=== PATIENT | female | born 1940 | race Caucasian/White ===

== ENCOUNTER 2019-08-28 06:00 | Outpatient (RCR) | payer MEDICARE, OTHER, SELFPAY | END 2019-09-27 00:01 | LOC: SOT 06:00 | PROVIDERS: Family Provider Family Medicine; Visit Provider Orthopaedic Surgery | DX: G56.31 Lesion of radial nerve, right upper limb (principal) | CPT/HCPCS: 97110 ×5 ==

== ENCOUNTER 2019-09-28 06:00 | Outpatient (RCR) | payer MEDICARE, OTHER, SELFPAY | END 2019-10-28 23:59 | disposition home or self-care (01) | LOC: SOT 06:00 | PROVIDERS: Family Provider Family Medicine; PCP Family Medicine; Referring Provider Orthopaedic Surgery; Visit Provider Orthopaedic Surgery | DX: G56.31 Lesion of radial nerve, right upper limb (principal) | CPT/HCPCS: 97110 ==

== ENCOUNTER 2019-10-29 06:00 | Outpatient (RCR) | payer MEDICARE, OTHER, SELFPAY | END 2019-11-26 23:59 | disposition home or self-care (01) | LOC: SOT 06:00 | PROVIDERS: Family Provider Family Medicine; PCP Family Medicine; Referring Provider Orthopaedic Surgery; Visit Provider Orthopaedic Surgery | DX: G56.31 Lesion of radial nerve, right upper limb (principal) | CPT/HCPCS: 97110 ==

== ENCOUNTER 2019-11-27 06:00 | Outpatient (RCR) | payer MEDICARE, OTHER, SELFPAY | END 2019-12-27 23:59 | disposition home or self-care (01) | LOC: SOT 06:00 | PROVIDERS: Family Provider Family Medicine; PCP Family Medicine; Referring Provider Orthopaedic Surgery; Visit Provider Orthopaedic Surgery | DX: G56.31 Lesion of radial nerve, right upper limb (principal) | CPT/HCPCS: 97110 ==

== ENCOUNTER 2020-04-06 07:05 | Outpatient (CLI) | payer MEDICARE, OTHER, SELFPAY ==
--- NOTE | 2020-04-06 07:15 | USCV_ITS ---
Marylou Art Age: 80 Gender: F : 1940 Exam Date: 04/06/2020 07:20 Ordering Phys: Robert Ronquillo MD ([email or web address]) Technologist: Elizabeth Pedro Exam Location: [facility] [place] Indication: carotid stenosis Risk Factors: None Previous Vascular Surgery: None Right Brachial BP: / Left Brachial BP: / Right Left Velocity (cm/s) Spectral Plaque Velocity (cm/s) Spectral Plaque Syst/Diast Broadening Syst/Diast Broadening 56.20/ 15.40 Prox CCA 63.90 / 17.60 33.10/ 9.60 Mid CCA 46.60 / 14.00 43.30/ 10.10 Eugenio Distal CCA 46.60 / 13.20 Eugenio 172.70/52.20 Eugenio Prox ICA 39.70 / 12.80 Eugenio 172.70/46.80 Mid ICA 50.00 / 15.10 149.30/46.80 Distal ICA 59.20 / 21.70 122.30 Eugenio ECA 84.70 Eugenio 3.07 ICA/CCA 0.93 Antegrade Vertebral Antegrade 45.40/ 11.80 cm/s 42.70/ 13.80 cm/s Tri Subclavian Bi 88.20 149.1 0 FINDINGS Moderate to heavy heterogeneous plaques at the right bifurcation and internal carotid artery. Moderate dense plaques of the left bifurcation internal carotid artery. Intimal thickening and minimal plaques in the common carotid arteries bilaterally. Antegrade flow in the vertebral arteries bilaterally. Normal Doppler flow velocities in the external carotid arteries bilaterally. CONCLUSIONS Moderate to heavy heterogeneous plaques at the right bifurcation and internal carotid artery with velocity elevation consistent with 50-79% stenosis. Moderate dense plaques of the left bifurcation internal carotid artery. No similar previous studies are available for comparison Dr Analilia Murray MD [facility] (Electronically Signed) Final Date: 06 April 2020 17:23 S
== END 2020-04-06 07:06 | disposition home or self-care (01) ==
LOC: RAD 07:05
PROVIDERS: PCP Family Medicine; Visit Provider Internal Medicine Cardiovascular Disease
DX: I65.23 Occlusion and stenosis of bilateral carotid arteries (principal)
CPT/HCPCS: 93880

== ENCOUNTER 2020-04-06 08:34 | Emergency (ER) | payer MEDICARE, OTHER, SELFPAY ==
[2020-04-06 08:45] VITALS: BP 129/72; PULSE 90; RESP 20; TEMP 36.4; O2SAT 98; BMI 26.4
--- NOTE | 2020-04-06 08:56 | CT_ITS ---
WS: [id number] CT FACIAL BONES HISTORY: fall TECHNIQUE: Images obtained from the supraorbital location through the mandible. Soft tissue and bone windows are reviewed. Coronal and sagittal reformats have also been submitted. DLP: 743.[address] scans at [facility] use at least one of these dose optimization techniques: automat ed exposure control; mA and/or kV adjustment per patient size (includes targeted exams where dose is matched to clinical indication); or iterative reconstruction. COMPARISON: 06/10/2014 No facial bone fractures are identified. Zygomatic arches and the nasal bones are intact. No mandible or maxilla fractures. Chronic mucoperiosteal thickening in the RIGHT maxillary sinus. No air-fluid l evels. Degenerative changes in the upper cervical spine. Craniocervical junction is normally aligned. Orbits and globes are intact. There is a very small amount of soft tissue edema centered over the LEFT zygo matic arch. CT/CT facial bones wo con* [id number] IMPRESSION: 1. No facial bone fractures. 2. Soft tissue edema over the LEFT zygomatic arch.
--- NOTE | 2020-04-06 08:56 | CT_ITS ---
WS: [id number] CT HEAD NONCONTRAST HISTORY: fall TECHNIQUE: Contiguous axial imaging performed through the brain in 2.5 mm imaging. Bone and soft tiss ue windows. Sagittal and coronal reformats reviewed. All CT scans at [facility] use at ast one of these dose optimization techniques: automated exposure control; mA and/or kV adjustment pe r patient size (includes targeted exams where dose is matched to clinical indication); or iterative r econstruction. DLP: 818.81 mGy.cm COMPARISON: None available. No acute intracranial hemorrhage, midline shift or mass effect. Moderate atrophy and chronic ischemic disease. 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 Small bilat eral lacunar infarcts in the basal ganglia. Ventricles: Normal size with no hydrocephalus. Paranasal sinuses: Mucoperiosteal thickening in the RIGHT maxillary sinus. Mastoid air cells: Well pneumatized. Calvarium and scalp: Marked hyperostosis frontalis interna. CT/CT head wo con* [id number] IMPRESSION: 1. No acute intracranial hemorrhage or edema. 2. Atrophy and chronic ischemic changes and prior RIGHT nicholas radiata infarct .
--- NOTE | 2020-04-06 08:57 | ED_ITS ---
HPI - Fall General: Chief Complaint: Fall Stated Complaint: FALL WITH LEFT SIDE A FACE HURTS Time Seen by Provider: 04/06/20 08:41 History of Present Illness: HPI Narrative: Patient fell over and [facility] on the tile floor striking the left side of her face and head. Patient complains of pain to her left cheekbone and little bit to her forehead. Take 1 aspirin a day. complaint: fall Onset (ago): minute(s) Fall from: standing Fall witnessed: yes, by family Place fall occurred: other ([facility]) Loss of consciousness: None Symptoms prior to fall: none Context: tripped/slipped Location of injury: head and face Associated symptoms-after fall: Reports no associated symptoms; Denies abdominal pain, chest pain or headache(s) Review of Systems Const: Denies: fever(s), chills or body aches Eyes: Denies: change in vision or blurry vision ENMT: Denies: throat pain or nasal congestion Card: Denies: chest pain or dyspnea on exertion Resp: Denies: dyspnea, productive cough or non-productive cough GI: Denies: abdominal pain, nausea or vomiting Musc: Denies: extremity pain Skin/Breast: Reports: other (Fall with bruising to left side of the face and forehead); Denies: rash Neuro: Denies: headache(s) Psych: Denies: anxiety or depression Mello/Lymph: Denies: easy bruising [facility] ED PFSH: Medical History (Updated 04/06/20 @ 10:01 by ONIEL Hayden) Aortic stenosis Atrial fibrillation Cardiomyopathy CHF (congestive heart failure) Diabetes Hollenhorst plaque, both eyes HTN (hypertension) Hyperlipidemia Hypothyroidism Mitral regurgitation Pulmonary HTN Surgical History Status cardiac pacemaker Family History Other Cancer Hypertension Social History Smoking and tobacco status: never smoked Household members: children Marital status: / Physical Exam Const: COMMON NORMALS: no acute distress, average body habitus and patient oriented x3 HENMT: COMMON NORMALS: normocephalic HEAD & SCALP: normal to inspection and normocephalic FACE & SINUS: normal facial exam Eye: COMMON NORMALS: conjunctivae normal GENERAL EYE: appearance normal, both eyes and all related structures CONJUNCTIVA: Yes conjunctivae normal Neck/C-Spine: COMMON NORMALS: no JVD Chest: COMMONS NORMALS: normal inspection of the chest Resp: COMMON NORMALS: normal respiratory effort and clear to auscultation bilaterally AUSCULTATION: clear to auscultation bilaterally Cardio: COMMON NORMALS: no JVD, regular rate and regular rhythm RATE: regular rate RHYTHM: regular rhythm GI: COMMON NORMALS: Normal to inspection, nondistended, normoactive bowel sounds present Extremity: COMMON NORMALS: normal to inspection and full ROM Neuro: COMMON NORMALS: patient oriented x3 Skin: NARRATIVE SKIN EXAM: Slight bruising to the left cheek and abrasion to the left side of the forehead Course Vital Signs: Vital signs: Vital Signs Temperature 98.2 F 04/06/20 10:45 Pulse Rate 85 04/06/20 10:45 Respiratory Rate 16 04/06/20 10:45 Blood Pressure 117/54 04/06/20 10:45 Pulse Oximetry 95 04/06/20 10:45 Discharge Plan Discharge Patient Disposition: Home, Self-Care Clinical Impression: Contusion Qualifiers: Encounter type: initial encounter Contusion area: head Contusion of head detail: periocular area Laterality: left Qualified Code(s): S00.12XA - Contusion of left eyelid and periocular area, initial encounter Condition: Stable Prescriptions: No Action furosemide 20 mg tablet 40 mg PO QAM RF: 0 metformin 500 mg tablet 500 mg PO BID RF: 0 rosuvastatin [Crestor] 10 mg tablet 10 mg PO DAILY RF: 0 aspirin [Adult Low Dose Aspirin] 81 mg tablet,delayed release (DR/EC) 81 mg PO BID RF: 0 [id number]-ndihaxhn-kdotwu Tablet 1 tab PO DAILY RF: 0 metoprolol succinate [Toprol XL] 50 mg tablet extended release 24 hr 25 mg PO BID RF: 0 losartan 50 mg tablet 50 mg PO DAILY RF: 0 isosorbide mononitrate 30 mg tablet extended release 24 hr 30 mg PO DAILY RF: 0 nitroglycerin [Nitrostat] 0.4 mg tablet, sublingual 0.4 mg SUBLINGUAL Q5M PRN (Reason: chest pain) 90 Days Qty: 25 RF: 3 spironolactone 25 mg Tablet 25 mg PO DAILY RF: 0 [place] Thyroid 90 mg Tablet 90 mg PO DAILY RF: 0 Discharge Orders: Discharge Order (Routine); Ordered 04/06/20 Ordered By: Satya Woodard Referrals: James Sy MD [Primary Care Provider] - Discharge Diet: Usual diet Discharge Activity: Resume usual activity Patient Instructions: Contusion in Adults (ED) Activity Restrictions/Additional Instructions: Follow-up your family medical provider as necessary can apply ice to area Discharge Date/Time: 04/06/20 10:47 Coding Level of Care Code ED Delivery Table Feeder for Chg Fwd Exam Comprehensive
[2020-04-06 09:21] VITALS: BP 122/69; PULSE 86; RESP 18; O2SAT 95
[2020-04-06 10:45] VITALS: BP 117/54; PULSE 85; RESP 16; TEMP 36.8; O2SAT 95
== END 2020-04-06 10:47 | disposition home or self-care (01) ==
PROVIDERS: Emergency Provider Nurse Practitioner Family; PCP Family Medicine
DX: S00.12XA Contusion of left eyelid and periocular area, initial encounter (principal); Z79.82 Long term (current) use of aspirin; Z79.84 Long term (current) use of oral hypoglycemic drugs; I48.91 Unspecified atrial fibrillation; I11.0 Hypertensive heart disease with heart failure; I50.9 Heart failure, unspecified; E11.9 Type 2 diabetes mellitus without complications; E78.5 Hyperlipidemia, unspecified; Z95.0 Presence of cardiac pacemaker; W19.XXXA Unspecified fall, initial encounter; Y92.531 Health care provider office as the place of occurrence of the external cause
CPT/HCPCS: 12345; 70450; 70486; 99281; 99283

== ENCOUNTER 2020-04-18 17:45 | Inpatient (IN) | payer MEDICARE, OTHER, SELFPAY ==
[2020-04-18] VITALS (7 sets, daily range): BP systolic 100–113; BP diastolic 68–84; PULSE 84–89; RESP 20–30; TEMP 36.8; O2SAT 95–99; BMI 26.2
--- NOTE | 2020-04-18 18:06 | ECG_ITS ---
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 Measurements Intervals [place] Rate: 87 P: 61 OR: 194 QRS: -59 QRSD: 198 T: 116 QT: 454 QTc: 549 Interpretive Statements ELECTRONIC VENTRICULAR PACEMAKER ABNORMAL RHYTHM ECG No previous ECG available for comparison Electronically Signed On 04-19-2020 17:08:27 CDT by Robert Ronquillo M.D. [id number]
--- NOTE | 2020-04-18 18:06 | XR_ITS ---
WS: [id number] Portable AP upright chest, 04/18/2020 Clinical Data: sob Comparison: PA and lateral chest, 10/09/2016. Findings: No nodules, masses or effusions are seen. The heart is enlarged. The pulmonary vascularity is not increased. No pneumonia or pneumothorax is seen. The aortic arch and descending aorta show boaz cification and tortuosity. A 2-lead pacemaker remains in good position with the generator overlying t he left lateral chest and left axilla. XR/XR chest 1V portable [id number] Impression: Cardiomegaly and atherosclerosis.
[2020-04-18 19:40] LABS: Basophils # 0.1 10^3/uL (0.0-0.1); Basophils % 1.1 %; Eosinophils # 0.1 10^3/uL (0.0-0.8); Eosinophils % 0.9 %; Hematocrit 35.6 % (37.0-47.0); Mean Corpuscular HGB Conc 30.9 g/dL (30.0-36.0); Mean Corpuscular Hemoglobin 33.1 pg (28.0-34.0); Mean Corpuscular Volume 107.2 fL (81-99); Mean Platelet Volume 10.1 fL (7.4-10.4); Monocytes # 0.7 10^3/uL (0.2-0.9); Monocytes % 12.3 %; Neutrophils # 3.56 10^3/uL (1.8-7.7); Neutrophils % 66.3 %; Nucleated Red Blood Cells % 0 %; Platelet Count 205 10^3/cmm (130-400); Red Blood Count 3.32 10^6/uL (4.1-5.3); Red Cell Distribution Width 15.3 % (12.1-15.1); White Blood Count 5.4 10^3/uL (4.0-10.0)
[2020-04-18 20:12] LABS: Alanine Aminotransferase 13 U/L (0-33); Albumin Level 3.9 g/dL (3.5-5.2); Alkaline Phosphatase 142 IU/L (35-105); Aspartate Amino Transferase 31 U/L (0-32); Blood Urea Nitrogen 43 mg/dL (8-23); Calcium 9.5 mg/dL (8.5-10.5); Carbon Dioxide 24 mmol/L (22-29); Chloride 101 mmol/L (98-107); Globulin 3.9 g/dL (1.3-4.6); Glucose 114 mg/dL (65-115); Osmolality Calculated 289 mOsm/kg (285-295); Sodium 140 mmol/L (136-145); Total Bilirubin 1.3 mg/dL (0.15-1.2); Total Protein 7.8 g/dL (6.6-8.7)
--- NOTE | 2020-04-18 21:27 | ED_ITS ---
HPI - SOB/Dyspnea General: Chief Complaint: Shortness of Breath/Dyspnea Stated Complaint: sob Time Seen by Provider: 04/18/20 20:40 History of Present Illness: HPI Narrative: Patient sent from [facility] for possible admission due to shortness of breath fluid overload not responding to oral medications. Said sats were down in the 80s at the clinic. Placed on oxygen did improve. MD elicited complaint: shortness of breath Pertinent past history: congestive heart failure and diabetes Onset (ago): week(s) Timing: constant and progressively worsening Severity: moderate Exacerbating factors: exertion Relieving factors: nothing Associated symptoms: Reports no associated symptoms; Deny abdominal pain, chest pain, extremity pain, fever(s), nausea or vomiting Treatment prior to arrival: oxygen Review of Systems Const: Denies: fever(s), chills or body aches Eyes: Denies: change in vision or blurry vision ENMT: Denies: throat pain or nasal congestion Card: Reports: other (Edema); Denies: chest pain or dyspnea on exertion Resp: Reports: dyspnea; Denies: productive cough or non-productive cough GI: Denies: abdominal pain, nausea or vomiting Musc: Denies: extremity pain Skin/Breast: Denies: rash Neuro: Denies: headache(s) Psych: Denies: anxiety or depression Mello/Lymph: Denies: easy bruising PFSH ED PFSH: Medical History (Updated 04/14/20 @ 00:00 by ) Aortic stenosis Atrial fibrillation Cardiomyopathy CHF (congestive heart failure) Diabetes Hollenhorst plaque, both eyes HTN (hypertension) Hyperlipidemia Hypothyroidism Mitral regurgitation Pulmonary HTN Surgical History (Updated 04/18/20 @ 21:59 by Bill Anderson MD) S/P tonsillectomy Status cardiac pacemaker Family History Other Cancer Hypertension Social History Smoking and tobacco status: never smoked Household members: children Marital status: / Physical Exam Const: COMMON NORMALS: no acute distress, average body habitus and patient oriented x3 HENMT: COMMON NORMALS: normocephalic HEAD & SCALP: normal to inspection and normocephalic FACE & SINUS: normal facial exam Eye: COMMON NORMALS: conjunctivae normal GENERAL EYE: appearance normal, both eyes and all related structures CONJUNCTIVA: Yes conjunctivae normal Neck/C-Spine: COMMON NORMALS: no JVD Chest: COMMONS NORMALS: normal inspection of the chest Resp: COMMON NORMALS: normal respiratory effort EFFORT & INSPECTION: Yes able to speak in complete sentences Cardio: COMMON NORMALS: no JVD, regular rate and regular rhythm RATE: regular rate RHYTHM: regular rhythm GI: COMMON NORMALS: Normal to inspection, nondistended, normoactive bowel sounds present INSPECTION: Yes other (Appears bloated) Extremity: COMMON NORMALS: normal to inspection and full ROM OTHER: Both lower extremities are cool to touch right lower extremity toes appear discolored and slightly red left foot is cool with a #2 toe is red equal pulses in both of them edema 2+ firm to both and left one is weeping some Neuro: COMMON NORMALS: patient oriented x3 Course Vital Signs: Vital signs: Vital Signs Temperature 98.2 F 04/18/20 17:55 Pulse Rate 89 04/18/20 21:55 Respiratory Rate 30 H 04/18/20 22:00 Blood Pressure 100/73 04/18/20 21:55 Pulse Oximetry 96 04/18/20 21:55 MDM - SOB/Dyspnea MDM Narrative: Medical decision making narrative: Spoke to Dr. Sosa about admission Lab Data: Labs: Lab Results 04/18/20 04/18/20 04/18/20 Range/Units 19:20 19:20 20:35 WBC 5.4 (4.0-10.0) 10^3/ uL RBC 3.32 L (4.1-5.3) 10^6/u L Hgb 11.0 L (11.5-15.3) g/dL Hct 35.6 L (37.0-47.0) % MCV 107.2 H (81-99) fL MCH 33.1 (28.0-34.0) pg MCHC 30.9 (30.0-36.0) g/dL RDW 15.3 H (12.1-15.1) % Plt Count 205 (130-400) 10^3/c mm MPV 10.1 (7.4-10.4) fL Neut % (Auto) 66.3 % Lymph % (Auto) 19.0 % [place] % (Auto) 12.3 % Eos % (Auto) 0.9 % Baso % (Auto) 1.1 % Neut # (Auto) 3.56 (1.8-7.7) 10^3/u L Lymph # (Auto) 1.0 (0.8-4.8) 10^3/u L [place] # (Auto) 0.7 (0.2-0.9) 10^3/u L Eos # (Auto) 0.1 (0.0-0.8) 10^3/u L Baso # (Auto) 0.1 (0.0-0.1) 10^3/u L Nucleated RBC % (a uto) 0 % Nucleated RBCs # 0.0 /100WBC Sodium 140 (136-145) mmol/L Potassium 5.0 (3.5-5.1) mmol/L Chloride 101 (98-107) mmol/L Carbon Dioxide 24 (22-29) mmol/L Anion Gap 20.0 H (5-19) BUN 43 H (8-23) mg/dL Creatinine 1.3 H (0.5-0.9) mg/dL GFR Calculation Not Reportable Glucose 114 (65-115) mg/dL Calculated Osmolal ity 289 (285-295) mOsm/k g Calcium 9.5 (8.5-10.5) mg/dL Total Bilirubin 1.3 H (0.15-1.2) mg/dL AST 31 (0-32) U/L ALT 13 (0-33) U/L Alkaline Phosphata se 142 H (35-105) IU/L Troponin T Gen 5 n g/L 37 H (0-10) ng/L NT-Pro-B Natriuret Pep 31332 H (0-450) pg/mL Total Protein 7.8 (6.6-8.7) g/dL Albumin 3.9 (3.5-5.2) g/dL Globulin 3.9 (1.3-4.6) g/dL Discharge Plan Discharge Prescriptions: No Action furosemide 20 mg tablet 40 mg PO QAM RF: 0 metformin 500 mg tablet 500 mg PO BID RF: 0 rosuvastatin [Crestor] 10 mg tablet 10 mg PO DAILY RF: 0 aspirin [Adult Low Dose Aspirin] 81 mg tablet,delayed release (DR/EC) 81 mg PO BID RF: 0 [id number]-mroyerxh-fhplyw Tablet 1 tab PO DAILY RF: 0 metoprolol succinate [Toprol XL] 50 mg tablet extended release 24 hr 25 mg PO BID RF: 0 losartan 50 mg tablet 50 mg PO DAILY RF: 0 isosorbide mononitrate 30 mg tablet extended release 24 hr 30 mg PO DAILY RF: 0 nitroglycerin [Nitrostat] 0.4 mg tablet, sublingual 0.4 mg SUBLINGUAL Q5M PRN (Reason: chest pain) 90 Days Qty: 25 RF: 3 spironolactone 25 mg Tablet 25 mg PO DAILY RF: 0 thyroid (pork) [[place] Thyroid] 90 mg Tablet 90 mg PO DAILY RF: 0 Coding Level of Care Code ED Shell Sorter for Chg Fwd Exam Comprehensive
[2020-04-18 21:30] LABS: Troponin T (5th) Once 37 ng/L (0-10)
--- NOTE | 2020-04-18 21:59 | PM.HP ---
Providers/Chief Complaint Primary Care Provider: James Sy MD Chief Complaint: sob History of Present Illness Marylou Art is a 80 year old female carries history of cardiomyopathy EF 35%, mitral regurgitation, mild aortic stenosis secondary pulmonary hypertension, atrial fibrillation, not on anticoagulation because of GI bleed, coming in with chief complaint of shortness of breath. Patient follows up with Dr. Ronquillo, Dr. Ronquillo sent her to [facility] when she had biventricular enlargement, biatrial enlargement global hypokinesia with grade 2 diastolic dysfunction for mitral valve surgery but she was not a candidate for mitral valve surgery or mitral clip. Today patient went to her primary care physician for follow-up. At the clinic her pulse ox was reading O2 saturation between 59 to 80% hence she was asked to come to the ED for further evaluation to see if she would require home O2. Patient is stating that she lives alone at home, she is not very active at baseline but tries to manage her daily activities on her own, she uses 2 pillows to sleep, no worsening of orthopnea PND, he has chronic venous stasis dermatitis, chronic leg swelling, no active hyperemia inflammation, fever. Diagnostics in the ER revealed congestive heart failure exacerbation, she saturating well on room air 97%, started blood pressure ranging between 95-99, she is comfortable laying supine, high BNP, x-ray shows congestion, troponin 37 without any active chest pain Review of Systems Const: Reports: body aches and fatigue; Denies: fever(s) or chills Eyes: Reports: blurry vision; Denies: change in vision ENMT: Denies: throat pain Card: Reports: swelling of feet/ankles, dyspnea on exertion and orthopnea; Denies: chest pain or palpitations Resp: Reports: dyspnea GI: Reports: early satiety; Denies: abdominal pain, nausea or vomiting : Denies: flank pain Musc: Denies: neck pain Skin/Breast: Reports: lesions (Bruise around her left chin area) Neuro: Denies: headache(s) Psych: Denies: anxiety or depression Endo: Denies: polyuria Mello/Lymph: Reports: easy bruising, easy bleeding and petechiae All/Imm: Denies: urticaria Medications/Allergies Home Medications Medication Instructions Recorded Confirmed Last Taken Type aspirin 81 mg tablet,delayed 81 mg PO BID tab 11/02/19 04/18/20 04/18/20 History release furosemide 20 mg tablet 40 mg PO QAM 11/02/19 04/18/20 04/18/20 History metformin 500 mg tablet 500 mg PO BID 11/02/19 04/18/20 04/18/20 History vhybrqnteamf-efonsgtg-sdkgyq 1 tab PO DAILY 11/02/19 04/18/20 04/18/20 History rosuvastatin 10 mg tablet 10 mg PO DAILY 11/02/19 04/18/20 04/18/20 History metoprolol succinate 50 mg 25 mg PO BID tab 11/10/19 04/18/20 04/18/20 History tablet,extended release 24 hr nitroglycerin 0.4 mg sublingual 0.4 mg SUBLINGUAL Q5M PRN 90 Days 01/27/20 04/18/20 Unknown Rx tablet #25 tab isosorbide mononitrate 30 mg 30 mg PO DAILY 02/23/20 04/18/20 04/18/20 History tablet,extended release 24 hr losartan 50 mg tablet 50 mg PO DAILY 02/23/20 04/18/20 04/18/20 History spironolactone 25 mg PO DAILY 04/06/20 04/18/20 04/18/20 History thyroid (pork) [[place] Thyroid] 90 mg PO DAILY 04/06/20 04/18/20 04/18/20 History Allergies Allergy/AdvReac Type Severity Reaction Status Date / Time Penicillins Allergy Intermediate ALGY-Rash Verified 04/18/20 17:59 Sulfa (Sulfonamide Allergy Intermediate ALGY-Rash Verified 04/18/20 17:59 Antibiotics) dexamethasone AdvReac Severe ADR-Chest Verified 04/18/20 17:59 Pain PFSH Acute PFSH: Medical History Aortic stenosis Atrial fibrillation Cardiomyopathy CHF (congestive heart failure) Diabetes Hollenhorst plaque, both eyes HTN (hypertension) Hyperlipidemia Hypothyroidism Mitral regurgitation Pulmonary HTN Surgical History S/P tonsillectomy Status cardiac pacemaker Family History Other Cancer Hypertension Social History Smoking and tobacco status: never smoked Household members: children Marital status: / Vitals/I&O/Wt Last Vital Signs Temp 98.2 F 04/18/20 17:55 Pulse 84 04/18/20 20:29 Resp 28 H 04/18/20 20:55 BP 113/84 04/18/20 20:29 Pulse Ox 95 04/18/20 20:29 Weight last 48 hrs Weight 67.132 kg Physical Exam Narrative: EXAM NARRATIVE: Elderly frail female very pleasant to communicate Currently saturating well on room air laying supine Systolic blood pressure 95 to 99 mmHg Mild signs of CHF exacerbation Venous stasis dermatitis without active signs of cellulitis Cold extremities with weak dorsalis pedis pulses 1+ bilaterally no active signs of gangrene or ulcer Bilateral breath sounds without adventitious sounds mild crackles at the bases Bruise around left lopez area no active bleeding Abdomen distended, bloated, nontender, bowel sound present EOMI, PERRLA Nonfocal neurological exam Data : 04/18/20 19:20 04/18/20 19:20 A&P Assessment and plan (1) CHF (congestive heart failure): Status: Acute (2) Cardiomyopathy: Status: Acute Additional A&P Information Acute on chronic systolic CHF exacerbation with underlying severe regurgitation of mitral valve and mitral valve mild stenosis No active chest pain, troponin 37 EKG not showing any infarctive change I believe this is gradually worsening of her underlying cardiomyopathy She is not a candidate for mitral valve clip or surgery I will discontinue her Lasix and spironolactone because of abnormal creatinine and use Bumex for now Spironolactone to be initiated once creatinine is better Continue aspirin, losartan, Imdur, metoprolol succinate, rosuvastatin Home O2 assessment before discharge Low risk for COVID Acute kidney injury Most likely cardiorenal etiology/prerenal Anticipating improvement with diuresis I have opted for Bumex instead of Lasix No electrolyte abnormality Holding spironolactone and losartan at this point, to be initiated before discharge A. fib without RVR Not a candidate to be on anticoagulation because of chronic anemia Continue metoprolol succinate Hypothyroidism: Continue levothyroxine Limited resuscitation okay with CPR and intubation but does not want to prolong resuscitation efforts in case of cardiac arrest Cardiac diet DVT prophylaxis not indicated because of anemia, would use SCDs Attestations Medical Necessity Statement*: Anticipating discharge in less than 48 hours currently need change of diuretics and home O2 evaluation before discharge Time Spent in Patient Care: (>than 50% of time spent in counselling and/or direct pt care on unit). 40 minutes Coding Level of Care Code Acute [place] Attacher for Chg Fwd Diagnoses CHF (congestive heart failure) I50.9 Cardiomyopathy I42.9
[2020-04-18] MEDS: FUROsemide 10 mg/mL SDV 2mL 20 MG IVP (23:07)
[2020-04-19] VITALS (7 sets, daily range): BP systolic 101–125; BP diastolic 56–78; PULSE 71–91; RESP 18; TEMP 36.1–37; O2SAT 93–100
[2020-04-19 06:07] LABS: Eosinophils # 0.1 10^3/uL (0.0-0.8); Eosinophils % 1.2 %; Hematocrit 33.6 % (37.0-47.0); Hemoglobin 10.5 g/dL (11.5-15.3); Lymphocytes # 0.8 10^3/uL (0.8-4.8); Lymphocytes % 18.7 %; Mean Corpuscular HGB Conc 31.3 g/dL (30.0-36.0); Mean Corpuscular Hemoglobin 32.9 pg (28.0-34.0); Mean Corpuscular Volume 105.3 fL (81-99); Mean Platelet Volume 10.3 fL (7.4-10.4); Monocytes # 0.6 10^3/uL (0.2-0.9); Monocytes % 14.9 %; Neutrophils # 2.57 10^3/uL (1.8-7.7); Nucleated Red Blood Cells % 0 %; Platelet Count 193 10^3/cmm (130-400); Red Blood Count 3.19 10^6/uL (4.1-5.3); Red Cell Distribution Width 15.1 % (12.1-15.1)
[2020-04-19 06:27] LABS: Anion Gap 15.6 (5-19); Blood Urea Nitrogen 42 mg/dL (8-23); Calcium 9.4 mg/dL (8.5-10.5); Carbon Dioxide 27 mmol/L (22-29); Chloride 101 mmol/L (98-107); Glucose 92 mg/dL (65-115); Osmolality Calculated 285 mOsm/kg (285-295); Potassium 4.6 mmol/L (3.5-5.1); Sodium 139 mmol/L (136-145)
[2020-04-19 06:34] LABS: Glucose Point of Care 97 mg/dL (70-110)
[2020-04-19] MEDS: thyroid 60 mg Tablet 90 MG PO (08:21)
[2020-04-19] MEDS: isosorbide mononitrate ER 30 mg Tablet PO (08:22)
[2020-04-19] MEDS: atorvastatin 40 mg Tablet PO (08:22)
[2020-04-19] MEDS: metoprolol succinate ER (24 HR) 50 mg Tablet 25 MG PO ×2 (08:22→17:59)
[2020-04-19] MEDS: aspirin 81 mg EC Tablet PO ×2 (08:22→17:59)
[2020-04-19] MEDS: bumetanide 1 mg Tablet PO (08:22)
[2020-04-19 11:11] LABS: Glucose Point of Care 133 mg/dL (70-110)
--- NOTE | 2020-04-19 15:13 | PM.PN ---
Subjective Subjective: Interval history: Sitting comfortably in bed, very pleasant, no noted conversational dyspnea during my encounter, has had 700 mL urine output so far, reviewed labs and reviewed chart as well. Noted abdominal distention, some lower extremity edema as well. Had home O2 evaluation done earlier today, does not qualify for this. Oxygen saturation consistently above 92% on room air. Medications: Reviewed: Yes Medication Review Details: Active Medications Generic Name Dose Route Start Last Admin Trade Name Freq PRN Reason Stop Dose Admin Aspirin 81 mg 04/19/20 09:00 04/19/20 08:22 Aspirin Ec PO 81 mg BID BRISSA Administration Atorvastatin Calci um 40 mg 04/19/20 09:00 04/19/20 08:22 Lipitor PO 40 mg DAILY BRISSA Administration Bumetanide 1 mg 04/19/20 09:00 04/19/20 08:22 Bumex PO 1 mg DAILY BRISSA Administration Dextrose 25 ml 04/18/20 23:34 D50w IVP ONCE PRN hypoglycemia prot ocol Protocol Dextrose 50 ml 04/18/20 23:34 D50w IVP PRN PRN hypoglycemia prot ocol Protocol Glucagon 1 mg 04/18/20 23:34 Glucagen IM ONCE PRN Adult Acute Hypog lycemia Prot. Protocol Dextrose 500 mls @ 100 mls /hr 04/18/20 23:34 D5w IV ONCE PRN Adult Acute Hypog lycemia Prot Protocol Insulin Aspart 0 unit 04/19/20 08:00 04/19/20 11:19 Novolog SUBCUT Not Given WM&BEDTIME BRISSA Protocol Isosorbide Mononit rate 30 mg 04/19/20 09:00 04/19/20 08:22 Imdur PO 30 mg DAILY BRISSA Administration Metolazone 2.5 mg 04/19/20 15:13 Zaroxolyn PO 04/19/20 15:14 NOW ONE Metoprolol Succina te 25 mg 04/19/20 09:00 04/19/20 08:22 Toprol Xl PO 25 mg BID BRISSA Administration Multivitamins/Mine rals 1 tab 04/19/20 09:00 04/19/20 08:22 Thera M Plus PO 1 tab DAILY BRISSA Administration Nitroglycerin 0.4 mg 04/18/20 23:34 Nitrostat SUBLINGUAL Q5M PRN chest pain Thyroid 90 mg 04/19/20 09:00 04/19/20 08:21 [place] Thyroid PO 90 mg DAILY BRISSA Administration Penicillins Allergy (Intermediate, Verified 04/18/20 17:59) ALGY-Rash Sulfa (Sulfonamide Antibiotics) Allergy (Intermediate, Verified 04/18/20 17:59) ALGY-Rash dexamethasone Adverse Reaction (Severe, Verified 04/18/20 17:59) ADR-Chest Pain Vitals/I&O/Wt Last Vital Signs Temp 98.6 F 04/19/20 11:25 Pulse 75 04/19/20 11:25 Resp 18 04/19/20 11:25 BP 107/58 04/19/20 11:25 Pulse Ox 95 04/19/20 11:25 04/19/20 04/19/20 04/19/20 06:59 14:59 22:59 Intake Total 840 / 840 Output Total 400 / 400 300 / 300 Balance -400 / -400 540 / 540 Weight last 48 hrs Weight 67.132 kg Physical Exam Const: COMMON NORMALS: no acute distress and patient oriented x3 GENERAL APPEARANCE: cooperative and comfortable ORIENTATION/CONSCIOUSNESS: Yes awake OTHER: -Looks younger than stated age, very pleasant HENMT: COMMON NORMALS: normocephalic, atraumatic, hearing grossly normal bilaterally and moist oral mucous membranes HEAD & SCALP: normocephalic and atraumatic Eye: COMMON NORMALS: Equal, round and reactive pupils present, EOMs intact bilaterally and conjunctivae normal CONJUNCTIVA: Yes conjunctivae normal PUPIL: Yes Equal, round and reactive pupils present Neck/C-Spine: COMMON NORMALS: full ROM GENERAL: Yes normal visual inspection and Yes trachea midline Resp: COMMON NORMALS: normal respiratory effort, No retractions, No use of accessory muscles and clear to auscultation bilaterally EFFORT & INSPECTION: Yes able to speak in complete sentences, Yes symmetric chest movement and No tachypneic AUSCULTATION: clear to auscultation bilaterally Cardio: COMMON NORMALS: regular rate, regular rhythm, S1 normal heart sound present and S2 normal heart sound present RATE: regular rate RHYTHM: regular rhythm HEART SOUNDS: S1 normal heart sound present, S2 normal heart sound present and Murmur heart sound present systolic GI: COMMON NORMALS: Soft to palpation and non-tender INSPECTION: Yes abdominal distension and Yes central obesity PALPATION: Yes Soft to palpation Extremity: COMMON NORMALS: normal to inspection and full ROM GENERAL: Yes edema (1-2+ pitting edema of bilateral lower extremities) Neuro: COMMON NORMALS: patient oriented x3, moves all extremities, no focal motor deficits and no sensory deficits noted Psych: COMMON NORMALS: mental status grossly normal, Normal thought process present, cooperative, normal affect and speech normal SPEECH: Yes normal speech THOUGHT PROCESS: Normal thought process present Skin: COMMON NORMALS: no rashes or lesions noted, no jaundice, no petechiae and no mottling NARRATIVE SKIN EXAM: -Fading bruising noted on left cheek and chin from previous fall GENERAL SKIN EXAM: no rashes or lesions noted Data : 04/19/20 05:31 04/19/20 05:31 A&P Assessment and plan (1) CHF (congestive heart failure): -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 Ronquillo -Chest x-ray reported as cardiomegaly, no noted pulmonary vascular congestion Status: Acute Qualifiers: Heart failure chronicity: acute on chronic Heart failure type: combined systolic and diastolic Qualified Code(s): I50.43 - Acute on chronic combined systolic (congestive) and diastolic (congestive) heart failure (2) Hypothyroidism: -continue thyroid replacement Status: Chronic Qualifiers: Hypothyroidism type: unspecified Qualified Code(s): E03.9 - Hypothyroidism, unspecified (3) Diabetes: -Accucheks, ISS, hypoglycemia precautions -cardiac consistent carb diet Status: Chronic Qualifiers: Diabetes mellitus complication status: with other specified complication Diabetes mellitus correction insulin use: without buttermaker use Diabetes mellitus type: type 2 Qualified Code(s): E11.69 - Type 2 diabetes mellitus with other specified complication (4) Hyperlipidemia: -on statin Status: Chronic Qualifiers: Hyperlipidemia type: unspecified Qualified Code(s): E78.5 - Hyperlipidemia, unspecified (5) HTN (hypertension): -VSS; continue to monitor -continue oral antihypertensives Status: Chronic Qualifiers: Hypertension type: essential hypertension Qualified Code(s): I10 - Essential (primary) hypertension Additional A&P Information -known hx of mitral regurgitation, pulmonary HTN; evaluated at [facility] secondary to mitral regurgitation, not deemed an appropriate surgical candidate, due to calcified valve not appropriate for mitral clip. -s/p pacemaker -DVT ppx with heparin -Dispo: home; lives alone but may benefit from services -Code status: FULL code -inpatient status due to need for additional diuresis. Attestations Medical Necessity Statement*: Patient requires hospitalization for continued diuresis secondary to acute CHF exacerbation. Time Spent in Patient Care: Greater than 35 minutes (>than 50% of time spent in counselling and/or direct pt care on unit). Coding Level of Care Code Acute [employer] for [facility] Fwd Exam Comprehensive Diagnoses CHF (congestive heart failure) I50.43 Heart failure chronicity: acute on chronic Heart failure type: combined systolic and diastolic Hypothyroidism E03.9 Hypothyroidism type: unspecified Diabetes E11.69 Diabetes mellitus complication status: with other specified complication Diabetes mellitus buttermaker insulin use: without correction use Diabetes mellitus type: type 2 Hyperlipidemia E78.5 Hyperlipidemia type: unspecified HTN (hypertension) I10 Hypertension type: essential hypertension
[2020-04-19] MEDS: metOLazone 5 MG Tablet 2.5 MG PO (16:29)
[2020-04-19] MEDS: heparin 5,000 unit/mL INJ 1 mL 5000 UNIT SUBCUT (16:29)
[2020-04-19 16:53] LABS: Glucose Point of Care 132 mg/dL (70-110)
[2020-04-19 21:26] LABS: Glucose Point of Care 181 mg/dL (70-110)
[2020-04-20] VITALS (7 sets, daily range): BP systolic 95–115; BP diastolic 39–70; PULSE 68–81; RESP 16–18; TEMP 36.6–37; O2SAT 92–100
[2020-04-20 03:29] LABS: Basophils % 0.9 %; Eosinophils # 0.1 10^3/uL (0.0-0.8); Eosinophils % 2.4 %; Hematocrit 30.1 % (37.0-47.0); Hemoglobin 9.4 g/dL (11.5-15.3); Lymphocytes # 0.8 10^3/uL (0.8-4.8); Lymphocytes % 17.9 %; Mean Corpuscular HGB Conc 31.2 g/dL (30.0-36.0); Mean Corpuscular Hemoglobin 32.3 pg (28.0-34.0); Mean Corpuscular Volume 103.4 fL (81-99); Mean Platelet Volume 10.1 fL (7.4-10.4); Monocytes # 0.7 10^3/uL (0.2-0.9); Monocytes % 15.9 %; Neutrophils # 2.88 10^3/uL (1.8-7.7); Neutrophils % 62.7 %; Nucleated Red Blood Cells % 0 %; Platelet Count 190 10^3/cmm (130-400); Red Blood Count 2.91 10^6/uL (4.1-5.3); Red Cell Distribution Width 15.2 % (12.1-15.1); White Blood Count 4.6 10^3/uL (4.0-10.0)
[2020-04-20] MEDS: heparin 5,000 unit/mL INJ 1 mL 5000 UNIT SUBCUT ×2 (03:37→15:45)
[2020-04-20 03:52] LABS: Anion Gap 12.5 (5-19); Blood Urea Nitrogen 43 mg/dL (8-23); Calcium 9.1 mg/dL (8.5-10.5); Carbon Dioxide 28 mmol/L (22-29); Chloride 101 mmol/L (98-107); Glucose 94 mg/dL (65-115); Osmolality Calculated 282 mOsm/kg (285-295); Potassium 4.5 mmol/L (3.5-5.1); Sodium 137 mmol/L (136-145)
[2020-04-20 07:10] LABS: Glucose Point of Care 87 mg/dL (70-110)
[2020-04-20] MEDS: aspirin 81 mg EC Tablet PO ×2 (08:51→17:36)
[2020-04-20] MEDS: bumetanide 1 mg Tablet PO (08:51)
[2020-04-20] MEDS: isosorbide mononitrate ER 30 mg Tablet PO (08:51)
[2020-04-20] MEDS: metoprolol succinate ER (24 HR) 50 mg Tablet 25 MG PO (08:51)
[2020-04-20] MEDS: atorvastatin 40 mg Tablet PO (08:51)
[2020-04-20] MEDS: thyroid 60 mg Tablet 90 MG PO (08:59)
--- NOTE | 2020-04-20 09:46 | PC.CHAP ---
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 visit [] Patient/Family/Request visit [] Outpatient visit [] Follow-up visit [] Physician referral [] Code/Alert [x] Routine visit [] Staff referral [] Actively dying [] Patient sleeping [] Family support [] [] Out of room [] Palliative care [] [] Receiving care in room [] Pre-surgical visit [] Trauma [] Long length of stay [] ICU visit [] Other: Relational/Emotional Strength [] Patient feels connected with others/family/visitors/staff [] Distress [] Loneliness/isolation [] Abandonment Spirituality of Patient [] Person of Cathryn [] Attends [employer] of their Cathryn [] Believes in Prayer [] Reads Bible or Congregation materials [] There are Spiritual issues to be addressed Risk Management Intern Interventions [x] Prayer [x] Active listening [x] Non-anxious presence [x] Spiritual/emotional support [] Crisis/trauma care [] Spiritual counseling [] Bereavement support [] Provided bereavement packet [] Provided Bible/devotional materials [] Provided toy/stuffed animal, coloring book to patient or family member [] Provided Communion [] Anointing/[place] [] Salvation [x] Completed spiritual assessment [] Other: Impact on Illness or Injury [] Angry [] Fearful [] Anxious [] Often cries [] Exhaustion [] Unable to work [] Unable to attend [employer] [] Unable to walk/stand [] Unable to read [] Unable to drive [] Unable to eat/drink [] Unable to sleep [] Unable to be with family [] Patient intubated [] Other: Summary Patient resting well. Time spent with patient 10 min
[2020-04-20 11:05] LABS: Glucose Point of Care 139 mg/dL (70-110)
--- NOTE | 2020-04-20 15:03 | P.PN_ITS ---
Subjective Subjective: Interval history: Patient seen and examined, he is feeling a little better but still is overall quite swollen. Was hoping to go home today but understands need for continued diuresis. Hemodynamically stable, had 1510 mL urine output overnight for total negative fluid balance of 760 mL. Slight drop in hemoglobin from 10.5->9.4 today, creatinine increased from 1.3->1.5. Medications: Reviewed: Yes Medication Review Details: Active Medications Generic Name Dose Route Start Last Admin Trade Name Freq PRN Reason Stop Dose Admin Aspirin 81 mg 04/19/20 09:00 04/20/20 08:51 Aspirin Ec PO 81 mg BID BRISSA Administration Atorvastatin Calci um 40 mg 04/19/20 09:00 04/20/20 08:51 Lipitor PO 40 mg DAILY BRISSA Administration Bumetanide 1 mg 04/19/20 09:00 04/20/20 08:51 Bumex PO 1 mg DAILY BRISSA Administration Dextrose 25 ml 04/18/20 23:34 D50w IVP ONCE PRN hypoglycemia prot ocol Protocol Dextrose 50 ml 04/18/20 23:34 D50w IVP PRN PRN hypoglycemia prot ocol Protocol Glucagon 1 mg 04/18/20 23:34 Glucagen IM ONCE PRN Adult Acute Hypog lycemia Prot. Protocol Heparin Sodium (Be ef Lung) 5,000 unit 04/19/20 15:30 04/20/20 03:37 Heparin SUBCUT 5,000 unit Q12H BRISSA Administration Dextrose 500 mls @ 100 mls /hr 04/18/20 23:34 D5w IV ONCE PRN Adult Acute Hypog lycemia Prot Protocol Insulin Aspart 0 unit 04/19/20 08:00 04/20/20 12:06 Novolog SUBCUT Not Given WM&BEDTIME BRISSA Protocol Isosorbide Mononit rate 30 mg 04/19/20 09:00 04/20/20 08:51 Imdur PO 30 mg DAILY BRISSA Administration Metoprolol Succina te 25 mg 04/19/20 09:00 04/20/20 08:51 Toprol Xl PO 25 mg BID BRISSA Administration Multivitamins/Mine rals 1 tab 04/19/20 09:00 04/20/20 08:52 Thera M Plus PO 1 tab DAILY BRISSA Administration Nitroglycerin 0.4 mg 04/18/20 23:34 Nitrostat SUBLINGUAL Q5M PRN chest pain Thyroid 90 mg 04/19/20 09:00 04/20/20 08:59 [place] Thyroid PO 90 mg DAILY BRISSA Administration Penicillins Allergy (Intermediate, Verified 04/18/20 17:59) ALGY-Rash Sulfa (Sulfonamide Antibiotics) Allergy (Intermediate, Verified 04/18/20 17:59) ALGY-Rash dexamethasone Adverse Reaction (Severe, Verified 04/18/20 17:59) ADR-Chest Pain Vitals/I&O/Wt Last Vital Signs Temp 98.3 F 04/20/20 11:54 Pulse 75 04/20/20 11:54 Resp 16 04/20/20 11:54 BP 115/70 04/20/20 11:54 Pulse Ox 98 04/20/20 11:54 04/20/20 04/20/20 04/20/20 06:59 14:59 22:59 Intake Total 240 / 1320 480 / 480 Output Total 1010 / 1810 350 / 350 Balance -770 / -490 130 / 130 Weight last 48 hrs Weight 67.132 kg Physical Exam Const: COMMON NORMALS: no acute distress and patient oriented x3 GENERAL A PPEARANCE: cooperative, comfortable and Edematous ORIENTATION/CONSCIOUSNESS: Yes awake OTHER: -Looks younger than stated age, very pleasant HENMT: COMMON NORMALS: normocephalic, atraumatic, hearing grossly normal bilaterally and moist oral mucous membranes HEAD & SCALP: normocephalic and atraumatic Eye: COMMON NORMALS: Equal, round and reactive pupils present, EOMs intact bilaterally and conjunctivae normal CONJUNCTIVA: Yes conjunctivae normal PUPIL: Yes Equal, round and reactive pupils present Neck/C-Spine: COMMON NORMALS: full ROM GENERAL: Yes normal visual inspection and Yes trachea midline Resp: COMMON NORMALS: normal respiratory effort, No retractions, No use of accessory muscles and clear to auscultation bilaterally EFFORT & INSPECTION: Yes able to speak in complete sentences, Yes symmetric chest movement and No tachypneic AUSCULTATION: clear to auscultation bilaterally Cardio: COMMON NORMALS: regular rate, regular rhythm, S1 normal heart sound present and S2 normal heart sound present RATE: regular rate RHYTHM: regular rhythm HEART SOUNDS: S1 normal heart sound present, S2 normal heart sound present and Murmur heart sound present systolic GI: COMMON NORMALS: Soft to palpation and non-tender INSPECTION: Yes abdominal distension and Yes central obesity PALPATION: Yes Soft to palpation Extremity: COMMON NORMALS: normal to inspection and full ROM GENERAL: Yes edema (1-2+ pitting edema of bilateral lower extremities) Neuro: COMMON NORMALS: patient oriented x3, moves all extremities, no focal motor deficits and no sensory deficits noted Psych: COMMON NORMALS: mental status grossly normal, Normal thought process present, cooperative, normal affect and speech normal SPEECH: Yes normal speech THOUGHT PROCESS: Normal thought process present Skin: COMMON NORMALS: no rashes or lesions noted, no jaundice, no petechiae and no mottling NARRATIVE SKIN EXAM: -Fading bruising noted on left cheek and chin from previous fall GENERAL SKIN EXAM: no rashes or lesions noted Data : 04/20/20 02:57 04/20/20 02:57 A&P Assessment and plan (1) CHF (congestive heart failure): -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 Anasarca clinically -Last echo on record done in 05/2019 showing an ejection fraction of 35%, noted regional wall motion abnormalities and grade 2 diastolic dysfunction -Secondary to noted renal impairment currently on diuresis with Bumex. Due to continued anasarca we will switch to IV with continued close monitoring of renal function -Had home oxygen evaluation done earlier today, does not qualify for this -Supplemental oxygen as needed, continue to monitor respiratory status -VSS; continue to monitor -Telemetry monitoring -Daily weights, monitor ins and outs -Follows up with Dr. Ronquillo -Chest x-ray reported as cardiomegaly, no noted pulmonary vascular congestion Status: Acute Qualifiers: Heart failure chronicity: acute on chronic Heart failure type: combined systolic and diastolic Qualified Code(s): I50.43 - Acute on chronic combined systolic (congestive) and diastolic (congestive) heart failure (2) Hypothyroidism: -continue thyroid replacement Status: Chronic Qualifiers: Hypothyroidism type: unspecified Qualified Code(s): E03.9 - Hypothyroidism, unspecified (3) Diabetes: -Accucheks, ISS, hypoglycemia precautions -cardiac consistent carb diet Status: Chronic Qualifiers: Diabetes mellitus type: type 2 Diabetes mellitus 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 terminal 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 insulin use: without [facility] use Diabetes mellitus complication status: with other specified complication Qualified Code(s): E11.69 - Type 2 diabetes mellitus with other specified complication (4) Hyperlipidemia: -on statin Status: Chronic Qualifiers: Hyperlipidemia type: unspecified Qualified Code(s): E78.5 - Hyperlipidemia, unspecified (5) HTN (hypertension): -VSS; continue to monitor -continue oral antihypertensives Status: Chronic Qualifiers: Hypertension type: essential hypertension Qualified Code(s): I10 - Essential (primary) hypertension Additional A&P Information -known hx of mitral regurgitation, pulmonary HTN; evaluated at [facility] secondary to mitral regurgitation, not deemed an appropriate surgical candidate, due to calcified valve not appropriate for mitral clip. -s/p pacemaker -DVT ppx with heparin -Dispo: home; lives alone but may benefit from HH services. Feels that she has adequate support from family -Code status: FULL code Attestations Medical Necessity Statement*: Patient requires hospitalization for additional diuresis, will be switched to IV diuretics secondary to continued anasarca. Time Spent in Patient Care: 16 - 35 minutes (>than 50% of time spent in counselling and/or direct pt care on unit) . Coding Level of Care Code Acute [employer] [facility] Fwd Diagnoses CHF (congestive heart failure) I50.43 Heart failure chronicity: acute on chronic Heart failure type: combined systolic and diastolic Hypothyroidism E03.9 Hypothyroidism type: unspecified Diabetes E11.69 Diabetes mellitus type: type 2 Diabetes mellitus [facility] insulin use: without computer terminal operator use Diabetes mellitus complication status: with other specified complication Hyperlipidemia E78.5 Hyperlipidemia type: unspecified HTN (hypertension) I10 Hypertension type: essential hypertension
[2020-04-20] MEDS: bumetanide 0.25 mg/mL SDV 10 mL 1 MG IV (15:48)
--- NOTE | 2020-04-20 16:43 | PC.RESP ---
PATIENT DOES NOT HAVE A QUALIFYING HX OF LUNG DISEASE AND DOES NOT QUALIFY FOR PULMONARY REHAB.
[2020-04-20 17:26] LABS: Glucose Point of Care 98 mg/dL (70-110)
[2020-04-20 21:14] LABS: Glucose Point of Care 156 mg/dL (70-110)
[2020-04-21] VITALS: BP 104/67; PULSE 87; RESP 18; TEMP 36.4; O2SAT 95
[2020-04-21 04:00] VITALS: BP 113/67; PULSE 76; RESP 17; TEMP 36.7; O2SAT 95
[2020-04-21] MEDS: heparin 5,000 unit/mL INJ 1 mL 5000 UNIT SUBCUT ×2 (04:14→15:49)
[2020-04-21] MEDS: bumetanide 0.25 mg/mL SDV 10 mL 1 MG IV ×2 (04:14→15:49)
[2020-04-21 06:37] LABS: Glucose Point of Care 109 mg/dL (70-110)
[2020-04-21 06:38] LABS: Anion Gap 15.1 (5-19); Blood Urea Nitrogen 44 mg/dL (8-23); Calcium 9.3 mg/dL (8.5-10.5); Carbon Dioxide 28 mmol/L (22-29); Chloride 96 mmol/L (98-107); Glucose 101 mg/dL (65-115); Osmolality Calculated 278 mOsm/kg (285-295); Potassium 4.1 mmol/L (3.5-5.1); Sodium 135 mmol/L (136-145)
[2020-04-21 07:41] VITALS: BP 120/73; PULSE 76; RESP 16; TEMP 36.6; O2SAT 98
[2020-04-21] MEDS: aspirin 81 mg EC Tablet PO ×2 (08:11→17:51)
[2020-04-21] MEDS: metoprolol succinate ER (24 HR) 50 mg Tablet 25 MG PO ×2 (08:11→17:51)
[2020-04-21] MEDS: thyroid 60 mg Tablet 90 MG PO (08:11)
[2020-04-21] MEDS: atorvastatin 40 mg Tablet PO (08:11)
[2020-04-21] MEDS: isosorbide mononitrate ER 30 mg Tablet PO (08:11)
[2020-04-21 10:58] LABS: Glucose Point of Care 142 mg/dL (70-110)
[2020-04-21 11:54] VITALS: BP 93/54; PULSE 74; RESP 16; TEMP 36.9; O2SAT 94
[2020-04-21 15:52] VITALS: BP 93/56; PULSE 77; RESP 14; TEMP 36.8; O2SAT 92
[2020-04-21 16:21] LABS: Glucose Point of Care 156 mg/dL (70-110)
--- NOTE | 2020-04-21 16:30 | P.PN_ITS ---
Subjective Subjective: Interval history: Diuresed much better with urine output of 2800 mL overnight for a total negative fluid balance of 3.8 L. Hemodynamically stable, on room air, stable renal function. Feels better and has noticed less tightness particularly around her knees. Medications: Reviewed: Yes Medication Review Details: Active Medications Generic Name Dose Route Start Last Admin Trade Name Freq PRN Reason Stop Dose Admin Aspirin 81 mg 04/19/20 09:00 04/21/20 08:11 Aspirin Ec PO 81 mg BID BRISSA Administration Atorvastatin Calci um 40 mg 04/19/20 09:00 04/21/20 08:11 Lipitor PO 40 mg DAILY BRISSA Administration Bumetanide 1 mg 04/19/20 09:00 04/20/20 08:51 Bumex PO 1 mg DAILY BRISSA Administration Bumetanide 1 mg 04/20/20 15:15 04/21/20 15:49 Bumex IV 1 mg Q12H BRISSA Administration Dextrose 25 ml 04/18/20 23:34 D50w IVP ONCE PRN hypoglycemia prot ocol Protocol Dextrose 50 ml 04/18/20 23:34 D50w IVP PRN PRN hypoglycemia prot ocol Protocol Glucagon 1 mg 04/18/20 23:34 Glucagen IM ONCE PRN Adult Acute Hypog lycemia Prot. Protocol Heparin Sodium (Be ef Lung) 5,000 unit 04/19/20 15:30 04/21/20 15:49 Heparin SUBCUT 5,000 unit Q12H BRISSA Administration Dextrose 500 mls @ 100 mls /hr 04/18/20 23:34 D5w IV ONCE PRN Adult Acute Hypog lycemia Prot Protocol Insulin Aspart 0 unit 04/19/20 08:00 04/21/20 13:09 Novolog SUBCUT Not Given WM&BEDTIME BRISSA Protocol Isosorbide Mononit rate 30 mg 04/19/20 09:00 04/21/20 08:11 Imdur PO 30 mg DAILY BRISSA Administration Metoprolol Succina te 25 mg 04/19/20 09:00 04/21/20 08:11 Toprol Xl PO 25 mg BID BRISSA Administration Multivitamins/Mine rals 1 tab 04/19/20 09:00 04/21/20 08:11 Thera M Plus PO 1 tab DAILY BRISSA Administration Nitroglycerin 0.4 mg 04/18/20 23:34 Nitrostat SUBLINGUAL Q5M PRN chest pain Thyroid 90 mg 04/19/20 09:00 04/21/20 08:11 Reydon Thyroid PO 90 mg DAILY BRISSA Administration Penicillins Allergy (Intermediate, Verified 04/18/20 17:59) ALGY-Rash Sulfa (Sulfonamide Antibiotics) Allergy (Intermediate, Verified 04/18/20 17:59) ALGY-Rash dexamethasone Adverse Reaction (Severe, Verified 04/18/20 17:59) ADR-Chest Pain Vitals/I&O/Wt Last Vital Signs Temp 98.3 F 04/21/20 15:52 Pulse 77 04/21/20 15:52 Resp 14 04/21/20 15:52 BP 93/56 04/21/20 15:52 Pulse Ox 92 04/21/20 15:52 04/21/20 04/21/20 04/21/20 06:59 14:59 22:59 Intake Total 120 / 720 500 / 500 Output Total 2500 / 3450 700 / 700 Balance -2380 / -2730 -200 / -200 Physical Exam Const: COMMON NORMALS: no acute distress and patient oriented x3 GENERAL APPEARANCE: cooperative, comfortable and Edematous ORIENTATION/CONSCIOUSNESS: Yes awake OTHER: -Looks younger than stated age, very pleasant HENMT: COMMON NORMALS: normocephalic, atraumatic, hearing grossly normal bilaterally and moist oral mucous membranes HEAD & SCALP: normocephalic and atraumatic Eye: COMMON NORMALS: Equal, round and reactive pupils present, EOMs intact bilaterally and conjunctivae normal CONJUNCTIVA: Yes conjunctivae normal PUPIL: Yes Equal, round and reactive pupils present Neck/C-Spine: COMMON NORMALS: full ROM GENERAL: Yes normal visual inspection and Yes trachea midline Resp: COMMON NORMALS: normal respiratory effort, No retractions, No use of accessory muscles and clear to auscultation bilaterally EFFORT & INSPECTION: Yes able to speak in complete sentences, Yes symmetric chest movement and No tachypneic AUSCULTATION: clear to auscultation bilaterally Cardio: COMMON NORMALS: regular rate, regular rhythm, S1 normal heart sound present and S2 normal heart sound present RATE: regular rate RHYTHM: regular rhythm HEART SOUNDS: S1 normal heart sound present, S2 normal heart sound present and Murmur heart sound present systolic GI: COMMON NORMALS: Soft to palpation and non-tender INSPECTION: Yes abdominal distension and Yes central obesity PALPATION: Yes Soft to palpation Extremity: COMMON NORMALS: normal to inspection and full ROM GENERAL: Yes edema (1-2+ pitting edema of bilateral lower extremities) Neuro: COMMON NORMALS: patient oriented x3, moves all extremities, no focal motor deficits and no sensory deficits noted Psych: COMMON NORMALS: mental status grossly normal, Normal thought process present, cooperative, normal affect and speech normal SPEECH: Yes normal speech THOUGHT PROCESS: Normal thought process present Skin: COMMON NORMALS: no rashes or lesions noted, no jaundice, no petechiae and no mottling NARRATIVE SKIN EXAM: -Fading bruising noted on left cheek and chin from previous fall GENERAL SKIN EXAM: no rashes or lesions noted Data : 04/20/20 02:57 04/21/20 05:10 A&P Assessment and plan (1) CHF (congestive heart failure): -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 Anasarca clinically -Last echo on record done in 05/2019 showing an ejection fraction of 35%, noted regional wall motion abnormalities and grade 2 diastolic dysfunction -Secondary to noted renal impairment currently on diuresis with Bumex. Due to continued anasarca we will switch to IV with continued close monitoring of renal function -Had home oxygen evaluation done earlier today, does not qualify for this -Supplemental oxygen as needed, continue to monitor respiratory status -VSS; continue to monitor -Telemetry monitoring -Daily weights, monitor ins and outs; negative fluid balance of 3.8 L so far -Follows up with Dr. Ronquillo -Chest x-ray reported as cardiomegaly, no noted pulmonary vascular congestion Status: Acute Qualifiers: Heart failure chronicity: acute on chronic Heart failure type: combined systolic and diastolic Qualified Code(s): I50.43 - Acute on chronic combined systolic (congestive) and diastolic (congestive) heart failure (2) Hypothyroidism: -continue thyroid replacement Status: Chronic Qualifiers: Hypothyroidism type: unspecified Qualified Code(s): E03.9 - Hypothyroidism, unspecified (3) Diabetes: -Accucheks, ISS, hypoglycemia precautions -cardiac consistent carb diet Status: Chronic Qualifiers: Diabetes mellitus complication status: with other specified complication Diabetes mellitus ad terminal makeup operator insulin use: without ad terminal makeup operator use Diabetes mellitus type: type 2 Qualified Code(s): E11.69 - Type 2 diabetes mellitus with other specified complication (4) Hyperlipidemia: -on statin Status: Chronic Qualifiers: Hyperlipidemia type: unspecified Qualified Code(s): E78.5 - Hyperlipidemia, unspecified (5) HTN (hypertension): -VSS; continue to monitor -continue oral antihypertensives Status: Chronic Qualifiers: Hypertension type: essential hypertension Qualified Code(s): I10 - Essential (primary) hypertension Additional A&P Information -known hx of mitral regurgitation, pulmonary HTN; evaluated at [facility] secondary to mitral regurgitation, not deemed an appropriate surgical candidate, due to calcified valve not appropriate for mitral clip. -s/p pacemaker -DVT ppx with heparin -Dispo: home; lives alone but may benefit from HH services. Feels that she has adequate support from family -Code status: FULL code Attestations Medical Necessity Statement*: Patient requires hospitalization for continued IV diuresis secondary to acute CHF exacerbation. Time Spent in Patient Care: 16 - 35 minutes (>than 50% of time spent in counselling and/or direct pt care on unit) . 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
[2020-04-21 19:29] VITALS: BP 113/66; PULSE 92; RESP 16; TEMP 36.9; O2SAT 95
[2020-04-21 20:49] LABS: Glucose Point of Care 177 mg/dL (70-110)
[2020-04-22] VITALS: BP 116/69; PULSE 88; RESP 17; TEMP 36.8; O2SAT 95
[2020-04-22] MEDS: heparin 5,000 unit/mL INJ 1 mL 5000 UNIT SUBCUT ×2 (02:48→17:54)
[2020-04-22 04:00] VITALS: BP 101/66; PULSE 92; RESP 18; TEMP 36.6; O2SAT 95
[2020-04-22 06:27] LABS: Anion Gap 14.2 (5-19); Blood Urea Nitrogen 51 mg/dL (8-23); Calcium 9.3 mg/dL (8.5-10.5); Carbon Dioxide 30 mmol/L (22-29); Chloride 93 mmol/L (98-107); Glucose 112 mg/dL (65-115); Osmolality Calculated 275 mOsm/kg (285-295); Potassium 4.2 mmol/L (3.5-5.1); Sodium 133 mmol/L (136-145)
[2020-04-22] MEDS: bumetanide 0.25 mg/mL SDV 10 mL 1 MG IV (06:30)
[2020-04-22 06:50] LABS: Glucose Point of Care 106 mg/dL (70-110)
[2020-04-22 07:41] VITALS: BP 118/68; PULSE 76; RESP 16; TEMP 36.6; O2SAT 98
[2020-04-22] MEDS: atorvastatin 40 mg Tablet PO (08:09)
[2020-04-22] MEDS: thyroid 60 mg Tablet 90 MG PO (08:10)
[2020-04-22] MEDS: aspirin 81 mg EC Tablet PO (08:10)
--- NOTE | 2020-04-22 10:15 | PC.SOCIAL ---
IMM Update Pg. 2 of IMM given and explained to patient who verbalized understanding. Copy provided to patient.
[2020-04-22 11:30] VITALS: BP 111/62; PULSE 78; RESP 18; TEMP 36.3; O2SAT 99
[2020-04-22 11:51] LABS: Glucose Point of Care 120 mg/dL (70-110)
--- NOTE | 2020-04-22 12:10 | P.DS_ITS ---
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 Anasarca clinically -Last echo on record done in 05/2019 showing an ejection fraction of 35%, noted regional wall motion abnormalities and grade 2 diastolic dysfunction -Secondary to noted renal impairment currently on diuresis with Bumex. Due to continued anasarca we will switch to IV with continued close monitoring of renal function -Had home oxygen evaluation done earlier today, does not qualify for this -Supplemental oxygen as needed, continue to monitor respiratory status -VSS; continue to monitor -Telemetry monitoring -Daily weights, monitor ins and outs; negative fluid balance of 6.8 L so far -Follows up with Dr. Ronquillo -Chest x-ray reported as cardiomegaly, no noted pulmonary vascular congestion Qualifiers: Heart failure chronicity: acute on chronic Heart failure type: combined systolic and diastolic Qualified Code(s): I50.43 - Acute on chronic combined systolic (congestive) and diastolic (congestive) heart failure (2) Hypothyroidism: Status: Chronic Problem details: -continue thyroid replacement Qualifiers: Hypothyroidism type: unspecified Qualified Code(s): E03.9 - Hypothyroidism, unspecified (3) Diabetes: Status: Chronic Problem details: -Accucheks, ISS, hypoglycemia precautions -cardiac consistent carb diet Qualifiers: Diabetes mellitus type: type 2 Diabetes mellitus manager terminal insulin use: without manager terminal use Diabetes mellitus complication status: with other s pecified complication Qualified Code(s): E11.69 - Type 2 diabetes mellitus with other specified complication (4) Hyperlipidemia: Status: Chronic Problem details: -on statin Qualifiers: Hyperlipidemia type: unspecified Qualified Code(s): E78.5 - Hyperlipidemia, unspecified (5) HTN (hypertension): Status: Chronic Problem details: -VSS; continue to monitor -continue oral antihypertensives Qualifiers: Hypertension type: essential hypertension Qualified Code(s): I10 - Essential (primary) hypertension Other Information Additional DC diagnoses/information: -known hx of mitral regurgitation, pulmonary HTN; evaluated at [facility] secondary to mitral regurgitation, not deemed an appropriate surgical candidate, due to calcified valve not appropriate for mitral clip. -s/p pacemaker Reason for Visit Reason for Visit: sob Hospital Course Hospital Course: Patient was admitted to the medical surgical floor and started on diuresis as she clinically appeared to be decompensated in terms of congestive heart failure. She required IV diuresis and has had a good response with a total negative fluid balance of 6.8 L with correlating symptomatic relief. She does still have some abdominal distention secondary to anasarca but feels well enough that she would like to go home today. Would continue oral Bumex rather than Lasix due to underlying renal impairment. She has been hemodynamically stable, has not required supplemental oxygen and did have a home oxygen evaluation done for which she did not qualify. Some adjustments have been made to her oral antihypertensive regimen to prevent hypotension particularly with need for continued diuresis. Patient is encouraged to continue to monitor her weight daily as well as her blood pressure and keep a log for review with her primary care physician to determine if need for further adjustments of her medications. She is advised to monitor her fluid intake, preferably keep it around 50 ounces (1.5 L) within a 24-hour period. She can take an extra dose of Bumex if noted 3 to 5 pound weight gain within a 24-hour period and should notify her physician of this change. Patient feels like she has adequate support from her family and has declined home health services at this time. She has been evaluated by physical therapy with a home exercise program provided prior to discharge. She will need to continue to follow-up with cardiology as well. Discharge Summary: -Patient to follow up with primary care physician within 1 week -Patient to continue to follow up with cardiology Physical Exam Const: COMMON NORMALS: no acute distress and patient oriented x3 GENERAL APPEARANCE: cooperative, comfortable and Edematous ORIENTATION/CONSCIOUSNESS: Yes awake OTHER: -Looks younger than stated age, very pleasant HENMT: COMMON NORMALS: normocephalic, atraumatic, hearing grossly normal bilaterally and moist oral mucous membranes HEAD & SCALP: normocephalic and atraumatic Eye: COMMON NORMALS: Equal, round and reactive pupils present, EOMs intact bilaterally and conjunctivae normal CONJUNCTIVA: Yes conjunctivae normal PUPIL: Yes Equal, round and reactive pupils present Neck/C-Spine: COMMON NORMALS: full ROM GENERAL: Yes normal visual inspection and Yes trachea midline Resp: COMMON NORMALS: normal respiratory effort, No retractions, No use of accessory muscles and clear to auscultation bilaterally EFFORT & INSPECTION: Yes able to speak in complete sentences, Yes symmetric chest movement and No tachypneic AUSCULTATION: clear to auscultation bilaterally Cardio: COMMON NORMALS: regular rate, regular rhythm, S1 normal heart sound present and S2 normal heart sound present RATE: regular rate RHYTHM: regular rhythm HEART SOUNDS: S1 normal heart sound present, S2 normal heart sound present and Murmur heart sound present systolic GI: COMMON NORMALS: Soft to palpation and non-tender INSPECTION: Yes abdominal distension and Yes central obesity PALPATION: Yes Soft to palpation Extremity: COMMON NORMALS: normal to inspection and full ROM GENERAL: Yes edema (1-2+ pitting edema of bilateral lower extremities) Neuro: COMMON NORMALS: patient oriented x3, moves all extremities, no focal motor deficits and no sensory deficits noted Psych: COMMON NORMALS: mental status grossly normal, Normal thought process present, cooperative, normal affect and speech normal SPEECH: Yes normal speech THOUGHT PROCESS: Normal thought process present Skin: COMMON NORMALS: no rashes or lesions noted, no jaundice, no petechiae and no mottling NARRATIVE SKIN EXAM: -Fading bruising noted on left cheek and chin from previous fall GENERAL SKIN EXAM: no rashes or lesions noted Discharge Data Data Completed and Pending: Completed Studies During Hospitalization Category Date Time Status XR chest 1V [place] ble [id number] Stat Exams 04/18/20 18:06 Completed Labs from last 24 hours 04/22/20 04/22/20 04/22/20 11:31 06:47 05:40 Sodium 133 L Potassium 4.2 Chloride 93 L Carbon Dioxide 30 H Anion Gap 14.2 BUN 51 H Creatinine 1.4 H GFR Calculation Not Reportable Glucose 112 POC Glucose 120 106 Calculated Osmolal ity 275 L Calcium 9.3 04/21/20 04/21/20 20:46 16:18 Sodium Potassium Chloride Carbon Dioxide Anion Gap BUN Creatinine GFR Calculation Glucose POC Glucose 177 156 Calculated Osmolal ity Calcium Vitals: Last Vital Signs Temp 97.4 F L 04/22/20 11:30 Pulse 78 07/26/20 11:30 Resp 18 04/22/20 11:30 BP 111/62 04/22/20 11:30 Pulse Ox 99 04/22/20 11:30 Discharge Plan Discharge Patient Disposition: Home Condition: Stable Prescriptions: New bumetanide 1 mg Tablet 1 mg PO DAILY Qty: 30 RF: 0 Continued metformin 500 mg tablet 500 mg PO BID RF: 0 rosuvastatin [Crestor] 10 mg tablet 10 mg PO DAILY RF: 0 [id number] Tablet 1 tab PO DAILY RF: 0 metoprolol succinate [Toprol XL] 50 mg tablet extended release 24 hr 25 mg PO BID RF: 0 isosorbide mononitrate 30 mg tablet extended release 24 hr 30 mg PO DAILY RF: 0 nitroglycerin [Nitrostat] 0.4 mg tablet, sublingual 0.4 mg SUBLINGUAL Q5M PRN (Reason: chest pain) 90 Days Qty: 25 RF: 3 spironolactone 25 mg Tablet 25 mg PO DAILY RF: 0 thyroid (pork) [[place] Thyroid] 90 mg Tablet 90 mg PO DAILY RF: 0 Changed aspirin [Adult Low Dose Aspirin] 81 mg tablet,delayed release (DR/EC) 81 mg PO DAILY Qty: 0 RF: 0 Discontinued furosemide 20 mg tablet 40 mg PO QAM RF: 0 losartan 50 mg tablet 50 mg PO DAILY RF: 0 Discharge Orders: Discharge Order (Routine); Ordered 04/22/20 Ordered By: Luly Tellez Referrals: James Sy MD [Primary Care Provider] - 4-7 days (Post hospital discharge follow up. Treated for acute CHF exacerbation, diuretics switched to Bumex as she seemed to respond better to this. Discontinued losartan as she was noted to have low to low normal blood pressure.) Discharge Diet: Cardiac and Diabetic Discharge Activity: Increase activity as tolerated Activity Restrictions/Additional Instructions: -Please continue to weigh yourself daily, preferably first thing in the morning and keep a log for review with your primary care physician. Please take an extra dose of Bumex if noted increased weight gain of 3 to 5 pounds within a 24- hour period and contact your doctor's office to notify them of this change. -Please note changes to your medications including discontinuation of losartan and Lasix, initiation of Bumex. -Please continue to monitor your blood pressure at least once daily, preferably first thing in the morning and keep a log for review with your primary care physician. -Recommend that you hydrate appropriately with water but try to not consume more than 50 ounces within a 24 hr period to prevent further fluid retention Discharge Attestations Time Spent in Discharge Care*: greater than 30 min Specific Discharge Activities: Specific discharge activities: educating patient, discussing with porter sample case/social workers/dc planners, documenting/other paperwork and evaluating patient/reviewing data Status at Discharge: Cognitive status at discharge: cognitively intact , Behavioral status at discharge: cooperative and independent in ADL's , Functional status at discharge: independent ambulation Overall status at discharge: patient is progressing back to baseline Quality Metrics Clinical Quality Measures During this hospital stay, did patient experience: None Coding Level of Care Code Acute [employer] 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
--- NOTE | 2020-04-22 15:00 | PC.NURSE ---
Report to Michelle REED at this time.
[2020-04-22 16:00] VITALS: BP 142/72; PULSE 72; RESP 18; TEMP 36.6; O2SAT 99
[2020-04-22] MEDS: bumetanide 1 mg Tablet PO (17:53)
[2020-04-22 18:10] VITALS: BP 142/72; PULSE 72; RESP 18; TEMP 36.6; O2SAT 99
== END 2020-04-22 18:11 | disposition home or self-care (01) | DRG 293 ==
LOC: ER 20:40 → MEDSURG 22:59
PROVIDERS: Nurse Practitioner Family; Admitting Provider Internal Medicine; PCP Family Medicine; Visit Provider Family Medicine
DX: I11.0 Hypertensive heart disease with heart failure (principal); E78.5 Hyperlipidemia, unspecified; I42.9 Cardiomyopathy, unspecified; E11.69 Type 2 diabetes mellitus with other specified complication; E03.9 Hypothyroidism, unspecified; I50.41 Acute combined systolic (congestive) and diastolic (congestive) heart failure; I34.0 Nonrheumatic mitral (valve) insufficiency; I27.20 Pulmonary hypertension, unspecified; Z79.84 Long term (current) use of oral hypoglycemic drugs; Z79.82 Long term (current) use of aspirin; I35.0 Nonrheumatic aortic (valve) stenosis; I48.91 Unspecified atrial fibrillation; Z95.0 Presence of cardiac pacemaker
CPT/HCPCS: 12345; 36415; 36416; 71045; 80048; 80053; 82962; 83880; 84484; 85025; 93005; 96372; 96375; 97110; 97116; 97161; 97530; 99283; G0378; J1644; J1815; J1940; J3490

== ENCOUNTER 2020-07-18 17:01 | Inpatient (IN) | payer MEDICARE, OTHER, SELFPAY ==
[2020-07-18 17:23] VITALS: BP 91/60; PULSE 84; RESP 22; TEMP 36.6; O2SAT 100; BMI 26.3
--- NOTE | 2020-07-18 18:04 | ECG_ITS ---
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 Measurements Intervals Star Rate: 78 P: -2 OH: 189 QRS: -58 QRSD: 193 T: 123 QT: 475 QTc: 543 Interpretive Statements ELECTRONIC VENTRICULAR PACEMAKER ABNORMAL RHYTHM ECG Compared to ECG 04/18/2020 19:04:04 No significant changes Electronically Signed On 07-19-2020 18:27:16 CDT by Jeff Pelaez M.D. [id number]
--- NOTE | 2020-07-18 18:06 | ED_ITS ---
HPI - SOB/Dyspnea General: Chief Complaint: Shortness of Breath/Dyspnea Stated Complaint: Dr. Sterlingkatherine sent down to be seen in ER Time Seen by Provider: 07/18/20 17:51 Source: patient Mode of arrival: ambulatory Limitations: no limitations History of Present Illness: HPI Narrative: Patient is a 80-year-old female with a history of congestive heart failure and her last echo shows an ejection fraction of 35%, atrial fibrillation status post pacemaker, aortic stenosis, cardiomyopathy presents to the emergency department for evaluation of increased leg and abdominal swelling, shortness of breath. She saw her sand caster apprentice today who felt she had anasarca as well as an acute exacerbation congestive heart failure. She was therefore sent to the emergency department for evaluation. The patient states that she has had increased shortness of breath, orthopnea, leg swelling. She was started on oxygen within the last week for the continued shortness of breath. MD elicited complaint: shortness of breath Pertinent past history: congestive heart failure Onset (ago): week(s) Timing: constant and progressively worsening Severity: moderate Exacerbating factors: lying flat Relieving factors: oxygen Associated symptoms: Deny abdominal pain, fever(s), nausea, palpitations, polydipsia, polyuria or vomiting Review of Systems General: Reports: 10 or more systems reviewed and unremarkable except in HPI and below Const: Denies: fever(s), chills or body aches Eyes: Denies: change in vision or blurry vision ENMT: Denies: throat pain, enlarged tonsils, odynophagia, hoarseness, mouth pain or swelling of lips/tongue Card: Reports: swelling of feet/ankles; Denies: palpitations, irregular heart rhythm or edema Resp: Denies: dyspnea, productive cough or non-productive cough GI: Denies: abdominal pain, nausea or vomiting : Denies: flank pain, difficulty voiding, dysuria, urinary frequency, urinary urgency or urinary hesitancy Musc: Denies: neck pain, back pain or extremity swelling Skin/Breast: Denies: rash, pruritus or erythema Neuro: Denies: headache(s), numbness in extremities or weakness in extremities Endo: Denies: polyuria, polydipsia or tired all the time PFS ED PFSH: Medical History Aortic stenosis Atrial fibrillation Cardiomyopathy CHF (congestive heart failure) combined systolic and diastolic CHF Diabetes Hollenhorst plaque, both eyes HTN (hypertension) Hyperlipidemia -on statin Hypothyroidism thyroid replacement Mitral regurgitation Pulmonary HTN Surgical History S/P tonsillectomy Status cardiac pacemaker Family History Other Cancer Hypertension Social History Smoking and tobacco status: never smoked Household members: children Marital status: / Physical Exam Const: COMMON NORMALS: no acute distress, average body habitus, patient oriented x3, no limitations, healthy appearing, alert and well nourished HENMT: COMMON NORMALS: normocephalic, atraumatic and moist oral mucous membranes HEAD & SCALP: normocephalic and atraumatic Eye: COMMON NORMALS: Equal, round and reactive pupils present, EOMs intact bilaterally, conjunctivae normal and no scleral icterus CONJUNCTIVA: Yes conjunctivae normal PUPIL: Yes Equal, round and reactive pupils present Neck/C-Spine: COMMON NORMALS: full ROM, supple, no meningeal signs, no JVD and No carotid bruits Chest: COMMONS NORMALS: normal inspection of the chest and normal palpation of entire chest wall Resp: COMMON NORMALS: normal respiratory effort, No retractions, No use of accessory muscles, clear to auscultation bilaterally and percussion normal AUSCULTATION: clear to auscultation bilaterally PERCUSSION: percussion normal Cardio: COMMON NORMALS: no JVD, regular rate, regular rhythm, S1 normal heart sound present, S2 normal heart sound present, No gallops present (Cardio), No clicks present (Cardio), No murmurs present (Cardio), No rub (Cardio) and Peripheral pulses 2+ throughout RATE: regular rate RHYTHM: regular rhythm HEART SOUNDS: S1 normal heart sound present and S2 normal heart sound present PERIPHERAL PULSES: Peripheral pulses 2+ throughout GI: COMMON NORMALS: Soft to palpation, non-tender, No hepatosplenomegaly present, no masses and no bruits INSPECTION: Yes abdominal distension PALPATION: Yes Soft to palpation and Yes No hepatosplenomegaly present Extremity: COMMON NORMALS: normal to inspection, full ROM, capillary refill normal and no calf tenderness GENERAL: Yes edema Neuro: COMMON NORMALS: patient oriented x3 SENSORIUM/ORIENTATION: Yes alert MENINGEAL SIGNS: Yes no meningeal signs Skin: COMMON NORMALS: no rashes or lesions noted, no wounds, turgor normal, no jaundice, no petechiae and no mottling GENERAL SKIN EXAM: no rashes or lesions noted and turgor normal Course ED course: 80-year-old female patient with aortic stenosis, congestive heart failure and anasarca presents with worsening shortness of breath, abdominal distention. Work-up shows that she is in heart failure with significant ascites or fluid overload. She was given a dose of intravenous furosemide and admitted for further evaluation and management. Consultations: Consultation #1: Dr. Anderson, hospitalist and he kindly accepted this patient to his service Vital Signs: Vital signs: Vital Signs Temperature 97.8 F 07/18/20 17:23 Pulse Rate 88 07/18/20 21:14 Respiratory Rate 18 07/18/20 21:14 Blood Pressure 101/65 07/18/20 21:14 Pulse Oximetry 100 07/18/20 21:14 MDM - SOB/Dyspnea MDM Narrative: Medical decision making narrative: Unfortunate 80-year-old female patient who presents in congestive heart failure. She also has significant anasarca including massive ascites. She also has significant azotemia. She is admitted for further evaluation and management. Medical Records: Attestation: I reviewed the patient's medical records. Lab Data: Attestation: I reviewed the patient's lab results. Labs: Lab Results 07/18/20 07/18/20 07/18/20 Range/Units 19:00 19:53 19:53 WBC 4.8 (4.0-10.0) 10^3/ uL RBC 3.09 L (4.1-5.3) 10^6/u L Hgb 10.1 L (11.5-15.3) g/dL Hct 32.5 L (37.0-47.0) % MCV 105.2 H (81-99) fL MCH 32.7 (28.0-34.0) pg MCHC 31.1 (30.0-36.0) g/dL RDW 15.9 H (12.1-15.1) % Plt Count 193 (130-400) 10^3/c mm MPV 9.9 (7.4-10.4) fL Neut % (Auto) 76.0 % Lymph % (Auto) 11.8 % [place] % (Auto) 11.2 % Eos % (Auto) 0.2 % Baso % (Auto) 0.6 % Neut # (Auto) 3.61 (1.8-7.7) 10^3/u L Lymph # (Auto) 0.6 L (0.8-4.8) 10^3/u L [place] # (Auto) 0.5 (0.2-0.9) 10^3/u L Eos # (Auto) 0.0 (0.0-0.8) 10^3/u L Baso # (Auto) 0.0 (0.0-0.1) 10^3/u L Nucleated RBC % (a uto) 0 % Nucleated RBCs # 0.0 /100WBC PT 18.60 H (12.1-14.9) SECO NDS INR 1.50 H (0.8-1.2) Sodium (136-145) mmol/L Potassium (3.5-5.1) mmol/L Chloride (98-107) mmol/L Carbon Dioxide (22-29) mmol/L Anion Gap (5-19) BUN (8-23) mg/dL Creatinine (0.5-0.9) mg/dL GFR Calculation Glucose (65-115) mg/dL Calculated Osmolal ity (285-295) mOsm/k g Calcium (8.5-10.5) mg/dL Total Bilirubin (0.15-1.2) mg/dL AST (0-32) U/L ALT (0-33) U/L Alkaline Phosphata se (35-105) IU/L Troponin T Baselin e (0-10) ng/L Troponin T 120 Min carolynn (0-10) ng/L Delta Troponin T (0-10) ABS# NT-Pro-B Natriuret Pep (0-450) pg/mL Total Protein (6.6-8.7) g/dL Albumin (3.5-5.2) g/dL Globulin (1.3-4.6) g/dL Urine Color Yellow (Yellow) Urine Appearance Cloudy A (CLEAR) Urine pH 5.0 (5-7) Ur Specific Gravit y 1.015 (1.005-1.030) Urine Protein 1+ H (Negative) Urine Glucose (UA) Norm (Normal) Urine Ketones Negative (Negative) Urine Blood 3+ H (Negative) Urine Nitrate Negative (Negative) Urine Bilirubin Neg (Negative) Urine Urobilinogen Norm (Negative) mg/dL Ur Leukocyte Svetlana ase Trace H (Negative) Urine RBC 5-10 H (0-2) /hpf Urine WBC 10-15 H (0-5) /hpf Ur Squamous Epith Cells 10-15 H (0-5) /hpf Amorphous Sediment Not Reportable Urine Bacteria 2+ H (NONE) /hpf 07/18/20 07/18/20 07/18/20 Range/Units 19:53 19:53 22:05 WBC (4.0-10.0) 10^3/ uL RBC (4.1-5.3) 10^6/u L Hgb (11.5-15.3) g/dL Hct (37.0-47.0) % MCV (81-99) fL MCH (28.0-34.0) pg MCHC (30.0-36.0) g/dL RDW (12.1-15.1) % Plt Count (130-400) 10^3/c mm MPV (7.4-10.4) fL Neut % (Auto) % Lymph % (Auto) % [place] % (Auto) % Eos % (Auto) % Baso % (Auto) % Neut # (Auto) (1.8-7.7) 10^3/u L Lymph # (Auto) (0.8-4.8) 10^3/u L [place] # (Auto) (0.2-0.9) 10^3/u L Eos # (Auto) (0.0-0.8) 10^3/u L Baso # (Auto) (0.0-0.1) 10^3/u L Nucleated RBC % (a uto) % Nucleated RBCs # /100WBC PT (12.1-14.9) SECO NDS INR (0.8-1.2) Sodium 137 (136-145) mmol/L Potassium 5.6 H (3.5-5.1) mmol/L Chloride 99 (98-107) mmol/L Carbon Dioxide 23 (22-29) mmol/L Anion Gap 20.6 H (5-19) BUN 100 H* D (8-23) mg/dL Creatinine 2.6 H (0.5-0.9) mg/dL GFR Calculation Not Reportable Glucose 93 (65-115) mg/dL Calculated Osmolal ity 315 H (285-295) mOsm/k g Calcium 9.5 (8.5-10.5) mg/dL Total Bilirubin 1.1 (0.15-1.2) mg/dL AST 24 (0-32) U/L ALT 16 (0-33) U/L Alkaline Phosphata se 178 H (35-105) IU/L Troponin T Baselin e 431 H* (0-10) ng/L Troponin T 120 Min carolynn 422.7 H (0-10) ng/L Delta Troponin T -8.3 L (0-10) ABS# NT-Pro-B Natriuret Pep 28495 H (0-450) pg/mL Total Protein 7.2 (6.6-8.7) g/dL Albumin 3.5 (3.5-5.2) g/dL Globulin 3.7 (1.3-4.6) g/dL Urine Color (Yellow) Urine Appearance (CLEAR) Urine pH (5-7) Ur Specific Gravit y (1.005-1.030) Urine Protein (Negative) Urine Glucose (UA) (Normal) Urine Ketones (Negative) Urine Blood (Negative) Urine Nitrate (Negative) Urine Bilirubin (Negative) Urine Urobilinogen (Negative) mg/dL Ur Leukocyte Svetlana ase (Negative) Urine RBC (0-2) /hpf Urine WBC (0-5) /hpf Ur Squamous Epith Cells (0-5) /hpf Amorphous Sediment Urine Bacteria (NONE) /hpf Imaging Data^: Other CT: Attestation: I personally reviewed and interpreted this imaging study as follows: Radiologist's impression: [address] [address] [address] Scan Report Signed Patient: Marylou Art #: [id number] : 2Acct#:[id number] Age/Sex: 80 / FADM Date: 07/18/20 Loc: ERRoom/Bed: Attending Dr: Ordering Provider/Ordering MD: Columba Sotelo MD, [facility] [place] Date of Service: 07/18/20 Procedure(s): CT chest abd pel wo con Accession Number(s): [id number] Report Number: [id number] PROCEDURE INFORMATION: Exam: CT Chest Without Contrast Exam date and time: 07/18/2020 7:38 PM Age: 80 years old Clinical indication: Shortness of breath; Prior surgery; Surgery type: Pacemaker; Patient HX: Bloating, SOB x 1 week; Additional info: Blessing, jose elias TECHNIQUE: Imaging protocol: Computed tomography of the chest without contrast. Radiation optimization: All CT scans at this facility use at least one of these dose optimization techniques: automated exposure control; mA and/or kV adjustment per patient size (includes targeted exams where dose is matched to clinical indication); or iterative reconstruction. COMPARISON: CR XR chest 1V portable [id number] 04/18/2020 6:25 PM RADIATION DOSE METRICS: Total DLP (mGy-cm): 1432.52 FINDINGS: Tubes, catheters and devices: Multi lead left subclavian pacemaker. Lungs: Calcified granuloma in the right lower lobe. Bandlike regions of atelectasis transversing both lungs. No focal consolidation. Pleural space: Small bilateral pleural effusions. Heart: Cardiomegaly. Mitral annulus calcifications. Small pericardial effusion. Aorta: Unremarkable. No aortic aneurysm. Lymph nodes: Unremarkable. No enlarged lymph nodes. Bones/joints: Unremarkable. No acute fracture. Soft tissues: Mild body wall edema. IMPRESSION: 1. Cardiomegaly with small pericardial effusion. 2. Severe mitral annulus calcifications. 3. Small pleural effusions and mild body wall edema. PROCEDURE INFORMATION: Exam: CT Abdomen And Pelvis Without Contrast Exam date and time: 07/18/2020 7:38 PM Age: 80 years old Clinical indication: Shortness of breath; Prior surgery; Surgery type: Pacemaker; Patient HX: Bloating, SOB x 1 week; Additional info: jose elias Funk TECHNIQUE: Imaging protocol: Computed tomography of the abdomen and pelvis without contrast. Radiation optimization: All CT scans at this facility use at least one of these dose optimization techniques: automated exposure control; mA and/or kV adjustment per patient size (includes targeted exams where dose is matched to clinical indication); or iterative reconstruction. COMPARISON: CR XR chest 1V portable [id number] 04/18/2020 6:25 PM RADIATION DOSE METRICS: Total DLP (mGy-cm): 1432.92 FINDINGS: Liver: Small liver with cirrhotic morphology. Gallbladder and bile ducts: Minimal sludge or tiny stones in the gallbladder. The bile ducts are normal. Pancreas: Normal. No ductal dilation. Spleen: Normal size spleen with calcified granulomas. Adrenals: Normal. No mass. Kidneys and ureters: Normal. No hydronephrosis. Stomach and bowel: Diverticulosis of the distal colon. The remainder of the colon is unremarkable with scattered gas and stool. The small bowel contains fluid with mild wall thickening. No evidence for obstruction. The stomach is unremarkable. Appendix: The appendix is not visualized. Intraperitoneal space: Massive ascites. Vasculature: Arterial calcifications without aneurysm. Lymph nodes: Unremarkable. No enlarged lymph nodes. Urinary bladder: Unremarkable as visualized. Reproductive: Unremarkable as visualized. Bones/joints: Degenerative spine. No compression fracture. Soft tissues: Severe body wall edema. CT/CT chest abd pel wo con IMPRESSION: 1. Findings of anasarca with massive ascites and severe body wall edema. 2. Suspected liver cirrhosis. 3. Mild diffuse wall thickening of the small bowel is most likely related to the patient's liver disease and hyperproteinemia. 4. Diverticulosis of the distal colon. Radiation Dose CTDIVOL = (mGy): DLP = 1432.52~1432.92 (mGy-cm) Dictated By:Keon Sheehan Signed By:Keon SheehanSijustin Date/Time:07/18/202038 DD/ 37 EKG Data^: EKG 1: Attestation: I personally reviewed and interpreted this EKG as follows: EKG Interpretation Date: 07/18/20 EKG interpretation time: 19:02 Prior EKG tracings: not available for review Interpretation: Ventricular paced rhythm. Heart rate [address] changes EKG 2: Attestation: I personally reviewed and interpreted this EKG as follows: EKG Interpretation Date: 07/18/20 EKG interpretation time: 20:40 Prior EKG tracings: available for review Interpretation: Ventricular paced rhythm. Heart rate [address] changes. Discharge Plan Discharge Patient Disposition: Placed in Observation Admit Provider: Bill Anderson Clinical Impression: Acute exacerbation of CHF (congestive heart failure), Anasarca, Azotemia, Elevated troponin Condition: Stable Coding Level of Care Code ED Composing Machine Operator for Kig Fwd Exam Comprehensive
--- NOTE | 2020-07-18 19:07 | PC.NURSE ---
EKG done at 1905 and shown to ER doctor
[2020-07-18] MEDS: FUROsemide 10 mg/mL SDV 4mL 40 MG IVP (19:48)
--- NOTE | 2020-07-18 20:04 | ECG_ITS ---
[facility] Test Date: 2020-07-18 Pat Name: Marylou Art Department: Room: Gender: Female Testing Machine Operator: : 1940 Requested By: Columba Sotelo I Order Number: [id number] Chata MD: Analilia Murray M.D. Measurements Intervals [place] Rate: 78 P: 60 SC: 209 QRS: -56 QRSD: 185 T: 124 QT: 469 QTc: 534 Interpretive Statements ELECTRONIC VENTRICULAR PACEMAKER ABNORMAL RHYTHM ECG Compared to ECG 04/18/2020 19:04:04 No significant changes Electronically Signed On 07-18-2020 21:52:50 CDT by Analilia Murray M.D. [id number]
[2020-07-18 20:10] LABS: Basophils % 0.6 %; Eosinophils % 0.2 %; Hematocrit 32.5 % (37.0-47.0); Hemoglobin 10.1 g/dL (11.5-15.3); Lymphocytes # 0.6 10^3/uL (0.8-4.8); Lymphocytes % 11.8 %; Mean Corpuscular HGB Conc 31.1 g/dL (30.0-36.0); Mean Corpuscular Hemoglobin 32.7 pg (28.0-34.0); Mean Corpuscular Volume 105.2 fL (81-99); Mean Platelet Volume 9.9 fL (7.4-10.4); Monocytes # 0.5 10^3/uL (0.2-0.9); Monocytes % 11.2 %; Neutrophils # 3.61 10^3/uL (1.8-7.7); Nucleated Red Blood Cells % 0 %; Platelet Count 193 10^3/cmm (130-400); Red Blood Count 3.09 10^6/uL (4.1-5.3); Red Cell Distribution Width 15.9 % (12.1-15.1); White Blood Count 4.8 10^3/uL (4.0-10.0)
[2020-07-18 20:11] LABS: Bilirubin Urine Neg (Negative); Blood Urine 3+ (Negative); Glucose Urine UA Norm (Normal); Ketones Urine Negative (Negative); Nitrate Urine Negative (Negative); Protein Urine 1+ (Negative); Specific Gravity, Urine 1.015 (1.005-1.030); Urine Color Yellow (Yellow); Urobilinogen Urine Norm (Negative)
[2020-07-18 20:12] LABS: Add Urine Microscopic? YES; Leukocyte Esterase Urine Trace (Negative); Urine Appearance Cloudy (CLEAR)
--- NOTE | 2020-07-18 20:25 | PC.NURSE ---
took pt food,isabella is with pt and states she is diabetic and needs to eat
[2020-07-18 20:32] LABS: Add Urine Culture? Yes; Bacteria Urine 2+ /hpf
[2020-07-18 20:33] LABS: Troponin(5th) Baseline 431 ng/L (0-10)
[2020-07-18 20:40] LABS: Alanine Aminotransferase 16 U/L (0-33); Albumin Level 3.5 g/dL (3.5-5.2); Alkaline Phosphatase 178 IU/L (35-105); Anion Gap 20.6 (5-19); Aspartate Amino Transferase 24 U/L (0-32); Calcium 9.5 mg/dL (8.5-10.5); Carbon Dioxide 23 mmol/L (22-29); Chloride 99 mmol/L (98-107); Globulin 3.7 g/dL (1.3-4.6); Glucose 93 mg/dL (65-115); Osmolality Calculated 315 mOsm/kg (285-295); Potassium 5.6 mmol/L (3.5-5.1); Sodium 137 mmol/L (136-145); Total Bilirubin 1.1 mg/dL (0.15-1.2); Total Protein 7.2 g/dL (6.6-8.7)
[2020-07-18 20:45] LABS: Blood Urea Nitrogen 100 mg/dL (8-23)
[2020-07-18 21:14] VITALS: BP 101/65; PULSE 88; RESP 18; O2SAT 100
[2020-07-18 21:14] LABS: NT Pro B Type Natriuretic Pept 53244 pg/mL (0-450)
--- NOTE | 2020-07-18 21:29 | PM.HP ---
Providers/Chief Complaint Primary Care Provider: James Sy MD Chief Complaint: Dr. Sandoval sent down to be seen in ER History of Present Illness Marylou Art is a 80 year old female history of ischemic cardiomyopathy, EF 35%, valvular regurgitation, was sent to [facility] for mitral valve clip surgery, she was deemed unfit for the surgery, Danelle garcia, chronic anticoagulation discontinued due to GI bleed, was sent in from cardiology clinic for worsening shortness of breath and anasarca. Patient is stating that at baseline she is taking Bumex 1 mg a day, she tries to manage her daily activities, has been struggling because of worsening edema, abdominal distention, she has not noticed any vomiting, constipation or diarrhea, she has been having regular bowel movements, no dysuria, chest pain. She is endorsing orthopnea, PND, lower extremity swelling. She has been compliant with her Bumex. At home she is eating canned food, does not follow fluid restricted or salt restricted diet. Her niece Suze checks on her regularly. Since last discharge she has been on oxygen at home. Diagnosis in the ER revealed CHF exacerbation, high BNP, worsening of creatinine, patient is asymptomatic, no chest pain, troponins high, paced rhythm, has been given IV diuretics, anasarca positive Of note, she had similar presentation on last visit in May when she was sent by Dr. Ronquillo, she achieved negative balance 6.8 L with IV diuresis, she lost 3 to 5 pounds during her hospitalization, her Lasix was discontinued and she was discharged on Bumex 1 mg daily with diet restricted instructions however I do not see any home O2 evaluation Review of Systems Const: Reports: body aches, change in appetite, fatigue and malaise; Denies: fever(s) Eyes: Denies: change in vision ENMT: Denies: throat pain Card: Reports: swelling of feet/ankles, pre-syncope, dyspnea on exertion and orthopnea; Denies: chest pain Resp: Reports: dyspnea; Denies: productive cough or non-productive cough GI: Reports: early satiety and bloating; Denies: abdominal pain, nausea or vomiting : Denies: flank pain Musc: Reports: muscle cramps Skin/Breast: Reports: lesions; Denies: rash Neuro: Reports: difficulty walking; Denies: headache(s) Psych: Denies: anxiety Endo: Denies: polyuria Mello/Lymph: Denies: easy bruising All/Imm: Denies: urticaria Medications/Allergies Home Medications Medication Instructions Recorded Confirmed Last Taken Type metformin 500 mg tablet 500 mg PO BID 11/02/19 07/18/20 04/18/20 History yuxqhnaxbbax-vaypnlkq-rxetgk 1 tab PO DAILY 11/02/19 07/18/20 04/18/20 History metoprolol succinate 50 mg 25 mg PO BID tab 11/10/19 07/18/20 04/18/20 History tablet,extended release 24 hr nitroglycerin 0.4 mg sublingual 0.4 mg SUBLINGUAL Q5M PRN 90 Days 01/27/20 07/18/20 Unknown Rx tablet #25 tab isosorbide mononitrate 30 mg 30 mg PO DAILY 02/23/20 07/18/20 04/18/20 History tablet,extended release 24 hr spironolactone 25 mg PO DAILY 04/06/20 07/18/20 04/18/20 History thyroid (pork) [[place] Thyroid] 90 mg PO DAILY 04/06/20 07/18/20 04/18/20 History Adult Low Dose Aspirin 81 mg PO DAILY #0 tab 04/22/20 07/18/20 04/18/20 Rx bumetanide 1 mg PO DAILY #30 tab 04/22/20 07/18/20 Unknown Rx Allergies Allergy/AdvReac Type Severity Reaction Status Date / Time Penicillins Allergy Intermediate ALGY-Rash Verified 07/18/20 16:17 Sulfa (Sulfonamide Allergy Intermediate ALGY-Rash Verified 07/18/20 16:17 Antibiotics) dexamethasone AdvReac Severe ADR-Chest Verified 07/18/20 16:17 Pain PFSH Acute PFSH: Medical History Aortic stenosis Atrial fibrillation Cardiomyopathy CHF (congestive heart failure) combined systolic and diastolic CHF Diabetes Hollenhorst plaque, both eyes HTN (hypertension) Hyperlipidemia -on statin Hypothyroidism thyroid replacement Mitral regurgitation Pulmonary HTN Surgical History S/P tonsillectomy Status cardiac pacemaker Family History Other Cancer Hypertension Social History Smoking and tobacco status: never smoked Household members: children Marital status: / Vitals/I&O/Wt Last Vital Signs Temp 97.8 F 07/18/20 17:23 Pulse 88 07/18/20 21:14 Resp 18 07/18/20 21:14 BP 101/65 07/18/20 21:14 Pulse Ox 100 07/18/20 21:14 Weight last 48 hrs Weight 65.317 kg Physical Exam Narrative: EXAM NARRATIVE: Very pleasant elderly female currently comfortable; semifowler position in her bed Saturating well on 4 L nasal cannula Does not appear to be in distress Generalized body swelling/anasarca positive Swelling extending up to her chest Lower extremity venous stasis dermatitis, bilateral lower extremity pitting edema 3+, Abdominal wall edema Nontender abdomen, distended, Positive JVD, fluid overloaded Paced rhythm No acute restaurant distress Neurologically no focal exam Appropriate mood and affect Awake alert oriented x3 GCS 15 EOMI, PERRLA, arcus senilus Data : 07/18/20 19:53 07/18/20 19:53 A&P Assessment and plan (1) CHF exacerbation: 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 Grade 2 diastolic dysfunction, EF 35%, moderate mitral valve regurgitation, mild aortic stenosis Not a candidate of mitral valve surgery Christina Has been taking Bumex, does not follow restricted fluid or cardiac diet, she has been eating canned food, no active chest pain Dietary indiscretion is most likely the cause of refractory ascites with underlying multiple comorbidities EKG showing paced rhythm, troponins high, no active chest pain, I would do IV Bumex, 2 mg daily, target negative balance at least 1 L a day No signs of sepsis or abdominal pain, Echo in the morning Status: Acute (2) Acute kidney injury superimposed on chronic kidney disease: Fluid overloaded, anasarca most likely cardiorenal etiology, anticipating, with diuresis, monitor urine output, target negative balance 1 L a day Hold spironolactone Her uremia has doubled, no active signs of uremic encephalopathy, pericarditis, will follow-up with echo No acute indication for dialysis Status: Acute (3) Anasarca: She might need therapeutic paracentesis to relieve her shortness of breath Her abdominal ascites has gotten worse which is causing symptoms This most likely is due to CHF exacerbation causing cardiorenal ELIJAH Albumin low normal Transaminases normal Status: Acute Additional A&P Information A. fib without RVR, paced rhythm, not on anticoagulation secondary to GI bleed Hypothyroidism: Continue home regimen of levothyroxine: Check TSH Goals of care discussed with the patient: Full code, DVT prophylaxis: Heparin Cardiac diet with fluid restriction Attestations Medical Necessity Statement*: Anticipating discharge in less than 48 hours currently need diuresis for CHF exacerbation, carries guarded prognosis Time Spent in Patient Care: (>than 50% of time spent in counselling and/or direct pt care on unit). 50mins Coding Level of Care Code Acute Field Clerk for Kig Fwd Diagnoses CHF exacerbation I50.9 Acute kidney injury superimposed on chronic kidney disease N17.9; N18.9 Anasarca R60.1
[2020-07-18 22:45] LABS: Troponin 5 2HR Delta -8.3 ABS# (0-10)
[2020-07-18 22:46] LABS: Troponin 5 2HR 422.7 ng/L (0-10)
--- NOTE | 2020-07-18 22:57 | PC.NURSE ---
patient family updated on patient plan of care
[2020-07-19] VITALS (11 sets, daily range): BP systolic 99–115; BP diastolic 56–70; PULSE 70–85; RESP 16–32; TEMP 36.3–36.5; O2SAT 96–100
--- NOTE | 2020-07-19 00:04 | ECG_ITS ---
[facility] Test Date: 2020-07-18 Pat Name: Marylou Art Department: Room: 251 Gender: Female Certified Registered Nurse Anesthetist: : 1940 Requested By: Columba Sotelo I Order Number: [id number] Chata MD: Jeff Pelaez M.D. Measurements Intervals [place] Rate: 79 P: 76 HI: 200 QRS: 16 QRSD: 193 T: 90 QT: 468 QTc: 537 Interpretive Statements ELECTRONIC VENTRICULAR PACEMAKER Compared to ECG 07/18/2020 20:40:18 No significant changes are noted Electronically Signed On 07-19-2020 18:33:36 CDT by Jeff Pelaez M.D. [id number]
--- NOTE | 2020-07-19 00:14 | USCV_ITS ---
Marylou Art Age: 80 Gender: F : 1940 Exam Date: 07/19/2020 06:29 Ordering Phys: Bill Anderson MD Technologist: Ellie Olivera [place] [facility] [place]: SOB CHF PE BP: 101 / 66 HR: 78 Rhythm: Sinus Technical Quality: MEASUREMENTS (Male / Female) Normal Values 2D ECHO LV Diastolic Diameter PLAX 3.9 cm 4.2 - 5.9 / 3.9 - 5.3 cm LV Systolic Diameter PLAX 2.9 cm LV Chamber Size 5.2 cm IVS Diastolic Thickness 1.5 cm 0.6 - 1.0 / 0.6 - 0.9 cm IVS Systolic Thickness 0.8 cm LVPW Diastolic Thickness 1.4 cm 0.6 - 1.0 / 0.6 - 0.9 cm LVPW Systolic Thickness 1.5 cm RV Chamber Size 3.4 cm LVOT Diameter 2.0 cm LV Ejection Fraction 2D Teich 49.3 % LV Ejection Fraction MOD 2C 29.0 % LV Ejection Fraction 2C AL 19.4 % LA Diameter 3.5 cm LA Width 4.4 cm LA Height 5.8 cm RA Width 4.6 cm RA Height 6.1 cm Aorta at Sinotubular Diameter 3.3 cm M-MODE LV Diastolic Diameter MM 3.7 cm 4.2 - 5.9 / 3.9 - 5.3 cm LV Systolic Diameter MM 3.5 cm LV Ejection Fraction MM Teich 11.3 % IVS Diastolic Thickness MM 1.0 cm 0.6 - 1.0 / 0.6 - 0.9 cm IVS Systolic Thickness MM 1.3 cm LVPW Diastolic Thickness MM 1.4 cm 0.6 - 1.0 / 0.6 - 0.9 cm LVPW Systolic Thickness MM 1.5 cm RV Diastolic Diameter MM 2.6 cm Aortic Annulus Diameter 2.8 cm LA Ao Ratio MM 1.5 MV E Point Septal Separation 1.5 cm DOPPLER AV Peak Velocity 135.0 cm/s LVOT Peak Velocity 48.0 cm/s AV Area Cont Eq vti 1.1 cm squared AV Area Cont Eq pk 1.1 cm squared MV Peak Velocity 140.0 cm/s MV Area PHT 4.6 cm squared MV E' Velocity 75.0 cm/s Mitral E to MV E' Ratio 6.9 Mitral E to LV E' Lateral Ratio 14.8 Mitral E to LV E' Septal Ratio 4.5 TR Peak Velocity 234.1 cm/s TR Peak Gradient 21.9 mmHg TR Mean Velocity 156.3 cm/s TR Mean Gradient 11.8 mmHg TR Velocity Time Integral 70.7 cm Right Atrial Pressure 15.0 mmHg Pulmonary Artery Systolic Pressu 36.9 mmHg PV Peak Velocity 65.0 cm/s RV Acceleration Time 0.2 s RV Ejection Time 0.4 s RV AcT/ET 0.4 FINDINGS Left Ventricle Normal left ventricular size. LV systolic function is severely reduced with EF of 20 to 25%. Severe global hypokinesis is noted. Moderate left ventricular hypertrophy. Diastolic function is indeterminate. Right Ventricle Mildly increased left right ventricular size. Mild to moderate reduction of RV systolic function. Catheter/pacemaker wire in the RV cavity. Right Atrium Moderately increased right atrial size. Catheter/pacemaker wire in RA. Left Atrium Left atrium is moderate to severely enlarged Mitral Valve Severe mitral annular calcification is noted. There is severe mitral regurgitation. Aortic Valve Severely calcified aortic valve is noted. By continuity equation, aortic valve area is calculated to be 1.1 cm squared with mean gradient of across the valve of 4 mmHg. This is consistent with mild to moderate aortic stenosis. Low gradient across the aortic valve likely secondary to severely reduced LV systolic function. Tricuspid Valve Structurally normal tricuspid valve. There is moderate to severe tricuspid valve regurgitation. Pulmonic Valve Structurally normal pulmonic valve without significant stenosis. There is no pulmonic regurgitation. Pericardium Small pericardial effusion is noted. Aorta Normal ascending aorta dimension. CONCLUSIONS LV systolic function is severely reduced with EF of 20 to 25%. Severe global hypokinesis is noted. Moderate left ventricular hypertrophy is present. Severe mitral annular calcification is noted. Severe mitral regurgitation is present. Mild to moderate aortic stenosis. Moderate to severe tricuspid regurgitation is noted. Small pericardial effusion is present. Compared to prior echocardiogram from 06/10/2019, EF has further decreased to 20 to 25%. Jeff Pelaez MD (Electronically Signed) Final Date: 19 July 2020 11:43 S
--- NOTE | 2020-07-19 00:14 | USCV_ITS ---
Marylou Art Age: 80 Gender: F : 1940 Exam Date: 07/19/2020 06:57 Ordering Phys: Bill Anderson MD Technologist: Ellie Olivera Exam Location: [facility] – [place] Indication: PE WITH SWOLLEN LEGS HISTORY: History of recent PE PROCEDURES: The venous duplex Doppler examination of both lower extremities was performed in the standard fashion. The following venous structures were evaluated: common femoral vein, profunda vein, proximal portion of the greater saphenous vein, superficial femoral vein, and the popliteal vein. In addition, the posterior tibial and peroneal trunk were evaluated. Serial compression, augmentation maneuvers, and spectral Doppler flow evaluation were performed. FINDINGS: No DVT seen in any vessel examined CONCLUSIONS No evidence of right lower extremity DVT. No evidence of left lower extremity DVT. Diffuse subcutaneous edema Benedict Hinton MD (Electronically Signed) Final Date: 19 July 2020 14:16 S
[2020-07-19] MEDS: heparin 5,000 unit/mL INJ 1 mL 5000 UNIT SUBCUT ×2 (00:54→08:13)
[2020-07-19 01:01] LABS: Thyroid Stimulating Hormone 3.92 uIU/mL (0.27-4.20)
[2020-07-19 02:13] LABS: Troponin 5 6HR Delta -25.9 ng/L (0-12)
[2020-07-19 02:14] LABS: Troponin 5 6HR 405.1 ng/L (0-10)
[2020-07-19 02:18] LABS: Anion Gap 22.5 (5-19); Calcium 9.3 mg/dL (8.5-10.5); Carbon Dioxide 20 mmol/L (22-29); Chloride 101 mmol/L (98-107); Glucose 138 mg/dL (65-115); Osmolality Calculated 321 mOsm/kg (285-295); Potassium 5.5 mmol/L (3.5-5.1); Sodium 138 mmol/L (136-145)
[2020-07-19 02:20] LABS: Blood Urea Nitrogen 104 mg/dL (8-23)
[2020-07-19] MEDS: thyroid 60 mg Tablet 90 MG PO (08:12)
[2020-07-19] MEDS: bumetanide 0.25 mg/mL SDV 10 mL 2 MG IV ×2 (08:12→22:41)
[2020-07-19] MEDS: metoprolol succinate ER (24 HR) 50 mg Tablet 25 MG PO ×2 (08:13→17:59)
[2020-07-19] MEDS: aspirin 81 mg EC Tablet PO (08:13)
--- NOTE | 2020-07-19 08:43 | PM.PN ---
Subjective Subjective: Interval history: Patient reports slightly feeling better but continues to be short of breath. Has significant abdominal distention. Reports that she is drinking large amount of fluids because she was told to. She does not want to proceed with therapeutic paracentesis as it appears to be the major cause of patient's dyspnea. She wants to continue with Lasix. Vitals/I&O/Wt Last Vital Signs Temp 97.5 F L 07/19/20 08:00 Pulse 70 07/19/20 08:00 Resp 18 07/19/20 08:00 BP 115/70 07/19/20 08:00 Pulse Ox 96 07/19/20 08:00 07/18/20 07/19/20 07/19/20 22:59 06:59 14:59 Intake Total 120 / 120 Output Total 250 / 250 Balance -130 / -130 Weight last 48 hrs Weight 65.317 kg Physical Exam Const: COMMON NORMALS: patient oriented x3; apparent distress Resp: COMMON NORMALS: normal respiratory effort OTHER: Bibasilar Rales. Cardio: COMMON NORMALS: regular rate, regular rhythm and S2 normal heart sound present RATE: regular rate RHYTHM: regular rhythm HEART SOUNDS: S2 normal heart sound present OTHER: 3+ lower extremity edema GI: COMMON NORMALS: non-tender OTHER: Distended and tense but not firm. Significant evidence of diffuse anasarca. 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 Grade 2 diastolic dysfunction, EF 35%, moderate mitral valve regurgitation, mild aortic stenosis Not a candidate of mitral valve surgery Christina Has been taking Bumex, does not follow restricted fluid or cardiac diet, she has been eating canned food, no active chest pain Dietary indiscretion is most likely the cause of refractory ascites with underlying multiple comorbidities EKG showing paced rhythm, troponins high, no active chest pain, I would do IV Bumex, 2 mg daily, target negative balance at least 1 L a day No signs of sepsis or abdominal pain, Echo in the morning Status: Acute (2) Acute kidney injury superimposed on chronic kidney disease: Fluid overloaded, anasarca most likely cardiorenal etiology, anticipating, with diuresis, monitor urine output, target negative balance 1 L a day Hold spironolactone Her uremia has doubled, no active signs of uremic encephalopathy, pericarditis, will follow-up with echo No acute indication for dialysis Status: Acute (3) Anasarca: She might need therapeutic paracentesis to relieve her shortness of breath Her abdominal ascites has gotten worse which is causing symptoms This most likely is due to CHF exacerbation causing cardiorenal ELIJAH Albumin low normal Transaminases normal Status: Acute Additional A&P Information A. fib without RVR, paced rhythm, not on anticoagulation secondary to GI bleed Hypothyroidism: Continue home regimen of levothyroxine: Check TSH Goals of care discussed with the patient: Full code, DVT prophylaxis: Heparin Cardiac diet with fluid restriction PLAN: Discussed with patient got importance of fluid restriction. Patient voiced understanding. Increase Bumex to twice daily. Awaiting echocardiogram and will request renal ultrasound. Place Garvin catheter. If patient shows no significant urinary output we will have to consider paracentesis as because of extensive ascites patient may have ureteral compression limiting urinary output. Attestations Medical Necessity Statement*: Patient with acute heart failure requires close inpatient monitoring and treatment. Coding Level of Care Code Acute Guest Relations Coordinator for [facility] Fwd Diagnoses CHF exacerbation I50.9 Acute kidney injury superimposed on chronic kidney disease N17.9; N18.9 Anasarca R60.1
--- NOTE | 2020-07-19 08:59 | US_ITS ---
WS: [id number] ULTRASOUND RENAL TECHNIQUE: Ultrasound examination of both kidneys. CLINICAL INFORMATION: Acute kidney injury, concern for urinary retention COMPARISON: None. FINDINGS: RIGHT: Right kidney is normal in size and appearance. Echogenicity: Normal. Cortical thickness: 1.8 cm; Normal. Hydronephrosis: None. Perinephric fluid: None. Right kidney measures: 9.8 cm x 5.7 cm x 5.0 cm. LEFT: Left kidney is difficult to visualize but appears normal. Echogenicity: Normal. Cortical thickness: 1.7 cm; Normal. Hydronephrosis: None. Perinephric fluid: None. Left kidney measures: 8.9 cm x 5.3 cm x 4.7 cm. Normal visualized aorta. Abdominal ascites. Garvin catheter. US/US renal BI* [id number] IMPRESSION: 1. No hydronephrosis in either kidney. 2. Normal renal ultrasound. 3. Abdominal ascites
--- NOTE | 2020-07-19 10:04 | PC.CHAP ---
Pastoral Care Encounter/Spiritual Assessment Type of Contact [] Declined laundry supervisor visit [] Patient/Family/Request visit [] Outpatient visit [x] Follow-up visit [] Physician referral [] Code/Alert [] Routine visit [] Staff referral [] Actively dying [] Patient sleeping [] Family support [] [] Out of room [] Palliative care [] [] Receiving care in room [] Pre-surgical visit [] Trauma [] Long length of stay [] ICU visit [] Other: Relational/Emotional Strength [] Patient feels connected with others/family/visitors/staff [] Distress [] Loneliness/isolation [] Abandonment Spirituality of Patient [] Person of Cathryn [] Attends Hinduism of their Cathryn [] Believes in Prayer [] Reads Bible or Church materials [] There are Spiritual issues to be addressed Civil Engineering Professional Interventions [] Prayer [] Active listening [] Non-anxious presence [] Spiritual/emotional support [] Crisis/trauma care [] Spiritual counseling [] Bereavement support [] Provided bereavement packet [] Provided Bible/devotional materials [] Provided toy/stuffed animal, coloring book to patient or family member [] Provided Communion [] Anointing/[place] [] Salvation [] Completed spiritual assessment [] Other: Impact on Illness or Injury [] Angry [] Fearful [] Anxious [] Often cries [] Exhaustion [] Unable to work [] Unable to attend shinto [] Unable to walk/stand [] Unable to read [] Unable to drive [] Unable to eat/drink [] Unable to sleep [] Unable to be with family [] Patient intubated [] Other: Summary Follow-up visit Time spent with patient 5 mins
[2020-07-20] VITALS (12 sets, daily range): BP systolic 100–114; BP diastolic 57–69; PULSE 68–90; RESP 16–28; TEMP 36–36.6; O2SAT 90–100
--- NOTE | 2020-07-20 08:51 | PM.PN ---
Subjective Subjective: Interval history: Patient continues to be short of breath. Denies chest or abdominal pain. She had 350 mL of urinary output overnight. Her urine is clearing up. She has discomfort and wants to have Garvin catheter removed. She is scheduled for therapeutic and diagnostic paracentesis this morning. Discussed with RN and we will remove Garvin catheter after she comes back. Echocardiogram shows severe global hypokinesis with EF 20 to 25%. Vitals/I&O/Wt Last Vital Signs Temp 96.8 F L 07/20/20 07:16 Pulse 74 07/20/20 07:53 Resp 20 H 07/20/20 07:53 BP 114/69 07/20/20 07:16 Pulse Ox 99 07/20/20 07:53 07/19/20 07/20/20 07/20/20 22:59 06:59 14:59 Intake Total 238 / 788 Output Total 150 / 375 350 / 725 Balance 88 / 413 -350 / 63 Weight last 48 hrs Weight 65.317 kg Physical Exam Const: COMMON NORMALS: patient oriented x3; apparent distress Resp: COMMON NORMALS: normal respiratory effort OTHER: Bibasilar Rales. Cardio: COMMON NORMALS: regular rate, regular rhythm and S2 normal heart sound present RATE: regular rate RHYTHM: regular rhythm HEART SOUNDS: S2 normal heart sound present OTHER: 2+ lower extremity edema GI: COMMON NORMALS: non-tender OTHER: Distended and tense but not firm. Significant evidence of diffuse anasarca. 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 Grade 2 diastolic dysfunction, EF 20-25%, moderate mitral valve regurgitation, mild aortic stenosis Not a candidate of mitral valve surgery Anasarca Has been taking Bumex, does not follow restricted fluid or cardiac diet, she has been eating canned food, no active chest pain Dietary indiscretion is most likely the cause of refractory ascites with underlying multiple comorbidities EKG showing paced rhythm, troponins high, no active chest pain, I would do IV Bumex, 2 mg daily, target negative balance at least 1 L a day No signs of sepsis or abdominal pain, Echo in the morning Status: Acute (2) Acute kidney injury superimposed on chronic kidney disease: Fluid overloaded, anasarca most likely cardiorenal etiology, anticipating, with diuresis, monitor urine output, target negative balance 1 L a day Hold spironolactone Her uremia has doubled, no active signs of uremic encephalopathy, pericarditis, will follow-up with echo No acute indication for dialysis Status: Acute (3) Anasarca: She might need therapeutic paracentesis to relieve her shortness of breath Her abdominal ascites has gotten worse which is causing symptoms This most likely is due to CHF exacerbation causing cardiorenal ELIJAH Albumin low normal Transaminases normal Status: Acute Additional A&P Information A. fib without RVR, paced rhythm, not on anticoagulation secondary to GI bleed Hypothyroidism: Continue home regimen of levothyroxine: Check TSH Goals of care discussed with the patient: Full code, DVT prophylaxis: Heparin Cardiac diet with fluid restriction PLAN: We will check hep B and C. We will give patient 5 mg oral vitamin K. Awaiting labs this morning including PT/INR. Awaiting diagnostic and therapeutic paracentesis Continue holding heparin. Add Protonix for GI protection. Once heart failure is compensated patient may require further cardiac evaluation. Attestations Medical Necessity Statement*: Patient with acute heart failure requires close inpatient monitoring and treatment. Coding Level of Care Code Acute Graphic Design Teacher for [facility] Fwd Diagnoses CHF exacerbation I50.9 Acute kidney injury superimposed on chronic kidney disease N17.9; N18.9 Anasarca R60.1
[2020-07-20] MEDS: bumetanide 0.25 mg/mL SDV 10 mL 2 MG IV ×2 (09:11→21:54)
[2020-07-20 09:21] LABS: Basophils % 0.8 %; Eosinophils # 0.1 10^3/uL (0.0-0.8); Eosinophils % 1.5 %; Hematocrit 34.1 % (37.0-47.0); Hemoglobin 10.4 g/dL (11.5-15.3); Lymphocytes # 0.6 10^3/uL (0.8-4.8); Mean Corpuscular HGB Conc 30.5 g/dL (30.0-36.0); Mean Corpuscular Hemoglobin 32.3 pg (28.0-34.0); Mean Corpuscular Volume 105.9 fL (81-99); Mean Platelet Volume 9.7 fL (7.4-10.4); Monocytes # 0.5 10^3/uL (0.2-0.9); Monocytes % 9.9 %; Neutrophils # 3.54 10^3/uL (1.8-7.7); Neutrophils % 74.4 %; Nucleated Red Blood Cells % 0 %; Platelet Count 198 10^3/cmm (130-400); Red Blood Count 3.22 10^6/uL (4.1-5.3); White Blood Count 4.8 10^3/uL (4.0-10.0)
--- NOTE | 2020-07-20 09:22 | PC.CHAP ---
Pastoral Care Encounter/Spiritual Assessment Type of Contact [] Declined oil field caser visit [] Patient/Family/Request visit [] Outpatient visit [] Follow-up visit [] Physician referral [] Code/Alert [] Routine visit [] Staff referral [] Actively dying [] Patient sleeping [] Family support [] [] Out of room [] Palliative care [] [] Receiving care in room [] Pre-surgical visit [] Trauma [] Long length of stay [] ICU visit [] Other: Relational/Emotional Strength [] Patient feels connected with others/family/visitors/staff [] Distress [] Loneliness/isolation [] Abandonment Spirituality of Patient [x] Person of Cathryn [] Attends Holiness of their Cathryn [x] Believes in Prayer [] Reads Bible or Sikh materials [] There are Spiritual issues to be addressed Rent And Miscellaneous Remittance Clerk Interventions [x] Prayer [] Active listening [] Non-anxious presence [] Spiritual/emotional support [] Crisis/trauma care [] Spiritual counseling [] Bereavement support [] Provided bereavement packet [] Provided Bible/devotional materials [] Provided toy/stuffed animal, coloring book to patient or family member [] Provided Communion [] Anointing/[place] [] Salvation [x] Completed spiritual assessment [] Other: Impact on Illness or Injury [] Angry [] Fearful [] Anxious [] Often cries [] Exhaustion [] Unable to work [] Unable to attend jew [] Unable to walk/stand [] Unable to read [] Unable to drive [] Unable to eat/drink [] Unable to sleep [] Unable to be with family [] Patient intubated [] Other: Summary dry mouth hard for her to talk Time spent with patient 10 min
[2020-07-20 09:33] LABS: INR 1.49 (0.8-1.2)
[2020-07-20 09:37] LABS: Alanine Aminotransferase 14 U/L (0-33); Albumin Level 3.1 g/dL (3.5-5.2); Alkaline Phosphatase 160 IU/L (35-105); Anion Gap 17.3 (5-19); Aspartate Amino Transferase 22 U/L (0-32); Calcium 9.4 mg/dL (8.5-10.5); Carbon Dioxide 24 mmol/L (22-29); Chloride 102 mmol/L (98-107); Globulin 4.3 g/dL (1.3-4.6); Glucose 119 mg/dL (65-115); Osmolality Calculated 320 mOsm/kg (285-295); Potassium 5.3 mmol/L (3.5-5.1); Sodium 138 mmol/L (136-145); Total Protein 7.4 g/dL (6.6-8.7)
[2020-07-20] MEDS: phytonadione (ADULT) 10 mg/mL Ampule 1 mL 5 MG PO (10:45)
[2020-07-20 11:19] LABS: Blood Urea Nitrogen 106 mg/dL (8-23)
[2020-07-20 12:28] LABS: Hepatitis B Core AB, Total Non-Reactive (Nonreactive); Hepatitis B Surface AB 3.5 (0-8.5); Hepatitis B Surface Antigen Non-Reactive (Nonreactive); Hepatitis C Virus Antibody Non-Reactive (Nonreactive)
[2020-07-20] MEDS: ipratropium-albuterol 3 mL Neb INHALATION ×2 (12:59→22:50)
[2020-07-20 14:44] LABS: Glucose Point of Care 114 mg/dL (70-110)
--- NOTE | 2020-07-20 15:42 | PC.RESP ---
PULMONARY REHAB INFORMATION SENT TO PATIENT.
--- NOTE | 2020-07-20 16:45 | US_ITS ---
WS: [id number] ULTRASOUND-GUIDED PARACENTESIS CLINICAL INFORMATION: Ascites COMPARISON: None. Procedure Informed consent: The risks, benefits, and alternatives of the procedure were discussed with the porter ent. Verbal and written consent was obtained. Timeout: A timeout was performed to confirm the correct patient, procedure, and site. Preparation: A suitable skin site was identified. The patient was prepped and draped in usual sterile fashion. Lidocaine 1% was used for local anesthesia. Catheter: 4 [place] One-step Yueh catheter. Side: Left Lower quadrant. Fluid Volume: 7250 ml Color: Dark red serous Fluid sent for requested diagnostic tests. Remainder discarded safely. Complications: None. US/US paracentesis abd w [id number] IMPRESSION: Uncomplicated ultrasound-guided paracentesis. Removal of 7250 cc
[2020-07-20 17:09] LABS: Body Fluid Polynuclear #Cells 0.056; Body Fluid WBC 207 /uL; Monocytes # Body Fluid 0.151
[2020-07-20 17:14] LABS: Apprearance, Body Fluid CLOUDY; Body Fluid Specific Gravity 1.015; Color, Body Fluid RED
[2020-07-20 17:26] LABS: Fluid Alkaline Phos. 61 IU/L; LDH Body Fluid 126 U/L; Total Protein Body Fluid 4 g/dL
[2020-07-20 17:27] LABS: Amylase Body Fluid 27 U/L; Cholesterol Body Fluid 27 mg/dL (0-200); Triglycerides Body Fluid 47 mg/dL (0-150); Uric Acid Body Fluid 12 mg/dL
[2020-07-20] MEDS: metoprolol succinate ER (24 HR) 50 mg Tablet 25 MG PO (18:18)
[2020-07-20] MEDS: aspirin 81 mg EC Tablet PO (18:18)
[2020-07-20] MEDS: pantoprazole DR 40 mg Tablet PO (18:20)
[2020-07-20] MEDS: thyroid 60 mg Tablet 90 MG PO (18:20)
[2020-07-21] VITALS (10 sets, daily range): BP systolic 104–118; BP diastolic 51–74; PULSE 65–88; RESP 16–32; TEMP 36.3–36.7; O2SAT 95–100
[2020-07-21 04:49] LABS: Basophils % 0.8 %; Eosinophils # 0.1 10^3/uL (0.0-0.8); Eosinophils % 2.3 %; Hematocrit 33.3 % (37.0-47.0); Hemoglobin 10.2 g/dL (11.5-15.3); Lymphocytes # 0.6 10^3/uL (0.8-4.8); Lymphocytes % 11.1 %; Mean Corpuscular HGB Conc 30.6 g/dL (30.0-36.0); Mean Corpuscular Hemoglobin 32.4 pg (28.0-34.0); Mean Corpuscular Volume 105.7 fL (81-99); Monocytes # 0.4 10^3/uL (0.2-0.9); Monocytes % 8.5 %; Neutrophils # 3.96 10^3/uL (1.8-7.7); Neutrophils % 76.9 %; Nucleated Red Blood Cells % 0 %; Platelet Count 189 10^3/cmm (130-400); Red Blood Count 3.15 10^6/uL (4.1-5.3); Red Cell Distribution Width 15.9 % (12.1-15.1); White Blood Count 5.2 10^3/uL (4.0-10.0)
[2020-07-21 05:18] LABS: Alanine Aminotransferase 15 U/L (0-33); Albumin Level 2.7 g/dL (3.5-5.2); Alkaline Phosphatase 170 IU/L (35-105); Anion Gap 15.2 (5-19); Aspartate Amino Transferase 26 U/L (0-32); Carbon Dioxide 27 mmol/L (22-29); Chloride 102 mmol/L (98-107); Globulin 3.8 g/dL (1.3-4.6); Glucose 160 mg/dL (65-115); Magnesium 1.7 mg/dL (1.7-2.3); Osmolality Calculated 324 mOsm/kg (285-295); Potassium 5.2 mmol/L (3.5-5.1); Sodium 139 mmol/L (136-145); Total Bilirubin 0.8 mg/dL (0.15-1.2); Total Protein 6.5 g/dL (6.6-8.7)
[2020-07-21 05:19] LABS: Blood Urea Nitrogen 104 mg/dL (8-23)
[2020-07-21] MEDS: thyroid 60 mg Tablet 90 MG PO (09:00)
[2020-07-21] MEDS: metoprolol succinate ER (24 HR) 50 mg Tablet 25 MG PO ×2 (09:00→17:59)
[2020-07-21] MEDS: pantoprazole DR 40 mg Tablet PO (09:00)
[2020-07-21] MEDS: aspirin 81 mg EC Tablet PO (09:00)
[2020-07-21] MEDS: bumetanide 0.25 mg/mL SDV 10 mL 2 MG IV ×2 (09:58→21:07)
--- NOTE | 2020-07-21 10:04 | PM.PN ---
Subjective Subjective: Interval history: Patient felt much better yesterday evening after paracentesis. This morning patient reports feeling slightly short of breath. She admits drinking large amount of fluids although I had extensive discussion with patient yesterday and this morning regarding importance of fluid restriction. Her fluid post paracentesis is suggestive of cardiac etiology given WBC count, serum to ascites albumin gradient and total protein. Case discussed with Dr. Villafana who will see patient in consultation. 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 Reports that long time ago she had several interventions to her RCA. Garvin catheter was removed yesterday and patient urinates without difficulty. Vitals/I&O/Wt Last Vital Signs Temp 97.6 F 07/21/20 07:36 Pulse 67 07/21/20 08:09 Resp 17 07/21/20 08:09 BP 106/62 07/21/20 07:36 Pulse Ox 99 07/21/20 08:09 07/20/20 07/21/20 07/21/20 22:59 06:59 14:59 Intake Total 120 / 120 60 / 180 120 / 120 Output Total 600 / 600 350 / 950 150 / 150 Balance -480 / -480 -290 / -770 -30 / -30 Physical Exam Const: COMMON NORMALS: patient oriented x3; apparent distress Resp: COMMON NORMALS: normal respiratory effort OTHER: Minimal bibasilar Rales. Cardio: COMMON NORMALS: regular rate, regular rhythm and S2 normal heart sound present RATE: regular rate RHYTHM: regular rhythm HEART SOUNDS: S2 normal heart sound present OTHER: Trace lower extremity edema GI: COMMON NORMALS: non-tender OTHER: Significantly decreased abdominal distention. Neuro: COMMON NORMALS: patient oriented x3 and no focal motor deficits Urinary Catheter Management^: Garvin: Cath Placed During This Visit: yes, but has since been removed by the nurse Reason for Continuing Indwelling Catheter: Not indwelling catheter Urinary Catheter Date of Insertion: 07/19/20 Urinary Catheter Time of Insertion: 10:28 Date Urinary Catheter Removed: 07/20/20 Time Urinary Catheter Discontinued: 18:32 Data : 07/21/20 04:21 07/21/20 04:21 Micro: Microbiology 07/18/20 19:00 Urine Culture - Final Urine,Clean Catch Escherichia coli 07/20/20 15:20 Gram Stain - Final Peritoneal Fluid A&P Assessment and plan (1) CHF exacerbation: 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 Grade 2 diastolic dysfunction, EF 20-25%, moderate mitral valve regurgitation, mild aortic stenosis Not a candidate of mitral valve surgery Christina Has been taking Bumex, does not follow restricted fluid or cardiac diet, she has been eating canned food, no active chest pain Dietary indiscretion is most likely the cause of refractory ascites with underlying multiple comorbidities EKG showing paced rhythm, troponins high, no active chest pain, I would do IV Bumex, 2 mg daily, target negative balance at least 1 L a day No signs of sepsis or abdominal pain, Echo in the morning Status: Acute (2) Acute kidney injury superimposed on chronic kidney disease: Fluid overloaded, anasarca most likely cardiorenal etiology, anticipating, with diuresis, monitor urine output, target negative balance 1 L a day Hold spironolactone Her uremia has doubled, no active signs of uremic encephalopathy, pericarditis, will follow-up with echo No acute indication for dialysis Status: Acute (3) Anasarca: She might need therapeutic paracentesis to relieve her shortness of breath Her abdominal ascites has gotten worse which is causing symptoms This is due to CHF exacerbation causing cardiorenal ELIJAH Albumin low normal Transaminases normal Status: Acute Additional A&P Information A. fib without RVR, paced rhythm, not on anticoagulation secondary to GI bleed Hypothyroidism: Continue home regimen of levothyroxine: Check TSH Goals of care discussed with the patient: Full code, DVT prophylaxis: Heparin Cardiac diet with fluid restriction PLAN: Continue with aggressive diuresis. Awaiting cardiology evaluation. Patient may benefit from Entresto and LifeVest and I will let Dr. Villafana to make that decision. Continue with physical therapy. Fluid restriction 500 mL/day. Attestations Medical Necessity Statement*: Patient with acute heart failure requires close inpatient monitoring, treatment and evaluation. Coding Level of Care Code Acute General Production Manager for [facility] Fwd Diagnoses CHF exacerbation I50.9 Acute kidney injury superimposed on chronic kidney disease N17.9; N18.9 Anasarca R60.1
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
[2020-07-22] VITALS (8 sets, daily range): BP systolic 95–160; BP diastolic 51–73; PULSE 69–113; RESP 16–20; TEMP 36.3–36.9; O2SAT 93–100
[2020-07-22 05:40] LABS: Basophils % 0.6 %; Eosinophils # 0.2 10^3/uL (0.0-0.8); Eosinophils % 3.4 %; Hematocrit 32.1 % (37.0-47.0); Hemoglobin 9.9 g/dL (11.5-15.3); Lymphocytes # 0.5 10^3/uL (0.8-4.8); Lymphocytes % 10.9 %; Mean Corpuscular HGB Conc 30.8 g/dL (30.0-36.0); Mean Corpuscular Hemoglobin 32.9 pg (28.0-34.0); Mean Corpuscular Volume 106.6 fL (81-99); Monocytes # 0.6 10^3/uL (0.2-0.9); Monocytes % 12.8 %; Neutrophils # 3.37 10^3/uL (1.8-7.7); Neutrophils % 71.9 %; Nucleated Red Blood Cells % 0 %; Platelet Count 159 10^3/cmm (130-400); Red Blood Count 3.01 10^6/uL (4.1-5.3); Red Cell Distribution Width 15.8 % (12.1-15.1); White Blood Count 4.7 10^3/uL (4.0-10.0)
[2020-07-22 06:16] LABS: Alanine Aminotransferase 14 U/L (0-33); Albumin Level 2.7 g/dL (3.5-5.2); Alkaline Phosphatase 157 IU/L (35-105); Anion Gap 12.8 (5-19); Aspartate Amino Transferase 24 U/L (0-32); Calcium 9.2 mg/dL (8.5-10.5); Carbon Dioxide 30 mmol/L (22-29); Chloride 104 mmol/L (98-107); Globulin 3.5 g/dL (1.3-4.6); Glucose 144 mg/dL (65-115); Magnesium 1.6 mg/dL (1.7-2.3); Osmolality Calculated 328 mOsm/kg (285-295); Potassium 4.8 mmol/L (3.5-5.1); Sodium 142 mmol/L (136-145); Total Bilirubin 0.9 mg/dL (0.15-1.2); Total Protein 6.2 g/dL (6.6-8.7)
[2020-07-22 06:18] LABS: Blood Urea Nitrogen 101 mg/dL (8-23)
--- NOTE | 2020-07-22 07:42 | PC.NURSE ---
OUTPUT - Patient assisted to bedside commode with sba. Brief was saturated with urine. Cleansed with soap and water and patient voided in BSC and recorded in I&O. SMW, RN CONCURRENT REVIEW
[2020-07-22] MEDS: pantoprazole 40 mg SDV IVP ×2 (08:06→20:01)
[2020-07-22] MEDS: bumetanide 0.25 mg/mL SDV 10 mL 2 MG IV (08:06)
[2020-07-22] MEDS: aspirin 81 mg EC Tablet PO (08:07)
[2020-07-22] MEDS: metoprolol succinate ER (24 HR) 50 mg Tablet 25 MG PO ×2 (08:07→17:22)
[2020-07-22] MEDS: thyroid 60 mg Tablet 90 MG PO (08:17)
--- NOTE | 2020-07-22 09:05 | PC.SOCIAL ---
IMM Page 2 of IMM explained to patient. Initialed, dated, and timed and placed in chart. Copy provided to patient.
--- NOTE | 2020-07-22 09:07 | P.PN_ITS ---
Subjective Subjective: Interval history: Patient reports feeling much better this morning. Denies shortness of breath or chest pain. Denies abdominal pain. Reports her abdomen feels better after paracentesis. Her creatinine increased to 3.0. Hemoglobin appears stable but platelets are down to 159. I am concerned for possible slow GI bleed. Vitals/I&O/Wt Last Vital Signs Temp 97.6 F 07/22/20 07:27 Pulse 113 H 07/22/20 07:27 Resp 20 H 07/22/20 07:27 BP 110/65 07/22/20 07:27 Pulse Ox 94 07/22/20 07:27 07/21/20 07/22/20 07/22/20 22:59 06:59 14:59 Intake Total 240 / 360 90 / 450 240 / 240 Output Total 240 / 840 350 / 350 Balance 0 / -480 90 / -390 -110 / -110 Physical Exam Const: COMMON NORMALS: patient oriented x3; apparent distress Resp: COMMON NORMALS: normal respiratory effort OTHER: Minimal bibasilar Rales. Cardio: COMMON NORMALS: regular rate, regular rhythm and S2 normal heart sound present RATE: regular rate RHYTHM: regular rhythm HEART SOUNDS: S2 normal heart sound present OTHER: Trace lower extremity edema GI: COMMON NORMALS: non-tender OTHER: Significantly decreased abdominal distention. Neuro: COMMON NORMALS: patient oriented x3 and no focal motor deficits Urinary Catheter Management^: Garvin: Cath Placed During This Visit: yes, but has since been removed by the nurse Reason for Continuing Indwelling Catheter: Not indwelling catheter Urinary Catheter Date of Insertion: 07/19/20 Urinary Catheter Time of Insertion: 10:28 Date Urinary Catheter Removed: 07/20/20 Time Urinary Catheter Discontinued: 18:32 Data : 07/22/20 04:55 07/22/20 04:55 Micro: Microbiology 07/20/20 15:20 Gram Stain - Final Peritoneal Fluid Body Fluid Culture - Preliminary 07/18/20 19:00 Urine Culture - Final Urine,Clean Catch Escherichia coli A&P Assessment and plan (1) CHF exacerbation: 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 Grade 2 diastolic dysfunction, EF 20-25%, moderate mitral valve regurgitation, mild aortic stenosis Not a candidate of mitral valve surgery Anasarca Has been taking Bumex, does not follow restricted fluid or cardiac diet, she has been eating canned food, no active chest pain Dietary indiscretion is most likely the cause of refractory ascites with underlying multiple comorbidities EKG showing paced rhythm, troponins high, no active chest pain, I would do IV Bumex, 2 mg daily, target negative balance at least 1 L a day No signs of sepsis or abdominal pain, Echo in the morning Status: Acute (2) Acute kidney injury superimposed on chronic kidney disease: Fluid overloaded, anasarca most likely cardiorenal etiology, anticipating, with diuresis, monitor urine output, target negative balance 1 L a day Hold spironolactone Her uremia has doubled, no active signs of uremic encephalopathy, pericarditis, will follow-up with echo No acute indication for dialysis Status: Acute (3) Anasarca: She might need therapeutic paracentesis to relieve her shortness of breath Her abdominal ascites has gotten worse which is causing symptoms This is due to CHF exacerbation causing cardiorenal ELIJAH Albumin low normal Transaminases normal Status: Acute Additional A&P Information A. fib without RVR, paced rhythm, not on anticoagulation secondary to GI bleed Hypothyroidism: Continue home regimen of levothyroxine: Check TSH Goals of care discussed with the patient: Full code, DVT prophylaxis: Heparin Cardiac diet with fluid restriction PLAN: Will discontinue heparin and change PPI to IV as slow GI bleed cannot be ruled out. Continue monitoring CBC. We will proceed with initial anemia work-up. I think patient is getting on the sand drier side and will hold Bumex for now. Replete magnesium. Appreciate Dr. Villafana's help. Attestations Medical Necessity Statement*: Patient with acute heart failure requires close inpatient monitoring, treatment evaluation. Coding Level of Care Code Acute Endless Bed Drum Sander for Chg Fwd Diagnoses CHF exacerbation I50.9 Acute kidney injury superimposed on chronic kidney disease N17.9; N18.9 Anasarca R60.1
[2020-07-22] MEDS: magnesium sulfate premix 2 GM/50 ML PIGGYBACK IV (10:48)
--- NOTE | 2020-07-22 12:58 | PC.PT ---
Pt refused PT 2x. Pt stated she was too tired for therapy. We will try to resume PT 07/23/20.
--- NOTE | 2020-07-22 13:57 | PM.PN ---
Subjective Subjective: Interval history: She feels tired and did not sleep well last night. Denies having any chest pain or shortness of breath. Creatinine today is increased to 3. Not on telemetry. Medications: Reviewed: Yes Medication Review Details: Current Medications Albuterol/Ipratropium (Duoneb) 3 ml INHALATION Q6H PRN PRN Reason: SHORTNESS OF BREATH Last Admin: 07/20/20 22:50 Dose: 3 ml Documented by: Aspirin (Aspirin Ec) 81 mg PO DAILY [facility] Last Admin: 07/22/20 08:07 Dose: 81 mg Documented by: Bumetanide (Bumex) 2 mg IV Q12H [facility] Last Admin: 07/22/20 08:06 Dose: 2 mg Documented by: Metoprolol Succinate (Toprol Xl) 25 mg PO BID [facility] Last Admin: 07/22/20 08:07 Dose: 25 mg Documented by: Nitroglycerin (Nitrostat) 0.4 mg SUBLINGUAL Q5M PRN PRN Reason: chest pain Pantoprazole Sodium (Protonix) 40 mg IVP Q12H [facility] Last Admin: 07/22/20 08:06 Dose: 40 mg Documented by: Thyroid ([place] Thyroid) 90 mg PO DAILY [facility] Last Admin: 07/22/20 08:17 Dose: 90 mg Documented by: Vitals/I&O/Wt Last Vital Signs Temp 97.5 F L 07/22/20 11:35 Pulse 78 07/22/20 11:35 Resp 16 07/22/20 11:35 BP 112/73 07/22/20 11:35 Pulse Ox 99 07/22/20 11:35 07/21/20 07/22/20 07/22/20 22:59 06:59 14:59 Intake Total 240 / 360 90 / 450 440 / 440 Output Total 240 / 840 350 / 350 Balance 0 / -480 90 / -390 90 / 90 Physical Exam Narrative: EXAM NARRATIVE: GENERAL: Frail elderly lady lying in bed; in no acute distress HEENT: Extraocular movement intact. Pupils equal round reactive to light. No pallor or icterus. NECK: central trachea, N0 JVD. No carotid bruit. CARDIOVASCULAR SYSTEM: S1-S2 regular. No S3 or S4 present. No murmur rubs or gallops. RESPIRATORY SYSTEM: Chest clear to auscultation. No wheezes rhonchi or rubs heard. No use of accessory muscles. ABDOMEN: Soft, nontender and nondistended. Normal bowel sounds present. EXTREMITIES: No cyanosis or clubbing. No edema. No signs of chronic venous insufficiency. HEMMER AUTOMATIC: Patient is alert oriented ?3. No focal neurological deficits. SKIN: Normal turgor and temperature. No breakdown, rash or nail changes noted. PSYCH: Normal insight and judgment. Urinary Catheter Management^: Garvin: Cath Placed During This Visit: yes, but has since been removed by the nurse Reason for Continuing Indwelling Catheter: Not indwelling catheter Urinary Catheter Date of Insertion: 07/19/20 Urinary Catheter Time of Insertion: 10:28 Date Urinary Catheter Removed: 07/20/20 Time Urinary Catheter Discontinued: 18:32 Data : 07/22/20 04:55 07/22/20 04:55 Micro: Microbiology 07/20/20 15:20 Gram Stain - Final Peritoneal Fluid Body Fluid Culture - Preliminary Attestation for Other Data: I personally reviewed and interpreted the following: Other data: T scan chest abdomen and pelvis 18 July 2020 IMPRESSION: 1. Cardiomegaly with small pericardial effusion. 2. Severe mitral annulus calcifications. 3. Small pleural effusions and mild body wall edema. IMPRESSION: 1. Findings of anasarca with massive ascites and severe body wall edema. 2. Suspected liver cirrhosis. 3. Mild diffuse wall thickening of the small bowel is most likely related to the patient's liver disease and hyperproteinemia. 4. Diverticulosis of the distal colon. Attestation for Other Data: I personally reviewed and interpreted the following: Other data: echocardiogram 19 July 2020 CONCLUSIONS LV systolic function is severely reduced with EF of 20 to 25%. Severe global hypokinesis is noted. Moderate left ventricular hypertrophy is present. Severe mitral annular calcification is noted. Severe mitral regurgitation is present. Mild to moderate aortic stenosis. Moderate to severe tricuspid regurgitation is noted. Small pericardial effusion is present. Compared to prior echocardiogram from 06/10/2019, EF has further decreased to 20 to 25%. Lexiscan myocardial perfusion imaging 10 September 2018 IMPRESSIONS 1. Large sized perfusion abnormality of entire inferolateral and apical schultz likely represents area of old myocardial infarction in LAD and circumflex territory with mild-moderate david-infarct ischemia (33%). 2. Small-sized patchy perfusion abnormality of inferior wall likely represents attenuation artifact. 3. The left ventricular ejection fraction is markedly reduced with a value of 29%. 4. There is diffuse hypokinesis with severe hypokinesis of inferolateral and apical schultz. 5. The perfusion pattern is consistent with an ischemic cardiomyopathy. 6. There are no prior studies to compare. Coronary angiogram 29 October 2016 Patient is a diabetic with dyslipidemia and a dual-chamber pacemaker. Recently she has had worsening shortness of breath. The echo revealed moderate to severe mitral regurgitation and pulmonary hypertension. She was also found to be in atrial fibrillation at the most recent pacemaker check which was previously unknown. I was also unaware that she previously had stents placed to her right coronary artery. Right and left heart catheterization were performed to assess her coronary anatomy, mitral valve disease and left ventricular dysfunction. The thermal dilution cardiac output is 3.51 L/m, with an index of approximately 2 L/minute per meter squared. The right atrial pressure is 32 mmHg. Right ventricular pressure is 78/14. Pulmonary capillary wedge pressure is 24 mmHg. Pulmonary artery pressure is 76/38. Aortic saturation on room air is 90%. The pulmonary artery, right ventricular and right atrial saturations are in the mid 50s. This is also measured on room air. Ejection fraction is about 35%. Inferior base and mid inferior schultz are essentially akinetic. There is hypokinesis of the apex. The apical wall motion disturbances are related to the paced rhythm to some degree. The anterior base and mid anterior wall contract normally. There is at least 3+ mitral regurgitation. There is heavy mitral annular calcification. There may be some underestimate of the mitral regurgitation because of the underlying atrial fibrillation and paced rhythm. The right coronary artery is completely occluded at the origin. There are multiple previous stents noted. The LAD contains mild diffuse disease. Circumflex is a small vessel and is probably occluded in its midportion. There is a obtuse marginal branch which fills late in the run which likely originates from the proximal circumflex. LAD collaterals fill this vessel. There is collateral flow to the right coronary artery. This is provided essentially entirely by the LAD. Recommendations Consideration of mitral valve surgery and bypass. She would be high risk because of the heavy mitral annular calcification, left ventricular dysfunction and most importantly the pulmonary hypertension. Currently she is adequately medically managed. I concern is with repair replacement of the mitral valve and without revascularization that the left ventricular function may worsen. Other options would be a mitralclip. I will likely consider sending her to [facility] for consultation. Angiographic Findings Cardiac Arteries and Lesion Findings LMCA: Normal. LAD: Diffuse irregularity. LCx: Chronic occlusion.Circumflex is small and likely occluded in its midportion. There is a medium size marginal branch which appears via collateral flow late in the run. This is most likely a branch which originates proximally. Collaterals are from the left anterior descending. RCA: Chronic occlusion.The vessel is closed at the ostium. It is lined with stents from the ostium to beyond the acute margin. Cardiac Collaterals - Good collateral flowcollateral flow from the 1st Septal to the Dist RCA. - Good collateral flowcollateral flow from the Mid LAD to the Dist RCA. - Poor collateral flowcollateral flow from the Mid LAD to the 1st Ob Jonelle. Valves +------+--------+ + + !Valve !Stenosis!Insufficiency!Comments ! +------+--------+ + + !Mitral!No !Grade 3 !There is heavy mitral annular calcification.! ! ! ! !Because of the underlying atrial ! ! ! ! !fibrillation and paced rhythm 3+ mitral ! ! ! ! !regurgitation may be an underestimate of the! ! ! ! !severity of the mitral regurgitation. ! +------+--------+ + + A&P Assessment and plan (1) Acute exacerbation of CHF (congestive heart failure): There has been a drop in LV function. It could be insetting of VHD with severe MR and moderate to severe TR. -No chest pains, however progression of underlying CAD cannot be ruled out. -Last cath with Chronic occlusion of mid Circumflex with Collaterals from the left anterior descending. RCA with Chronic occlusion at the ostium. RCA lined with stents from the ostium to beyond the acute margin. -I had a long discussion with patient and her niece Suze. Risks and benefits of medical management, coronary angiogram vs stress testing were discussed in detail. -Given her ELIJAH on CKD, plan to optimize her medical management for CHF now. -Plan for further work up based on her clinical progression, likely as an outpatient. -continue metoprolol succinate. bumex held. -Plan to add ACEI/ARB based on renal function later. Status: Acute Qualifiers: Heart failure type: combined systolic and diastolic Qualified Code(s): I50.43 - Acute on chronic combined systolic (congestive) and diastolic (congestive) heart failure (2) Atrial fibrillation: Heparin drip stopped. Patient was started on Protonix. Status: Acute (3) Mitral regurgitation: Severe MR , not a candidate for surgery or clip. Status: Acute (4) Elevated troponin: Type 2 NSTEMI In setting of decompensated CHF. -continue ASA and may add low dose statin. Status: Acute (5) Status cardiac pacemaker: Status: Acute Additional A&P Information ELIJAH superimposed on chronic kidney disease: Baseline creatinine of 1.3-1.5 in March 2020; creatinine has been running 2.5-2.6 in this hospitalization. Suspected liver cirrhosis Ascites she is status post paracentesis with removal of 7250 ml of dark red serous fluid by radiology. CAD with h/o RCA stents Hypothyroidism Anemia Hyperkalemia: Resolved Elevated alkaline phosphatase Hypoalbuminemia Pulmonary HTN DM-2 Thank you for allowing me to participate in patient's care. Please feel free to call with questions or concerns. Attestations Medical Necessity Statement*: Needs hospital stay for ELIJAH on CKD. Coding Level of Care Code Established Pt Acute Automat Watcher for Chg Fwd Patient Type Established History Comprehensive Exam Comprehensive Medical Decision Making High Complexity Diagnoses Acute exacerbation of CHF (congestive heart failure) I50.43 Heart failure type: combined systolic and diastolic Atrial fibrillation I48.91 Mitral regurgitation I34.0 Elevated troponin R77.8 Status cardiac pacemaker Z95.0 Time Spent (min) 40
[2020-07-23] VITALS (8 sets, daily range): BP systolic 88–113; BP diastolic 43–66; PULSE 70–93; RESP 16–24; TEMP 36.2–36.9; O2SAT 94–100
[2020-07-23 05:51] LABS: Basophils % 0.6 %; Eosinophils # 0.1 10^3/uL (0.0-0.8); Eosinophils % 1.6 %; Hematocrit 33.7 % (37.0-47.0); Hemoglobin 10.4 g/dL (11.5-15.3); Lymphocytes # 0.7 10^3/uL (0.8-4.8); Lymphocytes % 12.8 %; Mean Corpuscular HGB Conc 30.9 g/dL (30.0-36.0); Mean Corpuscular Hemoglobin 32.5 pg (28.0-34.0); Mean Corpuscular Volume 105.3 fL (81-99); Monocytes # 0.7 10^3/uL (0.2-0.9); Monocytes % 13.2 %; Neutrophils # 3.68 10^3/uL (1.8-7.7); Neutrophils % 71.6 %; Nucleated Red Blood Cells % 0 %; Platelet Count 192 10^3/cmm (130-400); Red Cell Distribution Width 15.4 % (12.1-15.1); White Blood Count 5.1 10^3/uL (4.0-10.0)
[2020-07-23 06:18] LABS: Alanine Aminotransferase 15 U/L (0-33); Albumin Level 2.8 g/dL (3.5-5.2); Alkaline Phosphatase 150 IU/L (35-105); Anion Gap 16.9 (5-19); Aspartate Amino Transferase 26 U/L (0-32); Carbon Dioxide 28 mmol/L (22-29); Chloride 102 mmol/L (98-107); Globulin 3.7 g/dL (1.3-4.6); Glucose 134 mg/dL (65-115); Magnesium 1.9 mg/dL (1.7-2.3); Osmolality Calculated 326 mOsm/kg (285-295); Potassium 4.9 mmol/L (3.5-5.1); Sodium 142 mmol/L (136-145); Total Bilirubin 1.2 mg/dL (0.15-1.2); Total Protein 6.5 g/dL (6.6-8.7)
[2020-07-23 06:34] LABS: Ferritin 421 ng/mL (15-150); Iron 42 ug/dL (37-145); Total Iron Binding Capacity 175 mcg/dl; Unsaturated Iron Binding 133 ug/dL (112-347); Vitamin B12 468 pg/mL (232-1245)
[2020-07-23 06:35] LABS: Folate Level 18.2 ng/mL (4.8-37.3)
--- NOTE | 2020-07-23 06:49 | PC.NURSE ---
Shift summary Patient did not sleep well throughout the night. She never complained of pain. She has been incontinent tonight. She seems to be very weak and having a hard time finding her words tonight as well.
[2020-07-23 06:51] LABS: Blood Urea Nitrogen 97 mg/dL (8-23)
[2020-07-23 07:02] LABS: NT Pro B Type Natriuretic Pept 61981 pg/mL (0-450)
[2020-07-23] MEDS: metoprolol succinate ER (24 HR) 50 mg Tablet 25 MG PO ×2 (07:59→18:05)
[2020-07-23] MEDS: thyroid 60 mg Tablet 90 MG PO (07:59)
[2020-07-23] MEDS: aspirin 81 mg EC Tablet PO (07:59)
--- NOTE | 2020-07-23 11:40 | P.PN_ITS ---
Subjective Subjective: Interval history: Patient awake sitting in the chair at time of exam today. She reported that her breathing was feeling better. She reported that she had generalized weakness and fatigue. Discussed with patient concern for worsening congestive heart failure with fluid overload. Vitals/I&O/Wt Last Vital Signs Temp 98.1 F 07/23/20 07:54 Pulse 91 07/23/20 07:54 Resp 17 07/23/20 07:54 BP 102/58 07/23/20 07:54 Pulse Ox 97 07/23/20 07:54 07/22/20 07/23/20 07/23/20 22:59 06:59 14:59 Intake Total 140 / 580 118 / 118 Output Total 300 / 650 Balance -160 / -70 118 / 118 Physical Exam Const: COMMON NORMALS: alert GENERAL APPEARANCE: cooperative ORIENTATION/CONSCIOUSNESS: Yes awake, Yes oriented to person and Yes oriented to place HENMT: COMMON NORMALS: normocephalic and atraumatic HEAD & SCALP: normocephalic and atraumatic Eye: COMMON NORMALS: Equal, round and reactive pupils present PUPIL: Yes Equal, round and reactive pupils present Neck/C-Spine: COMMON NORMALS: supple GENERAL: Yes normal visual inspection Resp: COMMON NORMALS: normal respiratory effort and clear to auscultation bilaterally EFFORT & INSPECTION: Yes able to speak in complete sentences AUSCULTATION: clear to auscultation bilaterally, no rhonchi and no wheezes Cardio: OTHER: Regular rate and rhythm, systolic murmur present GI: COMMON NORMALS: Soft to palpation INSPECTION: Yes abdominal distension PALPATION: Yes Soft to palpation Extremity: COMMON NORMALS: no clubbing, cyanosis or edema and no calf te nderness Neuro: COMMON NORMALS: CN's II-XII intact bilaterally, moves all extremities and no focal motor deficits SENSORIUM/ORIENTATION: Yes alert, Yes oriented to person and Yes oriented to place SPEECH: speech normal Psych: COMMON NORMALS: mental status grossly normal and cooperative Skin: NARRATIVE SKIN EXAM: Dry skin in the lower extremities bilaterally Urinary Catheter Management^: Garvin: Cath Placed During This Visit: yes, but has since been removed by the nurse Reason for Continuing Indwelling Catheter: Not indwelling catheter Urinary Catheter Date of Insertion: 07/19/20 Urinary Catheter Time of Insertion: 10:28 Date Urinary Catheter Removed: 10/23/20 Time Urinary Catheter Discontinued: 18:32 Data : 07/23/20 04:25 07/23/20 04:25 Micro: Microbiology 07/20/20 15:20 Gram Stain - Final Peritoneal Fluid Body Fluid Culture - Preliminary A&P Assessment and plan (1) CHF exacerbation: 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 Worsening LVEF to 20 to 25% with severe mitral valve regurgitation and mild aortic stenosis. Patient is not a candidate for mitral valve surgery. Cardiology, Dr. Villafana consulted, appreciate recommendations and assistance in patient's care Holding on Bumex at this time and further diuresis due to patient's increasing BUN and creatinine. New metoprolol, BEATRIZ inhibitor on hold at this time due to renal function. Status: Acute (2) Acute kidney injury superimposed on chronic kidney disease: Concern for cardiorenal etiology Holding Aldactone and BEATRIZ inhibitor due to worsening renal function Holding further diuretics due to increase in BUN and creatinine Status: Acute (3) Anasarca: Status post paracentesis with greater than 7 L removed Holding Bumex at this time due to concern as above Status: Acute Additional A&P Information Coronary artery disease: Continue on aspirin, statin, not a candidate for further intervention. Patient has chronic occlusion of the RCA, chronic occlusion of circumflex, continue with medical management. Recommendations from cardiology appreciated. Pulmonary hypertension Diabetes mellitus type 2: Low dose sliding scale insulin as needed History of atrial fibrillation: Currently in paced rhythm, not on any anticoagulation due to history of GI bleed. Hypothyroidism: Continue home armour thyroid 90mg daily, TSH within normal limits on admission Chronic macrocytic anemia: History of GI bleed, therefore pharmacologic DVT prophylaxis has been discontinued and patient is not on any anticoagulation with her history of atrial fibrillation. Continue on Protonix. Hemoglobin slightly improved today with no evidence of any active bleeding at this time. CODE STATUS: Full code DVT prophylaxis: SCDs, no pharmacologic prophylaxis as above Cardiac diet with fluid restriction Attestations Medical Necessity Statement*: Patient requires hospitalization due to acute on chronic systolic CHF exacerbation Coding Level of Care Code Acute Agricultural Science Professor for Casey Fwlisandra Diagnoses CHF exacerbation I50.9 Acute kidney injury superimposed on chronic kidney disease N17.9; N18.9 Anasarca R60.1
--- NOTE | 2020-07-23 15:02 | PM.PN ---
Subjective Subjective: Interval history: Feels well. She is seen sitting in chair. Complains of being tired. No events on telemetry. Medications: Reviewed: Yes Medication Review Details: Current Medications Albuterol/Ipratropium (Duoneb) 3 ml INHALATION Q6H PRN PRN Reason: SHORTNESS OF BREATH Last Admin: 07/20/20 22:50 Dose: 3 ml Documented by: Aspirin (Aspirin Ec) 81 mg PO DAILY [facility] Last Admin: 07/23/20 07:59 Dose: 81 mg Documented by: Bumetanide (Bumex) 2 mg IV Q12H [facility] Last Admin: 07/22/20 08:06 Dose: 2 mg Documented by: Dextrose (D50w) 25 ml IVP ONCE PRN; Protocol PRN Reason: hypoglycemia protocol Dextrose (D50w) 50 ml IVP PRN PRN; Protocol PRN Reason: hypoglycemia protocol Glucagon (Glucagen) 1 mg IM ONCE PRN; Protocol PRN Reason: Adult Acute Hypoglycemia Prot. Dextrose (D5w) 500 mls @ 100 mls/hr IV ONCE PRN; Protocol PRN Reason: Adult Acute Hypoglycemia Prot Insulin Aspart (Novolog) 0 unit SUBCUT TIDWM [facility]; Protocol Last Admin: 07/23/20 13:30 Dose: Not Given Documented by: Insulin Aspart (Novolog) 0 unit SUBCUT BEDTIME [facility]; Protocol Metoprolol Succinate (Toprol Xl) 25 mg PO BID [facility] Last Admin: 07/23/20 07:59 Dose: 25 mg Documented by: Nitroglycerin (Nitrostat) 0.4 mg SUBLINGUAL Q5M PRN PRN Reason: chest pain Pantoprazole Sodium (Protonix) 40 mg PO BID [facility] Thyroid ([place] Thyroid) 90 mg PO DAILY [facility] Last Admin: 07/23/20 07:59 Dose: 90 mg Documented by: Vitals/I&O/Wt Last Vital Signs Temp 97.2 F L 07/23/20 12:00 Pulse 82 07/23/20 13:56 Resp 18 07/23/20 13:56 BP 113/66 07/23/20 12:00 Pulse Ox 95 07/23/20 13:56 07/23/20 07/23/20 07/23/20 06:59 14:59 22:59 Intake Total 218 / 218 Balance 218 / 218 Physical Exam Narrative: EXAM NARRATIVE: GENERAL: Frail elderly lady lying in bed; in no acute distress HEENT: Extraocular movement intact. Pupils equal round reactive to light. No pallor or icterus. NECK: central trachea, N0 JVD. No carotid bruit. CARDIOVASCULAR SYSTEM: S1-S2 regular. No S3 or S4 present. No murmur rubs or gallops. RESPIRATORY SYSTEM: Chest clear to auscultation. No wheezes rhonchi or rubs heard. No use of accessory muscles. ABDOMEN: Soft, nontender and nondistended. Normal bowel sounds present. EXTREMITIES: No cyanosis or clubbing. Trace edema. No signs of chronic venous insufficiency. 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 No focal neurological deficits. SKIN: Normal turgor and temperature. No breakdown, rash or nail changes noted. PSYCH: Normal insight and judgment. Urinary Catheter Management^: Garvin: Cath Placed During This Visit: yes, but has since been removed by the nurse Reason for Continuing Indwelling Catheter: Not indwelling catheter Urinary Catheter Date of Insertion: 07/19/20 Urinary Catheter Time of Insertion: 10:28 Date Urinary Catheter Removed: 07/20/20 Time Urinary Catheter Discontinued: 18:32 Data : 07/23/20 04:25 07/23/20 04:25 Micro: Microbiology 07/20/20 15:20 Gram Stain - Final Peritoneal Fluid Body Fluid Culture - Final A&P Assessment and plan (1) Acute exacerbation of CHF (congestive heart failure): There has been a drop in LV function. It could be insetting of VHD with severe MR and moderate to severe TR. -No chest pains, however progression of underlying CAD cannot be ruled out. 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 RCA with Chronic occlusion at the ostium. RCA lined with stents from the ostium to beyond the acute margin. -I had a long discussion with patient and her niece Suze. Risks and benefits of medical management, coronary angiogram vs stress testing were discussed in detail. -Given her ELIJAH on CKD, plan to optimize her medical management for CHF now. -Plan for further work up based on her clinical progression, likely as an outpatient. -continue metoprolol succinate. bumex held. -Plan to add ACEI/ARB based on renal function later. Status: Acute Qualifiers: Heart failure type: combined systolic and diastolic Qualified Code(s): I50.43 - Acute on chronic combined systolic (congestive) and diastolic (congestive) heart failure (2) Atrial fibrillation: Heparin drip stopped. Patient was started on Protonix. Status: Acute (3) Mitral regurgitation: Severe MR , not a candidate for surgery or clip. Status: Acute (4) Elevated troponin: Type 2 NSTEMI In setting of decompensated CHF. -continue ASA and may add low dose statin. Status: Acute (5) Status cardiac pacemaker: Status: Acute Additional A&P Information ELIJAH superimposed on chronic kidney disease: Baseline creatinine of 1.3-1.5 in March 2020; creatinine improved from 3. continue to hold off on Bumex. Suspected liver cirrhosis: Hep panel negative Ascites she is status post paracentesis with removal of 7250 ml of dark red serous fluid by radiology. CAD with h/o RCA stents Hypothyroidism Anemia Hyperkalemia: Resolved Elevated alkaline phosphatase Hypoalbuminemia Pulmonary HTN DM-2 Thank you for allowing me to participate in patient's care. Please feel free to call with questions or concerns. Attestations Medical Necessity Statement*: As per primary team Coding Level of Care Code Established Pt Acute Horizontal Boring Mill Operator for Casey Lai Patient Type Established Diagnoses Acute exacerbation of CHF (congestive heart failure) I50.43 Heart failure type: combined systolic and diastolic Atrial fibrillation I48.91 Mitral regurgitation I34.0 Elevated troponin R77.8 Status cardiac pacemaker Z95.0 Time Spent (min) 30
--- NOTE | 2020-07-23 17:10 | PC.NURSE ---
Patient is approved per Dr. Garcia to have two visitors come in tomorrow 07/24 @0900. Names are Denisha Oliveira and Suze Corona. Piotr with security has been notified.
[2020-07-23 17:32] LABS: Glucose Point of Care 159 mg/dL (70-110)
[2020-07-23] MEDS: pantoprazole DR 40 mg Tablet PO (18:05)
--- NOTE | 2020-07-23 20:44 | PC.NURSE ---
PT Abdomen is mildly distended on LUQ, dressing from previous paracentesis is clean, dry, and intact. PT denies any abdominal pain or shortness of breath.
[2020-07-23 21:56] LABS: Glucose Point of Care 249 mg/dL (70-110)
[2020-07-24] VITALS (8 sets, daily range): BP systolic 83–101; BP diastolic 40–59; PULSE 66–90; RESP 16–24; TEMP 36.4–36.9; O2SAT 91–100
[2020-07-24 05:39] LABS: Basophils % 0.5 %; Eosinophils # 0.1 10^3/uL (0.0-0.8); Eosinophils % 1.5 %; Hematocrit 30.6 % (37.0-47.0); Hemoglobin 9.4 g/dL (11.5-15.3); Lymphocytes # 0.8 10^3/uL (0.8-4.8); Lymphocytes % 11.5 %; Mean Corpuscular HGB Conc 30.7 g/dL (30.0-36.0); Mean Corpuscular Volume 107.4 fL (81-99); Mean Platelet Volume 9.9 fL (7.4-10.4); Monocytes # 0.9 10^3/uL (0.2-0.9); Monocytes % 13.5 %; Neutrophils # 4.72 10^3/uL (1.8-7.7); Neutrophils % 72.4 %; Nucleated Red Blood Cells % 0 %; Platelet Count 174 10^3/cmm (130-400); Red Blood Count 2.85 10^6/uL (4.1-5.3); Red Cell Distribution Width 15.6 % (12.1-15.1); White Blood Count 6.5 10^3/uL (4.0-10.0)
[2020-07-24 06:17] LABS: Alanine Aminotransferase 14 U/L (0-33); Albumin Level 2.7 g/dL (3.5-5.2); Alkaline Phosphatase 133 IU/L (35-105); Aspartate Amino Transferase 23 U/L (0-32); Calcium 9.8 mg/dL (8.5-10.5); Carbon Dioxide 28 mmol/L (22-29); Chloride 102 mmol/L (98-107); Globulin 3.5 g/dL (1.3-4.6); Glucose 104 mg/dL (65-115); Osmolality Calculated 323 mOsm/kg (285-295); Sodium 141 mmol/L (136-145); Total Bilirubin 1.2 mg/dL (0.15-1.2); Total Protein 6.2 g/dL (6.6-8.7)
[2020-07-24 06:41] LABS: Blood Urea Nitrogen 99 mg/dL (8-23)
[2020-07-24 06:42] LABS: Anion Gap 15.7 (5-19); Potassium 4.7 mmol/L (3.5-5.1)
[2020-07-24 06:47] LABS: Glucose Point of Care 110 mg/dL (70-110)
[2020-07-24] MEDS: thyroid 60 mg Tablet 90 MG PO (08:46)
[2020-07-24] MEDS: aspirin 81 mg EC Tablet PO (08:46)
[2020-07-24] MEDS: metoprolol succinate ER (24 HR) 50 mg Tablet 25 MG PO ×2 (08:46→17:22)
[2020-07-24] MEDS: pantoprazole DR 40 mg Tablet PO ×2 (08:47→17:22)
[2020-07-24 10:54] LABS: Glucose Point of Care 188 mg/dL (70-110)
--- NOTE | 2020-07-24 12:45 | P.PN_ITS ---
Subjective Subjective: Interval history: Noted significant improvement in respiratory status and abdominal distention. Remained on o2 however. Family at bedside discussed care. Medications: Reviewed: Yes Medication Review Details: Current Medications Albuterol/Ipratropium (Duoneb) 3 ml INHALATION Q6H PRN PRN Reason: SHORTNESS OF BREATH Last Admin: 07/20/20 22:50 Dose: 3 ml Documented by: Aspirin (Aspirin Ec) 81 mg PO DAILY [facility] Last Admin: 07/23/20 07:59 Dose: 81 mg Documented by: Bumetanide (Bumex) 2 mg IV Q12H [facility] Last Admin: 07/22/20 08:06 Dose: 2 mg Documented by: Dextrose (D50w) 25 ml IVP ONCE PRN; Protocol PRN Reason: hypoglycemia protocol Dextrose (D50w) 50 ml IVP PRN PRN; Protocol PRN Reason: hypoglycemia protocol Glucagon (Glucagen) 1 mg IM ONCE PRN; Protocol PRN Reason: Adult Acute Hypoglycemia Prot. Dextrose (D5w) 500 mls @ 100 mls/hr IV ONCE PRN; Protocol PRN Reason: Adult Acute Hypoglycemia Prot Insulin Aspart (Novolog) 0 unit SUBCUT TIDWM [facility]; Protocol Last Admin: 07/23/20 13:30 Dose: Not Given Documented by: Insulin Aspart (Novolog) 0 unit SUBCUT BEDTIME [facility]; Protocol Metoprolol Succinate (Toprol Xl) 25 mg PO BID [facility] Last Admin: 07/23/20 07:59 Dose: 25 mg Documented by: Nitroglycerin (Nitrostat) 0.4 mg SUBLINGUAL Q5M PRN PRN Reason: chest pain Pantoprazole Sodium (Protonix) 40 mg PO BID [facility] Thyroid (V[place] Thyroid) 90 mg PO DAILY [facility] Last Admin: 07/23/20 07:59 Dose: 90 mg Documented by: Vitals/I&O/Wt Last Vital Signs Temp 98.2 F 07/24/20 19:36 Pulse 85 07/24/20 19:36 Resp 19 H 07/24/20 19:36 BP 101/59 07/24/20 19:36 Pulse Ox 96 07/24/20 19:36 07/24/20 07/24/20 07/24/20 06:59 14:59 22:59 Intake Total 220 / 220 120 / 340 Output Total 100 / 100 200 / 300 Balance 120 / 120 -80 / 40 Physical Exam Const: COMMON NORMALS: alert; apparent distress GENERAL APPEARANCE: cooperative ORIENTATION/CONSCIOUSNESS: Yes awake, Yes oriented to person and Yes oriented to place HENMT: COMMON NORMALS: normocephalic and atraumatic HEAD & SCALP: normocephalic and atraumatic Eye: COMMON NORMALS: Equal, round and reactive pupils present PUPIL: Yes Equal, round and reactive pupils present Neck/C-Spine: COMMON NORMALS: supple GENERAL: Yes normal visual inspection Resp: COMMON NORMALS: normal respiratory effort and clear to auscultation bilaterally EFFORT & INSPECTION: Yes able to speak in complete sentences AUSCULTATION: clear to auscultation bilaterally, no rhonchi and no wheezes OTHER: Minimal bibasilar Rales. Cardio: COMMON NORMALS: regular rate, regular rhythm and S2 normal heart sound present RATE: regular rate RHYTHM: regular rhythm HEART SOUNDS: S2 normal heart sound present OTHER: Regular rate and rhythm, systolic murmur present GI: COMMON NORMALS: Soft to palpation INSPECTION: Yes abdominal distension PALPATION: Yes Soft to palpation OTHER: Significantly decreased abdominal distention. Extremity: COMMON NORMALS: no clubbing, cyanosis or edema and no calf tenderness Neuro: COMMON NORMALS: CN's II-XII intact bilaterally, moves all extremities and no focal motor deficits SENSORIUM/ORIENTATION: Yes alert, Yes oriented to person and Yes oriented to place SPEECH: speech normal Psych: COMMON NORMALS: mental status grossly normal and cooperative Skin: NARRATIVE SKIN EXAM: Dry skin in the lower extremities bilaterally Urinary Catheter Management^: Garvin: Cath Placed During This Visit: yes, but has since been removed by the nurse Reason for Continuing Indwelling Catheter: Not indwelling catheter Urinary Catheter Date of Insertion: 07/19/20 Urinary Catheter Time of Insertion: 10:28 Date Urinary Catheter Removed: 07/20/20 Time Urinary Catheter Discontinued: 18:32 Data : 07/24/20 04:48 07/24/20 04:48 Micro: Microbiology 07/20/20 15:20 Mycobacterial Smear - Preliminary Body Fluids - Peritoneal A&P Assessment and plan (1) CHF exacerbation: 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 Worsening LVEF to 20 to 25% with severe mitral valve regurgitation and mild aortic stenosis. Patient is not a candidate for mitral valve surgery. Discussed care with Cardiology. Diuretics on hold. Monitor daily weight. Strict input and output recording. Status: Acute (2) Acute kidney injury superimposed on chronic kidney disease: Likely due to over diuresis Hold bumex, autumn inhibitor and aldactone Repeat BMP in am [place] urine output Status: Acute (3) Anasarca: Status post paracentesis with greater than 7 L removed Holding Bumex at this time due to concern as above Status: Acute Additional A&P Information Coronary artery disease: Continue on aspirin, statin, not a candidate for further intervention. Patient has chronic occlusion of the RCA, chronic occlusion of circumflex, continue with medical management. Recommendations from cardiology appreciated. Pulmonary hypertension Diabetes mellitus type 2: Low dose sliding scale insulin as needed History of atrial fibrillation: Currently in paced rhythm, not on any anticoagulation due to history of GI bleed. Hypothyroidism: Continue home armour thyroid 90mg daily, TSH within normal limits on admission Chronic macrocytic anemia: History of GI bleed, therefore pharmacologic DVT prophylaxis has been discontinued and patient is not on any anticoagulation with her history of atrial fibrillation. Continue on Protonix. Hemoglobin slightly improved today with no evidence of any active bleeding at this time. CODE STATUS: Full code DVT prophylaxis: SCDs, no pharmacologic prophylaxis as above Cardiac diet with fluid restriction Attestations Medical Necessity Statement*: Due to worsening renal function patient will re quire further hospitalization. Coding Level of Care Code Acute Geophysical Computer for [facility] Fwd Diagnoses CHF exacerbation I50.9 Acute kidney injury superimposed on chronic kidney disease N17.9; N18.9 Anasarca R60.1
--- NOTE | 2020-07-24 16:24 | P.PN_ITS ---
Subjective Subjective: Interval history: Feels well. She is seen sitting in chair. Complains of being tired. No events on telemetry. Medications: Reviewed: Yes Medication Review Details: Current Medications Albuterol/Ipratropium (Duoneb) 3 ml INHALATION Q6H PRN PRN Reason: SHORTNESS OF BREATH Last Admin: 07/20/20 22:50 Dose: 3 ml Documented by: Aspirin (Aspirin Ec) 81 mg PO DAILY [facility] Last Admin: 07/23/20 07:59 Dose: 81 mg Documented by: Bumetanide (Bumex) 2 mg IV Q12H [facility] [place] Last Admin: 07/22/20 08:06 Dose: 2 mg Documented by: Dextrose (D50w) 25 ml IVP ONCE PRN; Protocol PRN Reason: hypoglycemia protocol Dextrose (D50w) 50 ml IVP PRN PRN; Protocol PRN Reason: hypoglycemia protocol Glucagon (Glucagen) 1 mg IM ONCE PRN; Protocol PRN Reason: Adult Acute Hypoglycemia Prot. Dextrose (D5w) 500 mls @ 100 mls/hr IV ONCE PRN; Protocol PRN Reason: Adult Acute Hypoglycemia Prot Insulin Aspart (Novolog) 0 unit SUBCUT TIDWM [facility] [place]; Protocol Last Admin: 07/23/20 13:30 Dose: Not Given Documented by: Insulin Aspart (Novolog) 0 unit SUBCUT BEDTIME [facility] [place]; Protocol Metoprolol Succinate (Toprol Xl) 25 mg PO BID [facility] [place] Last Admin: 07/23/20 07:59 Dose: 25 mg Documented by: Nitroglycerin (Nitrostat) 0.4 mg SUBLINGUAL Q5M PRN PRN Reason: chest pain Pantoprazole Sodium (Protonix) 40 mg PO BID [facility] [place] Thyroid ([place] Thyroid) 90 mg PO DAILY [facility] [place] Last Admin: 07/23/20 07:59 Dose: 90 mg Documented by: Vitals/I&O/Wt Last Vital Signs Temp 98.3 F 07/24/20 15:10 Pulse 79 07/24/20 15:10 Resp 18 07/24/20 15:10 BP 83/40 07/24/20 15:10 Pulse Ox 91 07/24/20 15:10 07/24/20 07/24/20 07/24/20 06:59 14:59 22:59 Intake Total 220 / 220 Output Total 100 / 100 Balance 120 / 120 Physical Exam Narrative: EXAM NARRATIVE: GENERAL: Frail elderly lady lying in bed; in no acute distress HEENT: Extraocular movement intact. Pupils equal round reactive to light. No pallor or icterus. NECK: central trachea, N0 JVD. No carotid bruit. CARDIOVASCULAR SYSTEM: S1-S2 regular. No S3 or S4 present. No murmur rubs or gallops. RESPIRATORY SYSTEM: Chest clear to auscultation. No wheezes rhonchi or rubs heard. No use of accessory muscles. ABDOMEN: Soft, nontender and nondistended. Normal bowel sounds present. EXTREMITIES: No cyanosis or clubbing. Trace edema. No signs of chronic venous insufficiency. SAFETY SUPERVISOR: Patient is alert oriented ?3. No focal neurological deficits. SKIN: Normal turgor and temperature. No breakdown, rash or nail changes noted. PSYCH: Normal insight and judgment. Urinary Catheter Management^: Garvin: Cath Placed During This Visit: yes, but has since been removed by the nurse Reason for Continuing Indwelling Catheter: Not indwelling catheter Urinary Catheter Date of Insertion: 07/19/20 Urinary Catheter Time of Insertion: 10:28 Date Urinary Catheter Removed: 07/20/20 Time Urinary Catheter Discontinued: 18:32 Data : 07/24/20 04:48 07/24/20 04:48 Micro: Microbiology 07/20/20 15:20 Mycobacterial Smear - Preliminary Body Fluids - Peritoneal 07/20/20 15:20 Gram Stain - Final Peritoneal Fluid Body Fluid Culture - Final A&P Assessment and plan (1) Acute exacerbation of CHF (congestive heart failure): There has been a drop in LV function. It could be insetting of VHD with severe MR and moderate to severe TR. -No chest pains, however progression of underlying CAD cannot be ruled out. 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 RCA with Chronic occlusion at the ostium. RCA lined with stents from the ostium to beyond the acute margin. -I had a long discussion with patient and her niece Suze. Risks and benefits of medical management, coronary angiogram vs stress testing were discussed in detail. -Given her ELIJAH on CKD, plan to optimize her medical management for CHF now. -Plan for further work up based on her clinical progression and if neededlikely as an outpatient. -continue metoprolol succinate. bumex held. -Plan to add ACEI/ARB based on renal function later. Status: Acute Qualifiers: Heart failure type: combined systolic and diastolic Qualified Code(s): I50.43 - Acute on chronic combined systolic (congestive) and diastolic (congestive) heart failure (2) Atrial fibrillation: Heparin drip stopped. recommend no OAC for now. H/o GI bleed -now in NSR. -Patient was started on Protonix. Status: Acute (3) Mitral regurgitation: Severe MR , not a candidate for surgery or clip. Status: Acute (4) Elevated troponin: Type 2 NSTEMI In setting of decompensated CHF. -continue ASA and may add low dose statin. Status: Acute (5) Status cardiac pacemaker: Status: Acute Additional A&P Information ELIJAH superimposed on chronic kidney disease: Baseline creatinine of 1.3-1.5 in March 2020; creatinine improved from 3. continue to hold off on Bumex. Suspected liver cirrhosis: Hep panel negative Ascites she is status post paracentesis with removal of 7250 ml of dark red serous fluid by radiology. CAD with h/o RCA stents Hypothyroidism Anemia Hyperkalemia: Resolved Elevated alkaline phosphatase Hypoalbuminemia Pulmonary HTN DM-2 Thank you for allowing me to participate in patient's care. Please feel free to call with questions or concerns. Attestations Medical Necessity Statement*: As per primary team Coding Level of Care Code Acute Performance Instructor for [facility] Diagnoses Acute exacerbation of CHF (congestive heart failure) I50.43 Heart failure type: combined systolic and diastolic Atrial fibrillation I48.91 Mitral regurgitation I34.0 Elevated troponin R77.8 Status cardiac pacemaker Z95.0
[2020-07-24 17:04] LABS: Glucose Point of Care 158 mg/dL (70-110)
[2020-07-24 20:31] LABS: Glucose Point of Care 153 mg/dL (70-110)
[2020-07-25] VITALS (8 sets, daily range): BP systolic 96–108; BP diastolic 55–74; PULSE 67–82; RESP 16–28; TEMP 36.3–37.1; O2SAT 95–100
[2020-07-25 02:49] LABS: Basophils % 0.5 %; Eosinophils # 0.2 10^3/uL (0.0-0.8); Eosinophils % 2.3 %; Hematocrit 31.2 % (37.0-47.0); Hemoglobin 9.6 g/dL (11.5-15.3); Lymphocytes # 0.7 10^3/uL (0.8-4.8); Lymphocytes % 11.1 %; Mean Corpuscular HGB Conc 30.8 g/dL (30.0-36.0); Mean Corpuscular Volume 107.2 fL (81-99); Mean Platelet Volume 10.2 fL (7.4-10.4); Monocytes # 0.8 10^3/uL (0.2-0.9); Monocytes % 11.7 %; Neutrophils # 4.87 10^3/uL (1.8-7.7); Neutrophils % 73.8 %; Nucleated Red Blood Cells % 0 %; Platelet Count 184 10^3/cmm (130-400); Red Blood Count 2.91 10^6/uL (4.1-5.3); Red Cell Distribution Width 15.8 % (12.1-15.1); White Blood Count 6.6 10^3/uL (4.0-10.0)
[2020-07-25 03:23] LABS: Alanine Aminotransferase 15 U/L (0-33); Albumin Level 2.7 g/dL (3.5-5.2); Alkaline Phosphatase 150 IU/L (35-105); Anion Gap 14.3 (5-19); Aspartate Amino Transferase 25 U/L (0-32); Calcium 9.5 mg/dL (8.5-10.5); Carbon Dioxide 30 mmol/L (22-29); Chloride 103 mmol/L (98-107); Globulin 3.7 g/dL (1.3-4.6); Glucose 127 mg/dL (65-115); Osmolality Calculated 329 mOsm/kg (285-295); Potassium 5.3 mmol/L (3.5-5.1); Sodium 142 mmol/L (136-145); Total Bilirubin 0.9 mg/dL (0.15-1.2); Total Protein 6.4 g/dL (6.6-8.7)
[2020-07-25 03:39] LABS: Blood Urea Nitrogen 106 mg/dL (8-23)
[2020-07-25 06:20] LABS: Glucose Point of Care 121 mg/dL (70-110)
[2020-07-25] MEDS: ipratropium-albuterol 3 mL Neb INHALATION (08:35)
[2020-07-25] MEDS: aspirin 81 mg EC Tablet PO (09:02)
[2020-07-25] MEDS: metoprolol succinate ER (24 HR) 50 mg Tablet 25 MG PO ×2 (09:02→18:09)
[2020-07-25] MEDS: thyroid 60 mg Tablet 90 MG PO (09:02)
[2020-07-25] MEDS: pantoprazole DR 40 mg Tablet PO ×2 (09:02→18:09)
[2020-07-25 11:42] LABS: Glucose Point of Care 224 mg/dL (70-110)
--- NOTE | 2020-07-25 12:04 | P.PN_ITS ---
Subjective Subjective: Interval history: Patient did not have any acute issues overnight. Remained on 2L of O2 via NC. No reported fever, chills, nausea or vomiting. Medications: Reviewed: Yes Medication Review Details: Current Medications Albuterol/Ipratropium (Duoneb) 3 ml INHALATION Q6H PRN PRN Reason: SHORTNESS OF BREATH Last Admin: 07/20/20 22:50 Dose: 3 ml Documented by: Aspirin (Aspirin Ec) 81 mg PO DAILY [facility] Last Admin: 07/23/20 07:59 Dose: 81 mg Documented by: Bumetanide (Bumex) 2 mg IV Q12H [facility] Last Admin: 07/22/20 08:06 Dose: 2 mg Documented by: Dextrose (D50w) 25 ml IVP ONCE PRN; Protocol PRN Reason: hypoglycemia protocol Dextrose (D50w) 50 ml IVP PRN PRN; Protocol PRN Reason: hypoglycemia protocol Glucagon (Glucagen) 1 mg IM ONCE PRN; Protocol PRN Reason: Adult Acute Hypoglycemia Prot. Dextrose (D5w) 500 mls @ 100 mls/hr IV ONCE PRN; Protocol PRN Reason: Adult Acute Hypoglycemia Prot Insulin Aspart (Novolog) 0 unit SUBCUT TIDWM [facility]; Protocol Last Admin: 07/23/20 13:30 Dose: Not Given Documented by: Insulin Aspart (Novolog) 0 unit SUBCUT BEDTIME [facility]; Protocol Metoprolol Succinate (Toprol Xl) 25 mg PO BID [facility] Last Admin: 07/23/20 07:59 Dose: 25 mg Documented by: Nitroglycerin (Nitrostat) 0.4 mg SUBLINGUAL Q5M PRN PRN Reason: chest pain Pantoprazole Sodium (Protonix) 40 mg PO BID [facility] Thyroid ([place] Thyroid) 90 mg PO DAILY [facility] Last Admin: 07/23/20 07:59 Dose: 90 mg Documented by: Vitals/I&O/Wt Last Vital Signs Temp 98.6 F 07/25/20 10:59 Pulse 73 07/25/20 10:59 Resp 18 07/25/20 10:59 BP 107/70 07/25/20 10:59 Pulse Ox 98 07/25/20 10:59 07/24/20 07/25/20 07/25/20 22:59 06:59 14:59 Intake Total 120 / 340 240 / 240 Output Total 200 / 300 Balance -80 / 40 240 / 240 Physical Exam Const: COMMON NORMALS: alert; apparent distress GENERAL APPEARANCE: cooperative ORIENTATION/CONSCIOUSNESS: Yes awake, Yes oriented to person and Yes oriented to place HENMT: COMMON NORMALS: normocephalic and atraumatic HEAD & SCALP: normocephalic and atraumatic Eye: COMMON NORMALS: Equal, round and reactive pupils present PUPIL: Yes Equal, round and reactive pupils present Neck/C-Spine: COMMON NORMALS: supple GENERAL: Yes normal visual inspection Resp: COMMON NORMALS: normal respiratory effort and clear to auscultation bilaterally EFFORT & INSPECTION: Yes able to speak in complete sentences AUSCULTATION: clear to auscultation bilaterally, no rhonchi and no wheezes OTHER: Minimal bibasilar Rales. Cardio: COMMON NORMALS: regular rate, regular rhythm and S2 normal heart sound present RATE: regular rate RHYTHM: regular rhythm HEART SOUNDS: S2 normal heart sound present OTHER: Regular rate and rhythm, systolic murmur present GI: COMMON NORMALS: Soft to palpation INSPECTION: Yes abdominal distension PALPATION: Yes Soft to palpation OTHER: Significantly decreased abdominal distention. Extremity: COMMON NORMALS: no clubbing, cyanosis or edema and no calf tenderness Neuro: COMMON NORMALS: CN's II-XII intact bilaterally, moves all extremities and no focal motor deficits SENSORIUM/ORIENTATION: Yes alert, Yes oriented to person and Yes oriented to place SPEECH: speech normal Psych: COMMON NORMALS: mental status grossly normal and cooperative Skin: NARRATIVE SKIN EXAM: Dry skin in the lower extremities bilaterally Urinary Catheter Management^: Garvin: Cath Placed During This Visit: yes, but has since been removed by the nurse Reason for Continuing Indwelling Catheter: Not indwelling catheter Urinary Catheter Date of Insertion: 07/19/20 Urinary Catheter Time of Insertion: : Date Urinary Catheter Removed: 07/20/20 Time Urinary Catheter Discontinued: 18:32 Data : 07/25/20 02:15 07/25/20 02:15 Micro: Microbiology 07/23/20 22:00 Occult Blood (FIT) - Final Stool 07/20/20 15:20 Mycobacterial Smear - Preliminary Body Fluids - Peritoneal A&P Assessment and plan (1) CHF exacerbation: 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 Worsening LVEF to 20 to 25% with severe mitral valve regurgitation and mild aortic stenosis. Patient is not a candidate for mitral valve surgery. Discussed care with Cardiology. Diuretics on hold. Monitor daily weight. Strict input and output recording. Management unchanged Status: Acute (2) Acute kidney injury superimposed on chronic kidney disease: Consult placed for nephrology Renal US Repeat BMP in AM Urinary studies Holding diuretics. Status: Acute (3) Anasarca: Status post paracentesis with greater than 7 L removed Holding Bumex at this time due to concern as above Status: Acute Additional A&P Information Coronary artery disease: Continue current management Pulmonary hypertension Diabetes mellitus type 2: Low dose sliding scale insulin as needed History of atrial fibrillation: Currently in paced rhythm, not on any anticoagulation due to history of GI bleed. Hypothyroidism: Continue home armour thyroid 90mg daily, TSH within normal limits on admission Chronic macrocytic anemia: History of GI bleed. Hemoglobin has been stable, no episodes of dark stools. CODE STATUS: Full code DVT prophylaxis: SCDs, no pharmacologic prophylaxis as above Cardiac diet with fluid restriction Attestations Medical Necessity Statement*: Renal failure worsening requiring nephrology consult will require further hospitalization for management Coding Level of Care Code Acute Paper Inserter for [facility] Fwd Exam Comprehensive Diagnoses CHF exacerbation I50.9 Acute kidney injury superimposed on chronic kidney disease N17.9; N18.9 Anasarca R60.1
--- NOTE | 2020-07-25 13:38 | PM.CONSULT ---
Providers/Reason For Consult Consulting Physican/Specialty*: michael mercado md/ telenephrology Reason for Consult*: ELIJAH on CKD stage 3 Attending Physician: Hung Scott Primary Care Provider: James Sy MD History of Present Illness History of Present Illness Marylou Art is a 80 year old female admitted w/ SOB. pt has h/o acute on chronic systolic CHF- EF of 25%, mod , mod to severe MR, TR, a fib w/ GI bleed when on a/c. Pt had baseline cr 1.3- 1.5 mg/dl in Ju;y 2019- she was referred for a MV clip and was turned down. she presents now w/ weight gain edema, anasarca. her cr was 2.6 mg/dl. she was diuresed and cr went up to 3 mg /dl. she also had a large volume paracentesis. diuretics now held and cr 2.7 mg/dl. renal called to consult Review of Systems General: Reports: 10 or more systems reviewed and unremarkable except in HPI and below Narrative: weak, sob, poor energy, [place], no orthopnea, poor appetite. no jimenes, no cp, no fevers, no diarrhea, + swollen Meds/Allergies Home Medications and Allergies Home Medications Medication Instructions Recorded Confirmed Last Taken Type metformin 500 mg tablet 500 mg PO BID 11/02/19 07/22/20 04/18/20 History afrbquknycas-zgmvdtcn-jhmodt 1 tab PO DAILY 11/02/19 07/22/20 04/18/20 History metoprolol succinate 50 mg 50 mg PO DAILY tab 11/10/19 07/22/20 04/18/20 History tablet,extended release 24 hr nitroglycerin 0.4 mg sublingual 0.4 mg SUBLINGUAL Q5M PRN 90 Days 01/27/20 07/22/20 Unknown Rx tablet #25 tab isosorbide mononitrate 30 mg 30 mg PO DAILY 02/23/20 07/22/20 04/18/20 History tablet,extended release 24 hr spironolactone 25 mg PO DAILY 04/06/20 07/22/20 04/18/20 History thyroid (pork) [[place] Thyroid] 90 mg PO DAILY 04/06/20 07/22/20 04/18/20 History aspirin [Adult Low Dose Aspirin] 81 mg PO DAILY #0 tab 04/22/20 07/22/20 04/18/20 Rx bumetanide 1 mg PO DAILY #30 tab 04/22/20 07/22/20 Unknown Rx losartan 50 mg PO DAILY 07/22/20 07/22/20 Unknown History mupirocin 1 applic TOPICAL TID PRN 07/22/20 07/22/20 Unknown History polyethylene glycol 3350 [Miralax] 17 g PO DAILY PRN 07/22/20 07/22/20 Unknown History rosuvastatin 10 mg PO DAILY 07/22/20 07/22/20 Unknown History Allergies Allergy/AdvReac Type Severity Reaction Status Date / Time Penicillins Allergy Intermediate ALGY-Rash Verified 07/18/20 16:17 Sulfa (Sulfonamide Allergy Intermediate ALGY-Rash Verified 07/18/20 16:17 Antibiotics) dexamethasone AdvReac Severe ADR-Chest Verified 07/18/20 16:17 Pain Current Medications Current Medications Generic Name Dose Route Start Last Admin Trade Name Freq PRN Reason Stop Dose Admin Albuterol/Ipratropium 3 ml 07/19/20 00:14 07/25/20 08:35 Duoneb INHALATION 3 ml Q6H PRN Administration SHORTNESS OF BREATH Aspirin 81 mg 07/19/20 09:00 07/25/20 09:02 Aspirin Ec PO 81 mg DAILY [facility] Administration Insulin Aspart 0 unit 07/23/20 12:00 07/25/20 11:47 Novolog SUBCUT 6 unit TIDWM [facility] Administration Protocol Insulin Aspart 0 unit 07/23/20 21:00 07/24/20 21:40 Novolog SUBCUT 1 unit BEDTIME [facility] Administration Protocol Metoprolol Succinate 25 mg 07/19/20 09:00 07/25/20 09:02 Toprol Xl PO 25 mg BID [facility] Administration Pantoprazole Sodium 40 mg 07/23/20 18:00 07/25/20 09:02 Protonix PO 40 mg BID [facility] Administration Thyroid 90 mg 07/19/20 09:00 07/25/20 09:02 [place] Thyroid PO 90 mg DAILY [facility] Administration PFSH Acute PFSH: Medical History Aortic stenosis Atrial fibrillation Cardiomyopathy CHF (congestive heart failure) combined systolic and diastolic CHF Diabetes Hollenhorst plaque, both eyes HTN (hypertension) Hyperlipidemia -on statin Hypothyroidism thyroid replacement Mitral regurgitation Pulmonary HTN Surgical History S/P tonsillectomy Status cardiac pacemaker Family History Other Cancer Hypertension Social History Smoking and tobacco status: never smoked Household members: children Marital status: / Vitals/I&O/Wt Last Vital Signs Temp 98.6 F 07/25/20 10:59 Pulse 73 07/25/20 10:59 Resp 18 07/25/20 10:59 BP 107/70 07/25/20 10:59 Pulse Ox 98 07/25/20 10:59 07/24/20 07/25/20 07/25/20 22:59 06:59 14:59 Intake Total 120 / 340 600 / 600 Output Total 200 / 300 Balance -80 / 40 600 / 600 Physical Exam Narrative: EXAM NARRATIVE: elderly, frail lady in bed, NARD vss heent- nc/at, eomi, anicteric neck no jvp lung dull bases heart irreg irrge, +HOLLY abd soft, nt, ND, +BS ext b/l leg edema neuro- a,a, o x 2+ pulses weak Urinary Catheter Management^: Garvin: Cath Placed During This Visit: yes, but has since been removed by the nurse Reason for Continuing Indwelling Catheter: Not indwelling catheter Urinary Catheter Date of Insertion: 07/19/20 Urinary Catheter Time of Insertion: 10:28 Date Urinary Catheter Removed: 07/20/20 Time Urinary Catheter Discontinued: 18:32 Data Micro: Micro: Microbiology 07/23/20 22:00 Occult Blood (FIT) - Final Stool 07/20/20 15:20 Mycobacterial Smea r - Preliminary Body Fluids - Per itoneal Other Data: Attestation for Other Data: I personally reviewed and interpreted the following: Other data: renal us 9.8 cm and 8.9 cm kidneys, no hydronephrosis A&P Additional A&P Information 80 yr old female both systolic and diastolic chf and valvular heart disease 1. CKD stage 3- b/l cr 1.3- 1.5 mg/dl from CRS, age, DM 2. ELIJAH- likely CRS -normal renal us -check u/a, ur na, ur pr, cr 3. DM control- no metformin 4. severe valvular heart disease and combined systolic and diastolic chf- management as per cardiology Dr. Villafana -diuretics as needed -pt would benefit from ARB or entresto- however, cr is rising -without addressing here severe valvular heart disease and combined systolic and diastolic CHF- pt will likely progress w/ CKD/ CRS, and face a poor prognosis 5. hypothyrosiism- check tsh time spent 50 + minutesi Consult Attestations Medical Necessity Statement: elijah, chf Time Spent in Patient Care: Greater than 35 minutes Coding Level of Care Code Acute Hand Zipper Trimmer for [facility]
[2020-07-25 14:40] LABS: Iron 32 ug/dL (37-145); Thyroid Stimulating Hormone 1.23 uIU/mL (0.27-4.20)
[2020-07-25 16:15] LABS: Estmated Average Glucose 120; Hemoglobin A1C 5.8 % (4.0-6.0)
[2020-07-25 17:08] LABS: Glucose Point of Care 208 mg/dL (70-110)
--- NOTE | 2020-07-25 17:15 | P.PN_ITS ---
Subjective Subjective: Interval history: Patient did not have any acute issues overnight. Remained on 2L of O2 via NC. No CP, SOB. Medications: Reviewed: Yes Medication Review Details: Current Medications Albuterol/Ipratropium (Duoneb) 3 ml INHALATION Q6H PRN PRN Reason: SHORTNESS OF BREATH Last Admin: 07/20/20 22:50 Dose: 3 ml Documented by: Aspirin (Aspirin Ec) 81 mg PO DAILY [facility] Last Admin: 07/23/20 07:59 Dose: 81 mg Documented by: Bumetanide (Bumex) 2 mg IV Q12H [facility] Last Admin: 07/22/20 08:06 Dose: 2 mg Documented by: Dextrose (D50w) 25 ml IVP ONCE PRN; Protocol PRN Reason: hypoglycemia protocol Dextrose (D50w) 50 ml IVP PRN PRN; Protocol PRN Reason: hypoglycemia protocol Glucagon (Glucagen) 1 mg IM ONCE PRN; Protocol PRN Reason: Adult Acute Hypoglycemia Prot. Dextrose (D5w) 500 mls @ 100 mls/hr IV ONCE PRN; Protocol PRN Reason: Adult Acute Hypoglycemia Prot Insulin Aspart (Novolog) 0 unit SUBCUT TIDWM [facility]; Protocol Last Admin: 07/23/20 13:30 Dose: Not Given Documented by: Insulin Aspart (Novolog) 0 unit SUBCUT BEDTIME [facility]; Protocol Metoprolol Succinate (Toprol Xl) 25 mg PO BID [facility] Last Admin: 07/23/20 07:59 Dose: 25 mg Documented by: Nitroglycerin (Nitrostat) 0.4 mg SUBLINGUAL Q5M PRN PRN Reason: chest pain Pantoprazole Sodium (Protonix) 40 mg PO BID [facility] Thyroid (Felton Thyroid) 90 mg PO DAILY [facility] Last Admin: 07/23/20 07:59 Dose: 90 mg Documented by: Vitals/I&O/Wt Last Vital Signs Temp 98.8 F 07/25/20 15:15 Pulse 74 07/25/20 15:15 Resp 18 07/25/20 15:15 BP 108/74 07/25/20 15:15 Pulse Ox 100 07/25/20 15:15 07/25/20 07/25/20 07/25/20 06:59 14:59 22:59 Intake Total 600 / 600 Balance 600 / 600 Physical Exam Narrative: EXAM NARRATIVE: GENERAL: Frail elderly lady lying in bed; in no acute distress HEENT: Extraocular movement intact. Pupils equal round reactive to light. No pallor or icterus. NECK: central trachea, N0 JVD. No carotid bruit. CARDIOVASCULAR SYSTEM: S1-S2 regular. No S3 or S4 present. Grade 3/6 LLSB and apical murmur RESPIRATORY SYSTEM: Chest clear to auscultation. No wheezes rhonchi or rubs heard. No use of accessory muscles. ABDOMEN: Soft, nontender and nondistended. Normal bowel sounds present. tympanic to percussion EXTREMITIES: No cyanosis or clubbing. Trace edema. ADVERTISING PRODUCTION MANAGER: Patient is alert oriented ?3. No focal neurological deficits. SKIN: Normal turgor and temperature. Urinary Catheter Management^: Garvin: Cath Placed During This Visit: yes, but has since been removed by the nurse Reason for Continuing Indwelling Catheter: Not indwelling catheter Urinary Catheter Date of Insertion: 07/19/20 Urinary Catheter Time of Insertion: 10:28 Date Urinary Catheter Removed: 07/20/20 Time Urinary Catheter Discontinued: 18:32 Data : 07/25/20 02:15 07/25/20 02:15 Micro: Microbiology 07/23/20 22:00 Occult Blood (FIT) - Final Stool 07/20/20 15:20 Mycobacterial Smear - Preliminary Body Fluids - Peritoneal A&P Assessment and plan (1) Acute exacerbation of CHF (congestive heart failure): There has been a drop in LV function. It could be insetting of VHD with severe MR and moderate to severe TR. -No chest pains, however progression of underlying CAD cannot be ruled out. 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 RCA with Chronic occlusion at the ostium. RCA lined with stents from the ostium to beyond the acute margin. -I had a long discussion with patient and her niece Suze. Risks and benefits of medical management, coronary angiogram vs stress testing were discussed in detail. -Given her ELIJAH on CKD, plan to optimize her medical management for CHF now. -Plan for further work up based on her clinical progression and if needed likely as an outpatient. -continue metoprolol succinate. bumex held. -Plan to add ACEI/ARB based on renal function later. Status: Acute Qualifiers: Heart failure type: combined systolic and diastolic Qualified Code(s): I50.43 - Acute on chronic combined systolic (congestive) and diastolic (congestive) heart failure (2) Atrial fibrillation: Heparin drip stopped. recommend no OAC for now. H/o GI bleed -now in SR with V paced rhythm. Status: Acute (3) Mitral regurgitation: Severe MR , not a candidate for surgery or clip. Status: Acute (4) Elevated troponin: Type 2 NSTEMI In setting of decompensated CHF. -continue ASA and may add low dose statin. Status: Acute (5) Status cardiac pacemaker: Status: Acute Additional A&P Information ELIJAH superimposed on chronic kidney disease: Baseline creatinine of 1.3-1.5 in March 2020; creatinine slightly increased today. continue to hold off on Bumex. Suspected liver cirrhosis: Hep panel negative Ascites she is status post paracentesis with removal of 7250 ml of dark red serous fluid by radiology. CAD with h/o RCA stents Hypothyroidism Anemia Hyperkalemia: Elevated alkaline phosphatase Hypoalbuminemia Pulmonary HTN DM-2 Thank you for allowing me to participate in patient's care. Please feel free to call with questions or concerns. Attestations Medical Necessity Statement*: As per primary team Coding Level of Care Code Acute Plaster Tender for Casey Lai Diagnoses Acute exacerbation of CHF (congestive heart failure) I50.43 Heart failure type: combined systolic and diastolic Atrial fibrillation I48.91 Mitral regurgitation I34.0 Elevated troponin R77.8 Status cardiac pacemaker Z95.0
[2020-07-25 22:26] LABS: Glucose Point of Care 173 mg/dL (70-110)
[2020-07-26] VITALS (9 sets, daily range): BP systolic 95–120; BP diastolic 53–79; PULSE 70–85; RESP 15–28; TEMP 36.3–36.8; O2SAT 93–100
[2020-07-26] MEDS: lanolin oint 7 gm 1 APPLIC TOPICAL (03:44)
[2020-07-26 05:25] LABS: Basophils % 0.7 %; Eosinophils # 0.2 10^3/uL (0.0-0.8); Eosinophils % 3.4 %; Hematocrit 29.6 % (37.0-47.0); Lymphocytes # 0.6 10^3/uL (0.8-4.8); Lymphocytes % 10.4 %; Mean Corpuscular HGB Conc 30.4 g/dL (30.0-36.0); Mean Corpuscular Hemoglobin 32.8 pg (28.0-34.0); Mean Platelet Volume 10.1 fL (7.4-10.4); Monocytes # 0.7 10^3/uL (0.2-0.9); Monocytes % 12.9 %; Neutrophils # 4.04 10^3/uL (1.8-7.7); Neutrophils % 72.2 %; Nucleated Red Blood Cells % 0 %; Platelet Count 177 10^3/cmm (130-400); Red Blood Count 2.74 10^6/uL (4.1-5.3); Red Cell Distribution Width 15.9 % (12.1-15.1); White Blood Count 5.6 10^3/uL (4.0-10.0)
[2020-07-26 05:40] LABS: Alanine Aminotransferase 19 U/L (0-33); Albumin Level 2.8 g/dL (3.5-5.2); Alkaline Phosphatase 183 IU/L (35-105); Anion Gap 12.9 (5-19); Aspartate Amino Transferase 36 U/L (0-32); Calcium 9.1 mg/dL (8.5-10.5); Carbon Dioxide 29 mmol/L (22-29); Chloride 101 mmol/L (98-107); Ferritin 446 ng/mL (15-150); Globulin 3.4 g/dL (1.3-4.6); Glucose 107 mg/dL (65-115); Iron 38 ug/dL (37-145); Magnesium 1.9 mg/dL (1.7-2.3); Osmolality Calculated 318 mOsm/kg (285-295); Percent Saturation 25.5 % (20-50); Phosphorus 4.4 mg/dL (2.5-4.5); Potassium 4.9 mmol/L (3.5-5.1); Sodium 138 mmol/L (136-145); Total Bilirubin 0.9 mg/dL (0.15-1.2); Total Iron Binding Capacity 149 mcg/dl; Total Protein 6.2 g/dL (6.6-8.7); Unsaturated Iron Binding 111 ug/dL (112-347)
[2020-07-26 05:46] LABS: Blood Urea Nitrogen 101 mg/dL (8-23)
--- NOTE | 2020-07-26 05:49 | PC.NURSE ---
SHIFT SUMMARY Has had a good night. Gets up to BC with one assist. Says remains weak and tired Enc repositioning on sides during night. Has redness to sacral area. Has denied pain or discomfort. Remains on 500ml fluid restriction. Critical BUN of 101 this am.
[2020-07-26 06:49] LABS: Glucose Point of Care 114 mg/dL (70-110)
[2020-07-26 06:56] LABS: Parathyroid Hormone 31.1 pg/mL (15-65)
--- NOTE | 2020-07-26 07:22 | P.PN_ITS ---
Subjective Subjective: Interval history: feels better, still swollen. improved breathing. +BALBUENA on minimal activity Medications: Reviewed: Yes Medication Review Details: Current Medications Albuterol/Ipratropium (Duoneb) 3 ml INHALATION Q6H PRN PRN Reason: SHORTNESS OF BREATH Last Admin: 07/25/20 08:35 Dose: 3 ml Documented by: Aspirin (Aspirin Ec) 81 mg PO DAILY [facility] Last Admin: 07/25/20 09:02 Dose: 81 mg Documented by: Dextrose (D50w) 25 ml IVP ONCE PRN; Protocol PRN Reason: hypoglycemia protocol Dextrose (D50w) 50 ml IVP PRN PRN; Protocol PRN Reason: hypoglycemia protocol Glucagon (Glucagen) 1 mg IM ONCE PRN; Protocol PRN Reason: Adult Acute Hypoglycemia Prot. Dextrose (D5w) 500 mls @ 100 mls/hr IV ONCE PRN; Protocol PRN Reason: Adult Acute Hypoglycemia Prot Insulin Aspart (Novolog) 0 unit SUBCUT TIDWM [facility]; Protocol Last Admin: 07/26/20 07:18 Dose: Not Given Documented by: Insulin Aspart (Novolog) 0 unit SUBCUT BEDTIME [facility]; Protocol Last Admin: 07/25/20 23:44 Dose: 1 unit Documented by: Lanolin (Lanolin Oint) 1 applic TOPICAL PRN PRN PRN Reason: DRYNESS Last Admin: 07/26/20 03:44 Dose: 1 tube Documented by: Metoprolol Succinate (Toprol Xl) 25 mg PO BID [facility] Last Admin: 07/25/20 18:09 Dose: 25 mg Documented by: Nitroglycerin (Nitrostat) 0.4 mg SUBLINGUAL Q5M PRN PRN Reason: chest pain Pantoprazole Sodium (Protonix) 40 mg PO BID [facility] Last Admin: 07/25/20 18:09 Dose: 40 mg Documented by: Thyroid (Steven Thyroid) 90 mg PO DAILY [facility] Last Admin: 07/25/20 09:02 Dose: 90 mg Documented by: Vitals/I&O/Wt Last Vital Signs Temp 97.4 F L 07/26/20 04:00 Pulse 79 07/26/20 04:00 Resp 24 H 07/26/20 04:00 BP 95/53 07/26/20 04:00 Pulse Ox 98 07/26/20 04:00 07/25/20 07/26/20 07/26/20 22:59 06:59 14:59 Intake Total 360 / 960 45 / 1005 Output Total 300 / 300 275 / 575 Balance 60 / 660 -230 / 430 Physical Exam Narrative: EXAM NARRATIVE: elderly, frail lady in bed, NARD vs noted- BP low heent- nc/at, eomi, anicteric neck no jvp lung dull bases L >R heart irreg irrge, +HOLLY abd soft, nt, ND, +BS ext b/l leg edema neuro- a,a, o x 2+ pulses weak Urinary Catheter Management^: Garvin: Cath Placed During This Visit: yes, but has since been removed by the nurse Reason for Continuing Indwelling Catheter: Not indwelling catheter Urinary Catheter Date of Insertion: 07/19/20 Urinary Catheter Time of Insertion: 10:28 Date Urinary Catheter Removed: 07/20/20 Time Urinary Catheter Discontinued: 18:32 Data : 07/26/20 04:25 07/26/20 04:25 Micro: Microbiology 07/20/20 15:20 Gram Stain - Final Peritoneal Fluid Anaerobic Culture - Preliminary Body Fluid Culture - Final A&P Additional A&P Information 80 yr old female both systolic and diastolic chf and valvular heart disease 1. CKD stage 3- b/l cr 1.3- 1.5 mg/dl from CRS, age, DM 2. ELIJAH- likely CRS -normal renal us -check u/a, ur na, ur pr, cr -cr improving -k normal 3. DM control- no metformin 4. severe valvular heart disease and combined systolic and diastolic chf- management as per cardiology Dr. Villafana -diuretics as needed -pt would benefit from ARB or entresto- once volume status is euvolemic and cr is stable -without addressing here severe valvular heart disease and combined systolic and diastolic CHF- pt will likely progress w/ CKD/ CRS, and face a poor prognosis 5. hypothyrosiism- normal tsh 6. anemia- iron sat 25%, ferrirtn 446- give iron 7. low albumin- pt needs nutrition 8. pth 31, normal phos, ca on high side time spent 50 + minutesi Attestations Medical Necessity Statement*: chf, valvular heart disease, elijah improving, anemia- per hospitalist Time Spent in Patient Care: 16 - 35 minutes Coding Level of Care Code Acute Pharmacy Director for Chg Joelle
[2020-07-26] MEDS: ferric gluconate 125 MG in sodium chloride 0.9% (100 ml) 100 ML 110 MG IV (08:40)
[2020-07-26] MEDS: FUROsemide 10 mg/mL SDV 2mL 20 MG IVP (08:40)
[2020-07-26] MEDS: thyroid 60 mg Tablet 90 MG PO (08:41)
[2020-07-26] MEDS: metoprolol succinate ER (24 HR) 50 mg Tablet 25 MG PO ×2 (08:41→18:01)
[2020-07-26] MEDS: pantoprazole DR 40 mg Tablet PO ×2 (08:41→18:01)
[2020-07-26] MEDS: aspirin 81 mg EC Tablet PO (08:41)
--- NOTE | 2020-07-26 09:08 | US_ITS ---
WS: [id number] Complete ABDOMINAL ULTRASOUND HISTORY: liver cirrhosis, perihepatic fluid? COMPARISON: 07/20/2020 and 07/18/2020 Liver: 17.4 cm in length. Normal size liver. Surface is slightly irregular suggestive of cirrhosis. N o mass. No bile duct dilatation. Gallbladder: Normally distended gallbladder with diffuse gallbladder wall thickening which is probabl y related to hepatocellular disease in the ascites. Gallbladder wall thickness: 0.5 cm. Pancreas: Hyperechoic pancreas. CBD: 0.4 cm. Right kidney: 10.1 cm x 5.3 cm x 6.0 cm. No mass, cortical thickening or hydronephrosis. Small corti boaz cyst measuring 8 mm. Left kidney: Not identified. Spleen: Not identified. Mildly dilated IVC. Mild atherosclerosis aorta. Small to moderate amount of ascites throughout 4 quadrants. US/US abdomen complete* [id number] IMPRESSION: 1. Small to moderate amount of ascites. 2. Diffuse gallbladder wall thickening due to hepatocellular disease in the as cites. No cholelithiasis. 3. Mild changes of cirrhosis involving the liver. 4. Cannot identify the LEFT kidney or spleen.
--- NOTE | 2020-07-26 10:21 | PC.SOCIAL ---
IMM Update Pg. 2 of IMM Updated. Initialed, dated, and timed, and placed in chart. Copy provided to patient.
[2020-07-26 10:58] LABS: Urine Appearance SL Hazy (CLEAR); Urine Color Yellow (Yellow); pH Urine 5 (5-7)
[2020-07-26 10:59] LABS: Bilirubin Urine Neg (Negative); Blood Urine Neg (Negative); Glucose Urine UA Norm (Normal); Ketones Urine Negative (Negative); Leukocyte Esterase Urine 1+ (Negative); Nitrate Urine Negative (Negative); Protein Urine Neg (Negative); Urobilinogen Urine Norm (Negative)
[2020-07-26 11:00] LABS: RBC Urine RARE /hpf (0-2); Squamous Epithelial Cell Urine 0-4 /hpf (0-5); Transitional Epi Cells Urine 0-4 /hpf; WBC Urine 15-25 /hpf (0-5)
[2020-07-26 11:00] LABS: Glucose Point of Care 205 mg/dL (70-110)
[2020-07-26 11:01] LABS: Add Urine Culture? Yes; Amorphous Sediment Urine TRACE /hpf; Bacteria Urine 1+ /hpf; Coarse Granular Casts Urine 0-4 /lpf; Mucus Urine TRACE /hpf
--- NOTE | 2020-07-26 12:58 | PM.PN ---
Subjective Subjective: Interval history: This morning patient was examined, she is actually sitting up in bed, on 2 L nasal cannula, she tells me that when she got up to use the bathroom this morning, she did feel short of breath, overall she is feeling better, no chest pain, no palpitations, tells me that she has been urinating, but she is not sure how much, no belly pain, no diarrhea alert oriented x2 Vitals/I&O/Wt Last Vital Signs Temp 97.6 F 07/26/20 11:18 Pulse 70 07/26/20 11:31 Resp 18 07/26/20 11:31 BP 101/59 07/26/20 11:18 Pulse Ox 95 07/26/20 11:31 07/25/20 07/26/20 07/26/20 22:59 06:59 14:59 Intake Total 360 / 960 45 / 1005 240 / 240 Output Total 300 / 300 275 / 575 Balance 60 / 660 -230 / 430 240 / 240 Physical Exam Const: COMMON NORMALS: no acute distress ORIENTATION/CONSCIOUSNESS: Yes awake, Yes oriented to person and Yes oriented to place; not oriented to time HENMT: COMMON NORMALS: normocephalic HEAD & SCALP: normocephalic Neck/C-Spine: COMMON NORMALS: no JVD Resp: COMMON NORMALS: normal respiratory effort, No retractions, No use of accessory muscles and clear to auscultation bilaterally AUSCULTATION: clear to auscultation bilaterally Cardio: COMMON NORMALS: no JVD, regular rate, regular rhythm, S1 normal heart sound present and S2 normal heart sound present RATE: regular rate RHYTHM: regular rhythm HEART SOUNDS: S1 normal heart sound present and S2 normal heart sound present GI: COMMON NORMALS: Normal to inspection, nondistended, normoactive bowel sounds present, Soft to palpation, non-tender, No hepatosplenomegaly present, no masses and no bruits PALPATION: Yes Soft to palpation and Yes No hepatosplenomegaly present Extremity: COMMON NORMALS: capillary refill normal, no clubbing, cyanosis or edema, no calf tenderness and no pedal edema Neuro: SENSORIUM/ORIENTATION: Yes oriented to person, Yes oriented to place and No oriented to time Psych: COMMON NORMALS: mental status grossly normal Urinary Catheter Management^: Garvin: Cath Placed During This Visit: yes, but has since been removed by the nurse Reason for Continuing Indwelling Catheter: Not indwelling catheter Urinary Catheter Date of Insertion: 07/19/20 Urinary Catheter Time of Insertion: 10:28 Date Urinary Catheter Removed: 07/20/20 Time Urinary Catheter Discontinued: 18:32 Data : 07/26/20 04:25 07/26/20 04:25 Micro: Microbiology 07/20/20 15:20 Gram Stain - Final Peritoneal Fluid Anaerobic Culture - Preliminary Body Fluid Culture - Final A&P Assessment and plan (1) CHF exacerbation: 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 Worsening LVEF to 20 to 25% with severe mitral valve regurgitation and mild aortic stenosis. Patient is not a candidate for mitral valve surgery. Discussed care with Cardiology. Diuretics on hold. Monitor daily weight. Strict input and output recording. Creatinine today 2.2, BUN 101 Status: Acute (2) Acute kidney injury superimposed on chronic kidney disease: Likely secondary to diuretics, large volume paracentesis, hypotensive episodes Creatinine improved to 2.2 Consult placed for nephrology Renal US, no hydronephrosis Repeat BMP in AM Urinary studies Holding diuretics, would avoid large volume paracentesis Status: Acute (3) Anasarca: Status post paracentesis with greater than 7 L removed Holding Bumex at this time due to concern as above Status: Acute (4) Cardiac cirrhosis: -Status post 7 L paracentesis -High TP in peritoneal fluid -SAG is less than 1.1 -CT scan shows radiographic evidence of mild cirrhosis -Likely secondary to severe heart failure, severe mitral regurg -Continue to monitor LFTs, T bili Status: Acute (5) Mitral regurgitation: -Not amenable to surgical intervention at this point Status: Acute (6) Pulmonary HTN: Status: Acute (7) Status cardiac pacemaker: Status: Acute (8) Anasarca: Status: Acute (9) Acute exacerbation of CHF (congestive heart failure): Status: Acute Qualifiers: Heart failure type: combined systolic and diastolic Qualified Code(s): I50.43 - Acute on chronic combined systolic (congestive) and diastolic (congestive) heart failure (10) Atrial fibrillation: Status: Acute (11) Aortic stenosis: Status: Acute Additional A&P Information Coronary artery disease: Continue current management Pulmonary hypertension Diabetes mellitus type 2: Low dose sliding scale insulin as needed History of atrial fibrillation: Currently in paced rhythm, not on any anticoagulation due to history of GI bleed, given evidence of liver cirrhosis, also worried about esophageal varices Hypothyroidism: Continue home armour thyroid 90mg daily, TSH within normal limits on admission Chronic macrocytic anemia: History of GI bleed. Hemoglobin has been stable, no episodes of dark stools. CODE STATUS: Full code DVT prophylaxis: SCDs, no pharmacologic prophylaxis as above Cardiac diet with fluid restriction Attestations Medical Necessity Statement*: Patient requires hospitalization for CHF exacerbation, cardiac cirrhosis, acute renal failure Coding Level of Care Code Acute Tray Line Supervisor for Chg Fwd Diagnoses CHF exacerbation I50.9 Acute kidney injury superimposed on chronic kidney disease N17.9; N18.9 Anasarca R60.1 Cardiac cirrhosis K76.1 Mitral regurgitation I34.0 Pulmonary HTN I27.20 Status cardiac pacemaker Z95.0 Anasarca R60.1 Acute exacerbation of CHF (congestive heart failure) I50.43 Heart failure type: combined systolic and diastolic Atrial fibrillation I48.91 Aortic stenosis I35.0
--- NOTE | 2020-07-26 13:19 | PM.PN ---
Subjective Subjective: Interval history: Patient did not have any acute issues overnight. Remained on 2L of O2 via NC. No CP, SOB. She underwent abdominal USG today. Fluid restriction increased to 1500 ml and recieved 20 mg IV lasix x 1 this morning. Poor oral intake Medications: Reviewed: Yes Medication Review Details: Current Medications Albuterol/Ipratropium (Duoneb) 3 ml INHALATION Q6H PRN PRN Reason: SHORTNESS OF BREATH Last Admin: 07/25/20 08:35 Dose: 3 ml Documented by: Aspirin (Aspirin Ec) 81 mg PO DAILY [facility] Last Admin: 07/26/20 08:41 Dose: 81 mg Documented by: Dextrose (D50w) 25 ml IVP ONCE PRN; Protocol PRN Reason: hypoglycemia protocol Dextrose (D50w) 50 ml IVP PRN PRN; Protocol PRN Reason: hypoglycemia protocol Glucagon (Glucagen) 1 mg IM ONCE PRN; Protocol PRN Reason: Adult Acute Hypoglycemia Prot. Dextrose (D5w) 500 mls @ 100 mls/hr IV ONCE PRN; Protocol PRN Reason: Adult Acute Hypoglycemia Prot Ferric Sodium Gluconate 125 mg (/ Sodium Chloride) 110 mls @ 110 mls/hr IV Q24H [facility] Stop: 08/02/20 08:59 Last Admin: 07/26/20 08:40 Dose: 110 mls/hr Documented by: Insulin Aspart (Novolog) 0 unit SUBCUT TIDWM [facility]; Protocol Last Admin: 07/26/20 13:05 Dose: 4 unit Documented by: Insulin Aspart (Novolog) 0 unit SUBCUT BEDTIME [facility]; Protocol Last Admin: 07/25/20 23:44 Dose: 1 unit Documented by: Lanolin (Lanolin Oint) 1 applic TOPICAL PRN PRN PRN Reason: DRYNESS Last Admin: 07/26/20 03:44 Dose: 1 tube Documented by: Metoprolol Succinate (Toprol Xl) 25 mg PO BID [facility] Last Admin: 07/26/20 08:41 Dose: 25 mg Documented by: Nitroglycerin (Nitrostat) 0.4 mg SUBLINGUAL Q5M PRN PRN Reason: chest pain Pantoprazole Sodium (Protonix) 40 mg PO BID [facility] Last Admin: 07/26/20 08:41 Dose: 40 mg Documented by: Thyroid (Prosperity Thyroid) 90 mg PO DAILY [facility] Last Admin: 07/26/20 08:41 Dose: 90 mg Documented by: Vitals/I&O/Wt Last Vital Signs Temp 97.6 F 07/26/20 11:18 Pulse 70 07/26/20 11:31 Resp 18 07/26/20 11:31 BP 101/59 07/26/20 11:18 Pulse Ox 95 07/26/20 11:31 07/25/20 07/26/20 07/26/20 22:59 06:59 14:59 Intake Total 360 / 960 45 / 1005 240 / 240 Output Total 300 / 300 275 / 575 Balance 60 / 660 -230 / 430 240 / 240 Physical Exam Narrative: EXAM NARRATIVE: GENERAL: Frail elderly lady lying in bed; in no acute distress HEENT: Extraocular movement intact. Pupils equal round reactive to light. No pallor or icterus. NECK: central trachea, N0 JVD. No carotid bruit. CARDIOVASCULAR SYSTEM: S1-S2 regular. No S3 or S4 present. Grade 3/6 LLSB and apical murmur RESPIRATORY SYSTEM: Chest clear to auscultation. No wheezes rhonchi or rubs heard. No use of accessory muscles. ABDOMEN: Soft, nontender and distended. Normal bowel sounds present. tympanic to percussion; while dull in lower quadrants EXTREMITIES: No cyanosis or clubbing. No edema. Bilateral leg discoloration FARM MACHINE TENDER: Patient is alert oriented ?3. No focal neurological deficits. SKIN: Normal turgor and temperature. Urinary Catheter Management^: Garvin: Cath Placed During This Visit: yes, but has since been removed by the nurse Reason for Continuing Indwelling Catheter: Not indwelling catheter Urinary Catheter Date of Insertion: 07/19/20 Urinary Catheter Time of Insertion: : Date Urinary Catheter Removed: 07/20/20 Time Urinary Catheter Discontinued: 18:32 Data : 07/26/20 04:25 07/26/20 04:25 Micro: Microbiology 07/20/20 15:20 Gram Stain - Final Peritoneal Fluid Anaerobic Culture - Preliminary Body Fluid Culture - Final Other data: Abdominal USG IMPRESSION: 1. Small to moderate amount of ascites. 2. Diffuse gallbladder wall thickening due to hepatocellular disease in the ascites. No cholelithiasis. 3. Mild changes of cirrhosis involving the liver. 4. Cannot identify the LEFT kidney or spleen. A&P Assessment and plan (1) Acute exacerbation of CHF (congestive heart failure): There has been a drop in LV function. It could be insetting of VHD with severe MR and moderate to severe TR. -No chest pains, however progression of underlying CAD cannot be ruled out. 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 RCA with Chronic occlusion at the ostium. RCA lined with stents from the ostium to beyond the acute margin. -I had a long discussion with patient and her niece Suze. Risks and benefits of medical management, coronary angiogram vs stress testing were discussed in detail. -Given her ELIJAH on CKD, plan to optimize her medical management for CHF now. -Plan for further work up based on her clinical progression and if needed likely as an outpatient. -continue metoprolol succinate. bumex held. -Plan to add ACEI/ARB based on renal function later possibly outpatient. Status: Acute Qualifiers: Heart failure type: combined systolic and diastolic Qualified Code(s): I50.43 - Acute on chronic combined systolic (congestive) and diastolic (congestive) heart failure (2) Atrial fibrillation: Heparin drip stopped. recommend no OAC for now. H/o GI bleed -now in A sense V paced rhythm. Status: Acute (3) Mitral regurgitation: Severe MR , not a candidate for surgery or clip. Status: Acute (4) Elevated troponin: Type 2 NSTEMI In setting of decompensated CHF. -continue ASA and may add low dose statin. Status: Acute (5) Status cardiac pacemaker: Status: Acute Additional A&P Information ELIJAH superimposed on chronic kidney disease: Baseline creatinine of 1.3-1.5 in March 2020; creatinine 2.2 today and BUN 101. diuretics as needed. Nephrology on board. Suspected liver cirrhosis: Hep panel negative Ascites she is status post paracentesis with removal of 7250 ml of dark red serous fluid by radiology. CAD with h/o RCA stents Hypothyroidism Anemia Hyperkalemia: Elevated alkaline phosphatase Hypoalbuminemia Pulmonary HTN DM-2 Thank you for allowing me to participate in patient's care. Please feel free to call with questions or concerns. Attestations Medical Necessity Statement*: As per primary team Coding Level of Care Code Acute Roving Teller for Casey Lai Diagnoses Acute exacerbation of CHF (congestive heart failure) I50.43 Heart failure type: combined systolic and diastolic Atrial fibrillation I48.91 Mitral regurgitation I34.0 Elevated troponin R77.8 Status cardiac pacemaker Z95.0
[2020-07-26 16:58] LABS: Glucose Point of Care 160 mg/dL (70-110)
[2020-07-26] MEDS: ipratropium-albuterol 3 mL Neb INHALATION (20:30)
[2020-07-26 21:09] LABS: Glucose Point of Care 174 mg/dL (70-110)
[2020-07-27] VITALS (8 sets, daily range): BP systolic 76–120; BP diastolic 49–70; PULSE 55–97; RESP 16–19; TEMP 36.3–37.1; O2SAT 95–100
[2020-07-27 05:36] LABS: Basophils % 0.9 %; Eosinophils # 0.2 10^3/uL (0.0-0.8); Eosinophils % 4.3 %; Hematocrit 29.7 % (37.0-47.0); Hemoglobin 9.2 g/dL (11.5-15.3); Lymphocytes # 0.6 10^3/uL (0.8-4.8); Lymphocytes % 12.8 %; Mean Corpuscular Hemoglobin 33.3 pg (28.0-34.0); Mean Corpuscular Volume 107.6 fL (81-99); Mean Platelet Volume 10.3 fL (7.4-10.4); Monocytes # 0.6 10^3/uL (0.2-0.9); Monocytes % 13.6 %; Neutrophils # 3.21 10^3/uL (1.8-7.7); Neutrophils % 68.2 %; Nucleated Red Blood Cells % 0 %; Platelet Count 197 10^3/cmm (130-400); Red Blood Count 2.76 10^6/uL (4.1-5.3); White Blood Count 4.7 10^3/uL (4.0-10.0)
[2020-07-27 06:30] LABS: Alanine Aminotransferase 22 U/L (0-33); Albumin Level 2.7 g/dL (3.5-5.2); Alkaline Phosphatase 197 IU/L (35-105); Anion Gap 13.8 (5-19); Aspartate Amino Transferase 39 U/L (0-32); Calcium 8.9 mg/dL (8.5-10.5); Carbon Dioxide 29 mmol/L (22-29); Chloride 102 mmol/L (98-107); Globulin 3.6 g/dL (1.3-4.6); Glucose 114 mg/dL (65-115); Osmolality Calculated 319 mOsm/kg (285-295); Phosphorus 4.4 mg/dL (2.5-4.5); Potassium 4.8 mmol/L (3.5-5.1); Sodium 140 mmol/L (136-145); Total Bilirubin 0.8 mg/dL (0.15-1.2); Total Protein 6.3 g/dL (6.6-8.7)
[2020-07-27 06:35] LABS: Blood Urea Nitrogen 92 mg/dL (8-23)
[2020-07-27 08:09] LABS: Glucose Point of Care 106 mg/dL (70-110)
[2020-07-27] MEDS: pantoprazole DR 40 mg Tablet PO ×2 (08:20→18:27)
[2020-07-27] MEDS: ferric gluconate 125 MG in sodium chloride 0.9% (100 ml) 100 ML 110 MG IV (08:20)
[2020-07-27] MEDS: thyroid 60 mg Tablet 90 MG PO (08:20)
[2020-07-27] MEDS: aspirin 81 mg EC Tablet PO (08:20)
[2020-07-27 10:59] LABS: Glucose Point of Care 282 mg/dL (70-110)
--- NOTE | 2020-07-27 12:56 | PM.PN ---
Subjective Subjective: Interval history: This morning patient was examined, she is sitting up in bed, enjoying breakfast, she is on 2 L nasal cannula, states that she was up with physical therapy yesterday, did well, some episodes of shortness of breath, but overall doing better, she is concerned about her soft blood pressures, her metoprolol was held this morning Vitals/I&O/Wt Last Vital Signs Temp 97.3 F L 07/27/20 11:30 Pulse 97 07/27/20 11:30 Resp 18 07/27/20 11:30 BP 120/70 07/27/20 11:30 Pulse Ox 95 07/27/20 11:30 07/26/20 07/27/20 07/27/20 22:59 06:59 14:59 Intake Total 800 / 1150 20 / 1170 1080 / 1080 Output Total 84 / 84 100 / 184 200 / 200 Balance 716 / 1066 -80 / 986 880 / 880 Physical Exam Const: COMMON NORMALS: no acute distress and patient oriented x3 HENMT: COMMON NORMALS: normocephalic HEAD & SCALP: normocephalic Neck/C-Spine: COMMON NORMALS: no JVD Resp: COMMON NORMALS: normal respiratory effort, No retractions, No use of accessory muscles and clear to auscultation bilaterally AUSCULTATION: clear to auscultation bilaterally Cardio: COMMON NORMALS: no JVD, regular rate, regular rhythm, S1 normal heart sound present and S2 normal heart sound present RATE: regular rate RHYTHM: regular rhythm HEART SOUNDS: S1 normal heart sound present and S2 normal heart sound present GI: COMMON NORMALS: Normal to inspection, nondistended, normoactive bowel sounds present, Soft to palpation, non-tender, No hepatosplenomegaly present, no masses and no bruits PALPATION: Yes Soft to palpation and Yes No hepatosplenomegaly present Extremity: COMMON NORMALS: capillary refill normal, no clubbing, cyanosis or edema, no calf tenderness and no pedal edema Neuro: COMMON NORMALS: patient oriented x3 Psych: COMMON NORMALS: mental status grossly normal Urinary Catheter Management^: Garvin: Cath Placed During This Visit: yes, but has since been removed by the nurse Reason for Continuing Indwelling Catheter: Not indwelling catheter Urinary Catheter Date of Insertion: 07/19/20 Urinary Catheter Time of Insertion: 10:28 Date Urinary Catheter Removed: 07/20/20 Time Urinary Catheter Discontinued: 18:32 Data : 07/27/20 04:24 07/27/20 04:24 Micro: Microbiology 07/25/20 10:22 Urine Culture - Preliminary Urine,Clean Catch 07/20/20 15:20 Gram Stain - Final Peritoneal Fluid Anaerobic Culture - Preliminary Body Fluid Culture - Final A&P Assessment and plan (1) Low blood pressure: -Likely secondary to heart failure, cirrhosis -Concerns for worsening renal insufficiency, and ELIJAH if they continue to run soft -Patient's blood pressures have run soft throughout her admission -We will continue to hold blood pressure medications -We will see if she is a candidate for salt tablets, midodrine Status: Acute (2) CHF exacerbation: 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 Worsening LVEF to 20 to 25% with severe mitral valve regurgitation and mild aortic stenosis. Patient is not a candidate for mitral valve surgery. Discussed care with Cardiology. Diuretics on hold. Monitor daily weight. Strict input and output recording. Creatinine today 2.3 today, BUN 92 Status: Acute (3) Acute kidney injury superimposed on chronic kidney disease: Likely secondary to diuretics, large volume paracentesis, hypotensive episodes Creatinine improved to 2.3 Consult placed for nephrology Renal US, no hydronephrosis Repeat BMP in AM Urinary studies Holding diuretics, would avoid large volume paracentesis Status: Acute (4) Anasarca: Status post paracentesis with greater than 7 L removed Holding Bumex at this time due to concern as above Status: Acute (5) Cardiac cirrhosis: -Status post 7 L paracentesis -High TP in peritoneal fluid -SAG is less than 1.1 -CT scan shows radiographic evidence of mild cirrhosis -Likely secondary to severe heart failure, severe mitral regurg -Continue to monitor LFTs, T bili Status: Acute (6) Mitral regurgitation: -Not amenable to surgical intervention at this point Status: Acute (7) Pulmonary HTN: Status: Acute (8) Status cardiac pacemaker: Status: Acute (9) Atrial fibrillation: Status: Acute (10) Aortic stenosis: Status: Acute Additional A&P Information Coronary artery disease: Continue current management Pulmonary hypertension Diabetes mellitus type 2: Low dose sliding scale insulin as needed History of atrial fibrillation: Currently in paced rhythm, not on any anticoagulation due to history of GI bleed, given evidence of liver cirrhosis, also worried about esophageal varices Hypothyroidism: Continue home armour thyroid 90mg daily, TSH within normal limits on admission Chronic macrocytic anemia: History of GI bleed. Hemoglobin has been stable, no episodes of dark stools. CODE STATUS: Full code DVT prophylaxis: SCDs, no pharmacologic prophylaxis as above Cardiac diet with fluid restriction Attestations Medical Necessity Statement*: Patient requires hospitalization for ELIJAH, cardiomyopathy, anasarca, cardiac cirrhosis, Coding Level of Care Code Acute Finance Specialist for Chg Fwd Diagnoses Low blood pressure I95.9 CHF exacerbation I50.9 Acute kidney injury superimposed on chronic kidney disease N17.9; N18.9 Anasarca R60.1 Cardiac cirrhosis K76.1 Mitral regurgitation I34.0 Pulmonary HTN I27.20 Status cardiac pacemaker Z95.0 Atrial fibrillation I48.91 Aortic stenosis I35.0
--- NOTE | 2020-07-27 13:06 | PM.PN ---
Subjective Subjective: Interval history: sitting in chair, no complaints. S/P 7 liter paracentesis yesterday Medications: Reviewed: Yes Vitals/I&O/Wt Last Vital Signs Temp 97.3 F L 07/27/20 11:30 Pulse 97 07/27/20 11:30 Resp 18 07/27/20 11:30 BP 120/70 07/27/20 11:30 Pulse Ox 95 07/27/20 11:30 07/26/20 07/27/20 07/27/20 22:59 06:59 14:59 Intake Total 800 / 1150 20 / 1170 1080 / 1080 Output Total 84 / 84 100 / 184 200 / 200 Balance 716 / 1066 -80 / 986 880 / 880 Physical Exam Const: COMMON NORMALS: no acute distress Eye: COMMON NORMALS: no scleral icterus Urinary Catheter Management^: Garvin: Cath Placed During This Visit: yes, but has since been removed by the nurse Reason for Continuing Indwelling Catheter: Not indwelling catheter Urinary Catheter Date of Insertion: 07/19/20 Urinary Catheter Time of Insertion: 10:28 Date Urinary Catheter Removed: 07/20/20 Time Urinary Catheter Discontinued: 18:32 Data : 07/27/20 04:24 07/27/20 04:24 Other Labs: albumin 2.7, Ca 8.4, phos 4.4, Mg 2 Micro: Microbiology 07/25/20 10:22 Urine Culture - Preliminary Urine,Clean Catch 07/20/20 15:20 Gram Stain - Final Peritoneal Fluid Anaerobic Culture - Preliminary Body Fluid Culture - Final Other data: EF 20 - 25%, severe MR, mod-severe TR, mild mod A&P Additional A&P Information Impression: 1. Chronic kidney disease - renal function stable 2. Valvular heart disease, CHF 3. Anasarca s/p paracentesis 7 liters yesterday, weight decreased 12# since admission, diuretics on hold 4. Anemia, Hb stable, receiving IV iron 5. Possible cirrhosis 6. Poor nutrition Recommend: Can resume low dose diuretics tomorrow. Follow daily weights. Attestations Medical Necessity Statement*: per primary service Time Spent in Patient Care: 16 - 35 minutes Coding Level of Care Code Acute Medical Consultant for Casey Lai
--- NOTE | 2020-07-27 14:53 | P.PN_ITS ---
Subjective Subjective: Interval history: Patient did not have any acute issues overnight. Remained on 2L of O2 via NC. No CP, SOB. She underwent abdominal USG yesterday. Fluid restriction increased to 1500 ml and recieved 20 mg IV lasix x 1 yesterday. Poor oral intake Medications: Reviewed: Yes Medication Review Details: Current Medications Albuterol/Ipratropium (Duoneb) 3 ml INHALATION Q6H PRN PRN Reason: SHORTNESS OF BREATH Last Admin: 07/25/20 08:35 Dose: 3 ml Documented by: Aspirin (Aspirin Ec) 81 mg PO DAILY [facility] Last Admin: 07/26/20 08:41 Dose: 81 mg Documented by: Dextrose (D50w) 25 ml IVP ONCE PRN; Protocol PRN Reason: hypoglycemia protocol Dextrose (D50w) 50 ml IVP PRN PRN; Protocol PRN Reason: hypoglycemia protocol Glucagon (Glucagen) 1 mg IM ONCE PRN; Protocol PRN Reason: Adult Acute Hypoglycemia Prot. Dextrose (D5w) 500 mls @ 100 mls/hr IV ONCE PRN; Protocol PRN Reason: Adult Acute Hypoglycemia Prot Ferric Sodium Gluconate 125 mg (/ Sodium Chloride) 110 mls @ 110 mls/hr IV Q24H [facility] Stop: 08/02/20 08:59 Last Admin: 07/26/20 08:40 Dose: 110 mls/hr Documented by: Insulin Aspart (Novolog) 0 unit SUBCUT TIDWM BRISSA; Protocol Last Admin: 07/26/20 13:05 Dose: 4 unit Documented by: Insulin Aspart (Novolog) 0 unit SUBCUT BEDTIME [facility]ISSA; Protocol Last Admin: 07/25/20 23:44 Dose: 1 unit Documented by: Lanolin (Lanolin Oint) 1 applic TOPICAL PRN PRN PRN Reason: DRYNESS Last Admin: 07/26/20 03:44 Dose: 1 tube Documented by: Metoprolol Succinate (Toprol Xl) 25 mg PO BID [facility] Last Admin: 07/26/20 08:41 Dose: 25 mg Documented by: Nitroglycerin (Nitrostat) 0.4 mg SUBLINGUAL Q5M PRN PRN Reason: chest pain Pantoprazole Sodium (Protonix) 40 mg PO BID [facility] Last Admin: 07/26/20 08:41 Dose: 40 mg Documented by: Thyroid ([place] Thyroid) 90 mg PO DAILY [facility] Last Admin: 07/26/20 08:41 Dose: 90 mg Documented by: Vitals/I&O/Wt Last Vital Signs Temp 97.3 F L 07/27/20 11:30 Pulse 97 07/27/20 11:30 Resp 18 07/27/20 11:30 BP 120/70 07/27/20 11:30 Pulse Ox 95 07/27/20 11:30 07/26/20 07/27/20 07/27/20 22:59 06:59 14:59 Intake Total 800 / 1150 20 / 1170 1080 / 1080 Output Total 84 / 84 100 / 184 200 / 200 Balance 716 / 1066 -80 / 986 880 / 880 Physical Exam Narrative: EXAM NARRATIVE: GENERAL: Frail elderly lady lying in bed; in no acute distress HEENT: Extraocular movement intact. Pupils equal round reactive to light. No pallor or icterus. NECK: central trachea, N0 JVD. No carotid bruit. CARDIOVASCULAR SYSTEM: S1-S2 regular. No S3 or S4 present. Grade 3/6 LLSB and apical murmur RESPIRATORY SYSTEM: Chest clear to auscultation. No wheezes rhonchi or rubs heard. No use of accessory muscles. ABDOMEN: Soft, nontender and mildly distended. Normal bowel sounds present. tympanic to percussion; while dull in lower quadrants EXTREMITIES: No cyanosis or clubbing. No edema. Bilateral leg discoloration INTENSIVE CARE MEDICINE SPECIALIST: Patient is alert oriented ?3. No focal neurological deficits. Urinary Catheter Management^: Garvin: Cath Placed During This Visit: yes, but has since been removed by the nurse Reason for Continuing Indwelling Catheter: Not indwelling catheter Urinary Catheter Date of Insertion: 07/19/20 Urinary Catheter Time of Insertion: : Date Urinary Catheter Removed: 07/20/20 Time Urinary Catheter Discontinued: 18:32 Data : 07/27/20 04:24 07/27/20 04:24 Micro: Microbiology 07/25/20 10:22 Urine Culture - Preliminary Urine,Clean Catch 07/20/20 15:20 Gram Stain - Final Peritoneal Fluid Anaerobic Culture - Preliminary Body Fluid Culture - Final A&P Assessment and plan (1) Acute exacerbation of CHF (congestive heart failure): There has been a drop in LV function. It could be insetting of VHD with severe MR and moderate to severe TR. -No chest pains, however progression of underlying CAD cannot be ruled out. 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 RCA with Chronic occlusion at the ostium. RCA lined with stents from the ostium to beyond the acute margin. -I had a long discussion with patient and her niece Suze. Risks and benefits of medical management, coronary angiogram vs stress testing were discussed in detail. -Given her ELIJAH on CKD, plan to optimize her medical management for CHF now. -Plan for further work up based on her clinical progression and if needed likely as an outpatient. -metoprolol succinate held due to low BP. bumex held. -decrease dose on metoprolol succinate. -Plan to add ACEI/ARB based on renal function later possibly outpatient. Status: Acute Qualifiers: Heart failure type: combined systolic and diastolic Qualified Code(s): I50.43 - Acute on chronic combined systolic (congestive) and diastolic (congestive) heart failure (2) Atrial fibrillation: Heparin drip stopped. recommend no OAC for now. H/o GI bleed -now in A sense V paced rhythm. Status: Acute (3) Mitral regurgitation: Severe MR , not a candidate for surgery or clip. Status: Acute (4) Elevated troponin: Type 2 NSTEMI In setting of decompensated CHF. -continue ASA and may add low dose statin. Status: Acute (5) Status cardiac pacemaker: Status: Acute Additional A&P Information ELIJAH superimposed on chronic kidney disease: Baseline creatinine of 1.3-1.5 in March 2020; creatinine 2.3 today. diuretics as needed. Nephrology on board. Suspected liver cirrhosis: Hep panel negative Ascites she is status post paracentesis with removal of 7250 ml of dark red serous fluid by radiology. CAD with h/o RCA stents Hypothyroidism Anemia Hyperkalemia: Elevated alkaline phosphatase Hypoalbuminemia Pulmonary HTN DM-2 Thank you for allowing me to participate in patient's care. Please feel free to call with questions or concerns. Attestations Medical Necessity Statement*: As per primary team Coding Level of Care Code Acute Food Preparer for Casey Lai Diagnoses Acute exacerbation of CHF (congestive heart failure) I50.43 Heart failure type: combined systolic and diastolic Atrial fibrillation I48.91 Mitral regurgitation I34.0 Elevated troponin R77.8 Status cardiac pacemaker Z95.0
[2020-07-27 17:04] LABS: Glucose Point of Care 156 mg/dL (70-110)
[2020-07-27 21:25] LABS: Glucose Point of Care 106 mg/dL (70-110)
[2020-07-28] VITALS (8 sets, daily range): BP systolic 100–120; BP diastolic 55–82; PULSE 75–87; RESP 16–18; TEMP 36.5–37; O2SAT 95–100
[2020-07-28 05:44] LABS: Basophils % 0.9 %; Eosinophils # 0.2 10^3/uL (0.0-0.8); Hematocrit 30.7 % (37.0-47.0); Hemoglobin 9.2 g/dL (11.5-15.3); Lymphocytes # 0.6 10^3/uL (0.8-4.8); Lymphocytes % 13.5 %; Mean Corpuscular Hemoglobin 32.6 pg (28.0-34.0); Mean Corpuscular Volume 108.9 fL (81-99); Mean Platelet Volume 10.2 fL (7.4-10.4); Monocytes # 0.6 10^3/uL (0.2-0.9); Monocytes % 13.7 %; Neutrophils # 3.06 10^3/uL (1.8-7.7); Neutrophils % 67.5 %; Nucleated Red Blood Cells % 0 %; Platelet Count 200 10^3/cmm (130-400); Red Blood Count 2.82 10^6/uL (4.1-5.3); Red Cell Distribution Width 16.3 % (12.1-15.1); White Blood Count 4.5 10^3/uL (4.0-10.0)
[2020-07-28 06:07] LABS: Alanine Aminotransferase 19 U/L (0-33); Albumin Level 2.6 g/dL (3.5-5.2); Alkaline Phosphatase 188 IU/L (35-105); Anion Gap 13.9 (5-19); Aspartate Amino Transferase 29 U/L (0-32); Calcium 9.2 mg/dL (8.5-10.5); Carbon Dioxide 29 mmol/L (22-29); Chloride 101 mmol/L (98-107); Globulin 3.6 g/dL (1.3-4.6); Glucose 96 mg/dL (65-115); Magnesium 2.1 mg/dL (1.7-2.3); Osmolality Calculated 314 mOsm/kg (285-295); Phosphorus 4.5 mg/dL (2.5-4.5); Potassium 4.9 mmol/L (3.5-5.1); Sodium 139 mmol/L (136-145); Total Protein 6.2 g/dL (6.6-8.7)
[2020-07-28 06:20] LABS: Blood Urea Nitrogen 86 mg/dL (8-23)
[2020-07-28 07:16] LABS: Glucose Point of Care 103 mg/dL (70-110)
[2020-07-28] MEDS: metoprolol succinate ER (24 HR) 25 mg Tablet PO (08:16)
[2020-07-28] MEDS: aspirin 81 mg EC Tablet PO (08:16)
[2020-07-28] MEDS: thyroid 60 mg Tablet 90 MG PO (08:16)
[2020-07-28] MEDS: pantoprazole DR 40 mg Tablet PO ×2 (08:17→17:57)
[2020-07-28] MEDS: ferric gluconate 125 MG in sodium chloride 0.9% (100 ml) 100 ML 110 MG IV (08:18)
[2020-07-28 11:02] LABS: Glucose Point of Care 229 mg/dL (70-110)
--- NOTE | 2020-07-28 11:34 | PC.SOCIAL ---
IMM Updated Updated pt on Pg 2 IMM. No questions voiced. Signed, dated, & timed copy in chart.
--- NOTE | 2020-07-28 12:39 | PM.PN ---
Subjective Subjective: Interval history: Patient states she is feeling better however while talking to me she is short of breath cannot complete sentences Medications: Reviewed: Yes Medication Review Details: Current Medications Albuterol/Ipratropium (Duoneb) 3 ml INHALATION Q6H PRN PRN Reason: SHORTNESS OF BREATH Last Admin: 07/25/20 08:35 Dose: 3 ml Documented by: Aspirin (Aspirin Ec) 81 mg PO DAILY [facility] Last Admin: 07/26/20 08:41 Dose: 81 mg Documented by: Dextrose (D50w) 25 ml IVP ONCE PRN; Protocol PRN Reason: hypoglycemia protocol Dextrose (D50w) 50 ml IVP PRN PRN; Protocol PRN Reason: hypoglycemia protocol Glucagon (Glucagen) 1 mg IM ONCE PRN; Protocol PRN Reason: Adult Acute Hypoglycemia Prot. Dextrose (D5w) 500 mls @ 100 mls/hr IV ONCE PRN; Protocol PRN Reason: Adult Acute Hypoglycemia Prot Ferric Sodium Gluconate 125 mg (/ Sodium Chloride) 110 mls @ 110 mls/hr IV Q24H [facility] Stop: 08/02/20 08:59 Last Admin: 07/26/20 08:40 Dose: 110 mls/hr Documented by: Insulin Aspart (Novolog) 0 unit SUBCUT TIDWM [facility]; Protocol Last Admin: 07/26/20 13:05 Dose: 4 unit Documented by: Insulin Aspart (Novolog) 0 unit SUBCUT BEDTIME [facility]; Protocol Last Admin: 07/25/20 23:44 Dose: 1 unit Documented by: Lanolin (Lanolin Oint) 1 applic TOPICAL PRN PRN PRN Reason: DRYNESS Last Admin: 07/26/20 03:44 Dose: 1 tube Documented by: Metoprolol Succinate (Toprol Xl) 25 mg PO BID [facility] Last Admin: 07/26/20 08:41 Dose: 25 mg Documented by: Nitroglycerin (Nitrostat) 0.4 mg SUBLINGUAL Q5M PRN PRN Reason: chest pain Pantoprazole Sodium (Protonix) 40 mg PO BID [facility] Last Admin: 07/26/20 08:41 Dose: 40 mg Documented by: Thyroid ([place] Thyroid) 90 mg PO DAILY [facility] Last Admin: 07/26/20 08:41 Dose: 90 mg Documented by: Vitals/I&O/Wt Last Vital Signs Temp 98.4 F 07/28/20 12:00 Pulse 87 07/28/20 12:00 Resp 18 07/28/20 12:00 BP 118/82 07/28/20 12:00 Pulse Ox 96 07/28/20 08:31 07/27/20 07/28/20 07/28/20 22:59 06:59 14:59 Intake Total 240 / 1430 240 / 1670 Output Total 200 / 400 150 / 550 Balance 40 / 1030 90 / 1120 Physical Exam Narrative: EXAM NARRATIVE: GENERAL: Patient is alert, awake and oriented x3. NECK: No jugular vein distension. HEENT: No cyanosis. No icterus. No pallor. HEART: Regular S1 and S2. No murmur, rub or gallop. LUNGS: Left side inspiratory crackle bilaterally. ABDOMEN: Soft, nontender and mildly distended. CENTRAL NERVOUS SYSTEM: Grossly nonfocal. EXTREMITIES: Lower extremities without edema bilaterally. Urinary Catheter Management^: Garvin: Cath Placed During This Visit: yes, but has since been removed by the nurse Reason for Continuing Indwelling Catheter: Not indwelling catheter Urinary Catheter Date of Insertion: 07/19/20 Urinary Catheter Time of Insertion: : Date Urinary Catheter Removed: 07/20/20 Time Urinary Catheter Discontinued: 18:32 Data : 07/28/20 04:42 07/28/20 04:42 Micro: Microbiology 07/25/20 10:22 Urine Culture - Final Urine,Clean Catch 07/20/20 15:20 Gram Stain - Final Peritoneal Fluid Anaerobic Culture - Preliminary Body Fluid Culture - Final A&P Assessment and plan (1) Acute exacerbation of CHF (congestive heart failure): There has been a drop in LV function. It could be insetting of VHD with severe MR and moderate to severe TR. -No chest pains, however progression of underlying CAD cannot be ruled out. 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 RCA with Chronic occlusion at the ostium. RCA lined with stents from the ostium to beyond the acute margin. Plan for today. We will restart IV Lasix 20 mg IV twice daily and see how she does. Status: Acute Qualifiers: Heart failure type: combined systolic and diastolic Qualified Code(s): I50.43 - Acute on chronic combined systolic (congestive) and diastolic (congestive) heart failure (2) Atrial fibrillation: Paced rhythm in the ventricle with a sensing. High risk for bleed not on anticoagulation. Rate controlled with A. fib Status: Acute (3) Mitral regurgitation: Severe mitral valve regurgitation not a good candidate for surgery or mitral valve clipping. We will continue to manage conservatively. Status: Acute (4) Elevated troponin: Continue medical management not a good intervention candidate due to underlying comorbidities including renal failure Status: Acute (5) Status cardiac pacemaker: Paced rhythm with a sensing and V pacing. Status: Acute Additional A&P Information ELIJAH superimposed on chronic kidney disease: Baseline creatinine of 1.3-1.5 in March 2020; creatinine 2.3 today. diuretics as needed. Nephrology on board. Suspected liver cirrhosis: Hep panel negative Ascites she is status post paracentesis with removal of 7250 ml of dark red serous fluid by radiology. CAD with h/o RCA stents Hypothyroidism Anemia Hyperkalemia: Elevated alkaline phosphatase Hypoalbuminemia Pulmonary HTN DM-2 Thank you for allowing me to participate in patient's care. Please feel free to call with questions or concerns. Attestations Medical Necessity Statement*: Patient require continuation hospitalization for above defined care. Coding Level of Care Code Established Pt Acute Waste Disposal Leakage Tester for Chg Fwd Patient Type Established History Expanded Problem Focused Exam Expanded Problem Focused Medical Decision Making Moderate Complexity Diagnoses Acute exacerbation of CHF (congestive heart failure) I50.43 Heart failure type: combined systolic and diastolic Atrial fibrillation I48.91 Mitral regurgitation I34.0 Elevated troponin R77.8 Status cardiac pacemaker Z95.0
[2020-07-28] MEDS: FUROsemide 10 mg/mL SDV 2mL 20 MG IVP (13:16)
--- NOTE | 2020-07-28 13:30 | PM.PN ---
Subjective Subjective: Interval history: This morning patient was examined, she sitting up in bed, her abdomen is slightly more distended compared to yesterday, she is on 2 L, states that she does feel weak, is doing better, only a bit more short of breath than usual Vitals/I&O/Wt Last Vital Signs Temp 98.4 F 07/28/20 12:00 Pulse 87 07/28/20 12:00 Resp 18 07/28/20 12:00 BP 118/82 07/28/20 12:00 Pulse Ox 96 07/28/20 08:31 07/27/20 07/28/20 07/28/20 22:59 06:59 14:59 Intake Total 240 / 1430 240 / 1670 240 / 240 Output Total 200 / 400 150 / 550 Balance 40 / 1030 90 / 1120 240 / 240 Physical Exam Const: COMMON NORMALS: no acute distress and patient oriented x3 HENMT: COMMON NORMALS: normocephalic HEAD & SCALP: normocephalic Neck/C-Spine: COMMON NORMALS: no JVD Resp: COMMON NORMALS: normal respiratory effort, No retractions and No use of accessory muscles AUSCULTATION: crackles Cardio: COMMON NORMALS: no JVD, regular rate, regular rhythm, S1 normal heart sound present and S2 normal heart sound present RATE: regular rate RHYTHM: regular rhythm HEART SOUNDS: S1 normal heart sound present and S2 normal heart sound present GI: COMMON NORMALS: Normal to inspection, nondistended, normoactive bowel sounds present, Soft to palpation, non-tender, No hepatosplenomegaly present, no masses and no bruits INSPECTION: Yes abdominal distension PALPATION: Yes Soft to palpation and Yes No hepatosplenomegaly present Extremity: COMMON NORMALS: capillary refill normal, no clubbing, cyanosis or edema, no calf tenderness and no pedal edema Neuro: COMMON NORMALS: patient oriented x3 Psych: COMMON NORMALS: mental status grossly normal Urinary Catheter Management^: Garvin: Cath Placed During This Visit: yes, but has since been removed by the nurse Reason for Continuing Indwelling Catheter: Not indwelling catheter Urinary Catheter Date of Insertion: 07/19/20 Urinary Catheter Time of Insertion: 10:28 Date Urinary Catheter Removed: 07/20/20 Time Urinary Catheter Discontinued: 18:32 Data : 07/28/20 04:42 07/28/20 04:42 Micro: Microbiology 07/25/20 10:22 Urine Culture - Final Urine,Clean Catch 07/20/20 15:20 Gram Stain - Final Peritoneal Fluid Anaerobic Culture - Preliminary Body Fluid Culture - Final A&P Assessment and plan (1) Low blood pressure: -Likely secondary to heart failure, cirrhosis -Concerns for worsening renal insufficiency, and ELIJAH if they continue to run soft -Patient's blood pressures have run soft throughout her admission -We will continue to hold blood pressure medications -We will see if she is a candidate for salt tablets, midodrine Status: Acute (2) CHF exacerbation: 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 Worsening LVEF to 20 to 25% with severe mitral valve regurgitation and mild aortic stenosis. Patient is not a candidate for mitral valve surgery. Discussed care with Cardiology. Monitor daily weight. Strict input and output recording. Creatinine today 2.3 today, BUN 86 -We will start low-dose diuretics today, follow cardiology and nephrology's lead, greatly appreciate consult Status: Acute (3) Acute kidney injury superimposed on chronic kidney disease: Likely secondary to diuretics, large volume paracentesis, hypotensive episodes Creatinine improved to 2.3 Consult placed for nephrology Renal US, no hydronephrosis Repeat BMP in AM Urinary studies Would avoid aggressive diuretics, would avoid large volume paracentesis Status: Acute (4) Anasarca: Status post paracentesis with greater than 7 L removed Holding Bumex at this time due to concern as above Status: Acute (5) Cardiac cirrhosis: -Status post 7 L paracentesis -High TP in peritoneal fluid -SAG is less than 1.1 -CT scan shows radiographic evidence of mild cirrhosis -Likely secondary to severe heart failure, severe mitral regurg -Continue to monitor LFTs, T bili -Patient's abdomen is bit more distended today, likely her ascites is slowly reoccurring -Advised patient that we would only perform a paracentesis if it gets her discomfort, as the more we take off, the faster rate will reaccumulate -In addition I would strongly advised that the next time she has a paracentesis that she receives albumin and avoid large volumes paracentesis, to avoid hypotensive episodes leading to acute kidney injury and ATN Status: Acute (6) Mitral regurgitation: -Not amenable to surgical intervention at this point Status: Acute (7) Pulmonary HTN: Status: Acute (8) Status cardiac pacemaker: Status: Acute (9) Atrial fibrillation: Status: Acute (10) Aortic stenosis: Status: Acute Additional A&P Information Coronary artery disease: Continue current management Pulmonary hypertension Diabetes mellitus type 2: Low dose sliding scale insulin as needed History of atrial fibrillation: Currently in paced rhythm, not on any anticoagulation due to history of GI bleed, given evidence of liver cirrhosis, also worried about esophageal varices Hypothyroidism: Continue home armour thyroid 90mg daily, TSH within normal limits on admission Chronic macrocytic anemia: History of GI bleed. Hemoglobin has been stable, no episodes of dark stools. 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
--- NOTE | 2020-07-28 13:50 | P.PN_ITS ---
Subjective Subjective: Interval history: No complaints Medications: Reviewed: Yes Medication Review Details: IV furosemide started today 20 mg Q12h Vitals/I&O/Wt Last Vital Signs Temp 98.4 F 07/28/20 12:00 Pulse 87 07/28/20 12:00 Resp 18 07/28/20 12:00 BP 118/82 07/28/20 12:00 Pulse Ox 96 07/28/20 08:31 07/27/20 07/28/20 07/28/20 22:59 06:59 14:59 Intake Total 240 / 1430 240 / 1670 240 / 240 Output Total 200 / 400 150 / 550 Balance 40 / 1030 90 / 1120 240 / 240 Physical Exam Const: COMMON NORMALS: no acute distress GENERAL APPEARANCE: cooperative Eye: COMMON NORMALS: no scleral icterus Cardio: COMMON NORMALS: regular rate and regular rhythm RATE: regular rate RHYTHM: regular rhythm Extremity: GENERAL: Yes edema (1+) Urinary Catheter Management^: Garvin: Cath Placed During This Visit: yes, but has since been removed by the nurse Reason for Continuing Indwelling Catheter: Not indwelling catheter Urinary Catheter Date of Insertion: 07/19/20 Urinary Catheter Time of Insertion: 10:28 Date Urinary Catheter Removed: 07/20/20 Time Urinary Catheter Discontinued: 18:32 Data : 07/28/20 04:42 07/28/20 04:42 Micro: Microbiology 07/25/20 10:22 Urine Culture - Final Urine,Clean Catch 07/20/20 15:20 Gram Stain - Final Peritoneal Fluid Anaerobic Culture - Preliminary Body Fluid Culture - Final A&P Additional A&P Information Impression: 1. Chronic kidney disease - renal function stable 2. Valvular heart disease, CHF 3. Anasarca s/p paracentesis 7 liters [id number]/29/2020, weight decreased since yesterday 4. Anemia, Hb stable, receiving IV iron 5. Possible cirrhosis 6. Poor nutrition Recommend: Furosemide resumed. Follow daily weights. Attestations Medical Necessity Statement*: per primary service Time Spent in Patient Care: 16 - 35 minutes Coding Level of Care Code Acute Spooling Machine Operator for Casey Lai
[2020-07-28 17:28] LABS: Glucose Point of Care 149 mg/dL (70-110)
[2020-07-28 21:03] LABS: Glucose Point of Care 183 mg/dL (70-110)
[2020-07-29] VITALS (8 sets, daily range): BP systolic 101–114; BP diastolic 62–91; PULSE 73–91; RESP 16–18; TEMP 36.2–36.9; O2SAT 93–99
[2020-07-29] MEDS: FUROsemide 10 mg/mL SDV 2mL 20 MG IVP ×2 (01:07→17:15)
[2020-07-29 05:46] LABS: Basophils # 0.1 10^3/uL (0.0-0.1); Eosinophils # 0.2 10^3/uL (0.0-0.8); Eosinophils % 3.7 %; Hemoglobin 9.4 g/dL (11.5-15.3); Lymphocytes # 0.6 10^3/uL (0.8-4.8); Lymphocytes % 11.6 %; Mean Corpuscular HGB Conc 30.3 g/dL (30.0-36.0); Mean Corpuscular Hemoglobin 32.9 pg (28.0-34.0); Mean Corpuscular Volume 108.4 fL (81-99); Mean Platelet Volume 10.1 fL (7.4-10.4); Monocytes # 0.7 10^3/uL (0.2-0.9); Neutrophils # 3.65 10^3/uL (1.8-7.7); Neutrophils % 70.5 %; Nucleated Red Blood Cells % 0 %; Platelet Count 203 10^3/cmm (130-400); Red Blood Count 2.86 10^6/uL (4.1-5.3); Red Cell Distribution Width 16.1 % (12.1-15.1); White Blood Count 5.2 10^3/uL (4.0-10.0)
--- NOTE | 2020-07-29 06:03 | PC.NURSE ---
SHIFT SUMMARY Has rested well tonight. Is very pleasant. Gets up to BSC with one assist. 1500ml fluid restriction in effect. Prefers to take ice chips.
[2020-07-29 06:18] LABS: Alanine Aminotransferase 21 U/L (0-33); Albumin Level 2.6 g/dL (3.5-5.2); Alkaline Phosphatase 221 IU/L (35-105); Anion Gap 12.8 (5-19); Aspartate Amino Transferase 36 U/L (0-32); Blood Urea Nitrogen 80 mg/dL (8-23); Calcium 9.2 mg/dL (8.5-10.5); Carbon Dioxide 29 mmol/L (22-29); Chloride 102 mmol/L (98-107); Globulin 3.9 g/dL (1.3-4.6); Glucose 109 mg/dL (65-115); Osmolality Calculated 313 mOsm/kg (285-295); Phosphorus 4.4 mg/dL (2.5-4.5); Potassium 4.8 mmol/L (3.5-5.1); Sodium 139 mmol/L (136-145); Total Bilirubin 0.9 mg/dL (0.15-1.2); Total Protein 6.5 g/dL (6.6-8.7)
--- NOTE | 2020-07-29 07:10 | PM.PN ---
Subjective Subjective: Interval history: less sob. feels better, still w/ ascites Medications: Reviewed: Yes Medication Review Details: Current Medications Albuterol/Ipratropium (Duoneb) 3 ml INHALATION Q6H PRN PRN Reason: SHORTNESS OF BREATH Last Admin: 07/26/20 20:30 Dose: 3 ml Documented by: Aspirin (Aspirin Ec) 81 mg PO DAILY [facility] Last Admin: 07/28/20 08:16 Dose: 81 mg Documented by: Dextrose (D50w) 25 ml IVP ONCE PRN; Protocol PRN Reason: hypoglycemia protocol Dextrose (D50w) 50 ml IVP PRN PRN; Protocol PRN Reason: hypoglycemia protocol Furosemide (Lasix) 20 mg IVP Q12H [facility] Last Admin: 07/29/20 01:07 CDT Dose: 20 mg Documented by: Glucagon (Glucagen) 1 mg IM ONCE PRN; Protocol PRN Reason: Adult Acute Hypoglycemia Prot. Dextrose (D5w) 500 mls @ 100 mls/hr IV ONCE PRN; Protocol PRN Reason: Adult Acute Hypoglycemia Prot Ferric Sodium Gluconate 125 mg (/ Sodium Chloride) 110 mls @ 110 mls/hr IV Q24H [facility] Stop: 08/02/20 08:59 Last Admin: 07/28/20 08:18 Dose: 110 mls/hr Documented by: Insulin Aspart (Novolog) 0 unit SUBCUT TIDWM [facility]; Protocol Last Admin: 07/28/20 17:57 Dose: 2 unit Documented by: Insulin Aspart (Novolog) 0 unit SUBCUT BEDTIME [facility]; Protocol Last Admin: 07/28/20 21:11 Dose: 2 unit Documented by: Lanolin (Lanolin Oint) 1 applic TOPICAL PRN PRN PRN Reason: DRYNESS Last Admin: 07/26/20 03:44 Dose: 1 tube Documented by: Metoprolol Succinate (Toprol Xl) 25 mg PO DAILY [facility] Last Admin: 07/28/20 08:16 Dose: 25 mg Documented by: Nitroglycerin (Nitrostat) 0.4 mg SUBLINGUAL Q5M PRN PRN Reason: chest pain Pantoprazole Sodium (Protonix) 40 mg PO BID [facility] Last Admin: 07/28/20 17:57 Dose: 40 mg Documented by: Thyroid ([place] Thyroid) 90 mg PO DAILY [facility] Last Admin: 07/28/20 08:16 Dose: 90 mg Documented by: Vitals/I&O/Wt Last Vital Signs Temp 97.9 F 07/29/20 04:00 Pulse 76 07/29/20 04:00 Resp 18 07/29/20 04:00 BP 112/74 07/29/20 04:00 Pulse Ox 93 07/29/20 04:00 07/28/20 07/29/20 07/29/20 23:59 06:59 14:59 Intake Total Output Total Balance Physical Exam Narrative: EXAM NARRATIVE: elderly, frail lady in bed, NARD vs noted- BP 112/74 heent- nc/at, eomi, anicteric neck no jvp lung dull bases L >R heart irreg irreg, +HOLLY abd soft, nt, ND, +BS ext b/l leg edema neuro- a,a, o x 2+ pulses weak Urinary Catheter Management^: Garvin: Cath Placed During This Visit: yes, but has since been removed by the nurse Reason for Continuing Indwelling Catheter: Not indwelling catheter Urinary Catheter Date of Insertion: 07/19/20 Urinary Catheter Time of Insertion: 10: Date Urinary Catheter Removed: 07/20/20 Time Urinary Catheter Discontinued: 18:32 Data : 07/29/20 04:44 07/29/20 04:44 Micro: Microbiology 07/20/20 15:20 Gram Stain - Final Peritoneal Fluid Anaerobic Culture - Preliminary Body Fluid Culture - Final 07/25/20 10:22 Urine Culture - Final Urine,Clean Catch A&P Additional A&P Information Impression: 1. Chronic kidney disease - renal function stable -etiology is CRS -b/l cr 1.3-1.5 mg/dl ELIJAH from CRS 2. Valvular heart disease, CHF -per cardiology- unfortunately, she is not a surgical candidate 3. Anasarca s/p paracentesis 7 liters on07/26/2020, monitor weights- on lasix 4. Anemia, Hb stable, receiving IV iron, consider epo 5. Possible cirrhosis 6. Poor nutrition 7. major issue is systolic CHF and valvular heart disease- Attestations Medical Necessity Statement*: chf per cardiology and medicine Time Spent in Patient Care: 16 - 35 minutes Coding Level of Care Code Acute Automated Weaver for Kig Joelle
[2020-07-29 07:18] LABS: Glucose Point of Care 114 mg/dL (70-110)
[2020-07-29] MEDS: ferric gluconate 125 MG in sodium chloride 0.9% (100 ml) 100 ML 110 MG IV (09:09)
[2020-07-29] MEDS: aspirin 81 mg EC Tablet PO (09:09)
[2020-07-29] MEDS: thyroid 60 mg Tablet 90 MG PO (09:10)
[2020-07-29] MEDS: metoprolol succinate ER (24 HR) 25 mg Tablet PO (09:10)
[2020-07-29] MEDS: pantoprazole DR 40 mg Tablet PO ×2 (09:10→17:42)
--- NOTE | 2020-07-29 09:56 | PC.CHAP ---
Pastoral Care Encounter/Spiritual Assessment Type of Contact [] Declined assistant corporation counsel visit [] Patient/Family/Request visit [] Outpatient visit [] Follow-up visit [] Physician referral [] Code/Alert [] Routine visit [] Staff referral [] Actively dying [X] Patient sleeping [] Family support [] [] Out of room [] Palliative care [] [] Receiving care in room [] Pre-surgical visit [] Trauma [] Long length of stay [] ICU visit [] Other: Relational/Emotional Strength [] Patient feels connected with others/family/visitors/staff [] Distress [] Loneliness/isolation [] Abandonment Spirituality of Patient [] Person of Cathryn [] Attends Restorationist of their Cathryn [] Believes in Prayer [] Reads Bible or Zoroastrianism materials [] There are Spiritual issues to be addressed Office Administration Interventions [] Prayer [] Active listening [] Non-anxious presence [] Spiritual/emotional support [] Crisis/trauma care [] Spiritual counseling [] Bereavement support [] Provided bereavement packet [] Provided Bible/devotional materials [] Provided toy/stuffed animal, coloring book to patient or family member [] Provided Communion [] Anointing/Maurice [] Salvation [] Completed spiritual assessment [] Other: Impact on Illness or Injury [] Angry [] Fearful [] Anxious [] Often cries [] Exhaustion [] Unable to work [] Unable to attend anabaptism [] Unable to walk/stand [] Unable to read [] Unable to drive [] Unable to eat/drink [] Unable to sleep [] Unable to be with family [] Patient intubated [] Other: Summary Time spent with patient
[2020-07-29 11:28] LABS: Glucose Point of Care 293 mg/dL (70-110)
--- NOTE | 2020-07-29 13:57 | P.PN_ITS ---
Subjective Subjective: Interval history: This morning patient was examined, she sitting up in bed, her abdomen is much more distended today, but not really bothering her, she is on 2 L, she did diurese 550 cc, afebrile Medications: Reviewed: Yes Medication Review Details: Current Medications Albuterol/Ipratropium (Duoneb) 3 ml INHALATION Q6H PRN PRN Reason: SHORTNESS OF BREATH Last Admin: 07/26/20 20:30 Dose: 3 ml Documented by: Aspirin (Aspirin Ec) 81 mg PO DAILY [facility] Last Admin: 07/28/20 08:16 Dose: 81 mg Documented by: Dextrose (D50w) 25 ml IVP ONCE PRN; Protocol PRN Reason: hypoglycemia protocol Dextrose (D50w) 50 ml IVP PRN PRN; Protocol PRN Reason: hypoglycemia protocol Furosemide (Lasix) 20 mg IVP Q12H [facility] Last Admin: 07/29/20 01:07 CDT Dose: 20 mg Documented by: Glucagon (Glucagen) 1 mg IM ONCE PRN; Protocol PRN Reason: Adult Acute Hypoglycemia Prot. Dextrose (D5w) 500 mls @ 100 mls/hr IV ONCE PRN; Protocol PRN Reason: Adult Acute Hypoglycemia Prot Ferric Sodium Gluconate 125 mg (/ Sodium Chloride) 110 mls @ 110 mls/hr IV Q24H [facility] Stop: 08/02/20 08:59 Last Admin: 07/28/20 08:18 Dose: 110 mls/hr Documented by: Insulin Aspart (Novolog) 0 unit SUBCUT TIDWM [facility]; Protocol Last Admin: 07/28/20 17:57 Dose: 2 unit Documented by: Insulin Aspart (Novolog) 0 unit SUBCUT BEDTIME [facility]; Protocol Last Admin: 07/28/20 21:11 Dose: 2 unit Documented by: Lanolin (Lanolin Oint) 1 applic TOPICAL PRN PRN PRN Reason: DRYNESS Last Admin: 07/26/20 03:44 Dose: 1 tube Documented by: Metoprolol Succinate (Toprol Xl) 25 mg PO DAILY [facility] Last Admin: 07/28/20 08:16 Dose: 25 mg Documented by: Nitroglycerin (Nitrostat) 0.4 mg SUBLINGUAL Q5M PRN PRN Reason: chest pain Pantoprazole Sodium (Protonix) 40 mg PO BID [facility] Last Admin: 07/28/20 17:57 Dose: 40 mg Documented by: Thyroid ([place] Thyroid) 90 mg PO DAILY [facility] Last Admin: 07/28/20 08:16 Dose: 90 mg Documented by: Vitals/I&O/Wt Last Vital Signs Temp 98.1 F 07/29/20 11:16 Pulse 91 07/29/20 11:16 Resp 18 07/29/20 11:16 BP 114/91 07/29/20 11:16 Pulse Ox 94 07/29/20 11:16 07/28/20 07/29/20 07/29/20 23:59 06:59 14:59 Intake Total 240 / 240 Output Total Balance 240 / 240 Physical Exam Const: COMMON NORMALS: no acute distress and patient oriented x3 ORIENTATION/CONSCIOUSNESS: Yes awake, Yes oriented to person and Yes oriented to place; not oriented to time HENMT: COMMON NORMALS: normocephalic HEAD & SCALP: normocephalic Neck/C-Spine: COMMON NORMALS: no JVD Resp: COMMON NORMALS: normal respiratory effort, No retractions, No use of accessory muscles and clear to auscultation bilaterally AUSCULTATION: clear to auscultation bilaterally Cardio: COMMON NORMALS: no JVD, regular rate, regular rhythm, S1 normal heart sound present and S2 normal heart sound present RATE: regular rate RHYTHM: regular rhythm HEART SOUNDS: S1 normal heart sound present and S2 normal heart sound present GI: COMMON NORMALS: Normal to inspection, nondistended, normoactive bowel sounds present, Soft to palpation, non-tender, No hepatosplenomegaly present and no bruits INSPECTION: Yes abdominal distension PALPATION: Yes Soft to palpation and Yes No hepatosplenomegaly present Extremity: COMMON NORMALS: capillary refill normal, no clubbing, cyanosis or edema, no calf tenderness and no pedal edema Neuro: COMMON NORMALS: patient oriented x3 SENSORIUM/ORIENTATION: Yes oriented to person, Yes oriented to place and No oriented to time Psych: COMMON NORMALS: mental status grossly normal Urinary Catheter Management^: Garvin: Cath Placed During This Visit: yes, but has since been removed by the nurse Reason for Continuing Indwelling Catheter: Not indwelling catheter Urinary Catheter Date of Insertion: 07/19/20 Urinary Catheter Time of Insertion: 10:28 Date Urinary Catheter Removed: 07/20/20 Time Urinary Catheter Discontinued: 18:32 Data : 07/29/20 04:44 07/29/20 04:44 Micro: Microbiology 07/20/20 15:20 Gram Stain - Final Peritoneal Fluid Anaerobic Culture - Preliminary Body Fluid Culture - Final A&P Assessment and plan (1) Low blood pressure: -Likely secondary to heart failure, cirrhosis -Concerns for worsening renal insufficiency, and ELIJAH if they continue to run soft -Patient's blood pressures have run soft throughout her admission -We will continue to hold blood pressure medications -We will see if she is a candidate for salt tablets, midodrine Status: Acute (2) CHF exacerbation: 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 Worsening LVEF to 20 to 25% with severe mitral valve regurgitation and mild aortic stenosis. Patient is not a candidate for mitral valve surgery. Discussed care with Cardiology. Monitor daily weight. Strict input and output recording. Creatinine today 2.3 today, BUN 86 -Continue low-dose diuretics today, follow cardiology and nephrology's lead, greatly appreciate consult Status: Acute (3) Acute kidney injury superimposed on chronic kidney disease: Likely secondary to diuretics, large volume paracentesis, hypotensive episodes Creatinine improved to 2.3 Consult placed for nephrology Renal US, no hydronephrosis Repeat BMP in AM Urinary studies Would avoid aggressive diuretics, would avoid large volume paracentesis Status: Acute (4) Anasarca: Status post paracentesis with greater than 7 L removed Status: Acute (5) Cardiac cirrhosis: -This morning abdomen is a bit more distended, does not really bother her, but it is visibly more distended -Status post 7 L paracentesis -High TP in peritoneal fluid -SAG is less than 1.1 -CT scan shows radiographic evidence of mild cirrhosis -Likely secondary to severe heart failure, severe mitral regurg -Continue to monitor LFTs, T bili -Patient's abdomen is bit more distended today, likely her ascites is slowly reoccurring -Advised patient that we would only perform a paracentesis if it gets her discomfort, as the more we take off, the faster rate will reaccumulate -In addition I would strongly advised that the next time she has a paracentesis that she receives albumin and avoid large volumes paracentesis, to avoid hy potensive episodes leading to acute kidney injury and ATN Status: Acute (6) Mitral regurgitation: -Not amenable to surgical intervention at this point Status: Acute (7) Pulmonary HTN: Status: Acute (8) Status cardiac pacemaker: Status: Acute (9) Atrial fibrillation: Status: Acute (10) Aortic stenosis: Status: Acute Additional A&P Information Coronary artery disease: Continue current management Pulmonary hypertension Diabetes mellitus type 2: Low dose sliding scale insulin as needed History of atrial fibrillation: Currently in paced rhythm, not on any anticoagulation due to history of GI bleed, given evidence of liver cirrhosis, also worried about esophageal varices Hypothyroidism: Continue home armour thyroid 90mg daily, TSH within normal limits on admission Chronic macrocytic anemia: History of GI bleed. Hemoglobin has been stable, no episodes of dark stools. CODE STATUS: Full code DVT prophylaxis: SCDs, no pharmacologic prophylaxis as above Cardiac diet with fluid restriction Attestations Medical Necessity Statement*: Patient requires hospitalization due to shortness of breath, CHF exacerbation, worsening abdominal ascites Coding Level of Care Code Acute Head Coach for Chg Fwd Diagnoses Low blood pressure I95.9 CHF exacerbation I50.9 Acute kidney injury superimposed on chronic kidney disease N17.9; N18.9 Anasarca R60.1 Cardiac cirrhosis K76.1 Mitral regurgitation I34.0 Pulmonary HTN I27.20 Status cardiac pacemaker Z95.0 Atrial fibrillation I48.91 Aortic stenosis I35.0
[2020-07-29 17:11] LABS: Glucose Point of Care 127 mg/dL (70-110)
--- NOTE | 2020-07-29 19:26 | P.PN_ITS ---
Subjective Subjective: Interval history: Stable vital nowak and feeling better breathing nowak however abdominal girth has increased. It appears to me that she has accumulated little bit more of ascites Medications: Reviewed: Yes Medication Review Details: Current Medications Albuterol/Ipratropium (Duoneb) 3 ml INHALATION Q6H PRN PRN Reason: SHORTNESS OF BREATH Last Admin: 07/26/20 20:30 Dose: 3 ml Documented by: Aspirin (Aspirin Ec) 81 mg PO DAILY [facility] Last Admin: 07/28/20 08:16 Dose: 81 mg Documented by: Dextrose (D50w) 25 ml IVP ONCE PRN; Protocol PRN Reason: hypoglycemia protocol Dextrose (D50w) 50 ml IVP PRN PRN; Protocol PRN Reason: hypoglycemia protocol Furosemide (Lasix) 20 mg IVP Q12H [facility] Last Admin: 07/29/20 01:07 CDT Dose: 20 mg Documented by: Glucagon (Glucagen) 1 mg IM ONCE PRN; Protocol PRN Reason: Adult Acute Hypoglycemia Prot. Dextrose (D5w) 500 mls @ 100 mls/hr IV ONCE PRN; Protocol PRN Reason: Adult Acute Hypoglycemia Prot Ferric Sodium Gluconate 125 mg (/ Sodium Chloride) 110 mls @ 110 mls/hr IV Q24H [facility] Stop: 08/02/20 08:59 Last Admin: 07/28/20 08:18 Dose: 110 mls/hr Documented by: Insulin Aspart (Novolog) 0 unit SUBCUT TIDWM [facility]; Protocol Last Admin: 07/28/20 17:57 Dose: 2 unit Documented by: Insulin Aspart (Novolog) 0 unit SUBCUT BEDTIME [facility]; Protocol Last Admin: 07/28/20 21:11 Dose: 2 unit Documented by: Lanolin (Lanolin Oint) 1 applic TOPICAL PRN PRN PRN Reason: DRYNESS Last Admin: 07/26/20 03:44 Dose: 1 tube Documented by: Metoprolol Succinate (Toprol Xl) 25 mg PO DAILY [facility] Last Admin: 07/28/20 08:16 Dose: 25 mg Documented by: Nitroglycerin (Nitrostat) 0.4 mg SUBLINGUAL Q5M PRN PRN Reason: chest pain Pantoprazole Sodium (Protonix) 40 mg PO BID [facility] Last Admin: 07/28/20 17:57 Dose: 40 mg Documented by: Thyroid ([place] Thyroid) 90 mg PO DAILY [facility] Last Admin: 07/28/20 08:16 Dose: 90 mg Documented by: Vitals/I&O/Wt Last Vital Signs Temp 98.5 F 07/29/20 19:21 Pulse 81 07/29/20 19:21 Resp 18 07/29/20 19:21 BP 101/67 07/29/20 19:21 Pulse Ox 95 07/29/20 19:21 07/29/20 07/29/20 07/29/20 06:59 14:59 22:59 Intake Total 240 / 240 120 / 360 Output Total Balance 240 / 240 120 / 360 Physical Exam Narrative: EXAM NARRATIVE: GENERAL: Patient is alert, awake and oriented x3. NECK: No jugular vein distension. HEENT: No cyanosis. No icterus. No pallor. HEART: Regular S1 and S2. No murmur, rub or gallop. LUNGS: Left side inspiratory crackle bilaterally. ABDOMEN: Mildly distended slightly firm but not tender no rebound CENTRAL NERVOUS SYSTEM: Grossly nonfocal. EXTREMITIES: Lower extremities without edema bilaterally. Urinary Catheter Management^: Garvin: Cath Placed During This Visit: yes, but has since been removed by the nurse Reason for Continuing Indwelling Catheter: Not indwelling catheter Urinary Catheter Date of Insertion: 07/19/20 Urinary Catheter Time of Insertion: 10:28 Date Urinary Catheter Removed: 07/20/20 Time Urinary Catheter Discontinued: 18:32 Data : 07/29/20 04:44 07/29/20 04:44 Micro: Microbiology 07/20/20 15:20 Gram Stain - Final Peritoneal Fluid Anaerobic Culture - Preliminary Body Fluid Culture - Final A&P Assessment and plan (1) Acute exacerbation of CHF (congestive heart failure): Continue IV Lasix 20 mg twice a day Status: Acute Qualifiers: Heart failure type: combined systolic and diastolic Qualified Code(s): I50.43 - Acute on chronic combined systolic (congestive) and diastolic (congestive) heart failure (2) Atrial fibrillation: Paced rhythm in the ventricle with a sensing. High risk for bleed not on anticoagulation. Rate controlled with A. fib Status: Acute (3) Mitral regurgitation: Severe mitral valve regurgitation not a good candidate for surgery or mitral valve clipping. We will continue to manage conservatively. Status: Acute (4) Elevated troponin: Continue medical management not a good intervention candidate due to und erlying comorbidities including renal failure Status: Acute (5) Status cardiac pacemaker: Paced rhythm with a sensing and V pacing. Status: Acute Additional A&P Information ELIJAH superimposed on chronic kidney disease: Baseline creatinine of 1.3-1.5 in March 2020; creatinine 2.3 today. diuretics as needed. Nephrology on board. Suspected liver cirrhosis: Hep panel negative Ascites she is status post paracentesis with removal of 7250 ml of dark red serous fluid by radiology. CAD with h/o RCA stents Hypothyroidism Anemia Hyperkalemia: Elevated alkaline phosphatase Hypoalbuminemia Pulmonary HTN DM-2 Thank you for allowing me to participate in patient's care. Please feel free to call with questions or concerns. Attestations Medical Necessity Statement*: Require continuation hospitalization for above defined care. Coding Level of Care Code Established Pt Acute Upward Bound Director for Casey Lai Patient Type Established History Expanded Problem Focused Exam Expanded Problem Focused Medical Decision Making Moderate Complexity Diagnoses Acute exacerbation of CHF (congestive heart failure) I50.43 Heart failure type: combined systolic and diastolic Atrial fibrillation I48.91 Mitral regurgitation I34.0 Elevated troponin R77.8 Status cardiac pacemaker Z95.0
[2020-07-29 20:40] LABS: Glucose Point of Care 224 mg/dL (70-110)
[2020-07-30] VITALS (7 sets, daily range): BP systolic 93–118; BP diastolic 54–72; PULSE 74–89; RESP 15–17; TEMP 35.7–37.2; O2SAT 94–99
[2020-07-30] MEDS: FUROsemide 10 mg/mL SDV 2mL 20 MG IVP ×2 (01:11→12:56)
[2020-07-30 05:45] LABS: Basophils # 0.1 10^3/uL (0.0-0.1); Basophils % 0.8 %; Eosinophils # 0.2 10^3/uL (0.0-0.8); Eosinophils % 3.6 %; Hematocrit 31.3 % (37.0-47.0); Hemoglobin 9.5 g/dL (11.5-15.3); Lymphocytes # 0.6 10^3/uL (0.8-4.8); Lymphocytes % 9.1 %; Mean Corpuscular HGB Conc 30.4 g/dL (30.0-36.0); Mean Corpuscular Hemoglobin 33.3 pg (28.0-34.0); Mean Corpuscular Volume 109.8 fL (81-99); Mean Platelet Volume 10.1 fL (7.4-10.4); Monocytes # 0.9 10^3/uL (0.2-0.9); Monocytes % 14.8 %; Neutrophils # 4.39 10^3/uL (1.8-7.7); Neutrophils % 71.4 %; Nucleated Red Blood Cells % 0 %; Platelet Count 228 10^3/cmm (130-400); Red Blood Count 2.85 10^6/uL (4.1-5.3); Red Cell Distribution Width 16.5 % (12.1-15.1); White Blood Count 6.2 10^3/uL (4.0-10.0)
[2020-07-30 06:26] LABS: Alanine Aminotransferase 19 U/L (0-33); Albumin Level 2.7 g/dL (3.5-5.2); Alkaline Phosphatase 212 IU/L (35-105); Anion Gap 12.6 (5-19); Aspartate Amino Transferase 32 U/L (0-32); Calcium 9.4 mg/dL (8.5-10.5); Carbon Dioxide 30 mmol/L (22-29); Chloride 101 mmol/L (98-107); Glucose 71 mg/dL (65-115); Osmolality Calculated 312 mOsm/kg (285-295); Phosphorus 4.5 mg/dL (2.5-4.5); Potassium 4.6 mmol/L (3.5-5.1); Sodium 139 mmol/L (136-145); Total Bilirubin 0.9 mg/dL (0.15-1.2); Total Protein 6.7 g/dL (6.6-8.7)
--- NOTE | 2020-07-30 06:29 | P.PN_ITS ---
Subjective Subjective: Interval history: more swollen. occaSional sob. weak, +BALBUENA. no n/v/f/c/jimenes/d Medications: Reviewed: Yes Medication Review Details: Current Medications Albuterol/Ipratropium (Duoneb) 3 ml INHALATION Q6H PRN PRN Reason: SHORTNESS OF BREATH Last Admin: 07/26/20 20:30 Dose: 3 ml Documented by: Aspirin (Aspirin Ec) 81 mg PO DAILY [facility] Last Admin: 07/29/20 09:09 Dose: 81 mg Documented by: Dextrose (D50w) 25 ml IVP ONCE PRN; Protocol PRN Reason: hypoglycemia protocol Dextrose (D50w) 50 ml IVP PRN PRN; Protocol PRN Reason: hypoglycemia protocol Furosemide (Lasix) 20 mg IVP Q12H [facility] Last Admin: 07/30/20 01:11 Dose: 20 mg Documented by: Glucagon (Glucagen) 1 mg IM ONCE PRN; Protocol PRN Reason: Adult Acute Hypoglycemia Prot. Dextrose (D5w) 500 mls @ 100 mls/hr IV ONCE PRN; Protocol PRN Reason: Adult Acute Hypoglycemia Prot Ferric Sodium Gluconate 125 mg (/ Sodium Chloride) 110 mls @ 110 mls/hr IV Q24H [facility] Stop: 08/02/20 08:59 Last Admin: 07/29/20 09:09 Dose: 110 mls/hr Documented by: Insulin Aspart (Novolog) 0 unit SUBCUT TIDWM [facility]; Protocol Last Admin: 07/29/20 17:18 Dose: Not Given Documented by: Insulin Aspart (Novolog) 0 unit SUBCUT BEDTIME [facility]; Protocol Last Admin: 07/29/20 22:17 Dose: 3 unit Documented by: Lanolin (Lanolin Oint) 1 applic TOPICAL PRN PRN PRN Reason: DRYNESS Last Admin: 07/26/20 03:44 Dose: 1 tube Documented by: Metoprolol Succinate (Toprol Xl) 25 mg PO DAILY [facility] Last Admin: 07/29/20 09:10 Dose: 25 mg Documented by: Nitroglycerin (Nitrostat) 0.4 mg SUBLINGUAL Q5M PRN PRN Reason: chest pain Pantoprazole Sodium (Protonix) 40 mg PO BID [facility] Last Admin: 07/29/20 17:42 Dose: 40 mg Documented by: Thyroid (Steven Thyroid) 90 mg PO DAILY [facility] Last Admin: 07/29/20 09:10 Dose: 90 mg Documented by: Vitals/I&O/Wt Last Vital Signs Temp 98.8 F 07/30/20 04:00 Pulse 77 07/30/20 04:00 Resp 17 07/30/20 04:00 BP 109/68 07/30/20 04:00 Pulse Ox 94 07/30/20 04:00 07/29/20 07/29/20 07/30/20 14:59 22:59 06:59 Intake Total 240 / 240 170 / 410 350 / 760 Output Total 425 / 425 Balance 240 / 240 170 / 410 -75 / 335 Physical Exam Narrative: EXAM NARRATIVE: elderly, frail lady in bed, NARD vs noted- BP 109/68 heent- nc/at, eomi, anicteric. nc02 dep neck no jvp lung dull bases L >R heart irreg irreg, +HOLLY abd soft, nt, inc Distention, +BS ext b/l leg edema neuro- a,a, o x 2+ pulses weak Urinary Catheter Management^: Garvin: Cath Placed During This Visit: yes, but has since been removed by the nurse Reason for Continuing Indwelling Catheter: Not indwelling catheter Urinary Catheter Date of Insertion: 07/19/20 Urinary Catheter Time of Insertion: 10:28 Date Urinary Catheter Removed: 07/20/20 Time Urinary Catheter Discontinued: 18:32 Data : 07/30/20 04:56 07/30/20 04:56 Micro: Microbiology 07/20/20 15:20 Gram Stain - Final Peritoneal Fluid Anaerobic Culture - Preliminary Body Fluid Culture - Final A&P Additional A&P Information Impression: 1. Chronic kidney disease - renal function stable -etiology is CRS -b/l cr 1.3-1.5 mg/dl ELIJAH from CRS. cr stable on lasix as per cardiology - may need inc dose, will attempt addition of acetazolamide 2. Valvular heart disease, CHF -per cardiology- unfortunately, she is not a surgical candidate -agree w/ diuresis -abdominal distention/ scites -will likely need paracentesis w/ albumin every so often 3. Anasarca s/p paracentesis 7 liters on07/26/2020, monitor weights- on lasix 4. Anemia, Hb stable, receiving IV iron, consider epo 5. Possible cirrhosis 6. Poor nutrition 7. major issue is systolic CHF and valvular heart disease- Attestations Medical Necessity Statement*: chf/ eiljah/ nc 02 Time Spent in Patient Care: 16 - 35 minutes Coding Level of Care Code Acute Field Laborer for Casey Lai
[2020-07-30 06:30] LABS: Blood Urea Nitrogen 85 mg/dL (8-23)
[2020-07-30 06:42] LABS: Glucose Point of Care 41 mg/dL (70-110)
[2020-07-30 06:42] LABS: Glucose Point of Care 84 mg/dL (70-110)
[2020-07-30] MEDS: acetaZOLAMIDE 250 mg Tablet PO ×2 (08:12→17:48)
[2020-07-30] MEDS: metoprolol succinate ER (24 HR) 25 mg Tablet PO (08:12)
[2020-07-30] MEDS: aspirin 81 mg EC Tablet PO (08:12)
[2020-07-30] MEDS: pantoprazole DR 40 mg Tablet PO ×2 (08:12→17:48)
[2020-07-30] MEDS: thyroid 60 mg Tablet 90 MG PO (08:19)
--- NOTE | 2020-07-30 09:20 | PC.SOCIAL ---
IMM Update Pg. 2 of IMM updated. Initialed, dated, and timed, and placed in chart. Copy provided to patient.
[2020-07-30 13:13] LABS: Glucose Point of Care 216 mg/dL (70-110)
[2020-07-30] MEDS: ferric gluconate 125 MG in sodium chloride 0.9% (100 ml) 100 ML 110 MG IV (14:21)
--- NOTE | 2020-07-30 16:25 | PM.PN ---
Subjective Subjective: Interval history: She states she feels about the same. Medications: Reviewed: Yes Medication Review Details: Current Medications Acetazolamide (Diamox) 250 mg PO BID [facility] Last Admin: 07/30/20 08:12 Dose: 250 mg Documented by: Albuterol/Ipratropium (Duoneb) 3 ml INHALATION Q6H PRN PRN Reason: SHORTNESS OF BREATH Last Admin: 07/26/20 20:30 Dose: 3 ml Documented by: Aspirin (Aspirin Ec) 81 mg PO DAILY [facility] Last Admin: 07/30/20 08:12 Dose: 81 mg Documented by: Dextrose (D50w) 25 ml IVP ONCE PRN; Protocol PRN Reason: hypoglycemia protocol Dextrose (D50w) 50 ml IVP PRN PRN; Protocol PRN Reason: hypoglycemia protocol Furosemide (Lasix) 20 mg IVP Q12H [facility] Last Admin: 07/30/20 12:56 Dose: 20 mg Documented by: Glucagon (Glucagen) 1 mg IM ONCE PRN; Protocol PRN Reason: Adult Acute Hypoglycemia Prot. Dextrose (D5w) 500 mls @ 100 mls/hr IV ONCE PRN; Protocol PRN Reason: Adult Acute Hypoglycemia Prot Ferric Sodium Gluconate 125 mg (/ Sodium Chloride) 110 mls @ 110 mls/hr IV Q24H [facility] Stop: 08/02/20 08:59 Last Admin: 07/30/20 14:21 Dose: 110 mls/hr Documented by: Insulin Aspart (Novolog) 0 unit SUBCUT TIDWM [facility]; Protocol Last Admin: 07/30/20 13:32 Dose: 4 unit Documented by: Insulin Aspart (Novolog) 0 unit SUBCUT BEDTIME [facility]; Protocol Last Admin: 07/29/20 22:17 Dose: 3 unit Documented by: Lanolin (Lanolin Oint) 1 applic TOPICAL PRN PRN PRN Reason: DRYNESS Last Admin: 07/26/20 03:44 Dose: 1 tube Documented by: Metoprolol Succinate (Toprol Xl) 25 mg PO DAILY [facility] Last Admin: 07/30/20 08:12 Dose: 25 mg Documented by: Nitroglycerin (Nitrostat) 0.4 mg SUBLINGUAL Q5M PRN PRN Reason: chest pain Pantoprazole Sodium (Protonix) 40 mg PO BID [facility] Last Admin: 07/30/20 08:12 Dose: 40 mg Documented by: Thyroid (Steven Thyroid) 90 mg PO DAILY [facility] Last Admin: 07/30/20 08:19 Dose: 90 mg Documented by: Vitals/I&O/Wt Last Vital Signs Temp 97.5 F L 07/30/20 15:43 Pulse 85 07/30/20 15:43 Resp 16 07/30/20 15:43 BP 102/61 07/30/20 15:43 Pulse Ox 98 07/30/20 15:43 07/30/20 07/30/20 07/30/20 06:59 14:59 22:59 Intake Total 350 / 870 320 / 320 Output Total 425 / 425 Balance -75 / 445 320 / 320 Physical Exam Narrative: EXAM NARRATIVE: EXAM NARRATIVE: GENERAL: Frail elderly lady lying in bed; in no acute distress HEENT: Pupils equal round reactive to light. + pallor, No icterus. NECK: central trachea, N0 JVD. No carotid bruit. CARDIOVASCULAR SYSTEM: S1-S2 regular. No S3 or S4 present. Grade 3/6 LLSB and apical murmur RESPIRATORY SYSTEM: Chest clear to auscultation, decreased breath sounds at bases. No wheezes rhonchi or rubs heard. ABDOMEN: Soft, nontender and moderately distended. Normal bowel sounds present. tympanic to percussion; while dull in lower quadrants in horse shoe pattern EXTREMITIES: No cyanosis. Trace edema. Bilateral leg discoloration BEHAVIORAL THERAPIST: Patient is alert oriented ?3. No focal neurological deficits. Urinary Catheter Management^: Garvin: Cath Placed During This Visit: yes, but has since been removed by the nurse Reason for Continuing Indwelling Catheter: Not indwelling catheter Urinary Catheter Date of Insertion: 07/19/20 Urinary Catheter Time of Insertion: 10:28 Date Urinary Catheter Removed: 07/20/20 Time Urinary Catheter Discontinued: 18:32 Data : 07/30/20 04:56 07/30/20 04:56 Micro: Microbiology 07/20/20 15:20 Gram Stain - Final Peritoneal Fluid Anaerobic Culture - Preliminary Body Fluid Culture - Final A&P Assessment and plan (1) Acute exacerbation of CHF (congestive heart failure): There has been a drop in LV function. It could be insetting of VHD with severe MR and moderate to severe TR. -No chest pains, however progression of underlying CAD cannot be ruled out. 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 RCA with Chronic occlusion at the ostium. RCA lined with stents from the ostium to beyond the acute margin. -I had a long discussion with patient and her niece Suze. Risks and benefits of medical management, coronary angiogram vs stress testing were discussed in detail. -Given her worsening renal function, advance age and frail status, plan to optimize her medical management. -continue low dose metoprolol succinate. -I do not think we would be able to add ACEI/ARB due to renal function and soft BP. -change to lasix 40 mg BID on d/c. Status: Acute Qualifiers: Heart failure type: combined systolic and diastolic Qualified Code(s): I50.43 - Acute on chronic combined systolic (congestive) and diastolic (congestive) heart failure (2) Atrial fibrillation: recommend no OAC for now. H/o GI bleed -now in A sense V paced rhythm. Status: Acute Qualifiers: Atrial fibrillation type: paroxysmal Qualified Code(s): I48.0 - Paroxysmal atrial fibrillation (3) Mitral regurgitation: Severe MR , not a candidate for surgery or clip. Status: Acute Qualifiers: Cardiac valve disease etiology: nonrheumatic Qualified Code(s): I34.0 - Nonrheumatic mitral (valve) insufficiency (4) Elevated troponin: Type 2 NSTEMI Status: Acute (5) Status cardiac pacemaker: Status: Acute Additional A&P Information ELIJAH superimposed on chronic kidney disease: Baseline creatinine of 1.3-1.5 in March 2020; creatinine 2.1 today. On low dose IV lasix and acetazolamide. Nephrology on board. Liver cirrhosis: Hep panel negative Ascites she is status post large volume paracentesis with removal of 7250 ml of dark red serous fluid by radiology. I believe this is accumulating again and she would need paracentesis very soon as an outpatient. CAD with h/o RCA stents Hypothyroidism Anemia Hyperkalemia: resolved Elevated alkaline phosphatase Hypoalbuminemia Pulmonary HTN DM-2 Thank you for allowing me to participate in patient's care. Please feel free to call with questions or concerns. Attestations Medical Necessity Statement*: As per primary team. Coding Level of Care Code Established Pt Acute Oxyacetylene Welder for Casey Lai Patient Type Established History Comprehensive Exam Comprehensive Medical Decision Making High Complexity Diagnoses Acute exacerbation of CHF (congestive heart failure) I50.43 Heart failure type: combined systolic and diastolic Atrial fibrillation I48.0 Atrial fibrillation type: paroxysmal Mitral regurgitation I34.0 Cardiac valve disease etiology: nonrheumatic Elevated troponin R77.8 Status cardiac pacemaker Z95.0 Time Spent (min) 30
[2020-07-30 17:11] LABS: Glucose Point of Care 127 mg/dL (70-110)
--- NOTE | 2020-07-30 20:01 | PM.PN ---
Subjective Subjective: Interval history: Noted mild dyspnea overnight, no chest pain Medications: Reviewed: Yes Medication Review Details: Current Medications Acetazolamide (Diamox) 250 mg PO BID [facility] Last Admin: 07/30/20 08:12 Dose: 250 mg Documented by: Albuterol/Ipratropium (Duoneb) 3 ml INHALATION Q6H PRN PRN Reason: SHORTNESS OF BREATH Last Admin: 07/26/20 20:30 Dose: 3 ml Documented by: Aspirin (Aspirin Ec) 81 mg PO DAILY [facility] Last Admin: 07/30/20 08:12 Dose: 81 mg Documented by: Dextrose (D50w) 25 ml IVP ONCE PRN; Protocol PRN Reason: hypoglycemia protocol Dextrose (D50w) 50 ml IVP PRN PRN; Protocol PRN Reason: hypoglycemia protocol Furosemide (Lasix) 20 mg IVP Q12H [facility] Last Admin: 07/30/20 12:56 Dose: 20 mg Documented by: Glucagon (Glucagen) 1 mg IM ONCE PRN; Protocol PRN Reason: Adult Acute Hypoglycemia Prot. Dextrose (D5w) 500 mls @ 100 mls/hr IV ONCE PRN; Protocol PRN Reason: Adult Acute Hypoglycemia Prot Ferric Sodium Gluconate 125 mg (/ Sodium Chloride) 110 mls @ 110 mls/hr IV Q24H [facility] Stop: 08/02/20 08:59 Last Admin: 07/30/20 14:21 Dose: 110 mls/hr Documented by: Insulin Aspart (Novolog) 0 unit SUBCUT TIDWM [facility]; Protocol Last Admin: 07/30/20 13:32 Dose: 4 unit Documented by: Insulin Aspart (Novolog) 0 unit SUBCUT BEDTIME [facility]; Protocol Last Admin: 07/29/20 22:17 Dose: 3 unit Documented by: Lanolin (Lanolin Oint) 1 applic TOPICAL PRN PRN PRN Reason: DRYNESS Last Admin: 07/26/20 03:44 Dose: 1 tube Documented by: Metoprolol Succinate (Toprol Xl) 25 mg PO DAILY [facility] Last Admin: 07/30/20 08:12 Dose: 25 mg Documented by: Nitroglycerin (Nitrostat) 0.4 mg SUBLINGUAL Q5M PRN PRN Reason: chest pain Pantoprazole Sodium (Protonix) 40 mg PO BID [facility] Last Admin: 07/30/20 08:12 Dose: 40 mg Documented by: Thyroid (Steven Thyroid) 90 mg PO DAILY [facility] Last Admin: 07/30/20 08:19 Dose: 90 mg Documented by: Vitals/I&O/Wt Last Vital Signs Temp 97.7 F 07/30/20 19:18 Pulse 86 07/30/20 19:18 Resp 17 07/30/20 19:18 BP 93/54 07/30/20 19:18 Pulse Ox 97 07/30/20 19:18 07/30/20 07/30/20 07/30/20 06:59 14:59 22:59 Intake Total 350 / 870 320 / 320 Output Total 425 / 425 Balance -75 / 445 320 / 320 Physical Exam Const: COMMON NORMALS: alert; apparent distress GENERAL APPEARANCE: cooperative ORIENTATION/CONSCIOUSNESS: Yes awake, Yes oriented to person and Yes oriented to place HENMT: COMMON NORMALS: normocephalic and atraumatic HEAD & SCALP: normocephalic and atraumatic Eye: COMMON NORMALS: Equal, round and reactive pupils present PUPIL: Yes Equal, round and reactive pupils present Neck/C-Spine: COMMON NORMALS: supple GENERAL: Yes normal visual inspection Resp: COMMON NORMALS: normal respiratory effort and clear to auscultation bilaterally EFFORT & INSPECTION: Yes able to speak in complete sentences AUSCULTATION: clear to auscultation bilaterally, no rhonchi and no wheezes OTHER: Minimal bibasilar Rales. Cardio: COMMON NORMALS: regular rate, regular rhythm and S2 normal heart sound present RATE: regular rate RHYTHM: regular rhythm HEART SOUNDS: S2 normal heart sound present OTHER: Regular rate and rhythm, systolic murmur present GI: COMMON NORMALS: Soft to palpation INSPECTION: Yes abdominal distension PALPATION: Yes Soft to palpation OTHER: Significantly decreased abdominal distention. Extremity: COMMON NORMALS: no clubbing, cyanosis or edema and no calf tenderness Neuro: COMMON NORMALS: CN's II-XII intact bilaterally, moves all extremities and no focal motor deficits SENSORIUM/ORIENTATION: Yes alert, Yes oriented to person and Yes oriented to place SPEECH: speech normal Psych: COMMON NORMALS: mental status grossly normal and cooperative Skin: NARRATIVE SKIN EXAM: Dry skin in the lower extremities bilaterally Urinary Catheter Management^: Garvin: Cath Placed During This Visit: yes, but has since been removed by the nurse Reason for Continuing Indwelling Catheter: Not indwelling catheter Urinary Catheter Date of Insertion: 07/19/20 Urinary Catheter Time of Insertion: 10:28 Date Urinary Catheter Removed: 07/20/20 Time Urinary Catheter Discontinued: 18:32 Data : 07/30/20 04:56 07/30/20 04:56 Micro: Microbiology 07/20/20 15:20 Gram Stain - Final Peritoneal Fluid Anaerobic Culture - Preliminary Body Fluid Culture - Final A&P Assessment and plan (1) Low blood pressure: -Likely secondary to heart failure, cirrhosis -Concerns for worsening renal insufficiency, and ELIJAH if they continue to run soft -Patient's blood pressures have run soft throughout her admission -We will continue to hold blood pressure medications -We will see if she is a candidate for salt tablets, midodrine Status: Acute (2) CHF exacerbation: Will change lasix to 40 mg PO BID Replace K as needed - Status: Acute (3) Acute kidney injury superimposed on chronic kidney disease: Likely secondary to diuretics, large volume paracentesis, hypotensive episodes Creatinine improved to 2.3 Consult placed for nephrology Renal US, no hydronephrosis Repeat BMP in AM Urinary studies Would avoid aggressive diuretics, would avoid large volume paracentesis Diamox added to regimen Status: Acute (4) Anasarca: Status post paracentesis with greater than 7 L removed Status: Acute (5) Cardiac cirrhosis: -This morning abdomen is a bit more distended, does not really bother her, but it is visibly more distended -Status post 7 L paracentesis -High TP in peritoneal fluid -SAG is less than 1.1 -CT scan shows radiographic evidence of mild cirrhosis -Likely secondary to severe heart failure, severe mitral regurg -Continue to monitor LFTs, T bili -Patient's abdomen is bit more distended today, likely her ascites is slowly reoccurring -Advised patient that we would only perform a paracentesis if it gets her discomfort, as the more we take off, the faster rate will reaccumulate -In addition I would strongly advised that the next time she has a paracentesis that she receives albumin and avoid large volumes paracentesis, to avoid hypotensive episodes leading to acute kidney injury and ATN Status: Acute (6) Mitral regurgitation: -Not amenable to surgical intervention at this point Status: Acute Qualifiers: Cardiac valve disease etiology: nonrheumatic Qualified Code(s): I34.0 - Nonrheumatic mitral (valve) insufficiency (7) Pulmonary HTN: Status: Acute (8) Status cardiac pacemaker: Status: Acute (9) Atrial fibrillation: Status: Acute Qualifiers: Atrial fibrillation type: paroxysmal Qualified Code(s): I48.0 - Paroxysmal atrial fibrillation (10) Aortic stenosis: Status: Acute Additional A&P Information Coronary artery disease: Continue current management Pulmonary hypertension Diabetes mellitus type 2: Low dose sliding scale insulin as needed History of atrial fibrillation: Currently in paced rhythm, not on any anticoagulation due to history of GI bleed, given evidence of liver cirrhosis, also worried about esophageal varices Hypothyroidism: Continue home armour thyroid 90mg daily, TSH within normal limits on admission Chronic macrocytic anemia: History of GI bleed. Hemoglobin has been stable, no episodes of dark stools. CODE STATUS: Full code DVT prophylaxis: SCDs, no pharmacologic prophylaxis as above Cardiac diet with fluid restriction Attestations Medical Necessity Statement*: Continuing to IV diuresis today, new medications added will require further hospitalization Time Spent in Patient Care: Greater than 35 minutes Coding Level of Care Code Acute Negative Retoucher for Chg Fwd Diagnoses Low blood pressure I95.9 CHF exacerbation I50.9 Acute kidney injury superimposed on chronic kidney disease N17.9; N18.9 Anasarca R60.1 Cardiac cirrhosis K76.1 Mitral regurgitation I34.0 Cardiac valve disease etiology: nonrheumatic Pulmonary HTN I27.20 Status cardiac pacemaker Z95.0 Atrial fibrillation I48.0 Atrial fibrillation type: paroxysmal Aortic stenosis I35.0
[2020-07-30 21:15] LABS: Glucose Point of Care 157 mg/dL (70-110)
[2020-07-31 00:15] VITALS: BP 80/38; PULSE 79; RESP 17; TEMP 36.4; O2SAT 96
[2020-07-31 03:41] VITALS: BP 98/62; PULSE 84; RESP 17; TEMP 36.6; O2SAT 99
[2020-07-31 06:19] LABS: Basophils # 0.1 10^3/uL (0.0-0.1); Basophils % 0.9 %; Eosinophils # 0.2 10^3/uL (0.0-0.8); Eosinophils % 3.4 %; Hemoglobin 9.8 g/dL (11.5-15.3); Lymphocytes # 0.6 10^3/uL (0.8-4.8); Lymphocytes % 10.8 %; Mean Corpuscular HGB Conc 29.7 g/dL (30.0-36.0); Mean Corpuscular Hemoglobin 33.6 pg (28.0-34.0); Mean Platelet Volume 9.8 fL (7.4-10.4); Monocytes # 0.8 10^3/uL (0.2-0.9); Monocytes % 14.4 %; Neutrophils # 4.08 10^3/uL (1.8-7.7); Nucleated Red Blood Cells % 0 %; Platelet Count 233 10^3/cmm (130-400); Red Blood Count 2.92 10^6/uL (4.1-5.3); Red Cell Distribution Width 16.6 % (12.1-15.1); White Blood Count 5.8 10^3/uL (4.0-10.0)
[2020-07-31 06:40] LABS: Glucose Point of Care 187 mg/dL (70-110)
[2020-07-31 06:40] LABS: Glucose Point of Care 100 mg/dL (70-110)
--- NOTE | 2020-07-31 07:11 | P.PN_ITS ---
Subjective Subjective: Interval history: feels better. states she slept well. improving appetite. has ascites. Medications: Reviewed: Yes Medication Review Details: Current Medications Acetazolamide (Diamox) 250 mg PO BID [facility] Last Admin: 07/30/20 17:48 Dose: 250 mg Documented by: Albuterol/Ipratropium (Duoneb) 3 ml INHALATION Q6H PRN PRN Reason: SHORTNESS OF BREATH Last Admin: 07/26/20 20:30 Dose: 3 ml Documented by: Aspirin (Aspirin Ec) 81 mg PO DAILY [facility] Last Admin: 07/30/20 08:12 Dose: 81 mg Documented by: Dextrose (D50w) 25 ml IVP ONCE PRN; Protocol PRN Reason: hypoglycemia protocol Dextrose (D50w) 50 ml IVP PRN PRN; Protocol PRN Reason: hypoglycemia protocol Furosemide (Lasix) 40 mg PO BID@,16 [facility] Glucagon (Glucagen) 1 mg IM ONCE PRN; Protocol PRN Reason: Adult Acute Hypoglycemia Prot. Dextrose (D5w) 500 mls @ 100 mls/hr IV ONCE PRN; Protocol PRN Reason: Adult Acute Hypoglycemia Prot Ferric Sodium Gluconate 125 mg (/ Sodium Chloride) 110 mls @ 110 mls/hr IV Q24H [facility] Stop: 08/02/20 08:59 Last Infusion: 07/30/20 15:21 Dose: Infused Documented by: Insulin Aspart (Novolog) 0 unit SUBCUT TIDWM [facility]; Protocol Last Admin: 07/30/20 17:28 Dose: Not Given Documented by: Insulin Aspart (Novolog) 0 unit SUBCUT BEDTIME [facility]; Protocol Last Admin: 07/30/20 21:53 Dose: 1 unit Documented by: Lanolin (Lanolin Oint) 1 applic TOPICAL PRN PRN PRN Reason: DRYNESS Last Admin: 07/26/20 03:44 Dose: 1 tube Documented by: Metoprolol Succinate (Toprol Xl) 25 mg PO DAILY [facility] Last Admin: 07/30/20 08:12 Dose: 25 mg Documented by: Nitroglycerin (Nitrostat) 0.4 mg SUBLINGUAL Q5M PRN PRN Reason: chest pain Pantoprazole Sodium (Protonix) 40 mg PO BID [facility] Last Admin: 07/30/20 17:48 Dose: 40 mg Documented by: Thyroid (Seguin Thyroid) 90 mg PO DAILY [facility] Last Admin: 07/30/20 08:19 Dose: 90 mg Documented by: Vitals/I&O/Wt Last Vital Signs Temp 97.8 F 07/31/20 03:41 Pulse 84 07/31/20 03:41 Resp 17 07/31/20 03:41 BP 98/62 07/31/20 03:41 Pulse Ox 99 07/31/20 03:41 07/30/20 07/31/20 07/31/20 22:59 06:59 14:59 Intake Total 110 / 430 Output Total 100 / 100 100 / 200 Balance -100 / 230 Physical Exam Narrative: EXAM NARRATIVE: elderly, frail lady in bed, NARD vs noted- BP low 98/62 heent- nc/at, eomi, anicteric. nc02 dep neck no jvp lung dull bases heart irreg irreg, +HOLLY abd soft, nt, inc Distention, +BS ext b/l leg edema improved neuro- a,a, o x 2+ pulses weak Urinary Catheter Management^: Garvin: Cath Placed During This Visit: yes, but has since been removed by the nurse Reason for Continuing Indwelling Catheter: Not indwelling catheter Urinary Catheter Date of Insertion: 07/19/20 Urinary Catheter Time of Insertion: 10:28 Date Urinary Catheter Removed: 07/20/20 Time Urinary Catheter Discontinued: 18:32 Data : 07/31/20 05:29 07/30/20 04:56 Micro: Microbiology 07/20/20 15:20 Gram Stain - Final Peritoneal Fluid Anaerobic Culture - Preliminary Body Fluid Culture - Final A&P Additional A&P Information Impression: 1. Chronic kidney disease - renal function stable -etiology is CRS -b/l cr 1.3-1.5 mg/dl ELIJAH from CRS. cr stable on lasix and acetazolamide -however, BP low, may need to dec lasix to 20 bid 2. Valvular heart disease, CHF -per cardiology- unfortunately, she is not a surgical candidate -agree w/ diuresis -abdominal distention/ scites -will likely need paracentesis w/ albumin every so often 3. Anasarca s/p paracentesis 7 liters on07/26/2020, monitor weights- on lasix 4. Anemia, Hb stable, receiving IV iron, consider epo 5. Possible cirrhosis - felt to be from CHF 6. Poor nutrition 7. major issue is systolic CHF and valvular heart disease 8. renal okay for d/c, w/ check of chem 7 mag phos weekly. adjust diuretics based on weights, cr, k, co2 Attestations Medical Necessity Statement*: per hospitalist Time Spent in Patient Care: 16 - 35 minutes Coding Level of Care Code Acute Respiratory Scientist for Casey Lai
[2020-07-31 07:38] LABS: Alanine Aminotransferase 17 U/L (0-33); Albumin Level 2.4 g/dL (3.5-5.2); Alkaline Phosphatase 211 IU/L (35-105); Anion Gap 15.5 (5-19); Aspartate Amino Transferase 27 U/L (0-32); Calcium 9.1 mg/dL (8.5-10.5); Carbon Dioxide 26 mmol/L (22-29); Chloride 101 mmol/L (98-107); Globulin 4.1 g/dL (1.3-4.6); Glucose 103 mg/dL (65-115); Magnesium 2.1 mg/dL (1.7-2.3); Osmolality Calculated 311 mOsm/kg (285-295); Phosphorus 5.2 mg/dL (2.5-4.5); Potassium 4.5 mmol/L (3.5-5.1); Sodium 138 mmol/L (136-145); Total Bilirubin 0.9 mg/dL (0.15-1.2); Total Protein 6.5 g/dL (6.6-8.7)
[2020-07-31 07:40] VITALS: BP 97/62; PULSE 84; RESP 16; TEMP 36.4; O2SAT 94
[2020-07-31] MEDS: FUROsemide 20 mg Tablet PO (07:51)
[2020-07-31] MEDS: thyroid 60 mg Tablet 90 MG PO (07:51)
[2020-07-31] MEDS: pantoprazole DR 40 mg Tablet PO (07:52)
[2020-07-31] MEDS: metoprolol succinate ER (24 HR) 25 mg Tablet PO (07:52)
[2020-07-31] MEDS: acetaZOLAMIDE 250 mg Tablet PO (07:52)
[2020-07-31] MEDS: aspirin 81 mg EC Tablet PO (07:52)
[2020-07-31 08:07] LABS: Blood Urea Nitrogen 81 mg/dL (8-23)
[2020-07-31] MEDS: ferric gluconate 125 MG in sodium chloride 0.9% (100 ml) 100 ML 110 MG IV (08:52)
[2020-07-31 11:10] VITALS: BP 97/62; PULSE 84; RESP 16; TEMP 36.4; O2SAT 94
[2020-07-31 11:37] VITALS: BP 116/76; PULSE 77; RESP 18; TEMP 36.6; O2SAT 100
[2020-07-31 11:44] LABS: SARS Covid-2 Antigen Negative (Negative)
[2020-07-31 11:53] LABS: Glucose Point of Care 147 mg/dL (70-110)
--- NOTE | 2020-07-31 12:51 | P.PN_ITS ---
Subjective Subjective: Interval history: She states she feels about the same. Medications: Reviewed: Yes Medication Review Details: Current Medications Acetazolamide (Diamox) 250 mg PO BID [facility] Last Admin: 07/30/20 08:12 Dose: 250 mg Documented by: Albuterol/Ipratropium (Duoneb) 3 ml INHALATION Q6H PRN PRN Reason: SHORTNESS OF BREATH Last Admin: 07/26/20 20:30 Dose: 3 ml Documented by: Aspirin (Aspirin Ec) 81 mg PO DAILY [facility] Last Admin: 07/30/20 08:12 Dose: 81 mg Documented by: Dextrose (D50w) 25 ml IVP ONCE PRN; Protocol PRN Reason: hypoglycemia protocol Dextrose (D50w) 50 ml IVP PRN PRN; Protocol PRN Reason: hypoglycemia protocol Furosemide (Lasix) 20 mg IVP Q12H [facility] Last Admin: 07/30/20 12:56 Dose: 20 mg Documented by: Glucagon (Glucagen) 1 mg IM ONCE PRN; Protocol PRN Reason: Adult Acute Hypoglycemia Prot. Dextrose (D5w) 500 mls @ 100 mls/hr IV ONCE PRN; Protocol PRN Reason: Adult Acute Hypoglycemia Prot Ferric Sodium Gluconate 125 mg (/ Sodium Chloride) 110 mls @ 110 mls/hr IV Q24H [facility] Stop: 08/02/20 08:59 Last Admin: 07/30/20 14:21 Dose: 110 mls/hr Documented by: Insulin Aspart (Novolog) 0 unit SUBCUT TIDWM [facility]; Protocol Last Admin: 07/30/20 13:32 Dose: 4 unit Documented by: Insulin Aspart (Novolog) 0 unit SUBCUT BEDTIME [facility]; Protocol Last Admin: 07/29/20 22:17 Dose: 3 unit Documented by: Lanolin (Lanolin Oint) 1 applic TOPICAL PRN PRN PRN Reason: DRYNESS Last Admin: 07/26/20 03:44 Dose: 1 tube Documented by: Metoprolol Succinate (Toprol Xl) 25 mg PO DAILY [facility] Last Admin: 07/30/20 08:12 Dose: 25 mg Documented by: Nitroglycerin (Nitrostat) 0.4 mg SUBLINGUAL Q5M PRN PRN Reason: chest pain Pantoprazole Sodium (Protonix) 40 mg PO BID [facility] Last Admin: 07/30/20 08:12 Dose: 40 mg Documented by: Thyroid (Steven Thyroid) 90 mg PO DAILY [facility] Last Admin: 07/30/20 08:19 Dose: 90 mg Documented by: Vitals/I&O/Wt Last Vital Signs Temp 97.9 F 07/31/20 11:37 Pulse 77 07/31/20 11:37 Resp 18 07/31/20 11:37 BP 116/76 07/31/20 11:37 Pulse Ox 100 07/31/20 11:37 07/30/20 07/31/20 07/31/20 22:59 06:59 14:59 Intake Total 110 / 430 120 / 120 Output Total 100 / 100 100 / 200 Balance 10 / 330 -100 / 230 120 / 120 Physical Exam Narrative: EXAM NARRATIVE: GENERAL: Frail elderly lady lying in bed; in no acute distress HEENT: Pupils equal round reactive to light. + pallor, No icterus. NECK: central trachea, N0 JVD. No carotid bruit. CARDIOVASCULAR SYSTEM: S1-S2 regular. No S3 or S4 present. Grade 3/6 LLSB and apical murmur RESPIRATORY SYSTEM: Chest clear to auscultation, decreased breath sounds at bases. No wheezes rhonchi or rubs heard. ABDOMEN: Soft, nontender and moderately distended. Normal bowel sounds present. dull on percussion and in lower quadrants in horse shoe pattern EXTREMITIES: No cyanosis. Trace edema. 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 No focal neurological deficits. Urinary Catheter Management^: Garvin: Cath Placed During This Visit: yes, but has since been removed by the nurse Reason for Continuing Indwelling Catheter: Not indwelling catheter Urinary Catheter Date of Insertion: 07/19/20 Urinary Catheter Time of Insertion: 10:28 Date Urinary Catheter Removed: 07/20/20 Time Urinary Catheter Discontinued: 18:32 Data : 07/31/20 05:29 07/31/20 05:29 Micro: Microbiology 07/20/20 15:20 Gram Stain - Final Peritoneal Fluid Anaerobic Culture - Preliminary Body Fluid Culture - Final A&P Assessment and plan (1) Acute exacerbation of CHF (congestive heart failure): There has been a drop in LV function. It could be insetting of VHD with severe MR and moderate to severe TR. -No chest pains, however progression of underlying CAD cannot be ruled out. 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 RCA with Chronic occlusion at the ostium. RCA lined with stents from the ostium to beyond the acute margin. -I had a long discussion with patient and her niece Suze. Given her worsening renal function, advance age and frail status, plan to continue with medical management. Her long-term prognosis is poor. -She continues to be full code at present. -continue low dose metoprolol succinate. -I do not think we would be able to add ACEI/ARB due to renal function and soft BP. -change to lasix 40 mg BID on d/c. May have to stop metoprolol if blood pressure continues to run low. -Follow up in 2-3 weeks with me in [facility]. Status: Acute Qualifiers: Heart failure type: combined systolic and diastolic Qualified Code(s): I50.43 - Acute on chronic combined systolic (congestive) and diastolic (congestive) heart failure (2) Atrial fibrillation: recommend no OAC for now. H/o GI bleed -now in A sense V paced rhythm. Status: Acute Qualifiers: Atrial fibrillation type: paroxysmal Qualified Code(s): I48.0 - Paroxysmal atrial fibrillation (3) Mitral regurgitation: Severe MR , not a candidate for surgery or clip. Status: Acute Qualifiers: Cardiac valve disease etiology: nonrheumatic Qualified Code(s): I34.0 - Nonrheumatic mitral (valve) insufficiency (4) Elevated troponin: Type 2 NSTEMI Status: Acute (5) Status cardiac pacemaker: Status: Acute Additional A&P Information ELIJAH superimposed on chronic kidney disease: Baseline creatinine of 1.3-1.5 in March 2020; creatinine 2.1 today. On low dose IV lasix and acetazolamide. Nephrology on board. Ascites: she is status post large volume paracentesis with removal of 7250 ml of dark red serous fluid by radiology. I believe this is accumulating again and she would need paracentesis possibly soon as an outpatient. I do agree with avoiding large volume paracentesis and albumin infusions with paracentesis. Liver cirrhosis: Hep panel negative BP soft: continue to monitor closely. Moderate to severe TR CAD with h/o RCA stents Hypothyroidism Anemia Hyperkalemia: resolved Elevated alkaline phosphatase Hypoalbuminemia Pulmonary HTN DM-2 Thank you for allowing me to participate in patient's care. Please feel free to call with questions or concerns. Attestations Medical Necessity Statement*: As per primary team Coding Level of Care Code Established Pt Acute Eyeglass Lens Cutter for Chg Fwd Patient Type Established Exam Comprehensive Medical Decision Making High Complexity Diagnoses Acute exacerbation of CHF (congestive heart failure) I50.43 Heart failure type: combined systolic and diastolic Atrial fibrillation I48.0 Atrial fibrillation type: paroxysmal Mitral regurgitation I34.0 Cardiac valve disease etiology: nonrheumatic Elevated troponin R77.8 Status cardiac pacemaker Z95.0 Time Spent (min) 30
--- NOTE | 2020-07-31 16:11 | PM.DCS ---
Discharge Providers Date of Admission: 07/19/20 14:34 Date of Discharge: July 31, 2020 Attending Provider at Admission: Bill Anderson MD Attending Provider at Discharge: Hung Scott Primary Care Provider: James Sy MD Diagnoses at Discharge Discharge Diagnosis (1) Acute exacerbation of CHF (congestive heart failure): Status: Acute Qualifiers: Heart failure type: combined systolic and diastolic Qualified Code(s): I50.43 - Acute on chronic combined systolic (congestive) and diastolic (congestive) heart failure (2) Atrial fibrillation: Status: Acute Qualifiers: Atrial fibrillation type: paroxysmal Qualified Code(s): I48.0 - Paroxysmal atrial fibrillation (3) Mitral regurgitation: Status: Acute Qualifiers: Cardiac valve disease etiology: nonrheumatic Qualified Code(s): I34.0 - Nonrheumatic mitral (valve) insufficiency (4) Elevated troponin: Status: Acute (5) Status cardiac pacemaker: Status: Acute Reason for Visit Reason for Visit: Dr[place] [address] I50.9 Hospital Course Hospital Course: 80 year old female history of ischemic cardiomyopathy, EF 35%, valvular regurgitation, was sent to [facility] for mitral valve clip surgery, she was deemed unfit for the surgery, A. fib, chronic anticoagulation discontinued due to GI bleed, was sent in from cardiology clinic for worsening shortness of breath and anasarca. Patient is stating that at baseline she is taking Bumex 1 mg a day, she tries to manage her daily activities, has been struggling because of worsening edema, abdominal distention, she has not noticed any vomiting, constipation or diarrhea, she has been having regular bowel movements, no dysuria, chest pain. She is endorsing orthopnea, PND, lower extremity swelling. She has been compliant with her Bumex. At home she is eating canned food, does not follow fluid restricted or salt restricted diet. Her niece Suze checks on her regularly. Since last discharge she has been on oxygen at home. Diagnosis in the ER revealed CHF exacerbation, high BNP, worsening of creatinine, patient is asymptomatic, no chest pain, troponins high, paced rhythm, has been given IV diuretics, anasarca positive Of note, she had similar presentation on last visit in May when she was sent by Dr. Ronquillo, she achieved negative balance 6.8 L with IV diuresis, she lost 3 to 5 pounds during her hospitalization, her Lasix was discontinued and she was discharged on Bumex 1 mg daily with diet restricted instructions however I do not see any home O2 evaluation. Cat patient was noted to be hypoxic requiring oxygen. Upon admission to hospital an echocardiogram performed has shown worsening LV function. In addition to this she was noted to have severe mitral regurgitation and moderate to severe tricuspid regurgitation. Venous duplex was performed due to edema. No evidence of acute DVT was noted. Cardiology was consulted. Due to worsening renal function from baseline on admission nephrology was consulted. Diuretics were held for short period due to concern of over-diuresis in setting of hypotension. It appeared her baseline was around 1.4. This had increased to 2.3. At the time of discharge slightly improved to 1.9. Suspected have likely a new baseline creatinine. Additionally was started on Diamox due to alkalosis. Renal ultrasound performed did not show any evidence of hydronephrosis. Discussion with Nephrology prior to discharge during which time advised to continue Diamox after discharge. Additionally Lasix was resumed in transition to 40 mg oral twice daily. Was advised to follow-up closely with primary care physician as she was noted to have slight increase in ascites. Of family requested half-way facility due to progressively worsening debility and weakness. Of note she continued to require oxygen at 2 L continuously which was continued at discharge. Patient was stable at the time of discharge. Physical Exam Const: COMMON NORMALS: alert; apparent distress GENERAL APPEARANCE: cooperative ORIENTATION/CONSCIOUSNESS: Yes awake, Yes oriented to person and Yes oriented to place HENMT: COMMON NORMALS: normocephalic and atraumatic HEAD & SCALP: normocephalic and atraumatic Eye: COMMON NORMALS: Equal, round and reactive pupils present PUPIL: Yes Equal, round and reactive pupils present Neck/C-Spine: COMMON NORMALS: supple GENERAL: Yes normal visual inspection Resp: COMMON NORMALS: normal respiratory effort and clear to auscultation bilaterally EFFORT & INSPECTION: Yes able to speak in complete sentences AUSCULTATION: clear to auscultation bilaterally, no rhonchi and no wheezes OTHER: Minimal bibasilar Rales. Cardio: COMMON NORMALS: regular rate, regular rhythm and S2 normal heart sound present RATE: regular rate RHYTHM: regular rhythm HEART SOUNDS: S2 normal heart sound present OTHER: Regular rate and rhythm, systolic murmur present GI: COMMON NORMALS: Soft to palpation INSPECTION: Yes abdominal distension PALPATION: Yes Soft to palpation OTHER: Significantly decreased abdominal distention. Extremity: COMMON NORMALS: no clubbing, cyanosis or edema and no calf tenderness Neuro: COMMON NORMALS: CN's II-XII intact bilaterally, moves all extremities and no focal motor deficits SENSORIUM/ORIENTATION: Yes alert, Yes oriented to person and Yes oriented to place SPEECH: speech normal Psych: COMMON NORMALS: mental status grossly normal and cooperative Skin: NARRATIVE SKIN EXAM: Dry skin in the lower extremities bilaterally Urinary Catheter Management^: Garvin: Cath Placed During This Visit: yes, but has since been removed by the nurse Reason for Continuing Indwelling Catheter: Not indwelling catheter Urinary Catheter Date of Insertion: 07/19/20 Urinary Catheter Time of Insertion: 10:28 Date Urinary Catheter Removed: 07/20/20 Time Urinary Catheter Discontinued: 18:32 Discharge Data Data Completed and Pending: Completed Studies During Hospitalization Category Date Time Status CT chest abd pel wo con Urgent Cat Scan 07/18/20 18:04 Completed CV echo complete* [id number] Routine Ultrasound 07/19/20 00:14 [place] [id number] Routin e Ultrasound 07/19/20 00:14 Completed US abdomen comple te* [id number] Stat Ultrasound 07/26/20 09:08 [place] w [id number] Routine Ultrasound 07/20/20 16:45 Completed US renal BI* [id number] Routine Ultrasound 07/19/20 08:59 Completed Pending at discharge Category Date Time Status Mycobacteria, Cul ture w/Fluor Routi ne Lab 07/19/20 16:45 Results Cytology [PTH] Ro utine Pth 07/19/20 15:20 Received Vitals: Last Vital Signs Temp 97.9 F 07/31/20 11:37 Pulse 77 07/31/20 11:37 Resp 18 07/31/20 11:37 BP 116/76 07/31/20 11:37 Pulse Ox 100 07/31/20 11:37 Discharge Plan Discharge Patient Disposition: Xfer SNF Condition: Stable Prescriptions: New ipratropium-albuterol 0.5 mg-3 mg(2.5 mg base)/3 mL Solution For Nebulization 3 ml inhalation Q6H PRN (Reason: Shortness Of Breath) 30 Days RF: 0 aspirin 81 mg Tablet,Delayed Release (Dr/Ec) 81 mg PO DAILY 30 Days RF: 0 nitroglycerin 0.4 mg Tablet, Sublingual 0.4 mg sublingual Q5M PRN (Reason: chest pain) 30 Days RF: 0 metoprolol succinate 25 mg Tablet Extended Release 24 Hr 25 mg PO DAILY 30 Days RF: 0 Lanolin (HPA) 100 % Cream 1 applic topical PRN PRN (Reason: Dryness) 30 Days RF: 0 acetazolamide 250 mg Tablet 250 mg PO BID 30 Days Qty: 60 RF: 0 pantoprazole 40 mg Tablet,Delayed Release (Dr/Ec) 40 mg PO BID 30 Days Qty: 60 RF: 0 furosemide 20 mg Tablet 20 mg PO BID@08,16 30 Days RF: 0 Continued thyroid (pork) [[place] Thyroid] 90 mg Tablet 90 mg PO QAM RF: 0 rosuvastatin 10 mg tablet 10 mg PO BEDTIME RF: 0 Discontinued metformin 500 mg tablet 500 mg PO BID RF: 0 metoprolol succinate [Toprol XL] 50 mg tablet extended release 24 hr 50 mg PO DAILY RF: 0 isosorbide mononitrate 30 mg tablet extended release 24 hr 30 mg PO DAILY RF: 0 nitroglycerin [Nitrostat] 0.4 mg tablet, sublingual 0.4 mg SUBLINGUAL Q5M PRN (Reason: chest pain) 90 Days Qty: 25 RF: 3 bumetanide 1 mg Tablet 1 mg PO DAILY Qty: 30 RF: 0 spironolactone 25 mg Tablet 25 mg PO DAILY RF: 0 losartan 50 mg tablet 50 mg PO DAILY RF: 0 polyethylene glycol 3350 [Miralax] 17 gram Powder In Packet 17 g PO DAILY PRN (Reason: Constipation) RF: 0 mupirocin 2 % ointment 1 applic TOPICAL TID PRN (Reason: unknown) RF: 0 No Action Tubersol 5 tub. unit /0.1 mL Solution See Rx Instructions .ROUTE .COMPLEX RF: 0 I-Gunnar 1,000 unit-200 mg-60 unit-2 mg Tablet 1 tab PO DAILY RF: 0 Discharge Orders: Discharge Order (Routine); Ordered 07/31/20 Ordered By: Hung Scott Referrals: [facility] [Outside] Jeff Pelaez M.D [Physician] - 08/10/20 8:00 am (Pacer Check) James Sy MD [Primary Care Provider] - 08/07/20 1:15 pm (Hospital follow up) Discharge Diet: Cardiac Discharge Activity: Increase activity as tolerated Discharge Date/Time: 07/31/20 12:52 Discharge Attestations Time Spent in Discharge Care*: greater than 30 min Status at Discharge: Cognitive status at discharge: mildly impaired cognition, Behavioral status at discharge: cooperative, Functional status at discharge: other assisted ambulation Overall status at discharge: patient has a new baseline Quality Metrics Clinical Quality Measures During this hospital stay, did patient experience: None Coding Level of Care Code Acute 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
== END 2020-07-31 12:52 | disposition skilled nursing facility (03) | DRG 280 ==
LOC: ER 22:04 → MEDSURG 22:49
PROVIDERS: Family Medicine; Internal Medicine; Internal Medicine Cardiovascular Disease; Internal Medicine Nephrology; Admitting Provider Internal Medicine; PCP Family Medicine; Visit Provider Hospitalist
DX: I13.0 Hypertensive heart and chronic kidney disease with heart failure and stage 1 through stage 4 chronic kidney disease, or unspecified chronic kidney disease (principal); I50.43 Acute on chronic combined systolic (congestive) and diastolic (congestive) heart failure; I21.A1 Myocardial infarction type 2; N17.9 Acute kidney failure, unspecified; I48.0 Paroxysmal atrial fibrillation; Z95.0 Presence of cardiac pacemaker; I34.0 Nonrheumatic mitral (valve) insufficiency; I25.5 Ischemic cardiomyopathy; Z79.01 Long term (current) use of anticoagulants; I07.1 Rheumatic tricuspid insufficiency; Z79.84 Long term (current) use of oral hypoglycemic drugs; E87.5 Hyperkalemia; E88.09 Other disorders of plasma-protein metabolism, not elsewhere classified; K74.60 Unspecified cirrhosis of liver; I27.20 Pulmonary hypertension, unspecified; E03.9 Hypothyroidism, unspecified; I25.10 Atherosclerotic heart disease of native coronary artery without angina pectoris; Z95.5 Presence of coronary angioplasty implant and graft; E11.22 Type 2 diabetes mellitus with diabetic chronic kidney disease; E78.5 Hyperlipidemia, unspecified; N18.30 Chronic kidney disease, stage 3 unspecified; I35.0 Nonrheumatic aortic (valve) stenosis; D53.9 Nutritional anemia, unspecified
CPT/HCPCS: 12345; 36415; 36416; 49083; 51702; 71250; 74176; 76700; 76770; 80048; 80053; 80500; 81001; 82042; 82150; 82248; 82274; 82310; 82465; 82607; 82728; 82746; 82945; 82962; 83036; 83540; 83550; 83615; 83735; 83880; 83970; 83986; 84075; 84100; 84157; 84315; 84443; 84478; 84484; 84560; 85025; 85610; 86705; 86706; 86803; 87015; 87070; 87075; 87077; 87086; 87116; 87186; 87205; 87206; 87340; 87426; 87801; 88112; 88305; 89050; 93005; 93306; 93970; 94640; 96372; 96375; 97110; 97116; 97161; 97530; 99283; C9113; G0378; J1644; J1815; J1940; J2916; J3430; J3475; J3490; Q3014

== ENCOUNTER 2020-08-01 11:52 | Inpatient (IN) | payer MEDICARE, OTHER, SELFPAY ==
[2020-08-01] VITALS (11 sets, daily range): BP systolic 85–110; BP diastolic 38–88; PULSE 68–78; RESP 16–22; TEMP 36.5–37.1; O2SAT 80–100; BMI 22.8
--- NOTE | 2020-08-01 11:59 | CT_ITS ---
WS: [id number] CT HEAD TECHNIQUE: Noncontrast CT of the head obtained from the skullbase to the vertex. CLINICAL INFORMATION: ams COMPARISON: April 06, 2020 DLP: 1445.[address] scans at [facility] use at least one of these dose optimization techniques: automat ed exposure control; mA and/or kV adjustment per patient size (includes targeted exams where dose is matched to clinical indication); or iterative reconstruction. FINDINGS: No evidence of intracranial hemorrhage or mass effect. Ventricular system and basal cisterns are mckeon nt. Mild small vessel changes with mild parenchymal volume loss. Chronic lacunar infarct in the right internal capsule. Chronic infarct in the right nicholas radiata unchanged from previous. No extra-axia l fluid collections. No evidence of mass or mass effect. Mild mucosal thickening left mastoid tip. Mild polypoid mucosal thickening right maxillary sinus. CT/CT head wo con* 05105 IMPRESSION: 1. No evidence of intracranial hemorrhage or mass effect. 2. Mild small vessel changes with moderate parenchymal volume loss. 3. Chronic infarct in the right nicholas radiata unchanged. Chronic lacunar infa rct in the right internal capsule. 4. No acute intracranial findings.
--- NOTE | 2020-08-01 11:59 | XR_ITS ---
WS: [id number] XR chest 1V portable [id number] REASON FOR EXAM: ams FINDINGS: Compared to previous examination of 04/18/2020 the lower left chest and is partially opacified which likely is due to consolidated/atelectatic lung and possibly pleural fluid. There also appears to be f luid within the minor fissure on the right. Chest is otherwise unchanged. XR/XR chest 1V portable [id number] IMPRESSION: Interval development of left lower chest opacification as above.
--- NOTE | 2020-08-01 12:00 | ECG_ITS ---
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 Measurements Intervals [place] Rate: 76 P: 78 WA: 224 QRS: -59 QRSD: 203 T: 122 QT: 478 QTc: 539 Interpretive Statements A sense V paced rhythm Compared to ECG 07/18/2020 23:47:34 No significant changes Electronically Signed On 08-01-2020 19:11:41 PHARMACY SERVICE ASSOCIATE by Sonja Villafana M.D. [email or web address]
--- NOTE | 2020-08-01 12:16 | W.ED.AMS ---
HPI - Altered Mental Status General: Chief Complaint: Altered Mental Status Stated Complaint: AMS Time Seen by Provider: 08/01/20 11:59 Source: patient and EMS Mode of arrival: EMS Limitations: altered mental status History of Present Illness: HPI narrative: 72-year-old female who is here from local retirement. Per retirement patient has had increased confusion. Patient her baseline typically answers most questions. She now is only orientated to self. Patient is also had weakness and is unable to get up and walk. Patient is now requiring oxygen as well and has not required oxygen in the past. Denies any fever. Denies any pain currently. MD complaint: altered mental status Associated symptoms: Deny depression Review of Systems Const: Denies: fever(s), chills, body aches or change in appetite Eyes: Denies: blurry vision or eye discomfort ENMT: Denies: throat pain or dental pain Card: Denies: chest pain Resp: Denies: dyspnea GI: Denies: abdominal pain, nausea, vomiting or diarrhea : Denies: dysuria Musc: Denies: neck pain or back pain Skin/Breast: Denies: rash Neuro: Reports: weakness in extremities and confusion; Denies: headache(s) Psych: Denies: depression Mello/Lymph: Denies: easy bruising All/Imm: Denies: urticaria PFSH ED PFSH: Medical History (Updated 07/30/20 @ 16:33 by Sonja Villafana MD) Aortic stenosis Atrial fibrillation Cardiomyopathy CHF (congestive heart failure) combined systolic and diastolic CHF Diabetes Hollenhorst plaque, both eyes HTN (hypertension) Hyperlipidemia -on statin Hypothyroidism thyroid replacement Mitral regurgitation Pulmonary HTN Surgical History S/P tonsillectomy Status cardiac pacemaker Family History Other Cancer Hypertension Social History Smoking and tobacco status: never smoked Household members: children Marital status: / Physical Exam Const: COMMON NORMALS: no acute distress, healthy appearing and alert; negative for patient oriented x3 ORIENTATION/CONSCIOUSNESS: Yes oriented to person; not oriented to place and not oriented to time HENMT: COMMON NORMALS: normocephalic and atraumatic HEAD & SCALP: normocephalic and atraumatic Eye: COMMON NORMALS: Equal, round and reactive pupils present and EOMs intact bilaterally PUPIL: Yes Equal, round and reactive pupils present Neck/C-Spine: COMMON NORMALS: full ROM and supple Chest: COMMONS NORMALS: normal inspection of the chest and normal palpation of entire chest wall Resp: COMMON NORMALS: normal respiratory effort, No retractions, No use of accessory muscles and clear to auscultation bilaterally AUSCULTATION: clear to auscultation bilaterally Cardio: COMMON NORMALS: regular rate, regular rhythm and No murmurs present (Cardio) RATE: regular rate RHYTHM: regular rhythm GI: COMMON NORMALS: Normal to inspection, nondistended, normoactive bowel sounds present, Soft to palpation, non-tender and no masses PALPATION: Yes Soft to palpation Extremity: COMMON NORMALS: normal to inspection and full ROM Neuro: COMMON NORMALS: moves all extremities and no focal motor deficits; negative for patient oriented x3 SENSORIUM/ORIENTATION: Yes alert, Yes oriented to person, No oriented to place and No oriented to time Psych: COMMON NORMALS: mental status grossly normal, Normal thought process present and cooperative THOUGHT PROCESS: Normal thought process present Skin: COMMON NORMALS: no rashes or lesions noted and no wounds GENERAL SKIN EXAM: no rashes or lesions noted Course Vital Signs: Vital signs: Vital Signs Temperature 98.0 F 08/01/20 11:55 Pulse Rate 74 08/01/20 11:55 Respiratory Rate 20 H 08/01/20 11:55 Blood Pressure 96/44 08/01/20 11:55 Pulse Oximetry 98 08/01/20 11:55 MDM - Altered Mental Status MDM Narrative: Medical decision making narrative: Patient presents here with altered male status from the retirement. Patient here is alert to self with does have some confusion. She is found to have a urinary tract infection along with a pneumonia. I spoke to hospitalist will admit for IV antibiotics. Patient has no signs of septic shock. She has been stable on the ER. Lab Data: Labs: Lab Results 08/01/20 08/01/20 08/01/20 Range/Units 13:00 13:00 13:50 WBC 5.6 (4.0-10.0) 10^3/ uL RBC 3.03 L (4.1-5.3) 10^6/u L Hgb 10.2 L (11.5-15.3) g/dL Hct 33.8 L (37.0-47.0) % MCV 111.6 H (81-99) fL MCH 33.7 (28.0-34.0) pg MCHC 30.2 (30.0-36.0) g/dL RDW 16.8 H (12.1-15.1) % Plt Count 259 (130-400) 10^3/c mm MPV 10.4 (7.4-10.4) fL Neut % (Auto) 76.1 % Lymph % (Auto) 9.9 % [place] % (Auto) 10.4 % Eos % (Auto) 2.3 % Baso % (Auto) 0.9 % Neut # (Auto) 4.24 (1.8-7.7) 10^3/u L Lymph # (Auto) 0.6 L (0.8-4.8) 10^3/u L [place] # (Auto) 0.6 (0.2-0.9) 10^3/u L Eos # (Auto) 0.1 (0.0-0.8) 10^3/u L Baso # (Auto) 0.1 (0.0-0.1) 10^3/u L Nucleated RBC % (a uto) 0 % Nucleated RBCs # 0.0 /100WBC Specimen Type Sample Site ABG pH (7.35-7.45) ABG pCO2 (35-45) mmHg ABG pO2 (80.0-100.0) mmH g ABG HCO3 (22-26) mmol/L ABG Base Excess (-2.0-2.0) mmol/ L [place] Test Hematocrit (37-47) % O2 Delivery Device O2 Liters/Min % FiO2 % Laser Engraver ID Sodium 137 (136-145) mmol/L Potassium 4.2 (3.5-5.1) mmol/L Chloride 99 (98-107) mmol/L Carbon Dioxide 28 (22-29) mmol/L Anion Gap 14.2 (5-19) BUN 78 H (8-23) mg/dL Creatinine 1.9 H (0.5-0.9) mg/dL GFR Calculation Not Reportable Glucose 174 H (65-115) mg/dL Calculated Osmolal ity 312 H (285-295) mOsm/k g Calcium 9.0 (8.5-10.5) mg/dL Total Bilirubin 0.9 (0.15-1.2) mg/dL AST 27 (0-32) U/L ALT 17 (0-33) U/L Alkaline Phosphata se 244 H (35-105) IU/L Total Protein 7.1 (6.6-8.7) g/dL Albumin 2.8 L (3.5-5.2) g/dL Globulin 4.3 (1.3-4.6) g/dL Urine Color Yellow (Yellow) Urine Appearance Cloudy (CLEAR) Urine pH 5 (5-7) Ur Specific Gravit y 1.015 (1.005-1.030) Urine Protein Trace (Negative) Urine Glucose (UA) Norm (Normal) Urine Ketones Negative (Negative) Urine Blood Trace H (Negative) Urine Nitrate Negative (Negative) Urine Bilirubin 1+ H (Negative) Urine Urobilinogen 4 H (Negative) mg/dL Ur Leukocyte Svetlana ase 2+ H (Negative) Urine RBC 5-10 H (0-2) /hpf Urine WBC >100 H (0-5) /hpf Ur Squamous Epith Cells 15-25 H (0-5) /hpf Amorphous Sediment Not Reportable Urine Bacteria 4+ H (NONE) /hpf SARS-CoV-2 Ag (Rap id) (Negative) 08/01/20 08/01/20 Range/Units 14:04 15:02 WBC (4.0-10.0) 10^3/ uL RBC (4.1-5.3) 10^6/u L Hgb (11.5-15.3) g/dL Hct (37.0-47.0) % MCV (81-99) fL MCH (28.0-34.0) pg MCHC (30.0-36.0) g/dL RDW (12.1-15.1) % Plt Count (130-400) 10^3/c mm MPV (7.4-10.4) fL Neut % (Auto) % Lymph % (Auto) % [place] % (Auto) % Eos % (Auto) % Baso % (Auto) % Neut # (Auto) (1.8-7.7) 10^3/u L Lymph # (Auto) (0.8-4.8) 10^3/u L [place] # (Auto) (0.2-0.9) 10^3/u L Eos # (Auto) (0.0-0.8) 10^3/u L Baso # (Auto) (0.0-0.1) 10^3/u L Nucleated RBC % (a uto) % Nucleated RBCs # /100WBC Specimen Type Arterial Sample Site Brachial, left ABG pH 7.34 L (7.35-7.45) ABG pCO2 47.3 H (35-45) mmHg ABG pO2 204.0 H (80.0-100.0) mmH g ABG HCO3 25.2 (22-26) mmol/L ABG Base Excess -0.9 (-2.0-2.0) mmol/ L [place] Test N/a Hematocrit 30.4 L (37-47) % O2 Delivery Device Nc O2 Liters/Min 6.0 % FiO2 44.0 % Laser Engraver ID Ed Sodium (136-145) mmol/L Potassium (3.5-5.1) mmol/L Chloride (98-107) mmol/L Carbon Dioxide (22-29) mmol/L Anion Gap (5-19) BUN (8-23) mg/dL Creatinine (0.5-0.9) mg/dL GFR Calculation Glucose (65-115) mg/dL Calculated Osmolal ity (285-295) mOsm/k g Calcium (8.5-10.5) mg/dL Total Bilirubin (0.15-1.2) mg/dL AST (0-32) U/L ALT (0-33) U/L Alkaline Phosphata se (35-105) IU/L Total Protein (6.6-8.7) g/dL Albumin (3.5-5.2) g/dL Globulin (1.3-4.6) g/dL Urine Color (Yellow) Urine Appearance (CLEAR) Urine pH (5-7) Ur Specific Gravit y (1.005-1.030) Urine Protein (Negative) Urine Glucose (UA) (Normal) Urine Ketones (Negative) Urine Blood (Negative) Urine Nitrate (Negative) Urine Bilirubin (Negative) Urine Urobilinogen (Negative) mg/dL Ur Leukocyte Svetlana ase (Negative) Urine RBC (0-2) /hpf Urine WBC (0-5) /hpf Ur Squamous Epith Cells (0-5) /hpf Amorphous Sediment Urine Bacteria (NONE) /hpf SARS-CoV-2 Ag (Rap id) Negative (Negative) Imaging Data^: CT Head: Radiologist's impression: [address] [address] [address] Scan Report Signed Patient: Robert Rangel Unit #: [id number] : 02/03/1938 Age/Sex: 82 / M ADM Date: 08/01/20 Loc: ER Room/Bed: Attending Dr: Ordering Provider/Ordering MD: Chidi Aguilar MD Date of Service: 08/01/20 Procedure(s): CT head wo con* [id number] Accession Number(s): [id number] Report Number: [id number] WS: [id number] CT head wo con* [id number] REASON FOR EXAM: syncoep IV CONTRAST ADMINISTERED: Noncontrast TOTAL EXAM DLP: 1207.[address] scans at [facility] use at least one of these dose optimization techniques: automated exposure control; mA and/or kV adjustment per patient size (includes targeted exams where dose is matched to clinical indication); or iterative reconstruction. FINDINGS: The bony calvarium is intact. Alteration in the scalp overlying the left frontoparietal region possibly related to previous surgery. There is no midline shift or other significant mass effect. No evidence of intracranial hemorrhage. Lateral and third ventricles are prominent and rounded in configuration with a normal fourth ventricle. There is symmetric low-attenuation in the central white matter and the periventricular white matter. CSF spaces are prominent. No focal brain parenchymal lesion. CT/CT head wo con* [id number] IMPRESSION: No findings of intracranial hemorrhage and the bony calvarium is intact. While the enlargement of the CSF spaces and ventricles may simply be due to atrophy the ventricular dilatation appears somewhat disproportionate and the fourth ventricle appears normal. These findings can be associated with low pressure hydrocephalus. This consideration requires the appropriate clinical setting. Periventricular white matter changes may be due to chronic ischemic demyelination from small vessel disease and/or related to low pressure hydrocephalus. CXR: Radiologist's impression: [address] [place] [address] XRay Report Signed Patient: Marylou Art Unit #: [id number] : 1940 Age/Sex: 80 / F ADM Date: 08/01/20 Loc: ER Room/Bed: Attending Dr: Ordering Provider/Ordering MD: Chidi Aguilar MD Date of Service: 08/01/20 Procedure(s): XR chest 1V portable [id number] Accession Number(s): [id number] Report Number: [id number] WS: [id number] XR chest 1V portable [id number] REASON FOR EXAM: ams FINDINGS: Compared to previous examination of 04/18/2020 the lower left chest and is partially opacified which likely is due to consolidated/atelectatic lung and possibly pleural fluid. There also appears to be fluid within the minor fissure on the right. Chest is otherwise unchanged. XR/XR chest 1V portable [id number] IMPRESSION: Interval development of left lower chest opacification as above EKG Data^: EKG 1: Attestation: I personally reviewed and interpreted this EKG as follows: EKG interpretation date: 08/01/20 EKG interpretation time: 12:21 Interpretation: paced hr [address] or t wave abnormalities qrs 203 qtc 508 Discharge Plan Discharge Prescriptions: No Action thyroid (pork) [[place] Thyroid] 90 mg Tablet 90 mg PO QAM RF: 0 rosuvastatin 10 mg tablet 10 mg PO BEDTIME RF: 0 ipratropium-albuterol 0.5 mg-3 mg(2.5 mg base)/3 mL Solution For Nebulization 3 ml inhalation Q6H PRN (Reason: Shortness Of Breath) 30 Days RF: 0 aspirin 81 mg Tablet,Delayed Release (Dr/Ec) 81 mg PO DAILY 30 Days RF: 0 nitroglycerin 0.4 mg Tablet, Sublingual 0.4 mg sublingual Q5M PRN (Reason: chest pain) 30 Days RF: 0 metoprolol succinate 25 mg Tablet Extended Release 24 Hr 25 mg PO DAILY 30 Days RF: 0 Lanolin (HPA) 100 % Cream 1 applic topical PRN PRN (Reason: Dryness) 30 Days RF: 0 acetazolamide 250 mg Tablet 250 mg PO BID 30 Days Qty: 60 RF: 0 pantoprazole 40 mg Tablet,Delayed Release (Dr/Ec) 40 mg PO BID 30 Days Qty: 60 RF: 0 furosemide 20 mg Tablet 20 mg PO BID@08,16 30 Days RF: 0 Tubersol 5 tub. unit /0.1 mL Solution See Rx Instructions .ROUTE .COMPLEX RF: 0 I-Gunnar 1,000 unit-200 mg-60 unit-2 mg Tablet 1 tab PO DAILY RF: 0 Coding Level of Care Code ED [employer] Firer for Chg Fwd Exam Comprehensive
[2020-08-01] MEDS: sodium chloride 0.9% 1,000 ML 999 ML IV ×2 (13:15→16:09)
[2020-08-01 13:22] LABS: Basophils # 0.1 10^3/uL (0.0-0.1); Basophils % 0.9 %; Eosinophils # 0.1 10^3/uL (0.0-0.8); Eosinophils % 2.3 %; Hematocrit 33.8 % (37.0-47.0); Hemoglobin 10.2 g/dL (11.5-15.3); Lymphocytes # 0.6 10^3/uL (0.8-4.8); Lymphocytes % 9.9 %; Mean Corpuscular HGB Conc 30.2 g/dL (30.0-36.0); Mean Corpuscular Hemoglobin 33.7 pg (28.0-34.0); Mean Corpuscular Volume 111.6 fL (81-99); Mean Platelet Volume 10.4 fL (7.4-10.4); Monocytes # 0.6 10^3/uL (0.2-0.9); Monocytes % 10.4 %; Neutrophils # 4.24 10^3/uL (1.8-7.7); Neutrophils % 76.1 %; Nucleated Red Blood Cells % 0 %; Platelet Count 259 10^3/cmm (130-400); Red Blood Count 3.03 10^6/uL (4.1-5.3); Red Cell Distribution Width 16.8 % (12.1-15.1); White Blood Count 5.6 10^3/uL (4.0-10.0)
[2020-08-01 13:52] LABS: Alanine Aminotransferase 17 U/L (0-33); Albumin Level 2.8 g/dL (3.5-5.2); Alkaline Phosphatase 244 IU/L (35-105); Anion Gap 14.2 (5-19); Aspartate Amino Transferase 27 U/L (0-32); Blood Urea Nitrogen 78 mg/dL (8-23); Carbon Dioxide 28 mmol/L (22-29); Chloride 99 mmol/L (98-107); Globulin 4.3 g/dL (1.3-4.6); Glucose 174 mg/dL (65-115); Osmolality Calculated 312 mOsm/kg (285-295); Potassium 4.2 mmol/L (3.5-5.1); Sodium 137 mmol/L (136-145); Total Bilirubin 0.9 mg/dL (0.15-1.2); Total Protein 7.1 g/dL (6.6-8.7)
[2020-08-01 14:12] LABS: Blood Urine Trace (Negative); Glucose Urine UA Norm (Normal); Ketones Urine Negative (Negative); Protein Urine Trace (Negative); Specific Gravity, Urine 1.015 (1.005-1.030); Urine Appearance Cloudy (CLEAR); Urine Color Yellow (Yellow); pH Urine 5 (5-7)
[2020-08-01 14:13] LABS: Add Urine Microscopic? YES; Bilirubin Urine 1+ (Negative); Leukocyte Esterase Urine 2+ (Negative); Nitrate Urine Negative (Negative); Urobilinogen Urine 4 mg/dL (Negative)
[2020-08-01 14:24] LABS: ABG PCO2 47.3 mmHg (35-45); ABG PH Result 7.34 (7.35-7.45); Arterial Blood Gas Hematocrit 30.4 % (37-47); Base Excess ABG -0.9 mmol/L (-2.0-2.0); Blood Gas Sample Type Arterial; HCO3 ABG 25.2 mmol/L (22-26)
[2020-08-01 14:26] LABS: Blood Gas Operator Identificat ED; Blood Gas Sample Site Brachial, left; Oxygen Device NC
[2020-08-01 14:26] LABS: Bacteria Urine 4+ /hpf; Squamous Epithelial Cell Urine 15-25 /hpf (0-5); WBC Urine >100 /hpf (0-5)
[2020-08-01 14:28] LABS: Add Urine Culture? No
[2020-08-01] MEDS: aztreonam 2,000 MG in sodium chloride 0.9% (plus) 100 ML 200 MG IV (14:53)
[2020-08-01 15:39] LABS: SARS Covid-2 Antigen Negative (Negative)
[2020-08-01] MEDS: vancomycin 1,000 MG in sodium chloride 0.9% 250 ML 250 MG IV (16:05)
--- NOTE | 2020-08-01 16:59 | P.HP_ITS ---
Providers/Chief Complaint Primary Care Provider: James Sy MD Chief Complaint: AMS History of Present Illness Pleasant 80-year-old lady with congestive heart failure, severe MR not candidate to surgical treatment, severe TR, atrial fibrillation intolerant of anticoagulation, chronic kidney disease with recent acute kidney injury, recurrent ascites, liver cirrhosis, recurrent hypotension, diabetes and a number of other comorbidities who was discharged from the hospital yesterday after admission 07/18-07/31 for treatment of CHF exacerbation, ascites, in the setting of low blood pressure, acute kidney injury on chronic kidney disease, returned to ER from the hospital due to noted altered mental status at the senior care. Oriented only to self. In ER with noted left lower lobe pneumonia and UTI. She herself is confused, when asked where she is states she is in a hotel, although does correct herself realizing that this is probably incorrect. Does agree that she is in the hospital. Is not able to state the year. Does remember that she was recently in the hospital, but when asked why she was there states that perh aps was something to do with her urine. Her niece Suze is here with her who is her power of civil litigation attorney of healthcare. States that earlier patient mentioned some discomfort along the outside of her lateral right foot/heel. Apart from that patient has not had other complaints. Patient self states does not have any pain or discomfort. He has not having any appetite. Denies chest pain or pressure. Denies abdominal pain. Additional review of systems as below. Review of Systems Const: Reports: change in appetite; Denies: fever(s), chills, body aches or malaise Eyes: Denies: change in vision or eye redness ENMT: Denies: throat pain, oral sores or ear or mastoid pain Card: Denies: chest pain, edema, pre-syncope or dyspnea on exertion Resp: Denies: dyspnea, productive cough, change in phlegm color or hemoptysis GI: Denies: abdominal pain, nausea, vomiting, diarrhea, constipation, he matochezia or melena : Denies: flank pain, urinary frequency or hematuria Musc: Denies: back pain, joint swelling or joint redness Skin/Breast: Reports: rash (Discomfort along the outside border of the lateral right foot and heel.) and dry skin; Denies: sores or new lesions Neuro: Reports: confusion; Denies: headache(s), numbness in extremities, weakness in extremities, dizziness or seizure-like activity Endo: Denies: polyuria or polydipsia Mello/Lymph: Denies: easy bleeding or purpura All/Imm: Denies: urticaria, throat swelling or tongue swelling Medications/Allergies Home Medications Medication Instructions Recorded Confirmed Last Taken Type thyroid (pork) [[place] Thyroid] 90 mg PO QAM 04/06/20 08/01/20 08/01/20 History rosuvastatin 10 mg PO BEDTIME 07/22/20 08/01/20 Unknown History aspirin 81 mg PO DAILY 30 Days tab 07/30/20 08/01/20 08/01/20 Rx ipratropium-albuterol 3 ml INHALATION Q6H PRN 30 Days ml 07/30/20 08/01/20 Unknown Rx metoprolol succinate 25 mg PO DAILY 30 Days tab 07/30/20 08/01/20 08/01/20 Rx modified lanolin [Lanolin (HPA)] 1 applic TOPICAL PRN PRN 30 Days 07/30/20 08/01/20 Unknown Rx gm nitroglycerin 0.4 mg SUBLINGUAL Q5M PRN 30 Days 07/30/20 08/01/20 Unknown Rx tab acetazolamide 250 mg PO BID 30 Days #60 tab 07/31/20 08/01/20 08/01/20 06:40 Rx furosemide 20 mg PO BID@08,16 30 Days tab 07/31/20 08/01/20 08/01/20 06:40 Rx pantoprazole 40 mg PO BID 30 Days #60 tab 07/31/20 08/01/20 08/01/20 Rx tuberculin PPD [Tubersol] See Rx Instructions .ROUTE .COMPLEX 08/01/20 08/01/20 Unknown History vit A,C and F-jmlszu-klzyrhhw 1 tab PO DAILY 08/01/20 08/01/20 08/01/20 History [I-[place]] Allergies Allergy/AdvReac Type Severity Reaction Status Date / Time Penicillins Allergy Intermediate ALGY-Rash Verified 08/01/20 12:37 Sulfa (Sulfonamide Allergy Intermediate ALGY-Rash Verified 08/01/20 12:37 Antibiotics) dexamethasone AdvReac Severe ADR-Chest Verified 08/01/20 12:06 Pain PFSH Acute PFSH: Medical History Aortic stenosis Atrial fibrillation Cardiomyopathy CHF (congestive heart failure) combined systolic and diastolic CHF Diabetes Hollenhorst plaque, both eyes HTN (hypertension) Hyperlipidemia -on statin Hypothyroidism thyroid replacement Mitral regurgitation Pulmonary HTN Surgical History S/P tonsillectomy Status cardiac pacemaker Family History Other Cancer Hypertension Social History Smoking and tobacco status: never smoked Household members: children Housing: Snf Marital status: / Vitals/I&O/Wt Last Vital Signs Temp 98.0 F 08/01/20 11:55 Pulse 74 08/01/20 11:55 Resp 20 H 08/01/20 11:55 BP 96/44 08/01/20 11:55 Pulse Ox 98 08/01/20 11:55 Weight last 48 hrs Weight 56.699 kg Physical Exam Const: COMMON NORMALS: no acute distress; negative for patient oriented x3 GENERAL APPEARANCE: frail appearing ORIENTATION/CONSCIOUSNESS: Yes oriented to person and Yes Other orientation findings (Poor insight into her condition.); not oriented to place and not oriented to time HENMT: COMMON NORMALS: oropharynx normal Neck/C-Spine: COMMON NORMALS: no JVD Resp: COMMON NORMALS: normal respiratory effort and clear to auscultation bilaterally AUSCULTATION: crackles Laterality: left (Minimal faint crackles left lower lobe) Cardio: COMMON NORMALS: no JVD, regular rhythm, S1 normal heart sound present, S2 normal heart sound present and No murmurs present (Cardio) RHYTHM: regular rhythm HEART SOUNDS: S1 normal heart sound present and S2 normal heart sound present GI: COMMON NORMALS: Normal to inspection, nondistended, normoactive bowel sounds present, Soft to palpation and non-tender PALPATION: Yes Soft to palpation OTHER: There is some pitting edema along the left side abdomen/flank Extremity: COMMON NORMALS: no joint enlargement and no pedal edema Neuro: COMMON NORMALS: patient oriented x3 and moves all extremities Skin: RASHES: rashes noted (There is some irregularly-shaped erythema along the outside border of the right foot, lateral right heel. It is perhaps a little bit warmer to touch. Rest of the foot feels warm, appears perfused. Cannot readily palpate pulses on either side. No discoloration of toes.) Data : 08/01/20 13:00 08/01/20 13:00 A&P Assessment and plan (1) Acute encephalopathy: Appears to be more confused than usual. This appears to be acute delirium with encephalopathy due to a number of causes including in for treatment with UTI, pneumonia as most likely causes. Also has had rather prolonged hospitalization just recently, also with recently progressive CHF, valvular heart dysfunction, acute kidney injury versus progression of chronic kidney d isease. She is overall frail. She is currently oriented only to person. She is cooperative, answers questions, but with poor insight into her condition. Her niece is here with her in ER. She is cooperative with treatment in ER, not requiring one-to-one sitter. We will treat underlying conditions as below, provide supportive care. More recently with significant functional decline. Now is being read did after a prolonged hospitalization. Has some severe underlying comorbidities being severe mitral regurg Tatian for which is not he can date for surgical interval in February. Given overall health decline discussed her condition with her knees. She would like to continue revisiting with regard to goals of care as overall her prognosis long-term is poor. Niece is agreeable that patient would want trial of medical intervention for the currently identified conditions with UTI, pneumonia. He is concerned that being overly aggressive, or even trying to modify her diet too much or other cause her not to eat at all, causing still further to find. If there is no observed improvement she would like to revisit goals of care discussion, with preference to lean more toward comfort, pleasure feeds. Consideration of hospice should her condition continue to further decline. Status: Acute (2) UTI (urinary tract infection): Requested urine culture. UTI suggested by UA. Alert to penicillin. Walk-in aztreonam first dose of which she received in ER. UTI appears complicated by acute encephalopathy. Status: Acute (3) Pneumonia: Left lower lobe pneumonia. During my visit patient is laying on her left side. She also has some dependent appearing edema on the left side abdomen/left flank. Her niece is not sure whether she has preference to laying on the left side. Left lower lobe pneumonia me with acute mental status is with her niece would be concerning for possible episode of aspiration. Her niece is agreeable with speech therapy assessment. She is agreeable for trial of dysphagia diet in addition to aspiration precautions but is concerned that the may make her on cannot want to eat anything at all. She has reportedly already had difficulty maintaining low-sodium diet. Would like a brief trial, and if not tolerated dysphagia diet to transition more to liberalized diet even if this may be more harmful to try to maintain more focus on comfort. We will attempt to collect sputum culture. We will try urine bacterial antigen. Rapid COVID-19 test in ER is negative. Given she has just been recently discharged at this time will continue aztreonam and vancomycin. Also Flagyl due to concern of possible aspiration. Status: Acute (4) CHF (congestive heart failure): Chronic systolic and diastolic congestive heart failure. Recently discharged. Continue Lasix, acetazolamide. Hold off metoprolol due to soft blood pressure. Monitor on telemetry due to some ectopic beats previously. If having quite a bit of ectopy may need to resume metoprolol. Status: Acute (5) Mitral regurgitation: Concomitant severe MR. Not a candidate for surgical repair. For now metoprolol on hold given soft blood pressure. Monitor. Continue diur etics. Monitor I&O. Cardiac diet. Oxygen support as needed. Status: Acute Qualifiers: Cardiac valve disease etiology: nonrheumatic Qualified Code(s): I34.0 - Nonrheumatic mitral (valve) insufficiency (6) Acute kidney injury superimposed on chronic kidney disease: Creatinine 1.9 appears to be close to where it has been recently. Monitor renal function. Occasions as possible. Status: Acute (7) Cardiac cirrhosis: Recurrent ascites. Recently had 7 L removed. No growth on culture. 56 neutrophils. Monitor for worsening ascites. May need intermittent paracentesis. Previously recommendation to avoid large volume paracentesis. Status: Acute (8) Low blood pressure: Persistently low blood pressure noted. 96/44 currently. Status: Acute (9) Atrial fibrillation: Paroxysmal A. fib noted. Resume metoprolol if blood pressure stable. Has not been deemed safe candidate for anticoagulation. Status: Acute Qualifiers: Atrial fibrillation type: paroxysmal Qualified Code(s): I48.0 - Paroxysmal atrial fibrillation (10) Cellulitis: Lateral aspect of the right foot, right heel. Irregularly shaped erythema. Slightly warm to touch. Foot is otherwise perfused, no cyanosis or blue discoloration of foot or toes. No ulceration or drainage. Continue vancomycin, aztreonam for cellulitis. Status: Acute Additional A&P Information Heparin prophylactic dose ordered for DVT prophylaxis, but watch hemoglobin given history of GI bleed. Number of additional comorbidities noted including Pulmonary HTN Status post pacemaker DM2 CAD Hypothyroidism Chronic microcytic anemia with history of GI bleed among others. Attestations Medical Necessity Statement*: Admission of over 2 midnights is admitted for assessment management of urinary tract infection complicated by acute encephalopathy, pneumonia in the setting of recently progressive congestive heart failure, severe mitral regurgitation, recently progressive chronic kidney disease, and a number of additional comorbidities. Coding Level of Care Code Acute [employer] for [facility] Fwd Diagnoses Acute encephalopathy G93.40 UTI (urinary tract infection) N39.0 Pneumonia J18.9 CHF (congestive heart failure) I50.9 Mitral regurgitation I34.0 Cardiac valve disease etiology: nonrheumatic Acute kidney injury superimposed on chronic kidney disease N17.9; N18.9 Cardiac cirrhosis K76.1 Low blood pressure I95.9 Atrial fibrillation I48.0 Atrial fibrillation type: paroxysmal Cellulitis L03.90
[2020-08-01] MEDS: metroNIDAZOLE IV 500 MG/100 ML PREMIX 100 MG IV (19:18)
[2020-08-01] MEDS: acetaZOLAMIDE 250 mg Tablet PO (19:18)
[2020-08-01] MEDS: heparin 5,000 unit/mL INJ 1 mL 5000 UNIT SUBCUT (19:18)
[2020-08-01] MEDS: pantoprazole DR 40 mg Tablet PO (19:18)
[2020-08-01 20:16] LABS: Lactic Sepsis W/Reflex 1.2 mmol/L (0.5-2.2)
[2020-08-01] MEDS: atorvastatin 40 mg Tablet PO (20:56)
[2020-08-01] MEDS: ipratropium-albuterol 3 mL Neb INHALATION (21:06)
--- NOTE | 2020-08-01 21:27 | PC.NURSE ---
Patient appeared to be lathargic when this nurse entered the room. Upon switching the Continous pulse ox from her finger to her head due to bad waveform. The patients sats dropped to the 7X's. The patient was then switched to OXYMASK, boosted in bed, RT arrived to admin breathing treatment, and now her O2 is being titrated to keep sats above 93%. Will continue to monitor.
--- NOTE | 2020-08-01 21:47 | PC.NURSE ---
Patient is back on NC 1L. When the patient was asked if she felt better she stated yes , and when told that this nurse was going to check on her in a little bit the patient nodded her head in understanding. Patient appears to be more alert than what she was before.
[2020-08-02] VITALS (14 sets, daily range): BP systolic 92–118; BP diastolic 48–76; PULSE 74–86; RESP 8–25; TEMP 36.4–36.9; O2SAT 88–100
[2020-08-02 00:08] LABS: ABG PCO2 51.1 mmHg (35-45); Arterial Blood Gas Hematocrit 33.3 % (37-47); Base Excess ABG -1.6 mmol/L (-2.0-2.0); Blood Gas Sample Site Brachial, right; Blood Gas Sample Type Arterial; Carboxyhemoglobin 1.2 %THgb (0.4-20.1); HCO3 ABG 25.2 mmol/L (22-26); HGB O2 Sat 98.6 % (95-100); Ionized Calcium Level - ABG 1.2 mmol/L (1.1-1.4); Methemoglobin 0.7 % (0.4-1.5); Oxygen Device OXY MASK; Oxygen Saturation ABG > 100.0; Total Hemoglobin 10.9 g/dL (12-16)
--- NOTE | 2020-08-02 01:07 | PC.NURSE ---
At 0100 patient was placed on BiPAP. Patient appears to be responding well towards the treatment. Will continue to monitor.
[2020-08-02] MEDS: SODIUM CHLORIDE 0.9% IV ×2 (02:16→18:17)
[2020-08-02] MEDS: AZTREONAM IV ×2 (02:16→18:17)
[2020-08-02] MEDS: metroNIDAZOLE IV 500 MG/100 ML PREMIX 100 MG IV ×3 (03:11→19:00)
[2020-08-02] MEDS: heparin 5,000 unit/mL INJ 1 mL 5000 UNIT SUBCUT ×3 (03:11→18:13)
[2020-08-02] MEDS: ipratropium-albuterol 3 mL Neb INHALATION ×2 (04:18→20:21)
[2020-08-02 05:53] LABS: Basophils # 0.1 10^3/uL (0.0-0.1); Eosinophils # 0.1 10^3/uL (0.0-0.8); Eosinophils % 2.1 %; Hematocrit 33.1 % (37.0-47.0); Lymphocytes # 0.6 10^3/uL (0.8-4.8); Lymphocytes % 11.1 %; Mean Corpuscular HGB Conc 30.2 g/dL (30.0-36.0); Mean Corpuscular Hemoglobin 33.7 pg (28.0-34.0); Mean Corpuscular Volume 111.4 fL (81-99); Mean Platelet Volume 10.5 fL (7.4-10.4); Monocytes # 0.8 10^3/uL (0.2-0.9); Monocytes % 13.9 %; Neutrophils # 4.12 10^3/uL (1.8-7.7); Neutrophils % 71.6 %; Nucleated Red Blood Cells % 0 %; Platelet Count 216 10^3/cmm (130-400); Red Blood Count 2.97 10^6/uL (4.1-5.3); Red Cell Distribution Width 16.8 % (12.1-15.1); White Blood Count 5.8 10^3/uL (4.0-10.0)
[2020-08-02 06:02] LABS: Alanine Aminotransferase 16 U/L (0-33); Albumin Level 2.9 g/dL (3.5-5.2); Alkaline Phosphatase 235 IU/L (35-105); Anion Gap 17.3 (5-19); Aspartate Amino Transferase 23 U/L (0-32); Blood Urea Nitrogen 75 mg/dL (8-23); Calcium 8.8 mg/dL (8.5-10.5); Carbon Dioxide 25 mmol/L (22-29); Chloride 101 mmol/L (98-107); Globulin 3.4 g/dL (1.3-4.6); Glucose 102 mg/dL (65-115); Osmolality Calculated 310 mOsm/kg (285-295); Potassium 4.3 mmol/L (3.5-5.1); Sodium 139 mmol/L (136-145); Total Bilirubin 0.9 mg/dL (0.15-1.2); Total Protein 6.3 g/dL (6.6-8.7)
--- NOTE | 2020-08-02 06:06 | NUR.SHIFT ---
Patient is back on NC 3L. She appears to be a little more active than what she was when this nurse witnessed her during shift change.
[2020-08-02] MEDS: thyroid 60 mg Tablet 90 MG PO (06:12)
--- NOTE | 2020-08-02 07:50 | PC.NURSE ---
I reported the low 02 level to the nurse 88%
[2020-08-02] MEDS: aspirin 81 mg EC Tablet PO (08:05)
[2020-08-02] MEDS: acetaZOLAMIDE 250 mg Tablet PO (08:05)
[2020-08-02] MEDS: pantoprazole DR 40 mg Tablet PO ×2 (08:06→18:12)
[2020-08-02] MEDS: FUROsemide 20 mg Tablet PO ×4 (08:06→18:34)
--- NOTE | 2020-08-02 09:56 | US_ITS ---
WS: [id number] INDICATION: Ultrasound soft tissue. Right wrist swelling. TECHNIQUE: Ultrasound soft tissue right lateral wrist in the area of concern. FINDINGS: In the area of concern, in the right lateral wrist, there is thrombus visualized in the cep halic vein at the area of concern. US/US soft tissue/extremity [id number] IMPRESSION: Superficial cephalic vein thrombus in the area of concern along the right lateral wrist
--- NOTE | 2020-08-02 10:00 | P.PN_ITS ---
Subjective Subjective: Interval history: This morning she is somewhat anxious. States she is not feeling very well, but cannot identify exactly why. Denies chest pain or pressure. Does not have trouble breathing. Denies abdominal pain. Knows she is in the hospital. Does not remember the year. Vitals/I&O/Wt Last Vital Signs Temp 97.7 F 08/02/20 07:50 Pulse 83 08/02/20 07:50 Resp 16 08/02/20 07:50 BP 92/55 08/02/20 07:50 Pulse Ox 88 L 08/02/20 07:50 08/01/20 08/02/20 08/02/20 22:59 06:59 14:59 Intake Total 100 / 100 120 / 120 Output Total 0 / 0 0 / 0 Balance 100 / 100 0 / 100 120 / 120 Weight last 48 hrs Weight 66.315 kg Weight 56.699 kg Physical Exam Const: COMMON NORMALS: no acute distress and patient oriented x3 GENERAL APPEARANCE: frail appearing ORIENTATION/CONSCIOUSNESS: Yes oriented to person and Yes Other orientation findings (Poor insight into her condition.); not oriented to place and not oriented to time HENMT: COMMON NORMALS: oropharynx normal Neck/C-Spine: COMMON NORMALS: no JVD Resp: COMMON NORMALS: normal respiratory effort and clear to auscultation bilaterally AUSCULTATION: clear to auscultation bilaterally and crackles Late rality: left (Minimal faint crackles left lower lobe) Cardio: COMMON NORMALS: no JVD, regular rhythm, S1 normal heart sound present, S2 normal heart sound present and No murmurs present (Cardio) RHYTHM: regular rhythm HEART SOUNDS: S1 normal heart sound present and S2 normal heart sound present GI: COMMON NORMALS: Normal to inspection, nondistended, normoactive bowel sounds present, Soft to palpation and non-tender PALPATION: Yes Soft to palpation OTHER: There is some pitting edema along the left side abdomen/flank Extremity: COMMON NORMALS: no joint enlargement and no pedal edema Neuro: COMMON NORMALS: patient oriented x3 and moves all extremities SENSORIUM/ORIENTATION: Yes oriented to person, No oriented to place and No oriented to time Skin: RASHES: rashes noted (There is some irregularly-shaped erythema along the outside border of the right foot, lateral right heel. It is perhaps a little bit warmer to touch. Rest of the foot feels warm, appears perfused. Cannot readily palpate pulses on either side. No discoloration of toes.) Data : 08/02/20 04:52 08/02/20 04:52 Micro: Microbiology 08/01/20 19:36 Blood Culture - Preliminary Blood SPECIMEN COLLECTED 08/01/20 19:39 Blood Culture - Preliminary Blood SPECIMEN COLLECTED A&P Assessment and plan (1) Acute encephalopathy: This morning she still confused, somewhat anxious. Cannot identify any pain or discomfort. Oriented to being in the hospital. Does not remember the year. She does follow commands, and appears to be showing symmetrical power bilaterally. Appears to have perhaps some asterixis?, Will check ammonia level. Denies abdominal pain or discomfort. Says no appetite. We will try to get paracentesis, although blood pressure may be a barrier. Definitely will not be large volume if blood pressure allows. We will give an albumin infusion. Acute delirium with encephalopathy due to a number of causes including in for treatment with UTI, pneumonia as most likely causes. Also has had rather prolonged hospitalization just recently, also with recently progressive CHF, valvular heart dysfunction, acute kidney injury versus progression of chronic kidney disease. She is cooperative with treatment in ER, not requiring one-to-one sitter. We will treat underlying conditions as below, provide supportive care. More recently with significant functional decline. Now is being readmitted after a prolonged hospitalization. Has some severe underlying comorbidities being severe mitral regurgitation for which is not he can date for surgical candidate. Given overall health decline discussed her condition with her knees. Niece would like to continue revisiting with regard to goals of care as overall her prognosis long-term is poor. She is agreeable that patient would want trial of medical intervention for the currently identified conditions with UTI, pneumonia. Is concerned that being overly aggressive, or even trying to modify her diet too much or other cause her not to eat at all, causing still further to find. If there is no observed improvement she would like to revisit goals of care discussion, with preference to lean more toward comfort, pleasure feeds. Consideration of hospice should her condition continue to further decline. Status: Acute (2) UTI (urinary tract infection): Urine culture. UTI suggested by UA. Alergic to penicillin. Aztreonam. UTI appears complicated by acute encephalopathy. Status: Acute (3) Pneumonia: Left lower lobe pneumonia. Trial of dysphagia diet. Speech therapy assessment. Continue aztreonam, vanco, Flagyl. Her niece is agreeable with speech therapy assessment. She is agreeable for trial of dysphagia diet in addition to aspiration precautions but is concerned that the may make her on cannot want to eat anything at all. She has reportedly already had difficulty maintaining low-sodium diet. Would like a brief trial, and if not tolerated dysphagia diet to transition more to liberalized diet even if this may be more harmful to try to maintain more focus on comfort. We will attempt to collect sputum culture. Urine bacterial antigen. Rapid COVID-19 test in ER is negative. Status: Acute (4) CHF (congestive heart failure): Chronic systolic and diastolic congestive heart failure. Recently discharged. Continue Lasix, switch acetazolamide to aldosterone. Hold off metoprolol due to soft blood pressure. Monitor on telemetry due to some ectopic beats previously. If having quite a bit of ectopy may need to resume metoprolol. Status: Acute (5) Mitral regurgitation: Concomitant severe MR. Not a candidate for surgical repair. For now metoprolol on hold given soft blood pressure. Monitor. Continue diuretics. Monitor I&O. Cardiac diet. Oxygen support as needed. Status: Acute Qualifiers: Cardiac valve disease etiology: nonrheumatic Qualified Code(s): I34.0 - Nonrheumatic mitral (valve) insufficiency (6) Acute kidney injury superimposed on chronic kidney disease: Creatinine 2.1 appears to be close to where it has been recently. Monitor renal function. Avoid injurious agents as possible. Status: Acute (7) Cardiac cirrhosis: Recurrent ascites. Recently had 7 L removed. No growth on culture. 56 neutrophils. Check ammonia. Albumin dose. If BP allows attempt removal of smaller volume. Monitor for worsening ascites. May need intermittent paracentesis. Previously recommendation to avoid large volume paracentesis. Status: Acute (8) Low blood pressure: Persistently low blood pressure noted. 96/44 currently. Hold metoprolol. Status: Acute (9) Atrial fibrillation: Paroxysmal A. fib noted. Resume metoprolol if blood pressure stable. Has not been deemed safe candidate for anticoagulation. Status: Acute Qualifiers: Atrial fibrillation type: paroxysmal Qualified Code(s): I48.0 - Paroxysmal atrial fibrillation (10) Cellulitis: No worsening today. Lateral aspect of the right foot, right heel. Irregularly shaped erythema. Slightly warm to touch. Foot is otherwise perfused, no cyanosis or blue discoloration of foot or toes. No ulceration or drainage. Continue vancomycin, aztreonam for cellulitis. Status: Acute Additional A&P Information R wrist swelling: After IV during last hospitalization noted swelling in the distal right forearm. No pain on passive range of motion of the joint. Will image with soft tissue ultrasound, exclude any fluid collection. Heparin prophylactic dose ordered for DVT prophylaxis, but watch hemoglobin given history of GI bleed. Number of additional comorbidities noted including Pulmonary HTN Status post pacemaker DM2 CAD Hypothyroidism Chronic microcytic anemia with history of GI bleed among others. Attestations Medical Necessity Statement*: Continue admission for assessment management of acute encephalopathy, complicated UTI, cellulitis, pneumonia in the setting of severe mitral regurgitation, insetting of acute kidney injury on chronic kidney disease, CAD, CHF, and a number of additional comorbidities. Coding Level of Care Code Acute [employer] for [facility] Fwd Exam Comprehensive Diagnoses Acute encephalopathy G93.40 UTI (urinary tract infection) N39.0 Pneumonia J18.9 CHF (congestive heart failure) I50.9 Mitral regurgitation I34.0 Cardiac valve disease etiology: nonrheumatic Acute kidney injury superimposed on chronic kidney disease N17.9; N18.9 Cardiac cirrhosis K76.1 Low blood pressure I95.9 Atrial fibrillation I48.0 Atrial fibrillation type: paroxysmal Cellulitis L03.90
--- NOTE | 2020-08-02 10:12 | DCPLANNER ---
maintenance manager was asked to speak with patient and family about DPOA paperwork. maintenance manager spoke with patient and family member that was in room. Filled out the DPOA paperwork and had it notorized. Had copy put into chart, and gave patient and family member a copy of the paperwork.
--- NOTE | 2020-08-02 10:41 | PC.CHAP ---
Pastoral Care Encounter/Spiritual Assessment Type of Contact [] Declined securities and real estate director visit [] Patient/Family/Request visit [] Outpatient visit [X] Follow-up visit [] Physician referral [] Code/Alert [] Routine visit [] Staff referral [] Actively dying [] Patient sleeping [] Family support [] [] Out of room [] Palliative care [] [] Receiving care in room [] Pre-surgical visit [] Trauma [] Long length of stay [] ICU visit [] Other: Relational/Emotional Strength [] Patient feels connected with others/family/visitors/staff [] Distress [] Loneliness/isolation [] Abandonment Spirituality of Patient [] Person of Cathryn [] Attends Alevism of their Cathryn [] Believes in Prayer [] Reads Bible or Shinto materials [] There are Spiritual issues to be addressed Announcer Interventions [] Prayer [] Active listening [] Non-anxious presence [] Spiritual/emotional support [] Crisis/trauma care [] Spiritual counseling [] Bereavement support [] Provided bereavement packet [] Provided Bible/devotional materials [] Provided toy/stuffed animal, coloring book to patient or family member [] Provided Communion [] Anointing/Jeremiah [] Salvation [] Completed spiritual assessment [] Other: Impact on Illness or Injury [] Angry [] Fearful [] Anxious [] Often cries [] Exhaustion [] Unable to work [] Unable to attend judaism [] Unable to walk/stand [] Unable to read [] Unable to drive [] Unable to eat/drink [] Unable to sleep [] Unable to be with family [] Patient intubated [] Other: Summary Follow-up visit Time spent with patient 5 mins
[2020-08-02 11:35] LABS: Ammonia 27 umol/L (11-51)
--- NOTE | 2020-08-02 12:43 | US_ITS ---
WS: [id number] ULTRASOUND-GUIDED PARACENTESIS CLINICAL INFORMATION: Ascites. 500-1000 mL COMPARISON: None. Procedure Informed consent: The risks, benefits, and alternatives of the procedure were discussed with the porter ent. Verbal and written consent was obtained. Timeout: A timeout was performed to confirm the correct patient, procedure, and site. Preparation: A suitable skin site was identified. The patient was prepped and draped in usual sterile fashion. Lidocaine 1% was used for local anesthesia. Catheter: 4 [place] One-step Yueh catheter. Side: Right Lower quadrant. Fluid Volume: 550 ml Color: Bloody serous fluid DISPOSITION: 50 cc sent for requested diagnostic tests. Remainder discarded safely. Complications: None. Patient disposition: Discharged from the department in stable condition. US/US paracentesis abd w [id number] IMPRESSION: Uncomplicated ultrasound-guided paracentesis. Removal of 550 cc bloody serous fluid
[2020-08-02] MEDS: acetaminophen 325 mg Tablet 650 MG PO (13:37)
--- NOTE | 2020-08-02 14:30 | PC.NURSE ---
Obtain U/A via straight catheter. 14Fr, aseptic technique used. Urine yellow and not foul smelling. Pt tolerated well.
[2020-08-02 16:27] LABS: Mononuclear #, Pertinoneal Fl 0.147 10^3/uL; Polynuclear # Cells, Perit 0.112 10^3/uL
[2020-08-02 16:33] LABS: Appearance, Peritoneal Fluid Hazy (Clear); Color, Peritoneal Fluid Red (Pale Yellow)
[2020-08-02 16:40] LABS: RBC Pertioneal Fluid 28 10^3/uL; WBC Peritoneal Fluid 259 /uL
[2020-08-02] MEDS: spironolactone 25 mg Tablet PO (18:12)
[2020-08-03] VITALS (7 sets, daily range): BP systolic 101–109; BP diastolic 65–69; PULSE 76–93; RESP 16–20; TEMP 36.6; O2SAT 96–100
[2020-08-03] MEDS: AZTREONAM IV (02:06)
[2020-08-03] MEDS: SODIUM CHLORIDE 0.9% IV (02:06)
[2020-08-03] MEDS: metroNIDAZOLE IV 500 MG/100 ML PREMIX 100 MG IV (03:12)
[2020-08-03] MEDS: heparin 5,000 unit/mL INJ 1 mL 5000 UNIT SUBCUT (03:12)
[2020-08-03 05:28] LABS: Basophils # 0.1 10^3/uL (0.0-0.1); Basophils % 1.3 %; Eosinophils # 0.1 10^3/uL (0.0-0.8); Eosinophils % 2.4 %; Hematocrit 32.5 % (37.0-47.0); Hemoglobin 9.6 g/dL (11.5-15.3); Lymphocytes # 0.6 10^3/uL (0.8-4.8); Lymphocytes % 10.9 %; Mean Corpuscular HGB Conc 29.5 g/dL (30.0-36.0); Mean Corpuscular Hemoglobin 33.2 pg (28.0-34.0); Mean Corpuscular Volume 112.5 fL (81-99); Monocytes # 0.7 10^3/uL (0.2-0.9); Monocytes % 13.4 %; Neutrophils % 71.6 %; Nucleated Red Blood Cells % 0 %; Platelet Count 251 10^3/cmm (130-400); Red Blood Count 2.89 10^6/uL (4.1-5.3); Red Cell Distribution Width 16.9 % (12.1-15.1); White Blood Count 5.3 10^3/uL (4.0-10.0)
[2020-08-03 05:46] LABS: Alanine Aminotransferase 12 U/L (0-33); Alkaline Phosphatase 211 IU/L (35-105); Anion Gap 16.1 (5-19); Aspartate Amino Transferase 20 U/L (0-32); Blood Urea Nitrogen 79 mg/dL (8-23); Calcium 8.8 mg/dL (8.5-10.5); Carbon Dioxide 26 mmol/L (22-29); Chloride 104 mmol/L (98-107); Globulin 3.6 g/dL (1.3-4.6); Glucose 128 mg/dL (65-115); Osmolality Calculated 319 mOsm/kg (285-295); Potassium 4.1 mmol/L (3.5-5.1); Sodium 142 mmol/L (136-145); Total Bilirubin 0.9 mg/dL (0.15-1.2); Total Protein 6.6 g/dL (6.6-8.7)
[2020-08-03] MEDS: ipratropium-albuterol 3 mL Neb INHALATION (08:08)
[2020-08-03] MEDS: spironolactone 25 mg Tablet PO (10:36)
[2020-08-03] MEDS: thyroid 60 mg Tablet 90 MG PO (10:36)
[2020-08-03] MEDS: aspirin 81 mg EC Tablet PO (10:36)
[2020-08-03] MEDS: FUROsemide 20 mg Tablet PO (10:37)
[2020-08-03] MEDS: pantoprazole DR 40 mg Tablet PO (10:37)
[2020-08-03] MEDS: acetaminophen 325 mg Tablet 650 MG PO (10:37)
--- NOTE | 2020-08-03 10:45 | P.DS_ITS ---
Discharge Providers Date of Admission: 08/01/20 15:49 Date of Discharge: August 03, 2020 Attending Provider at Admission: Soto Cruz Attending Provider at Discharge: Soto Cruz Primary Care Provider: James Sy MD Diagnoses at Discharge Discharge Diagnosis (1) Acute encephalopathy: Status: Acute (2) UTI (urinary tract infection): Status: Acute (3) Pneumonia: Status: Acute (4) CHF (congestive heart failure): Status: Acute (5) Mitral regurgitation: Status: Acute Qualifiers: Cardiac valve disease etiology: nonrheumatic Qualified Code(s): I34.0 - Nonrheumatic mitral (valve) insufficiency (6) Acute kidney injury superimposed on chronic kidney disease: Status: Acute (7) Cardiac cirrhosis: Status: Acute (8) Low blood pressure: Status: Acute (9) Atrial fibrillation: Status: Acute Qualifiers: Atrial fibrillation type: paroxysmal Qualified Code(s): I48.0 - Paroxysmal atrial fibrillation (10) Cellulitis: Status: Acute Reason for Visit Reason for Visit: [facility] Hospital Course Discharge Summary: Very pleasant 80-year-old lady with significant comorbidities including systolic congestive heart failure, severe mitral regurgitation not deemed candidate for surgical repair, pulmonary hypertension, severe TR, atrial fibrillation intolerant of anticoagulation, chronic kidney disease with recent acute kidney injury, recurrent ascites, liver cirrhosis, recurrent hypotension, diabetes and a number of other comorbidities was readmitted to the hospital after noted to have altered mental status shortly after discharge to [facility], please see previous admission for details, on reassessment noted to have acute encephalopathy with noted urinary tract infection as well as left lower lobe pneumonia with concern for aspiration. On presentation oriented only to self, very sluggish, not able to provide any hi story. Initiated on treatment for urinary tract infection. Urine culture so far not growing anything, blood culture from 07/18 growing E. coli resistant only to ampicillin. In the hospital treated with aztreonam, Flagyl for additional coverage with possible aspiration, as well as vancomycin. Vancomycin also for noted cellulitis of lateral right foot which is improving. Also noted distal right forearm area of swelling and erythema at the site of prior IV, which is found to have VTE on ultrasound assessment. She also has atrial fibrillation, but even for that has not been on anticoagulation as per report from prior admission due to previous GI bleed, chronic microcytic anemia. Noted with some abdominal distention, was assessed during this hospitalization for additional paracentesis, and additional 550 mL fluid were removed, with noted bloody admixture. During prior admission no evidence for SBP noted. Mycobacterial culture at that time was sent out and is pending. Will need to be followed up. Due to blood admixture cytology has been requested as well during this admission, and will need to be followed up. Fluid again not suggestive of SBP. Ascites thought to be due to chronic congestive heart failure, cirrhosis, other cardiac complications including severe TR, as well as poor nutrition. She was assessed here by speech therapy due to concern for aspiration, however, with improvement in mental status actually did well with level 2 dysphagia diet and thin liquids. Please continue speech therapy follow-up. Continue strict aspiration precautions. Consider adding protein supplementation with meals. Encourage oral nutrition. Her chronic kidney disease remained about stable. Please follow-up renal function. Please consider referral to nephrology. Please continue to monitor blood pressures, heart rates. If blood pressure is too soft, hold metoprolol. Please arrange follow-up with cardiology as planned during last admission. Please continue follow-up of other chronic conditions including diabetes, hypothyroidism, chronic anemia. Her condition, associated medical problems including ones treated urinary hospitalization were discussed in detail with her power of document review attorney Suze Corona who is in agreement with assessment and plan going forward. Please continue discussions with regards to her condition as well as goals of care. Unfortunately overall prognosis of this very nice lady is poor, with very high risk of readmission, very high risk of recurrence of additional complications, and high risk of mortality with a number of advanced comorbidities. Her niece who is her power of document review attorney is aware of this after detailed discussions we have had in the hospital, and should there be further decline in Ms. Art's health, consideration of hospice care or comfort care would be appropriate. Physical Exam Const: COMMON NORMALS: no acute distress and alert ORIENTATION/CONSCIOUSNESS: Yes awake, Yes oriented to person and Yes oriented to place; not confused OTHER: She is sitting up in chair, working with occupational therapy, sitting up to have breakfast. She is much more alert, conversant, energetic. Denies any discomfort. He is agreeable after discussion to have some cornflakes. She is able to tell me she he is at [facility], and that she was gett ing some fluid drawn from her belly. HENMT: COMMON NORMALS: oropharynx normal Neck/C-Spine: COMMON NORMALS: no JVD Resp: COMMON NORMALS: normal respiratory effort and clear to auscultation bilaterally AUSCULTATION: clear to auscultation bilaterally Cardio: COMMON NORMALS: no JVD, regular rhythm, S1 normal heart sound present, S2 normal heart sound present and No murmurs present (Cardio) RHYTHM: regular rhythm HEART SOUNDS: S1 normal heart sound present and S2 normal heart sound present GI: COMMON NORMALS: Normal to inspection, nondistended, normoactive bowel sounds present, Soft to palpation and non-tender PALPATION: Yes Soft to palpation OTHER: Abdomen mildly distended. Extremity: COMMON NORMALS: no joint enlargement and no pedal edema Neuro: COMMON NORMALS: moves all extremities SENSORIUM/ORIENTATION: Yes alert, Yes oriented to person and Yes oriented to place Skin: RASHES: rashes noted (Improving erythema over lateral right foot. Persistent area of erythema, mild swelling over distal right forearm over posterior lateral radius.) Discharge Data Data Completed and Pending: Completed Studies During Hospitalization Category Date Time Status CT head wo con* 7 0450 Urgent Cat Scan 08/01/20 11:59 Completed XR chest 1V [place] ble [id number] Urgent Exams 08/01/20 11:59 [place] w [id number] Routine Ultrasound 08/02/20 12:43 Completed US soft tissue/ex tremity [id number] Rout ine Ultrasound 08/02/20 09:56 Completed Pending at discharge Category Date Time Status ABG FULL [Arteria l Blood Gas Full] Stat Lab 08/01/20 23:56 Results Blood Culture Sta t Lab 08/01/20 19:36 Results Body Fluid Cultur e & GS Routine Lab 08/02/20 15:30 Results Complete Blood Co unt w/Auto AM LABS Lab 08/04/20 04:00 Ordered Comprehensive Met abolic Panel AM LA BS Lab 08/04/20 04:00 Ordered Legionella Antige n STAT Routine Lab 08/01/20 17:15 Results MRSA by PCR [place] Lab 08/03/20 08:16 Uncollected Sputum Culture an d Gram Stain [place] Lab 08/01/20 18:17 Uncollected Urine Culture Rou kervin Lab 08/01/20 17:15 Results Cytology [PTH] Ro utine Pth 08/02/20 12:45 Ordered Labs from last 24 hours 08/03/20 08/03/20 08/02/20 04:56 04:56 15:30 WBC 5.3 RBC 2.89 L Hgb 9.6 L Hct 32.5 L MCV 112.5 H MCH 33.2 MCHC 29.5 L RDW 16.9 H Plt Count 251 MPV 10.0 Neut % (Auto) 71.6 Lymph % (Auto) 10.9 Greene % (Auto) 13.4 Eos % (Auto) 2.4 Baso % (Auto) 1.3 Neut # (Auto) 3.80 Lymph # (Auto) 0.6 L Greene # (Auto) 0.7 Eos # (Auto) 0.1 Baso # (Auto) 0.1 Nucleated RBC % (a uto) 0 Nucleated RBCs # 0.0 Sodium 142 Potassium 4.1 Chloride 104 Carbon Dioxide 26 Anion Gap 16.1 BUN 79 H Creatinine 2.2 H GFR Calculation Not Reportable Glucose 128 H Calculated Osmolal ity 319 H Calcium 8.8 Total Bilirubin 0.9 AST 20 ALT 12 Alkaline Phosphata se 211 H Ammonia Total Protein 6.6 Albumin 3.0 L Globulin 3.6 Peritoneal Color Red Peritoneal Appeara nce Hazy Peritoneal WBC 259 Peritoneal RBC 28 Periton Mononu # A uto 0.147 Mononuclear WBCs % 56.700 Polynuclear WBCs % 43.300 Perit Polynuc WBCs # 0.112 08/02/20 11:05 WBC RBC Hgb Hct MCV MCH MCHC RDW Plt Count MPV Neut % (Auto) Lymph % (Auto) Greene % (Auto) Eos % (Auto) Baso % (Auto) Neut # (Auto) Lymph # (Auto) Greene # (Auto) Eos # (Auto) Baso # (Auto) Nucleated RBC % (a uto) Nucleated RBCs # Sodium Potassium Chloride Carbon Dioxide Anion Gap BUN Creatinine GFR Calculation Glucose Calculated Osmolal ity Calcium Total Bilirubin AST ALT Alkaline Phosphata se Ammonia 27 Total Protein Albumin Globulin Peritoneal Color Peritoneal Appeara nce Peritoneal WBC Peritoneal RBC Periton Mononu # A uto Mononuclear WBCs % Polynuclear WBCs % Perit Polynuc WBCs # Vitals: Last Vital Signs Temp 97.8 F 08/03/20 08:00 Pulse 89 08/03/20 08:13 Resp 17 08/03/20 08:12 BP 101/65 08/03/20 08:00 Pulse Ox 98 08/03/20 08:12 Discharge Plan Discharge Patient Disposition: Xfer SNF Condition: Stable Prescriptions: New spironolactone 25 mg Tablet 25 mg PO BID Qty: 60 RF: 0 doxycycline hyclate 100 mg capsule 100 mg PO BID 5 Days Qty: 10 RF: 0 ciprofloxacin HCl 500 mg tablet 250 mg PO Q18H 3 Days Qty: 2 RF: 0 Flagyl 500 mg tablet 500 mg PO BID 5 Days Qty: 10 RF: 0 Continued thyroid (pork) [[place] Thyroid] 90 mg Tablet 90 mg PO QAM RF: 0 rosuvastatin 10 mg tablet 10 mg PO BEDTIME RF: 0 ipratropium-albuterol 0.5 mg-3 mg(2.5 mg base)/3 mL Solution For Nebulization 3 ml inhalation Q6H PRN (Reason: Shortness Of Breath) 30 Days RF: 0 aspirin 81 mg Tablet,Delayed Release (Dr/Ec) 81 mg PO DAILY 30 Days RF: 0 nitroglycerin 0.4 mg Tablet, Sublingual 0.4 mg sublingual Q5M PRN (Reason: chest pain) 30 Days RF: 0 Lanolin (HPA) 100 % Cream 1 applic topical PRN PRN (Reason: Dryness) 30 Days RF: 0 pantoprazole 40 mg Tablet,Delayed Release (Dr/Ec) 40 mg PO BID 30 Days Qty: 60 RF: 0 furosemide 20 mg Tablet 20 mg PO BID@08,16 30 Days RF: 0 Tubersol 5 tub. unit /0.1 mL Solution See Rx Instructions .ROUTE .COMPLEX RF: 0 I-Gunnar 1,000 unit-200 mg-60 unit-2 mg Tablet 1 tab PO DAILY RF: 0 Changed metoprolol succinate 25 mg Tablet Extended Release 24 Hr 12.5 mg PO DAILY 30 Days RF: 0 Discontinued acetazolamide 250 mg Tablet 250 mg PO BID 30 Days Qty: 60 RF: 0 Discharge Orders: Discharge Order (Routine); Ordered 08/03/20 Ordered By: Soto Cruz Referrals: [facility] [Outside] Jeff Pelaez M.D [Physician] - (Confirm appointment) James Sy MD [Primary Care Provider] - 4-7 days Discharge Diet: As Directed and Diabetic Discharge Activity: Increase activity as tolerated, As per PT/OT instructions and Oxygen as instructed Activity Restrictions/Additional Instructions: Please maintain level 2 dysphagia diet. Please maintain strict aspiration precautions. Continue speech therapy assessment. Oxygen as needed, 1.5 L, target saturation 92%. Please follow-up with cardiology as previously directed with Dr. Pelaez. Please arrange follow-up with nephrology for chronic kidney disease. Please continue goals of care discussion with patient and family. Consider repeat paracentesis if accumulation of large amount of fluid again noted. Please follow-up ending studies from previous admission for mycobacterial studies on peritoneal fluid. Please also follow-up cytology studies from this admission which were sent after repeat paracentesis. Also pending culture from ascites fluid. Urine culture. Blood culture. Some blood noted in ascitic fluid. Continue to monitor blood pressure which is frequently soft. Avoid hypotension. Hold metoprolol if blood pressure is low and heart rate is good. Continue to reassess volume status with congestive heart failure. Continue to reassess area of blood clot in the distal right forearm after IV from previous admission. Not started on anticoagulation as reported previous GI bleed, but also some blood noted in ascitic fluid. Concern for bleeding. Continue to reassess cellulitis of lateral right foot/heel. Continue care for other chronic conditions as previously instructed including diabetes. Coordinate care with power of document review attorney Suze Corona [phone]. Discharge Attestations Time Spent in Discharge Care*: greater than 30 min Status at Discharge: Cognitive status at discharge: cognitively intact , Behavioral status at discharge: cooperative and independent in ADL's , Quality Metrics Clinical Quality Measures During this hospital stay, did patient experience: None Coding Level of Care Code Acute Cd Mixer Helper for Casey Fwd Diagnoses Acute encephalopathy G93.40 UTI (urinary tract infection) N39.0 Pneumonia J18.9 CHF (congestive heart failure) I50.9 Mitral regurgitation I34.0 Cardiac valve disease etiology: nonrheumatic Acute kidney injury superimposed on chronic kidney disease N17.9; N18.9 Cardiac cirrhosis K76.1 Low blood pressure I95.9 Atrial fibrillation I48.0 Atrial fibrillation type: paroxysmal Cellulitis L03.90
== END 2020-08-03 14:15 | disposition skilled nursing facility (03) | DRG 194 ==
LOC: ER 12:32 → MEDSURG 17:01
PROVIDERS: Emergency Medicine; Family Medicine; Admitting Provider Internal Medicine; PCP Family Medicine; Visit Provider Internal Medicine
DX: J18.9 Pneumonia, unspecified organism (principal); I13.0 Hypertensive heart and chronic kidney disease with heart failure and stage 1 through stage 4 chronic kidney disease, or unspecified chronic kidney disease; I50.42 Chronic combined systolic (congestive) and diastolic (congestive) heart failure; N39.0 Urinary tract infection, site not specified; H34.219 Partial retinal artery occlusion, unspecified eye; G93.40 Encephalopathy, unspecified; N17.9 Acute kidney failure, unspecified; L03.115 Cellulitis of right lower limb; N18.9 Chronic kidney disease, unspecified; E11.22 Type 2 diabetes mellitus with diabetic chronic kidney disease; I08.3 Combined rheumatic disorders of mitral, aortic and tricuspid valves; I48.0 Paroxysmal atrial fibrillation; I50.810 Right heart failure, unspecified; K74.60 Unspecified cirrhosis of liver; E78.5 Hyperlipidemia, unspecified; E03.9 Hypothyroidism, unspecified; I27.20 Pulmonary hypertension, unspecified; Z95.0 Presence of cardiac pacemaker; I95.9 Hypotension, unspecified; Z79.82 Long term (current) use of aspirin; R13.10 Dysphagia, unspecified; M25.431 Effusion, right wrist; D50.9 Iron deficiency anemia, unspecified
CPT/HCPCS: 12345; 36415; 36600; 49083; 70450; 71045; 76882; 80051; 80053; 80500; 81001; 82140; 82330; 82803; 82805; 83605; 85025; 86403; 87040; 87070; 87075; 87086; 87205; 87426; 87449; 87641; 88112; 88305; 89050; 92610; 93005; 94640; 94660; 94664; 96372; 97110; 97161; 97166; 97530; 97535; 99283; J1644; J3370; J3490; J7030; J7050; P9047; S0030

== ENCOUNTER 2020-08-14 09:01 | Inpatient (IN) | payer MEDICARE, OTHER, SELFPAY ==
[2020-08-14] VITALS (34 sets, daily range): BP systolic 59–103; BP diastolic 27–67; PULSE 77–104; RESP 5–34; TEMP 36.1–36.4; O2SAT 79–100; BMI 25.6
[2020-08-14 09:43] LABS: Basophils # 0.1 10^3/uL (0.0-0.1); Basophils % 0.7 %; Eosinophils % 0.5 %; Hematocrit 34.9 % (37.0-47.0); Lymphocytes # 0.5 10^3/uL (0.8-4.8); Lymphocytes % 7.2 %; Mean Corpuscular HGB Conc 31.5 g/dL (30.0-36.0); Mean Corpuscular Hemoglobin 32.6 pg (28.0-34.0); Mean Corpuscular Volume 103.6 fL (81-99); Mean Platelet Volume 10.2 fL (7.4-10.4); Monocytes # 0.8 10^3/uL (0.2-0.9); Neutrophils # 6.12 10^3/uL (1.8-7.7); Neutrophils % 81.3 %; Nucleated Red Blood Cells % 0.3 %; Platelet Count 254 10^3/cmm (130-400); Red Blood Count 3.37 10^6/uL (4.1-5.3); Red Cell Distribution Width 16.8 % (12.1-15.1); White Blood Count 7.5 10^3/uL (4.0-10.0)
--- NOTE | 2020-08-14 09:52 | W.ED.RECABL ---
HPI - Recheck/Abnormal Lab/Rx General: Chief Complaint: Recheck/Abnormal Lab/Rx Stated Complaint: ABNORMAL LABS Time Seen by Provider: 08/14/20 09:09 History of Present Illness: HPI narrative: 80-year-old female presents to the emergency room with complaint of ascites. She has large amount of ascitic fluid and distention of her abdomen she has had this drained several times previously. She denies any pain she has little bit difficult time with taking a deep breath because the amount of ascites. She has severe congestive heart failure as previously evaluated to have a mitral valve replacement felt not to be a candidate for the surgery. She has had several episodes where she has had paracentesis for removal of fluid. MD complaint: other (Recurrent ascites) Symptoms since prior visit: worsening swelling (Abdominal distention, ascites) Associated symptoms: shortness of breath and malaise Review of Systems Const: Denies: fever(s), chills, body aches, change in appetite, fatigue or malaise Card: Denies: chest pain, edema, dyspnea on exertion or orthopnea Resp: Denies: dyspnea, productive cough or non-productive cough GI: Denies: abdominal pain, nausea, vomiting, hematemesis, coffee ground emesis, diarrhea, constipation, bloating, hematochezia or melena : Denies: flank pain, difficulty voiding, dysuria, urinary frequency or urinary urgency Skin/Breast: Denies: rash or pruritus PFSH ED PFSH: Medical History (Updated 08/14/20 @ 13:22 by Anthony Bonilla DO) Aortic stenosis Atrial fibrillation Cardiomyopathy CHF (congestive heart failure) combined systolic and diastolic CHF Diabetes Hollenhorst plaque, both eyes HTN (hypertension) Hyperlipidemia -on statin Hypothyroidism thyroid replacement Mitral regurgitation Pulmonary HTN Surgical History S/P tonsillectomy Status cardiac pacemaker Family History Other Cancer Hypertension Social History (Updated 08/14/20 @ 09:20 by Harrison Wade RN) Smoking and tobacco status: never smoked Alcohol intake: never Substance/Drug Use: never Household members: children Housing: [place] Marital status: / Physical Exam Const: COMMON NORMALS: no acute distress GENERAL APPEARANCE: cooperative HENMT: COMMON NORMALS: normocephalic, atraumatic and hearing grossly normal bilaterally HEAD & SCALP: normocephalic and atraumatic Eye: COMMON NORMALS: Equal, round and reactive pupils present, EOMs intact bilaterally, conjunctivae normal and no scleral icterus CONJUNCTIVA: Yes conjunctivae normal PUPIL: Yes Equal, round and reactive pupils present Neck/C-Spine: COMMON NORMALS: full ROM, no lymphadenopathy, supple and no JVD Lymph: LYMPHATIC: no lymphadenopathy noted and no lymphedema noted Resp: COMMON NORMALS: normal respiratory effort, No retractions, No use of accessory muscles and clear to auscultation bilaterally AUSCULTATION: clear to auscultation bilaterally Cardio: COMMON NORMALS: no JVD, regular rate, regular rhythm and No murmurs present (Cardio) RATE: regular rate RHYTHM: regular rhythm GI: COMMON NORMALS: Soft to palpation and No hepatosplenomegaly present AUSCULTATION: Yes normoactive bowel sounds PALPATION: Yes Soft to palpation, No Tenderness to palpation present (GI), No Guarding due to palpation present (GI) and Yes No hepatosplenomegaly present Extremity: COMMON NORMALS: normal to inspection, capillary refill normal, no clubbing, cyanosis or edema, no calf tenderness and no pedal edema Skin: COMMON NORMALS: no rashes or lesions noted GENERAL SKIN EXAM: no rashes or lesions noted Course Vital Signs: Vital signs: Vital Signs Temperature 97.5 F L 08/14/20 09:07 Pulse Rate 80 08/14/20 11:56 Respiratory Rate 18 08/14/20 11:56 Blood Pressure 62/40 08/14/20 11:56 Pulse Oximetry 100 08/14/20 11:56 MDM - Recheck/Abnormal Lab/Rx MDM Narrative: Medical decision making narrative: Patient has acute kidney injury as well as hypotension acute on chronic systolic heart failure. Given small fluid bolus down here and then started on dopamine. Review of her chart she is still full code. Will admit her consult cardiology discussed with Dr. Paz and Dr. Kennedy orders are written. Lab Data: Attestation: I reviewed the patient's lab results. Labs: Lab Results 08/14/20 08/14/20 08/14/20 Range/Units 09:35 09:35 09:35 WBC 7.5 (4.0-10.0) 10^3/ uL RBC 3.37 L (4.1-5.3) 10^6/u L Hgb 11.0 L (11.5-15.3) g/dL Hct 34.9 L (37.0-47.0) % MCV 103.6 H (81-99) fL MCH 32.6 (28.0-34.0) pg MCHC 31.5 (30.0-36.0) g/dL RDW 16.8 H (12.1-15.1) % Plt Count 254 (130-400) 10^3/c mm MPV 10.2 (7.4-10.4) fL Neut % (Auto) 81.3 % Lymph % (Auto) 7.2 % Mcdonough % (Auto) 10.0 % Eos % (Auto) 0.5 % Baso % (Auto) 0.7 % Neut # (Auto) 6.12 (1.8-7.7) 10^3/u L Lymph # (Auto) 0.5 L (0.8-4.8) 10^3/u L Mcdonough # (Auto) 0.8 (0.2-0.9) 10^3/u L Eos # (Auto) 0.0 (0.0-0.8) 10^3/u L Baso # (Auto) 0.1 (0.0-0.1) 10^3/u L Nucleated RBC % (a uto) 0.3 % Nucleated RBCs # 0.0 /100WBC PT 17.90 H (12.1-14.9) SECO NDS INR 1.42 H (0.8-1.2) APTT 36.3 (23.9-36.7) SECO NDS Sodium Cancelled Potassium Cancelled Chloride Cancelled Carbon Dioxide Cancelled Anion Gap Cancelled BUN Cancelled Creatinine Cancelled GFR Calculation Cancelled Glucose Cancelled Calculated Osmolal ity Cancelled Calcium Cancelled Magnesium (1.7-2.3) mg/dL Total Bilirubin Cancelled AST Cancelled ALT Cancelled Alkaline Phosphata se Cancelled Total Protein Cancelled Albumin Cancelled Globulin Cancelled 08/14/20 08/14/20 08/14/20 Range/Units 10:00 10:46 12:25 WBC (4.0-10.0) 10^3/ uL RBC (4.1-5.3) 10^6/u L Hgb (11.5-15.3) g/dL Hct (37.0-47.0) % MCV (81-99) fL MCH (28.0-34.0) pg MCHC (30.0-36.0) g/dL RDW (12.1-15.1) % Plt Count (130-400) 10^3/c mm MPV (7.4-10.4) fL Neut % (Auto) % Lymph % (Auto) % Mcdonough % (Auto) % Eos % (Auto) % Baso % (Auto) % Neut # (Auto) (1.8-7.7) 10^3/u L Lymph # (Auto) (0.8-4.8) 10^3/u L Mcdonough # (Auto) (0.2-0.9) 10^3/u L Eos # (Auto) (0.0-0.8) 10^3/u L Baso # (Auto) (0.0-0.1) 10^3/u L Nucleated RBC % (a uto) % Nucleated RBCs # /100WBC PT (12.1-14.9) SECO NDS INR (0.8-1.2) APTT (23.9-36.7) SECO NDS Sodium Cancelled 135 L Potassium Cancelled 5.1 Chloride Cancelled 100 Carbon Dioxide Cancelled 20 L Anion Gap Cancelled 20.1 H BUN Cancelled 91 H* Creatinine Cancelled 4.4 H GFR Calculation Cancelled Not Reportable Glucose Cancelled 112 Calculated Osmolal ity Cancelled 309 H Calcium Cancelled 8.4 L Magnesium 2.3 (1.7-2.3) mg/dL Total Bilirubin Cancelled 0.9 AST Cancelled 45 H ALT Cancelled 22 Alkaline Phosphata se Cancelled 631 H Total Protein Cancelled 6.1 L Albumin Cancelled 2.5 L Globulin Cancelled 3.6 Discharge Plan Discharge Patient Disposition: Admitted As Inpatient Clinical Impression: CHF exacerbation, Acute kidney injury superimposed on chronic kidney disease, Anasarca, Cardiac cirrhosis, Atrial fibrillation, Mitral regurgitation, Aortic stenosis, Low blood pressure Condition: Stable Prescriptions: No Action thyroid (pork) [[place] Thyroid] 90 mg Tablet 90 mg PO QAM RF: 0 rosuvastatin 10 mg tablet 10 mg PO BEDTIME RF: 0 ipratropium-albuterol 0.5 mg-3 mg(2.5 mg base)/3 mL Solution For Nebulization 3 ml inhalation Q6H PRN (Reason: Shortness Of Breath) 30 Days RF: 0 aspirin 81 mg Tablet,Delayed Release (Dr/Ec) 81 mg PO DAILY 30 Days RF: 0 nitroglycerin 0.4 mg Tablet, Sublingual 0.4 mg sublingual Q5M PRN (Reason: chest pain) 30 Days RF: 0 Lanolin (HPA) 100 % Cream 1 applic topical PRN PRN (Reason: Dryness) 30 Days RF: 0 pantoprazole 40 mg Tablet,Delayed Release (Dr/Ec) 40 mg PO BID 30 Days Qty: 60 RF: 0 furosemide 20 mg Tablet 20 mg PO BID@08,16 30 Days RF: 0 I-Gunnar 1,000 unit-200 mg-60 unit-2 mg Tablet 1 tab PO DAILY RF: 0 spironolactone 25 mg Tablet 25 mg PO BID Qty: 60 RF: 0 acetazolamide 250 mg Tablet 250 mg PO BID RF: 0 Betadine Swabsticks 10 % Swab See Rx Instructions .ROUTE .COMPLEX RF: 0 Adult Multivitamin (w-lutein) 200-137.5 mcg Tablet,Chewable 1 tab PO DAILY RF: 0 Entresto 24-26 mg Tablet 1 tab PO BID RF: 0 metoprolol tartrate 25 mg Tablet 12.5 mg PO BID RF: 0 Referrals: James Sy MD [Primary Care Provider] - Coding Level of Care Code ED Beef Killer for Chg Fwd Exam Comprehensive
[2020-08-14 09:56] LABS: INR 1.42 (0.8-1.2); Partial Thromboplastin Time 36.3 SECONDS (23.9-36.7)
[2020-08-14 11:08] LABS: Alanine Aminotransferase 22 U/L (0-33); Albumin Level 2.5 g/dL (3.5-5.2); Alkaline Phosphatase 631 IU/L (35-105); Anion Gap 20.1 (5-19); Aspartate Amino Transferase 45 U/L (0-32); Calcium 8.4 mg/dL (8.5-10.5); Carbon Dioxide 20 mmol/L (22-29); Chloride 100 mmol/L (98-107); Globulin 3.6 g/dL (1.3-4.6); Glucose 112 mg/dL (65-115); Osmolality Calculated 309 mOsm/kg (285-295); Potassium 5.1 mmol/L (3.5-5.1); Sodium 135 mmol/L (136-145); Total Bilirubin 0.9 mg/dL (0.15-1.2); Total Protein 6.1 g/dL (6.6-8.7)
[2020-08-14 11:15] LABS: Blood Urea Nitrogen 91 mg/dL (8-23)
[2020-08-14] MEDS: sodium chloride 0.9% 250 ML IV ×2 (11:25→12:26)
--- NOTE | 2020-08-14 11:31 | XR_ITS ---
WS: [id number] Exam: XR chest 1V portable [id number] Date/Time of Exam: 08/14/2020 11:36 AM Reason For Exam: dyspnea/cough Comparison with previous study 09/04/2015. There is increased density in the left retrocardiac region suspicious for left lower lobe infiltrate. There is atelectasis in the right lung base. The heart is enlarged. Calcification of the mitral valv e annulus. A permanent cardiac pacer superimposes the left chest. No pneumothorax. The mediastinum is not widened. XR/XR chest 1V portable [id number] IMPRESSION: 1. Increased density in the left retrocardiac region suspicious for left lower lobe infiltrate. 2. Right basal atelectatic change. 3. cardiac enlargement.
[2020-08-14] MEDS: DOPamine drip 400 MG/250 ML PREMIX 11.9 MG IV (13:01)
[2020-08-14 13:07] LABS: Magnesium 2.3 mg/dL (1.7-2.3)
--- NOTE | 2020-08-14 13:12 | P.HP_ITS ---
Providers/Chief Complaint Primary Care Provider: James Sy MD Chief Complaint: ABNORMAL LABS History of Present Illness Marylou Art is a 80 year old female, resident of nursing facility was brought in because of abnormal labs. Patient was found to be hypotensive as well as having evidence of fluid overload secondary to chronic systolic CHF. She has evidence of acute kidney injury. Patient reports lower abdominal discomfort especially when she urinates. She otherwise denies any chest pain or difficulty breathing. She is using oxygen at nursing facility at all times but does not know how many liters. Overall patient is poor historian and has difficulty with hearing. Patient's niece at bedside helped obtaining information from patient during my evaluation in ER. Patient's history is significant for severe cardiomyopathy and mitral valve disease for which she was evaluated several years ago and deemed not surgical candidate. Patient was recently treated for UTI but cultures were not revealing. Because of hypotension with systolic blood pressure in the 70s patient received some IV fluid boluses and started on dopamine with admission to ICU. Chest x-ray suggestive of pneumonia which patient had during her recent hospitalization. Awaiting official report. Patient does not meet sepsis criteria at this point although sepsis septic shock cannot be completely ruled out. Review of Systems Const: Denies: fever(s) or chills Eyes: Denies: change in vision ENMT: Denies: throat pain or change in hearing Card: Reports: edema; Denies: chest pain or lightheadedness Resp: Denies: dyspnea or productive cough GI: Reports: abdominal pain (Patient points at the mid lower abdomen); Denies: nausea, vomiting, dysphagia, diarrhea, constipation, hematochezia or melena : Denies: difficulty voiding Musc: Denies: joint pain or joint swelling Skin/Breast: Denies: rash or erythema Neuro: Denies: headache(s) (Although niece at bedside reports that yesterday she did have a headache.) or weakness in extremities Psych: Denies: depression Endo: Denies: excessive sweating Mello/Lymph: Denies: easy bleeding or tender lymph nodes All/Imm: Denies: throat swelling Medications/Allergies Home Medications Medication Instructions Recorded Confirmed Last Taken Type thyroid (pork) [[place] Thyroid] 90 mg PO QAM 04/06/20 08/14/20 08/14/20 History rosuvastatin 10 mg PO BEDTIME 07/22/20 08/14/20 08/13/20 History Lanolin (HPA) 1 applic TOPICAL PRN PRN 30 Days 07/30/20 08/14/20 Unknown Rx gm aspirin 81 mg PO DAILY 30 Days tab 07/30/20 08/14/20 08/14/20 Rx ipratropium-albuterol 3 ml INHALATION Q6H PRN 30 Days ml 07/30/20 08/14/20 Unknown Rx nitroglycerin 0.4 mg SUBLINGUAL Q5M PRN 30 Days 07/30/20 08/14/20 Unknown Rx tab furosemide 20 mg PO BID@08,16 30 Days tab 07/31/20 08/14/20 08/14/20 Rx pantoprazole 40 mg PO BID 30 Days #60 tab 07/31/20 08/14/20 08/14/20 Rx I-Gunnar 1 tab PO DAILY 08/01/20 08/14/20 08/14/20 History spironolactone 25 mg PO BID #60 tab 08/03/20 08/14/20 08/14/20 Rx acetazolamide 250 mg PO BID 08/14/20 08/14/20 08/01/20 History metoprolol tartrate 12.5 mg PO BID 08/14/20 08/14/20 08/14/20 History [id number] acid-lutein [Adult 1 tab PO DAILY 08/14/20 08/14/20 Unknown History Multivitamin (w-lutein)] povidone-iodine [Betadine See Rx Instructions .ROUTE .COMPLEX 08/14/20 08/14/20 08/10/20 History Swabsticks] sacubitril-valsartan [Entresto] 1 tab PO BID 08/14/20 08/14/20 08/14/20 History Allergies Allergy/AdvReac Type Severity Reaction Status Date / Time Penicillins Allergy Intermediate ALGY-Rash Verified 08/01/20 12:37 Sulfa (Sulfonamide Allergy Intermediate ALGY-Rash Verified 08/01/20 12:37 Antibiotics) dexamethasone AdvReac Severe ADR-Chest Verified 08/01/20 12:06 Pain PFSH Acute PFSH: Medical History (Updated 08/14/20 @ 13:53 by Hector Paz MD) Aortic stenosis Atrial fibrillation Cardiomyopathy CHF (congestive heart failure) combined systolic and diastolic CHF Diabetes Hollenhorst plaque, both eyes HTN (hypertension) Hyperlipidemia -on statin Hypothyroidism thyroid replacement Mitral regurgitation Pulmonary HTN Surgical History S/P tonsillectomy Status cardiac pacemaker Family History Other Cancer Hypertension Social History Smoking and tobacco status: never smoked Alcohol intake: never Substance/Drug Use: never Household members: children [facility] Marital status: / Vitals/I&O/Wt Last Vital Signs Temp 97.5 F L 08/14/20 09:07 Pulse 80 08/14/20 11:56 Resp 18 08/14/20 11:56 BP 62/40 08/14/20 11:56 Pulse Ox 100 08/14/20 11:56 08/13/20 08/14/20 08/14/20 22:59 06:59 14:59 Intake Total 250 / 250 Balance 250 / 250 Weight last 48 hrs Weight 63.503 kg Physical Exam Const: COMMON NORMALS: no acute distress and alert (And oriented to self and place) HENMT: COMMON NORMALS: normocephalic and atraumatic HEAD & SCALP: normocephalic and atraumatic Eye: COMMON NORMALS: EOMs intact bilaterally, conjunctivae normal and no scleral icterus CONJUNCTIVA: Yes conjunctivae normal Neck/C-Spine: COMMON NORMALS: no lymphadenopathy and no meningeal signs Lymph: LYMPHATIC: no lymphadenopathy noted Chest: COMMONS NORMALS: normal palpation of entire chest wall Resp: COMMON NORMALS: No use of accessory muscles OTHER: Minimal bibasilar Rales appreciated. Cardio: COMMON NORMALS: regular rate, regular rhythm and No murmurs present (Cardio) RATE: regular rate RHYTHM: regular rhythm OTHER: 2+ lower extremity edema GI: COMMON NORMALS: Soft to palpation and non-tender PALPATION: Yes Soft to palpation, No Firmness to palpation present (GI) and No Tenderness to palpation present (GI) RECTAL EXAM: deferred OTHER: Patient clinically does not appear to have much of the significant ascites. Extremity: COMMON NORMALS: normal to inspection and capillary refill normal Neuro: SENSORIUM/ORIENTATION: Yes alert MENINGEAL SIGNS: Yes no meningeal signs Psych: COMMON NORMALS: mental status grossly normal, Normal thought process present and cooperative THOUGHT PROCESS: Normal thought process present Skin: NARRATIVE SKIN EXAM: Minimal redness of lower extremities right more than left. Appears to be secondary to stasis dermatitis. Back was not examined. Patient has protective socks and is in the process of transferring to ICU therefore skin was not completely evaluated. Data : 08/14/20 09:35 08/14/20 10:46 A&P Assessment and plan (1) Hypotension: This appears to be multifactorial and likely secondary to underlying urinary tract infection in addition to significant cardiomyopathy and cirrhosis. Septic shock cannot be ruled out at this point. Status: Acute (2) Cardiac cirrhosis: Status: Acute (3) CHF (congestive heart failure): Currently appears to be compensated Status: Acute (4) Anasarca: Status: Acute (5) UTI (urinary tract infection): Status: Acute (6) Pneumonia: Patient had evidence of pneumonia during recent hospitalization. Pseudomonas and MRSA infection considered. Status: Acute (7) Acute kidney injury superimposed on chronic kidney disease: This appears to be prerenal. Status: Acute Additional A&P Information PLAN: We will place Garvin catheter and obtain UA to evaluate for UTI as well as mo nitor urinary output. Start patient on meropenem, Levaquin and vancomycin. Check lactic acid and in flammatory markers. Monitor closely cardiorespiratory status. Check BNP now and in a.m. Because of low blood pressure patient cannot be diuresed and will definitely need to have diuresis down the road if we can improve blood pressure which I think is mostly related to underlying infectious process with UTI and pneumonia prime suspect. Discussed with patient as well as niece at the bedside regarding patient's overall poor prognosis and very high risk that she may not be able to make it through this hospitalization. We will give 12.5 mg of 25% albumin. We will try to avoid giving fluids given significant cardiomyopathy and EF 25% and hopefully patient's blood pressure will improve with norepinephrine. Attestations Medical Necessity Statement*: Patient with significant hypotension and concern for septic shock requires close ICU monitoring and treatment. I expect patient will require more than 2 midnights. Coding Level of Care Code Acute Strategy Execution Consultant for [facility] Fwd Diagnoses Hypotension I95.9 Cardiac cirrhosis K76.1 CHF (congestive heart failure) I50.9 Anasarca R60.1 UTI (urinary tract infection) N39.0 Pneumonia J18.9 Acute kidney injury superimposed on chronic kidney disease N17.9; N18.9
[2020-08-14 13:20] LABS: Phosphorus 9.1 mg/dL (2.5-4.5)
--- NOTE | 2020-08-14 13:22 | ECG_ITS ---
[facility] Test Date: 2020-08-14 Pat Name: Marylou Art Department: Room: Gender: Female Traffic Incident Management Manager: : 1940 Requested By: Anthony Garner Order Number: [id number] Chata MD: Sonja Villafana M.D. Measurements Intervals [place] Rate: 78 P: 68 OK: 210 QRS: 53 QRSD: 161 T: 108 QT: 495 QTc: 565 Interpretive Statements A sense V paced rhythm Compared to ECG 08/01/2020 12:21:18 No significant changes Electronically Signed On 08-14-2020 21:43:29 STOCK MIXER by Sonja Villafana M.D. [id number]
[2020-08-14 13:34] LABS: NT Pro B Type Natriuretic Pept 57324 pg/mL (0-450)
[2020-08-14 14:04] LABS: C Reactive Protein 42.4 mg/L (0.0-4.9)
[2020-08-14 14:27] LABS: Lactate (Lactic Acid level) 1.2 mmol/L (0.5-2.2)
[2020-08-14 14:59] LABS: Erythrocyte Sedimentation Rate 53 mm/hr (0-15)
[2020-08-14] MEDS: albumin 12.5 GM/50 ML VIAL IV ×2 (16:05→20:37)
[2020-08-14] MEDS: vancomycin 750 MG in sodium chloride 0.9% 250 ML 250 MG IV (16:40)
[2020-08-14] MEDS: enoxaparin 30 mg/0.3 mL Syringe SUBCUT (20:37)
[2020-08-14] MEDS: sodium chloride 0.9% 1,000 ML 100 ML IV (20:38)
--- NOTE | 2020-08-14 20:45 | PM.CONSULT ---
Providers/Reason For Consult Consulting Physican/Specialty*: Cardiology Reason for Consult*: Shock, CHF, respiratory distress Attending Physician: Hector Paz MD Primary Care Provider: James Sy MD History of Present Illness History of Present Illness Marylou Art is a 80 year old female past medical history significant for severe cardiomyopathy with biventricular failure, severe pulmonary hypertension, severe mitral valve regurgitation, severe tricuspid valve regurgitation, severe right sides heart failure, cardiac cirrhosis and ascites who is not a candidate for any intervention due to her comorbidities and advanced cardiac liver and renal disease [facility] with hypotension accumulation of fluid in the belly due to ascites and with respiratory distress. I have taken care of the patient in the near past. Upon arrival patient was given IV fluid she did not respond to it she was started on albumin Levophed despite of that she continues to deteriorate. She was also started on antibiotics to cover for sepsis. I was asked to help in her care. Patient is disoriented cannot give me good history. I saw her in ICU. Review of Systems Const: Denies: fever(s), chills, body aches, change in appetite, fatigue or malaise Eyes: Denies: change in vision ENMT: Denies: throat pain, enlarged tonsils or change in hearing Card: Reports: edema; Denies: chest pain, lightheadedness, dyspnea on exertion or orthopnea Resp: Denies: dyspnea, productive cough or non-productive cough GI: Reports: abdominal pain (Patient points at the mid lower abdomen); Denies: nausea, vomiting, hematemesis, coffee ground emesis, dysphagia, diarrhea, constipation, bloating, hematochezia or melena : Denies: flank pain, difficulty voiding, dysuria, urinary frequency or urinary urgency Musc: Denies: joint pain or joint swelling Skin/Breast: Denies: rash, pruritus or erythema Neuro: Denies: headache(s) (Although niece at bedside reports that yesterday she did have a headache.) or weakness in extremities Psych: Denies: depression Endo: Denies: excessive sweating Mello/Lymph: Denies: easy bleeding or tender lymph nodes All/Imm: Denies: throat swelling Meds/Allergies Home Medications and Allergies Home Medications Medication Instructions Recorded Confirmed Last Taken Type thyroid (pork) [[place] Thyroid] 90 mg PO QAM 07/07/1708/14/20 08/14/20 History rosuvastatin 10 mg PO BEDTIME 07/22/20 08/14/20 08/13/20 History Lanolin (HPA) 1 applic TOPICAL PRN PRN 30 Days 07/30/20 08/14/20 Unknown Rx gm aspirin 81 mg PO DAILY 30 Days tab 07/30/20 08/14/20 08/14/20 Rx ipratropium-albuterol 3 ml INHALATION Q6H PRN 30 Days ml 07/30/20 08/14/20 Unknown Rx nitroglycerin 0.4 mg SUBLINGUAL Q5M PRN 30 Days 07/30/20 08/14/20 Unknown Rx tab furosemide 20 mg PO BID@08,16 30 Days tab 07/31/20 08/14/20 08/14/20 Rx pantoprazole 40 mg PO BID 30 Days #60 tab 07/31/20 08/14/20 08/14/20 Rx I-Gunnar 1 tab PO DAILY 08/01/20 08/14/20 08/14/20 History spironolactone 25 mg PO BID #60 tab 08/03/20 08/14/20 08/14/20 Rx acetazolamide 250 mg PO BID 08/14/20 08/14/20 08/01/20 History metoprolol tartrate 12.5 mg PO BID 08/14/20 08/14/20 08/14/20 History [id number] acid-lutein [Adult 1 tab PO DAILY 08/14/20 08/14/20 Unknown History Multivitamin (w-lutein)] povidone-iodine [Betadine See Rx Instructions .ROUTE .COMPLEX 08/14/20 08/14/20 08/10/20 History Swabsticks] sacubitril-valsartan [Entresto] 1 tab PO BID 08/14/20 08/14/20 08/14/20 History Allergies Allergy/AdvReac Type Severity Reaction Status Date / Time Penicillins Allergy Intermediate ALGY-Rash Verified 08/01/20 12:37 Sulfa (Sulfonamide Allergy Intermediate ALGY-Rash Verified 08/01/20 12:37 Antibiotics) dexamethasone AdvReac Severe ADR-Chest Verified 08/01/20 12:06 Pain Current Medications Current Medications Generic Name Dose Route Start Last Admin Trade Name Freq PRN Reason Stop Dose Admin Sodium Chloride 250 mls @ 0 mls/hr 08/14/20 11:30 08/14/20 12:26 Sodium Chloride 0.9% IV Infused .Q0M BRISSA Infusion As Directed Norepinephrine Bitartrate 4 mg 254 mls @ 0 mls/hr 08/14/20 13:30 08/14/20 20:35 / Dextrose IV 17.5 mcg/min .Q0M BRISSA 66.7 mls/hr Administration Protocol Per Protocol Imipenem/Cilastatin Sodium 250 100 mls @ 200 mls/hr 08/14/20 14:00 08/14/20 16:31 mg/ Sodium Chloride IV Infused Q12H BRISSA Infusion Protocol Vancomycin HCl 750 mg/ Sodium 250 mls @ 250 mls/hr 08/14/20 14:30 08/14/20 19:01 Chloride IV Infused Q72H BRISSA Infusion Protocol As Directed PFSH Acute PFSH: Medical History (Updated 08/15/20 @ 19:57 by Bill Morgan MD) Aortic stenosis Atrial fibrillation Cardiomyopathy CHF (congestive heart failure) combined systolic and diastolic CHF Diabetes Hollenhorst plaque, both eyes HTN (hypertension) Hyperlipidemia -on statin Hypothyroidism thyroid replacement Mitral regurgitation Pulmonary HTN Severe mitral regurgitation Present on admission Surgical History S/P tonsillectomy Status cardiac pacemaker Family History Other Cancer Hypertension Social History Smoking and tobacco status: never smoked Alcohol intake: never Household members: children Housing: Half-Way Marital status: / Dietary Habits: Current diet type/program: regular Caffeine: Yes Vitals/I&O/Wt Last Vital Signs Temp 97 F L 08/14/20 19:45 Pulse 89 08/14/20 20:05 Resp 28 H 08/14/20 20:05 BP 86/48 08/14/20 20:05 Pulse Ox 96 08/14/20 20:05 08/14/20 08/14/20 08/14/20 06:59 14:59 22:59 Intake Total 256.545 / 256.545 400 / 656.545 Balance 256.545 / 256.545 400 / 656.545 Weight last 48 hrs Weight 140 lb Physical Exam Narrative: EXAM NARRATIVE: GENERAL: Patient is confused short of breath and distress NECK: Short neck with elevated JVD HEART: Regular S1 and S2. 2/6 systolic murmur, gallop. LUNGS: Decreased breath sound bilaterally. ABDOMEN: Distended firm with ascites CENTRAL NERVOUS SYSTEM: Grossly nonfocal. EXTREMITIES: Lower extremities with 1+ edema bilaterally. Urinary Catheter Management^: Garvin: Cath Placed During This Visit: yes Reason for Continuing Indwelling Catheter: Accurate Measurement of Urinary Output in Critically Ill Patients Urinary Catheter Date of Insertion: 08/14/20 Urinary Catheter Time of Insertion: 15:15 A&P Assessment and plan (1) Cardiogenic shock: Multifactorial including cardiogenic shock right and left side heart failure with possible sepsis . Despite of maximizing of Levophed and fluid challenge blood pressure remains low. Will add vasopressin if needed dobutamine. Antibiotics as per medicine. Overall patient shot and long-term prognosis is grave. Status: Acute (2) Acute on chronic respiratory failure with hypoxemia: Due to left side failure and severe pulmonary hypertension secondary to severe mitral valve regurgitation. Continue current regimen. Could not diurese due to very low blood pressure. Continue to optimize medicine to improve blood pressure with pressors. Not a good candidate for mechanical device Status: Acute (3) Severe mitral regurgitation: Not a good candidate for intervention. Continue treating medically Status: Acute (4) CHF (congestive heart failure): Patient is in decompensated state of biventricular failure. She is not a good candidate for any mechanical device. Unfortunately she has end-stage cardiomyopathy with many other comorbidities including severe pulmonary hypertension cirrhosis and massive ascites and renal failure. Overall her condition is critical. Continue pressors as above. Status: Acute Qualifiers: Heart failure type: systolic Heart failure chronicity: chronic Qualified Code(s): I50.22 - Chronic systolic (congestive) heart failure Consult Attestations Medical Necessity Statement: Patient require continuation hospitalization for above defined care. Coding Level of Care Code New Pt Acute Career Representative for [facility] Patient Type New History Comprehensive Exam Comprehensive Medical Decision Making High Complexity Diagnoses Cardiogenic shock R57.0 Acute on chronic respiratory failure with hypoxemia J96.21 Severe mitral regurgitation I34.0 CHF (congestive heart failure) I50.22 Heart failure type: systolic Heart failure chronicity: chronic
[2020-08-14] MEDS: DOBUTamine drip 500 MG/250 ML PREMIX 5.1 MG (23:31)
[2020-08-14] MEDS: norepinephrine 8 MG in dextrose 5 % 500 ML 104.8 MG IV (23:51)
[2020-08-15] VITALS (15 sets, daily range): BP systolic 59–87; BP diastolic 30–62; PULSE 0–107; RESP 0–35; O2SAT 44–91
[2020-08-15] MEDS: DOBUTamine drip 500 MG/250 ML PREMIX 22.4 MG (00:20)
--- NOTE | 2020-08-15 00:40 | PM.EVENT ---
Event Note Event Note: I was requested to put a central line, patient was on BiPAP at the time of evaluation, she was verbally redirectable, she knew where she was and she could tell me why she is in the hospital, Her mean arterial pressure is in 60s on 2 vasopressors which are maxed After discussing with cardiology we dissected start dobutamine drip Family decided to pursue DNR/DNI goals of care, her ICU nurse discussed goals of care with the family Femoral line was placed by ER physician
--- NOTE | 2020-08-15 00:42 | PM.ACPR ---
Procedure/Consent Consent: Consent for Procedure: Consent obtained from patient Procedure Narrative: Right-sided femoral line placement Consent was taken from the patient and the family, sterile dressing and sterile prep of right groin area , 1% lidocaine 5 mL was injected , after visualization of femoral vein via ultrasound femoral vein was cannulized, Seldinger technique was used to place triple-lumen catheter, guidewires are successfully retracted, all 3 lines were flushed with good return, central line was placed by Dr. Mansfield, estimated blood loss 10 mL, no postprocedure complications
[2020-08-15] MEDS: morphine 4 mg/mL SDV 1 mL 2 MG IVP (01:04)
[2020-08-15] MEDS: ondansetron 2 mg/ML SDV 2 mL 4 MG IVP (01:04)
--- NOTE | 2020-08-15 02:18 | PC.NURSE ---
Addendum entered by Dominique Deluca RN 08/15/20 03:09: 2nd nurse verified patient via carotid pulse and auscultation for heart sounds with Neetu Ley RN at 0207 on 08/15/2020. Both were absent. Original Note: 020 on 08/15/2020 time of confirmed via pulse (carotid) check and auscultation for heart sounds. Both were both absent from patient this time. 2nd verification done by Dominique Gillespie RN
--- NOTE | 2020-08-15 02:22 | PC.NURSE ---
[facility] Transplant rep, Chiquita Ritter (ref#[id number]) notified of patient . Family declines any organ donation. Per Chiquita Ritter, ok to release body to the family of choice.
--- NOTE | 2020-08-15 03:52 | NUR.SHIFT ---
Received pt from ED on 5L/NC, OX3 with intermittent episodes of confusion, V-Paced on monitor, pt is very hypotensive on Levophed @ 10mcg. I called and notified hospitalist, Dr. Thomas upon pt arrival because pt is requiring more Levophed for BP support. Per Dr. Anderson, titrate Levophed until MAP of 65 is achieved. He also ordered Albumin. Dr. Mariscal at bedside @ 2100 who ordered to vasopressin drip to help with patient's BP. 2200 Pt's oxygen saturation is worsening on 6L/NC. CUTTER HAND was asked to evaluate pt and pt had to be placed on Bipap to help with patient's breathing with MD orders. 2230 Pt's condition continues to deriorate, MD notified and on his way patient bedside to place a central line with possibility of intubating patient 2250: Called Dr. Mariscal ask for Dobutamine drip, as pt's blood is not improving and already in high doses of vasopressin and levophed. 2300 Pt family have decided to not intubate and modify code status to AND. 0015 family at bedside. 0100: pt removed from bipap as she vomitted d/t risk of aspiration, pt is now on heated hi-flow for oxygenation, and less responsive. 0207. Pt expires
--- NOTE | 2020-08-15 07:19 | P.DES_ITS ---
Discharge Providers DDS Date of Admission: 08/14/20 13:20 Date Summary Completed: 08/15/20 Attending Provider at Admission: Hector Paz MD Time of : 02:07 Attending Provider at Discharge: Hector Paz MD Primary Care Provider: James Sy MD DS Diagnoses Hospital Diagnoses (1) Hypotension: Problem details: Likely combination of infection, heart failure, hepatorenal syndrome and third spacing. Septic shock cannot be ruled out. (2) Cardiac cirrhosis: (3) CHF (congestive heart failure): Problem details: Chronic systolic (4) Anasarca: (5) UTI (urinary tract infection): Problem details: Highly suspected. (6) Pneumonia: Problem details: Left lower quadrant, concern for healthcare associated bacterial infection (7) Acute kidney injury superimposed on chronic kidney disease: (8) Severe mitral regurgitation: Problem details: Present on admission (9) Acute on chronic respiratory failure with hypoxemia: Problem details: Likely developed as a result of progression of infection and acute CHF. Reason for Visit Reason for Visit: ABNORMAL LABS Summary Date and Time of Date of : 08/15/20 Time of : 02:07 Summary Summary: Patient presented hypotensive which felt to be related mostly to infection, pneumonia. Her treatment was complicated by severe underlying cardiomyopathy with EF 20-25% with severe mitral regurgitation. We were unable to diurese patient because of hypotension. She was started on Levophed drip and antibioti cs, Primaxin, Levaquin and vancomycin. Retrospectively patient likely had some degree of acute on chronic systolic heart failure. She was given some fluids on presentation and because of severe third spacing and hypotension she was given 1 dose of albumin. Her oxygen requirement worsened and she developed acute on chronic hypoxic respiratory failure requiring 5 L of oxygen. Family were at bedside and they made patient DNR and shortly after patient . Additional Data Confirmation of as documented by pronouncing clinician: no pulse, no respirations and no heart sounds Family: at bedside Additional persons at bedside: nursing staff Attending/PCP notified?: PCP will be notified Was code activated?: No Autopsy requested?: No Advance directives?: Yes Hospice patient?: No Discharge Plan Discharge Patient Disposition: Condition: Prescriptions: No Action thyroid (pork) [[place] Thyroid] 90 mg Tablet 90 mg PO QAM RF: 0 rosuvastatin 10 mg tablet 10 mg PO BEDTIME RF: 0 ipratropium-albuterol 0.5 mg-3 mg(2.5 mg base)/3 mL Solution For Nebulization 3 ml inhalation Q6H PRN (Reason: Shortness Of Breath) 30 Days RF: 0 aspirin 81 mg Tablet,Delayed Release (Dr/Ec) 81 mg PO DAILY 30 Days RF: 0 nitroglycerin 0.4 mg Tablet, Sublingual 0.4 mg sublingual Q5M PRN (Reason: chest pain) 30 Days RF: 0 Lanolin (HPA) 100 % Cream 1 applic topical PRN PRN (Reason: Dryness) 30 Days RF: 0 pantoprazole 40 mg Tablet,Delayed Release (Dr/Ec) 40 mg PO BID 30 Days Qty: 60 RF: 0 furosemide 20 mg Tablet 20 mg PO BID@08,16 30 Days RF: 0 I-Gunnar 1,000 unit-200 mg-60 unit-2 mg Tablet 1 tab PO DAILY RF: 0 spironolactone 25 mg Tablet 25 mg PO BID Qty: 60 RF: 0 acetazolamide 250 mg Tablet 250 mg PO BID RF: 0 Betadine Swabsticks 10 % Swab See Rx Instructions .ROUTE .COMPLEX RF: 0 Adult Multivitamin (w-lutein) 200-137.5 mcg Tablet,Chewable 1 tab PO DAILY RF: 0 Entresto 24-26 mg Tablet 1 tab PO BID RF: 0 metoprolol tartrate 25 mg Tablet 12.5 mg PO BID RF: 0 Referrals: James Sy MD [Primary Care Provider] - DS Attestations Time Spent in /Discharge Care*: less than 30 min Quality - AMI: AMI present?: No Quality - Stroke: CVA present?: No Symptom Onset Unknown: No Quality - VTE: VTE present?: No Deep Vein Thrombosis/Pulmonary Embolism Present on Admission: No Coding Level of Care Code Acute Medical Office Representative for g Fwd Diagnoses Hypotension I95.9 Cardiac cirrhosis K76.1 CHF (congestive heart failure) I50.9 Anasarca R60.1 UTI (urinary tract infection) N39.0 Pneumonia J18.9 Acute kidney injury superimposed on chronic kidney disease N17.9; N18.9 Severe mitral regurgitation I34.0 Acute on chronic respiratory failure with hypoxemia J96.21
== END 2020-08-15 02:07 | disposition expired | DRG 871 ==
LOC: ER 13:22 → ICU 18:49
PROVIDERS: Admitting Provider Internal Medicine; Emergency Provider Family Medicine; PCP Family Medicine; Visit Provider Internal Medicine
DX: A41.9 Sepsis, unspecified organism (principal); R65.21 Severe sepsis with septic shock; J18.9 Pneumonia, unspecified organism; I50.23 Acute on chronic systolic (congestive) heart failure; K76.7 Hepatorenal syndrome; J96.21 Acute and chronic respiratory failure with hypoxia; I13.0 Hypertensive heart and chronic kidney disease with heart failure and stage 1 through stage 4 chronic kidney disease, or unspecified chronic kidney disease; N17.9 Acute kidney failure, unspecified; I42.9 Cardiomyopathy, unspecified; N39.0 Urinary tract infection, site not specified; R18.8 Other ascites; I95.9 Hypotension, unspecified; N18.9 Chronic kidney disease, unspecified; E11.22 Type 2 diabetes mellitus with diabetic chronic kidney disease; Z99.81 Dependence on supplemental oxygen; I08.3 Combined rheumatic disorders of mitral, aortic and tricuspid valves; Z87.440 Personal history of urinary (tract) infections; Z87.01 Personal history of pneumonia (recurrent); I48.91 Unspecified atrial fibrillation; E78.5 Hyperlipidemia, unspecified; E03.9 Hypothyroidism, unspecified; I27.20 Pulmonary hypertension, unspecified; Z95.0 Presence of cardiac pacemaker; K76.1 Chronic passive congestion of liver; I50.814 Right heart failure due to left heart failure; Z66 Do not resuscitate; R57.0 Cardiogenic shock
CPT/HCPCS: 12345; 36556; 71045; 80053; 83605; 83735; 83880; 84100; 85025; 85610; 85651; 85730; 86140; 93005; 94660; 96372; 99283; J0743; J1250; J1265; J1650; J2270; J2405; J3370; J3490; J7030; J7050; P9047